=== PATIENT | female | born 1935 | race Caucasian/White ===

== ENCOUNTER → 2019-01-17 | Outpatient (CLI) | payer MEDICARE ==
--- NOTE | 2019-01-17 16:20 | Diagnostic Imaging Report ---
INDICATION: 83-year-old postmenopausal female. COMPARISON: None. FINDINGS: AP Spine L1-L4: [BMD (g/cm2): 1.093] [T-Score: -0.9] [Z-Score: 1.5] [BMD Previous: N/A] [BMD % Change: N/A] LT Hip Neck: [BMD (g/cm2): 0.599] [T-Score: -3.2] [Z-Score: -0.6] LT Hip Total: [BMD (g/cm2):0.653] [T-Score:-2.8] [Z-Score: -0.3] [BMD Previous: N/A] [BMD % Change: N/A] RT Hip Neck: [BMD (g/cm2):0.625] [T-Score:-3.0] [Z-Score:-0.4] RT Hip Total: [BMD (g/cm2):0.689] [T-score:-2.5] [Z-Score:-0.1] [BMD Previous:N/A] [BMD % Change:N/A] World Health Organization criteria for BMD interpretation classify patients as Normal (T-score at or above -1.0), Osteopenic (T-score between -1.0 and -2.5) or Osteoporotic (T-score at or below -2.5). LIMITATIONS AND MODIFICATION: None. IMPRESSION: 1. Osteoporosis. 2. Baseline examination. 3. See below National Osteoporosis Foundation guidelines on when to potentially initiate pharmacologic therapy. Based on the National Osteoporosis Foundation Guidelines, pharmacologic treatment should be initiated in any of the following, unless clinical conditions suggest otherwise: * Any patient with prior fragility fracture of the hip or vertebrae. A spine fracture indicates 5X risk for subsequent spine fracture and 2X risk for subsequent hip fracture. * Osteoporosis (T-score <-2.5). * Postmenopausal women and men age 50 and older with low bone mass/osteopenia (T-score between -1.0 and -2.5) by DXA and 10-year major osteoporotic fracture greater than 20% or a 10-year probability of hip fracture greater than 3%. These fracture risks are supplied above in the FRAX score, if applicable. * Clinician judgment and/or patient preferences may indicate treatment for people with 10-year fracture probabilities above or below these levels. Dictated by: Dictated on workstation # [id number]
== END ==
LOC: RAD 14:07
PROVIDERS: ATTEND Internal Medicine
DX: M81.0 Age-related osteoporosis without current pathological fracture (principal); Z78.0 Asymptomatic menopausal state
CPT/HCPCS: 77080

== ENCOUNTER 2019-06-29 12:24 | Inpatient (IN) | payer MEDICARE ==
[~2019-06-29] VITALS: Ht 162 cm; Wt 53.0 kg
[2019-06-29 12:39] LABS: BASOPHILS % (AUTO) 0 % (0-10); EOSINOPHILS # (AUTO) 0.1 10^3/uL (0.0-0.3); EOSINOPHILS % (AUTO) 1 % (0-10); HEMATOCRIT 40 % (35-52); HEMOGLOBIN 13.5 G/DL (11.5-16.0); LYMPHOCYTES # (AUTO) 1.2 X 10^3 (1.0-4.0); LYMPHOCYTES % (AUTO) 14 % (12-44); MEAN CORPUSCULAR HEMOGLOBIN 30 PG (25-34); MEAN CORPUSCULAR HGB CONC 34 G/DL (32-36); MEAN CORPUSCULAR VOLUME 88 FL (80-99); MEAN PLATELET VOLUME 10.1 FL (7.4-10.4); MONOCYTES # (AUTO) 0.8 X 10^3 (0.0-1.0); MONOCYTES % (AUTO) 10 % (0-12); NEUTROPHILS # (AUTO) 6.4 X 10^3 (1.8-7.8); NEUTROPHILS % (AUTO) 75 % (42-75); PLATELET COUNT 186 10^3/uL (130-400); RED CELL DISTRIBUTION WIDTH 12.8 % (10.0-14.5); WHITE BLOOD COUNT 8.5 10^3/uL (4.3-11.0)
--- NOTE | 2019-06-29 12:39 | ED Hip Pain/Injury ---
General Chief Complaint: Hip/Pelvic Problems Stated Complaint: RT HIP FX Source: patient, EMS Exam Limitations: no limitations History of Present Illness Date Seen by Provider: June 29, 2019 Time Seen by Provider: 12:20 Initial Comments Patient presents ER by EMS from [facility] with chief complaint that on Wednesday, 4 days ago she was at her daughter's house and tripped over the threshold with her left leg landing on her right hip. She denies striking her head but she's felt a little dizzy ever since then. She did not lose consciousness. She's having significant pain and inability to completely weight- bear on her right leg. She uses a walker that she had available at her house and continue to walk on it until she had her clinic appointment today. Naveen Calix, nurse practitioner at an x-ray of her hip demonstrating a fracture in the right femoral neck and sent the patient to the ER at request of their admitting physician. Patient says her pains a 5 out of 10. EMS did not give anything for pain because she did not want it. No prior history of fractures. She is on Plavix but no blood thinners. Last oral intake was a Boost at 10:00, 2 and half hours prior to arrival. Patient has no history of coronary disease. 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 Allergies and Home Medications Allergies Coded Allergies: Penicillins (Verified Adverse Reaction, Unknown, itching, 06/29/19) azithromycin (Verified Adverse Reaction, Unknown, itching, 06/29/19) hydrocodone (Verified Adverse Reaction, Unknown, itching, 06/29/19) Patient Home Medication List Home Medication List Reviewed: Yes Review of Systems Constitutional: No chills, No fever, No malaise EENTM: No ear pain, No eye pain Respiratory: No cough, No phlegm, No short of breath Cardiovascular: No chest pain, No edema Gastrointestinal: No abdominal pain, No constipation, No diarrhea, No nausea Genitourinary: No discharge, No dysuria Musculoskeletal: see HPI; No back pain; joint pain Psychiatric/Neurological: Denies Anxiety, Denies Depressed All Other Systems Reviewed Negative Unless Noted: Yes Past Dhvyuso-Qshrrc-Tlgjiz Hx Patient Social History Alcohol Use: Denies Use Recreational Drug Use: No Smoking Status: Never a Smoker Physical Exam Vital Signs Vital Signs - First Documented 06/29/19 12:24 Temp 37.0 Pulse 70 Resp 16 B/P (MAP) 186/101 (129) Pulse Ox 97 O2 Delivery Room Air Capillary Refill : Height, Weight, BMI Height: '" Weight: lbs. oz. kg; BMI Method: General Appearance: WD/WN, Mild Distress HEENT: PERRL/EOMI, TMs Normal, Normal ENT Inspection, Pharynx Normal, Moist Mucous Membranes Neck: Full Range of Motion, Normal Inspection Cardiovascular: Regular Rate, Rhythm, No Edema, Normal Peripheral Pulses Respiratory: No Accessory Muscle Use, No Respiratory Distress Peripheral Pulses: 2+ Dorsalis Pedis (R), 2+ Left Dors-Pedis (L), 2+ Radial Pulses (R), 2+ Radial Pulses (L) Gastrointestinal: Non Tender, Soft Extremity: Normal Capillary Refill, Normal Inspection, No Pedal Edema Neurologic/Psychiatric: Alert, Oriented x3, No Motor/Sensory Deficits, Normal Mood/Affect Skin: Normal Color, Warm/Dry Progress/Results/Core Measures Results/Orders Lab Results Laboratory Tests Test 06/29/19 12:30 Range/Units White Blood Count 8.5 4.3-11.0 10^3/uL Red Blood Count 4.58 4.35-5.85 10^6/uL Hemoglobin 13.5 11.5-16.0 G/DL Hematocrit 40 35-52 % Mean Corpuscular Volume 88 80-99 FL Mean Corpuscular Hemoglobin 30 25-34 PG Mean Corpuscular Hemoglobin Concent 34 32-36 G/DL Red Cell Distribution Width 12.8 10.0-14.5 % Platelet Count 186 130-400 10^3/uL Mean Platelet Volume 10.1 7.4-10.4 FL Neutrophils (%) (Auto) 75 42-75 % Lymphocytes (%) (Auto) 14 12-44 % Monocytes (%) (Auto) 10 0-12 % Eosinophils (%) (Auto) 1 0-10 % Basophils (%) (Auto) 0 0-10 % Neutrophils # (Auto) 6.4 1.8-7.8 X 10^3 Lymphocytes # (Auto) 1.2 1.0-4.0 X 10^3 Monocytes # (Auto) 0.8 0.0-1.0 X 10^3 Eosinophils # (Auto) 0.1 0.0-0.3 10^3/uL Basophils # (Auto) 0.0 0.0-0.1 10^3/uL Prothrombin Time 12.9 12.2-14.7 SEC INR Comment 0.9 0.8-1.4 Activated Partial Thromboplast Time 29 24-35 SEC Sodium Level 138 135-145 MMOL/L Potassium Level 4.1 3.6-5.0 MMOL/L Chloride Level 106 98-107 MMOL/L Carbon Dioxide Level 24 21-32 MMOL/L Anion Gap 8 5-14 MMOL/L Blood Urea Nitrogen 18 7-18 MG/DL Creatinine 0.68 0.60-1.30 MG/DL Estimat Glomerular Filtration Rate > 60 BUN/Creatinine Ratio 26 Glucose Level 121 H 70-105 MG/DL Calcium Level 10.4 H 8.5-10.1 MG/DL Corrected Calcium 10.2 H 8.5-10.1 MG/DL Total Bilirubin 0.8 0.1-1.0 MG/DL Aspartate Amino Transf (AST/SGOT) 27 5-34 U/L Alanine Aminotransferase (ALT/SGPT) 24 0-55 U/L Alkaline Phosphatase 54 40-136 U/L Troponin I < 0.028 <0.028 NG/ML Total Protein 7.0 6.4-8.2 GM/DL Albumin 4.2 3.2-4.5 GM/DL My Orders Orders - MARIANN DILL Cbc With Automated Diff (06/29/19 12:29) Comprehensive Metabolic Panel (06/29/19 12:29) Ua Culture If Indicated (06/29/19 12:29) Catheter(Urinary) Insert & Ass 03,15 (06/29/19 12:29) Chest 1 View, Ap/Pa Only (06/29/19 12:29) Ct Head/Cervical Spine Wo (06/29/19 12:29) Protime With Inr (06/29/19 12:39) Partial Thromboplastin Time (06/29/19 12:39) Fentanyl Injection (Sublimaze Injection (06/29/19 12:45) Continuous Ekg Monitoring (06/29/19 12:43) Ekg Tracing (06/29/19 12:43) Troponin I (06/29/19 13:00) Pelvis With Right Hip 2-3views (06/29/19 14:09) Medications Given in ED Current Medications Medications Dose Ordered Sig/Keila Route Start Time Stop Time Status Last Admin Dose Admin Fentanyl Citrate 50 mcg ONCE ONCE IVP 06/29/19 12:45 06/29/19 12:46 DC 06/29/19 12:48 50 MCG Vital Signs/I&O 06/29/19 12:24 Temp 37.0 Pulse 70 Resp 16 B/P (MAP) 186/101 (129) Pulse Ox 97 O2 Delivery Room Air Progress Progress Note #1: Time: 12:38 Progress Note Fentanyl for pain. We reviewed the x-ray report. We'll get a chest x-ray and some basic labs. Since she's having some reported dizziness although she has an atraumatic head on examination we would plan to get a CT of her head and neck. Progress Note #2: Time: 13:10 Progress Note The patient not having any chest pain pressure or other coronary symptoms however she does have some characteristic one half to one block elevation in the following leads: V5, V6. There are no surgical changes. Do not have any previous EKGs to compare this to and she denies having a history of coronary disease. We'll get a troponin. Initial ECG Impression Date: June 29, 2019 Initial ECG Impression Time: 12:52 Initial ECG Rate: 71 Initial ECG Rhythm: Normal Sinus Initial ECG Intervals: Normal Initial ECG Impression: Normal Initial ECG Comparisson: No Previous ECG Available Comment Normal sinus rhythm. One half to one block ST elevation in lateral leads V5 and V6. Diagnostic Imaging Diagonstic Imaging: Xray Plain Films/CT/US/NM/MRI: chest (1v) Comments [facility], [place] NAME: KENDALL NICHOLAS [facility] REC#: [id number] PT STATUS: REG ER : 1935 PHYSICIAN: MARIANN DILL MD ADMIT DATE: 06/29/19/ER Draft Date of Exam:06/29/19 CHEST 1 VIEW, AP/PA ONLY INDICATION: Post recent fall, now with pain. TECHNIQUE: Single view chest 1:31 PM. CORRELATION STUDY: None FINDINGS: Heart size is upper limits of normal. Vasculature within normal limits. Calcification of the aortic arch. Mildly prominent interstitial prominence throughout both lung keane. Likely chronic. No infiltrate, effusion or pneumothorax. There is prominence of the acromioclavicular joints, may be owing to prior traumatic changes with osteolysis and/or postoperative. IMPRESSION: 1. Negative for acute traumatic abnormality of the chest. Dictated on workstation # [id number] Dict: 06/29/19 1337 Trans: 06/29/19 1344 [facility] [id number] Interpreted by: SHARON CROWE DO Electronically signed by: Reviewed: Reviewed by Me Diagonstic Imaging: Xray Plain Films/CT/US/NM/MRI: hip (r) Comments Fracture of the upper right femoral neck. Fracture margin extends to the adjacent lower lateral corner of the femoral head. Reviewed: Reviewed by Ma Diagonstic Imaging: CT (without IV contrast) Plain Films/CT/US/NM/MRI: c-spine, head Comments NAME: KENDALL NICHOLAS [facility] REC#: [id number] PT STATUS: REG ER : 1935 PHYSICIAN: MARIANN DILL MD ADMIT DATE: 06/29/19/ER Signed Date of Exam:06/29/19 CT HEAD/CERVICAL SPINE WO PROCEDURE: CT head and CT cervical spine without contrast. TECHNIQUE: Multiple contiguous axial images were obtained through the brain and cervical spine without the use of intravenous contrast. Sagittal and coronal reformations through the cervical spine were then performed. Auto Exposure Controls were utilized during the CT exam to meet ALARA standards for radiation dose reduction. INDICATION: Fall four days ago. Headache and dizziness. Scalp contusion. Neck pain. COMPARISON: None. FINDINGS: CT head: No large acute territorial ischemia, mass, or hemorrhage. No midline shift or mass effect. Decreased attenuation is seen in the periventricular and subcortical white matter. The ventricles and cortical sulci are prominent. The basilar cisterns are patent and unremarkable. The calvarium is intact. The visualized paranasal sinuses are clear. CT cervical spine: No acute fracture or dislocation is seen in the cervical spine. No focal osseous lesions. Vertebral body heights are well-maintained. There is slight reversal of the normal lordotic curvature of the cervical spine centered at the C5 level. The craniocervical junction is well-maintained. Mild degenerative changes are seen in the cervical spine with disc osteophyte complexes and uncovertebral arthropathy. Soft tissues of the neck are unremarkable. IMPRESSION: 1. No hemorrhage or focal intra-axial mass. No CT evidence of large acute territorial ischemia. 2. No acute fracture or dislocation in the cervical spine. 3. Generalized parenchymal volume loss with chronic microvascular disease. Dictated by: Dictated on workstation # [id number] Dict: 06/29/19 1333 Trans: 06/29/191338 [facility] [id number] Interpreted by: ITZ RILEY DO Electronically signed by: ITZ RILEY DO 06/29/191338 Reviewed: Reviewed by Me Consults : Consulting Physician: BARBARA HOLMAN DO Consults Notes [id number]:Trauma surgeon on-call discussed the case and he does not feel the need to be consulted as long as orthopedics are on the case. Departure Communication (Admissions) Time/Spoke to Admitting Phy: 14:05 Discussed the case with Dr. Pérez and she is happy to admit the patient with orthopedics consult. Time/Spoke to Consulting Phy: 14:05 Discussed the case with Drs. Galdamez and he agrees to consult on the case. He would like repeat images of the hip. Impression Primary Impression: Fall Qualified Codes: W19.XXXA - Unspecified fall, initial encounter Additional Impression: Closed right hip fracture Qualified Codes: S72.001A - Fracture of unspecified part of neck of right femur, initial encounter for closed fracture Disposition: ADMITTED INPATIENT Condition: Stable Admissions Decision to Admit Reason: Admit from ER (General) Decision to Admit/Date: June 29, 2019 Time/Decision to Admit Time: 13:00 Departure-Patient Inst. Referrals: PHOEBE DAILEY MD (PCP/Family) Primary Care Physician MARIANN DILL June 29, 2019 12:39
[2019-06-29] MEDS ORDERED: fentaNYL INJECTION 100 MCG/2 ML AMP IVP ONE (12:45)
[2019-06-29 13:04] LABS: ALANINE AMINOTRANSFERASE 24 U/L (0-55); ALBUMIN 4.2 GM/DL (3.2-4.5); ALKALINE PHOSPHATASE 54 U/L (40-136); BILIRUBIN,TOTAL 0.8 MG/DL (0.1-1.0); BUN/CREATININE RATIO 26; CALCIUM 10.4 MG/DL (8.5-10.1); CARBON DIOXIDE 24 MMOL/L (21-32); CHLORIDE 106 MMOL/L (98-107); CREATININE SERUM 0.68 MG/DL (0.60-1.30); GFR ESTIMATED > 60; GLUCOSE 121 MG/DL (70-105); POTASSIUM 4.1 MMOL/L (3.6-5.0); SODIUM 138 MMOL/L (135-145)
--- NOTE | 2019-06-29 13:39 | Diagnostic Imaging Report ---
PROCEDURE: CT head and CT cervical spine without contrast. TECHNIQUE: Multiple contiguous axial images were obtained through the brain and cervical spine without the use of intravenous contrast. Sagittal and coronal reformations through the cervical spine were then performed. Auto Exposure Controls were utilized during the CT exam to meet ALARA standards for radiation dose reduction. INDICATION: Fall four days ago. Headache and dizziness. Scalp contusion. Neck pain. COMPARISON: None. FINDINGS: CT head: No large acute territorial ischemia, mass, or hemorrhage. No midline shift or mass effect. Decreased attenuation is seen in the periventricular and subcortical white matter. The ventricles and cortical sulci are prominent. The basilar cisterns are patent and unremarkable. The calvarium is intact. The visualized paranasal sinuses are clear. CT cervical spine: No acute fracture or dislocation is seen in the cervical spine. No focal osseous lesions. Vertebral body heights are well-maintained. There is slight reversal of the normal lordotic curvature of the cervical spine centered at the C5 level. The craniocervical junction is well-maintained. Mild degenerative changes are seen in the cervical spine with disc osteophyte complexes and uncovertebral arthropathy. Soft tissues of the neck are unremarkable. IMPRESSION: 1. No hemorrhage or focal intra-axial mass. No CT evidence of large acute territorial ischemia. 2. No acute fracture or dislocation in the cervical spine. 3. Generalized parenchymal volume loss with chronic microvascular disease. Dictated by: Dictated on workstation # [id number]
--- NOTE | 2019-06-29 13:44 | Diagnostic Imaging Report ---
INDICATION: Post recent fall, now with pain. TECHNIQUE: Single view chest 1:31 PM. CORRELATION STUDY: None FINDINGS: Heart size is upper limits of normal. Vasculature within normal limits. Calcification of the aortic arch. Mildly prominent interstitial prominence throughout both lung keane. Likely chronic. No infiltrate, effusion or pneumothorax. There is prominence of the acromioclavicular joints, may be owing to prior traumatic changes with osteolysis and/or postoperative. IMPRESSION: 1. Negative for acute traumatic abnormality of the chest. Dictated by: Dictated on workstation # [id number]
[2019-06-29 13:50] LABS: INR 0.9 (0.8-1.4); PROTHROMBIN TIME PATIENT 12.9 SEC (12.2-14.7)
[2019-06-29 14:30] LABS: BILIRUBIN,URINE NEGATIVE (NEGATIVE); CLARITY,URINE CLEAR; COLOR,URINE YELLOW; GLUCOSE, URINE (UA) NEGATIVE (NEGATIVE); KETONES,URINE TRACE (NEGATIVE); LEUKOCYTE ESTERASE ,URINE NEGATIVE (NEGATIVE); NITRITE,URINE NEGATIVE (NEGATIVE); PH,URINE 7.5 (5-9); PROTEIN,URINE NEGATIVE (NEGATIVE)
[2019-06-29 14:47] LABS: AMORPHOUS SEDIMENT,UR LARGE AMOR PHOSPHATE /LPF; BACTERIA,URINE TRACE /HPF
[2019-06-29] MEDS ORDERED: traZODone 50 MG (DESYREL) TAB PO PRN (15:15)
[2019-06-29] MEDS ORDERED: CATHETER FLUSH 10 ML SYR IV PRN (15:15)
[2019-06-29] MEDS ORDERED: ONDANSETRON 4 MG/2 ML (SDV) Z0FRAN IV PRN (15:15)
[2019-06-29] MEDS ORDERED: fentaNYL INJECTION 100 MCG/2 ML AMP IV PRN (15:15)
--- OUTSIDE RECORDS SUMMARY | 2019-06-29 15:21 | XMS REPORT | Continuity of Care Document ---
Author Organization Unknown Address Unknown Phone Unavailable Allergies There is no data. Medications There is no data. Problems Date Dx Coded Attending Type Code Diagnosis Diagnosed By 01/17/2019 ASIM DOBBS, PHOEBE Munguia Ot M81 .0 AGE-RELATED OSTEOPOROSIS W/O CURRENT PAT 01/17/2019 PHOEBE DAILEY MD, Ot M81 .0 AGE-RELATED OSTEOPOROSIS W/O CURRENT PAT 01/30/2019 PHOEBE DAILEY MD, Ot M81 .0 AGE-RELATED OSTEOPOROSIS W/O CURRENT PAT 01/30/2019 PHOEBE DAILEY MD, Ot Z78 .0 ASYMPTOMATIC MENOPAUSAL STATE Procedures There is no data. Results Test Result Range LIPID PANEL - 04/18/19 11:03 CHOLESTEROL, TOTAL 134 mg/dL <200 HDL CHOLESTEROL 59 mg/dL > OR = 50 TRIGLYCERIDES 101 mg/dL <150 LDL-CHOLESTEROL 57 mg/dL (calc) NRG CHOL/HDLC RATIO 2.3 (calc) <5.0 NON HDL CHOLESTEROL 75 mg/dL (calc) <130 Complete blood count (CBC) with automate d white blood cell (WBC) differential - 06/29/19 12:30 Blood leukocytes automated count (number/volume) 8.5 10*3/uL 4.3-11.0 Blood erythrocytes automated count (number/volume) 4.58 10*6/uL 4.35-5.85 Venous blood hemoglobin measurement (mass/volume) 13.5 g/dL 11.5-16.0 Blood hematocrit (volume fraction) 40 % 35-52 Automated erythrocyte mean corpuscular volume 88 [ foz_us] 80-99 Automated erythrocyte mean corpuscular h emoglobin (mass per erythrocyte) 30 pg 25-34 Automated erythrocyte mean corpuscular h emoglobin concentration measurement (mass/volume) 34 g/dL 32-36 Automated erythrocyte distribution width ratio 12. 8 % 10.0- 14.5 Automated blood platelet count (count/volume) 186 10*3/uL 130-400 Automated blood platelet mean volume measurement 10.1 [foz_us] 7.4-10.4 Automated blood neutrophils/100 leukocytes 75 % 42-75 Automated blood lymphocytes/100 leukocytes 14 % 12-44 Blood monocytes/100 leukocytes 10 % 0-12 Automated blood eosinophils/100 leukocytes 1 % 0-10 Automated blood basophils/100 leukocytes 0 % 0-10 Blood neutrophils automated count (number/volume) 6.4 10*3 1.8-7.8 Blood lymphocytes automated count (number/volume) 1.2 10*3 1.0-4.0 Blood monocytes automated count (number/volume) 0. 8 10*3 0.0-1.0 Automated eosinophil count 0.1 10*3/uL 0 .0-0.3 Automated blood basophil count (count/volume) 0.0 10*3/uL 0.0-0.1 Comprehensive metabolic panel - 06/29/19 12:30 Serum or plasma sodium measurement (moles/volume) 138 mmol/L 135-145 Serum or plasma potassium measurement (moles/volume) 4.1 mmol/L 3.6-5.0 Serum or plasma chloride measurement (moles/volume) 106 mmol/L 98-107 Carbon dioxide 24 mmol/L 21-32 Serum or plasma anion gap determination (moles/volume) 8 mmol/L 5-14 Serum or plasma urea nitrogen measurement (mass/volume ) 18 mg/dL 7-18 Serum or plasma creatinine measurement (mass/volume) 0.68 mg/dL 0.60-1.30 Serum or plasma urea nitrogen/creatinine mass ratio 26 NRG Serum or plasma creatinine measurement w ith calculation of estimated glomerular filtration rate > NRG Serum or plasma glucose measurement (mass/volume) 121 mg/dL 70-105 Serum or plasma calcium measurement (mass/volume) 10.4 mg/dL 8.5-10.1 Serum or plasma total bilirubin measurement (mass/volu me) 0.8 mg/dL 0.1-1.0 Serum or plasma alkaline phosphatase lima surement (enzymatic activity/volume) 54 U/L 40-136 Serum or plasma aspartate aminotransfera se measurement (enzymatic activity/volume) 27 U/L 5-34 Serum or plasma alanine aminotransferase measurement (enzymatic activity/volume) 24 U/L 0-55 Serum or plasma protein measurement (mass/volume) 7.0 g/dL 6.4-8.2 Serum or plasma albumin measurement (mass/volume) 4.2 g/dL 3.2-4.5 CALCIUM CORRECTED 10.2 mg/dL 8.5-10.1 Serum or plasma troponin i.cardiac measu rement (mass/volume) - 06/29/19 12:30 Serum or plasma troponin i.cardiac measurement (mass/v olume) < ng/mL <0.028 PT panel in platelet poor plasma by coag ulation assay - 06/29/19 12:30 Prothrombin time (PT) in platelet poor plasma by coagu lation assay 12.9 s 12.2-14.7 INR in platelet poor plasma or blood by coagulation as say 0.9 0.8-1.4 Activated partial thromboplastin time (a PTT) in platelet poor plasma bycoagulation assay - 06/29/19 12:30 Activated partial thromboplastin time (a PTT) in platelet poor plasma bycoagulation assay 29 s 24-35 Complete urinalysis with reflex to cultu re - 06/29/19 14:20 Urine color determination YELLOW NRG Urine clarity determination CLEAR NR G Urine pH measurement by test strip 7.5 5-9 Specific gravity of urine by test strip 1.015 1.016-1.022 Urine protein assay by test strip, semi-quantitative NEGATIVE NEGATIVE Urine glucose detection by automated test strip NE GATIVE NEGATIVE Erythrocytes detection in urine sediment by light micr oscopy NEGATIVE NEGATIVE Urine ketones detection by automated test strip TR WAI NEGATIVE Urine nitrite detection by test strip NEGATIVE NEGATIVE Urine total bilirubin detection by test strip NEGA TIVE NEGATIVE Urine urobilinogen measurement by automated test strip (mass/volume) 0.2 mg/dL < = 1.0 Urine leukocyte esterase detection by dipstick NEG ATIVE NEGATIVE Automated urine sediment erythrocyte cou nt by microscopy (number/high power field) NONE NRG Automated urine sediment leukocyte count by microscopy (number/high power field) NONE NRG Bacteria detection in urine sediment by light microsco py TRACE NRG Crystals detection in urine sediment by light microsco py PRESENT NRG Casts detection in urine sediment by light microscopy NONE NRG Mucus detection in urine sediment by light microscopy NEGATIVE NRG Complete urinalysis with reflex to culture NO NRG Amorphous sediment detection in urine sediment by ligh t microscopy LARGE SUNSHINE PHOSPHATE NRG Encounters ACCT No. Visit Date/Time Discharge Status Pt. Type Provider Facility Loc./Unit Complaint [id number] 10/18/2018 09:40:00 10/18/2018 23:59: 59 CLS Outpatient [id number] 04/18/2019 10:20:00 Document Registration [id number] 01/17/2019 14:07:00 019 23:59:59 CLS Outpatient PHOEBE DAILEY MD [facility] RAD AGE-RELATED OSTEOPOROSI S M81.0 [id number] 06/29/2019 12:40:00 Document Registration
[2019-06-29] MEDS ORDERED: TRZ50T PO (15:34)
[2019-06-29] MEDS ORDERED: CLOP75TA28 PO (15:34)
[2019-06-29] MEDS ORDERED: ATOR40TA70 PO (15:34)
[2019-06-29] MEDS ORDERED: RISE35TA12 PO (15:34)
[2019-06-29] MEDS ORDERED: LISI-556 PO (15:34)
[2019-06-29] MEDS ORDERED: CALC-250 PO (15:37)
[2019-06-29] MEDS ORDERED: CETI10TA21 PO (15:37)
[2019-06-29] MEDS ORDERED: MELA10TA2 PO (15:37)
[2019-06-29] MEDS ORDERED: MULT-1136 PO (15:37)
--- NOTE | 2019-06-29 15:38 | NUR ---
SPOKE WITH THE PT AND WENT THRU THE EXT MED HISTORY TO COMPLETE THE MED REC THE PT WAS ABLE TO TELL ME HER MEDS WELL WHEN/HOW SHE TAKES EACH. OTC MEDS: MELATONIN MTV VIT D ZYRTEC
--- NOTE | 2019-06-29 15:51 | NUR ---
KENDALL NICHOLAS admitted to room 424-1, with an admitting diagnosis of right hip fx, on 06/29/19 from ER via stretcher, accompanied by staff .KENDALL NICHOLAS introduced to surroundings, call light, bed controls, phone, TV, temperature control, lights, meal times, smoking policy, visitor policy, side rail policy, bathrooms and showers. Patient Rights given to patient in the handbook. KENDALL NICHOLAS verbalizes understanding that [facility] is not responsible for the loss or damage to any personal effects or valuables that are kept in the patients posession during their hospitalization. The following Patient Care Plans and discharge were discussed with the patient. KENDALL NICHOLAS verbalizes understanding of Interdisciplinary Patient Education. Patient was informed about the Rapid Response Team and its purpose.
--- NOTE | 2019-06-29 15:56 | CONSULTATION REPORT ---
DATE OF SERVICE: 06/29/2019 REASON FOR CONSULTATION: Right displaced femoral neck fracture. HISTORY OF PRESENT ILLNESS: The patient is an 83-year-old female who fell on Wednesday and landed on her right hip. She reports that she was having pain and inability to bear weight on the right lower extremity. She ambulated with a walker, but continued to walk on it until she had a clinic appointment today. An x-ray was obtained, which revealed a right femoral neck fracture. She denies antecedent pain. REVIEW OF SYSTEMS: No recent chest pain, shortness of breath or dysuria. ALLERGIES: PENICILLIN, AZITHROMYCIN, HYDROCODONE. PHYSICAL EXAMINATION: The right lower extremity is painful to internal and external rotation of the hip. She has symmetric pulses. She has intact dorsiflexion and plantarflexion of the toes. No skin lesions are noted. Radiographs reveal displaced right femoral neck fracture. IMPRESSION: Displaced right femoral neck fracture. PLAN: Right hip bipolar replacement. The risks, benefits, options, ramifications and recovery were discussed at length with the patient. She understands and wishes to proceed. Job ID: [id number] DocumentID: [id number] Dictated Date: 06/29/2019 15:33:50 Dairy Farmworker Date: 06/29/2019 15:54:31 Dictated By: SHANKAR SCOTT MD
[2019-06-29] MEDS: LACTATED RINGERS 1,000 ML IV SCH (16:12)
[2019-06-29 16:22] VITALS: BP 174/102
--- OUTSIDE RECORDS SUMMARY | 2019-06-29 18:13 | XMS REPORT | Continuity of Care Document ---
[...] Status Pt. Type Provider Facility Loc./Unit Complaint [id number] 10/18/2018 09:40:00 10/18/2018 23:59: 59 CLS Out[facility] [id number] 04/18/2019 10:20:00 Document Registration [id number] 01/17/2019 14:07:00 019 23:59:59 CLS Outpatient PHOEBE DAILEY MD [facility] RAD AGE-RELATED OSTEOPOROSI S M81.0 [id number] 06/29/2019 12:40:00 Document Registration
[2019-06-29 19:45] VITALS: BP 154/67
[2019-06-30] VITALS (13 sets, daily range): BP systolic 127–228; BP diastolic 68–101
[2019-06-30] MEDS: lisINopril 5 MG (PRINIVIL) TABLET PO SCH ×3 (00:13→23:52)
[2019-06-30] MEDS: LACTATED RINGERS 1,000 ML IV SCH ×4 (05:44→19:50)
[2019-06-30 06:31] LABS: BASOPHILS % (AUTO) 1 % (0-10); EOSINOPHILS # (AUTO) 0.2 10^3/uL (0.0-0.3); EOSINOPHILS % (AUTO) 3 % (0-10); HEMATOCRIT 37 % (35-52); HEMOGLOBIN 12.2 G/DL (11.5-16.0); LYMPHOCYTES # (AUTO) 1.1 X 10^3 (1.0-4.0); LYMPHOCYTES % (AUTO) 26 % (12-44); MEAN CORPUSCULAR HEMOGLOBIN 30 PG (25-34); MEAN CORPUSCULAR HGB CONC 33 G/DL (32-36); MEAN CORPUSCULAR VOLUME 88 FL (80-99); MEAN PLATELET VOLUME 10.2 FL (7.4-10.4); MONOCYTES # (AUTO) 0.6 X 10^3 (0.0-1.0); MONOCYTES % (AUTO) 13 % (0-12); NEUTROPHILS # (AUTO) 2.5 X 10^3 (1.8-7.8); NEUTROPHILS % (AUTO) 57 % (42-75); PLATELET COUNT 169 10^3/uL (130-400); RED CELL DISTRIBUTION WIDTH 12.5 % (10.0-14.5); WHITE BLOOD COUNT 4.4 10^3/uL (4.3-11.0)
--- NOTE | 2019-06-30 06:46 | Progress Note ---
Standard Progress Note Progress Notes/Assess & Plan Date Seen by a Provider: June 30, 2019 Time Seen by a Provider: 06:45 Progress/Assessment & Plan NO complaints discussed surgical treatment with the patient at length. plan to OR today for right hip bipolar SHANKAR SCOTT MD June 30, 2019 06:46
[2019-06-30 06:49] LABS: BUN/CREATININE RATIO 24; CALCIUM 8.7 MG/DL (8.5-10.1); CARBON DIOXIDE 23 MMOL/L (21-32); CHLORIDE 106 MMOL/L (98-107); CREATININE SERUM 0.63 MG/DL (0.60-1.30); GFR ESTIMATED > 60; GLUCOSE 101 MG/DL (70-105); POTASSIUM 4.3 MMOL/L (3.6-5.0); SODIUM 138 MMOL/L (135-145)
[2019-06-30] MEDS ORDERED: BUPIVACAINE 0.5% 30 ML (SENSORCAINE) VIAL ONE (09:37)
[2019-06-30] MEDS ORDERED: fentaNYL INJECTION 100 MCG/2 ML AMP ONE ×2 (09:59→12:40)
[2019-06-30] MEDS ORDERED: LIDOCAINE PF 2% 5 ML (XYLOCAINE) VIAL ONE (09:59)
[2019-06-30] MEDS ORDERED: SEVOFLURANE (ULTANE) 15 ML INHAL SOLN ONE ×3 (09:59→12:57)
[2019-06-30] MEDS ORDERED: ONDANSETRON 4 MG/2 ML (SDV) Z0FRAN ONE (09:59)
[2019-06-30] MEDS ORDERED: proPOfol 200 MG/20 ML (DIPRIVAN) VIAL IV ONE (09:59)
[2019-06-30] MEDS ORDERED: ROCURONIUM 10 MG/ML 5 ML SYRINGE IV ONE (09:59)
[2019-06-30] MEDS ORDERED: DEXAMETHASONE 10 MG/ML (DECADRON) 1 ML VIAL ONE (09:59)
[2019-06-30] MEDS ORDERED: ROPIVACAINE 5MG/ML 30ML VIAL ONE (11:50)
--- NOTE | 2019-06-30 11:53 | Progress Note-Pre Operative ---
Pre-Operative Progress Note H&P Reviewed The H&P was reviewed, patient examined and no changes noted. Date Seen by Provider: June 30, 2019 Time Seen by Provider: 11:52 Date H&P Reviewed: June 30, 2019 Time H&P Reviewed: 11:53 Pre-Operative Diagnosis: displaced right femoral neck fracture SHANKAR SCOTT MD June 30, 2019 11:53
--- NOTE | 2019-06-30 11:54 | Progress Note-Post Operative ---
Post-Operative Progess Note Surgeon (s)/Head Filter Tank Tender Helper (s) Surgeon SHANKAR SCOTT MD Head Filter Tank Tender Helper: Lavon Gautam Pre-Operative Diagnosis displaced right femoral neck fracture Post-Operative Diagnosis displaced right femoral neck fracture Procedure & Operative Findings Date of Procedure 06/30/19 Procedure Performed/Findings right hip bipolar replacement Anesthesia Type GETA Estimated Blood Loss Estimated blood loss (mL): 100 ml Specimens/Packing Specimens Removed femoral head Packing: none SHANKAR SCOTT MD June 30, 2019 11:54
--- NOTE | 2019-06-30 12:00 | NUR ---
PT off floor at this time for surgery
[2019-06-30] MEDS ORDERED: ACETAMINOPHEN 325 MG TABLET PO PRN (12:15)
[2019-06-30] MEDS ORDERED: diphenhydrAMINE 50 MG/ML INJ (BENADRYL) IVP PRN (12:15)
[2019-06-30] MEDS ORDERED: TEMAZEPAM 15 MG (RESTORIL) CAP PO PRN (12:15)
[2019-06-30] MEDS ORDERED: ONDANSETRON 4 MG/2 ML (SDV) Z0FRAN IVP PRN ×2 (12:15→14:00)
[2019-06-30] MEDS ORDERED: ESMOLOL 100 MG/10 ML (BREVIBLOC) VIAL ONE (12:33)
[2019-06-30] MEDS ORDERED: GLYCOPYRROLATE 0.2 MG/ML (ROBINUL) 2 ML VIAL ONE (12:42)
[2019-06-30] MEDS ORDERED: NEOSTIGMINE 3 MG/3 ML VIAL ONE (12:42)
[2019-06-30] MEDS ORDERED: ceFAZolin 2 GM IV Premixed 50 ML IV NR (13:30)
[2019-06-30] MEDS ORDERED: HYDROmorphone 2 MG/ML VIAL (DILAUDID) ONE (13:41)
[2019-06-30] MEDS ORDERED: HYDROmorphone 2 MG/ML VIAL (DILAUDID) IV ONE (14:00)
[2019-06-30] MEDS ORDERED: LABETALOL HCL 100 MG/20 ML VIAL IV ONE (14:00)
[2019-06-30] MEDS ORDERED: LABETALOL HCL 20 MG/4 ML VIAL ONE (14:08)
--- NOTE | 2019-06-30 14:42 | Diagnostic Imaging Report ---
EXAMINATION: Right hip at 02:04 p.m. INDICATION: Postop. FINDINGS: AP and cross-table lateral views of the right hip were received from the OR. The prior exam from [facility] in [facility] noted an impacted fracture of the right femoral neck. On this study, there is now a total hip prosthesis in place. The prosthetic components seem to be in good position. There is no fracture or acute bony abnormality evident. There is gas in the soft tissues lateral to the hip joint. Skin mary carmen are also noted. IMPRESSION: Stable postoperative right hip. Dictated by: Dictated on workstation # [id number]
--- NOTE | 2019-06-30 14:45 | NUR ---
patient back to room at this time post surgery. patient alert but drowsy complaining of pain at this time. vitals taken blood pressure slightly elevated 180s/70s. Morning dose of lisinopril given at this time as well as IV morphine. patient stated she is hungry but would like to rest at this time and start with a clear liquid diet for dinner. dressing clean, dry, intact, ice applied to area, abduction pillow on, thigh high teds in place, and SCDS on. All are being tolerated well
[2019-06-30] MEDS: morphine INJ 4 MG/ML 1 ML (VIAL/SYRINGE) IVP PRN (14:59)
--- NOTE | 2019-06-30 16:02 | NUR ---
O2 currently at 80% on RA. patient placed on 2L NC O2 currently at 96%
--- NOTE | 2019-06-30 16:33 | History & Physical ---
HPI History of Present Illness: 83 yo F that presented to [facility] walk in care after a fall 4 days ago with hip pain. States that she tripped over something and then fell. She was able to ambulate with walker for the last 4 days but has been having more pain. She normally ambulates ad joyce. She was found to have hip fracture and sent to the hospital. 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 Denies any previous fractures. She is on other medications for prevention but denies any heart or lung disease. Source: patient Date seen by provider: June 30, 2019 Time Seen by Provider: 10:15 Attending Physician Ramona Pérez MD PCP Phoebe Dailey MD Consult BARBARA HOLMAN DO Date of Admission June 29, 2019 at 14:37 Home Medications Home Medications Reviewed patient Home Medication Reconciliation performed by pharmacy medication reconciliations controls technician and/or nursing. Patients Allergies have been reviewed. Allergies Coded Allergies: Penicillins (Verified Adverse Reaction, Unknown, itching, 06/29/19) azithromycin (Verified Adverse Reaction, Unknown, itching, 06/29/19) hydrocodone (Verified Adverse Reaction, Unknown, itching, 06/29/19) BNH-Aloklq-Adhnnz Hx Patient Social History Living Status: Lives home alone Alcohol Use: Denies Use Recreational Drug Use: No Smoking Status: Former Smoker Type Used: Cigarettes Recent Foreign Travel: No Contact w/other who traveled: No Recent Hopitalizations: No Recent Infectious Disease Expo: No Physical Abuse Screen: No Sexual Abuse: No Immunizations Up To Date Date of Pneumonia Vaccine: Feb 15, 2017 Past Medical History Osteoprosis HTN Family Medical History Significant Family History: No Pertinent Family Hx Family History: Cardiovascular disease 19 MOTHER Colon cancer 19 MOTHER Diabetes mellitus 19 FATHER Hypertension 19 FATHER 19 MOTHER Severe allergy 19 FATHER 19 MOTHER Review of Systems ([facility]) Constitutional: No chills, No dizziness, No fever; weakness EENTM: no symptoms reported; No mouth pain, No nose congestion, No nose pain Respiratory: no symptoms reported; No cough, No dyspnea on exertion, No short of breath Cardiovascular: no symptoms reported; No chest pain, No edema, No palpitations Gastrointestinal: no symptoms reported; No abdominal pain, No constipation, No diarrhea, No nausea, No vomiting Genitourinary: no symptoms reported; No dysuria, No frequency, No hematuria Musculoskeletal: joint pain, muscle weakness Skin: no symptoms reported; No lesions, No rash Psychiatric/Neurological: Numbness, Weakness Reviewed Test Results Reviewed Test Results Lab Laboratory Tests Test 06/30/19 05:45 Range/Units White Blood Count 4.4 4.3-11.0 10^3/uL Red Blood Count 4.13 L 4.35-5.85 10^6/uL Hemoglobin 12.2 11.5-16.0 G/DL Hematocrit 37 35-52 % Mean Corpuscular Volume 88 80-99 FL Mean Corpuscular Hemoglobin 30 25-34 PG Mean Corpuscular Hemoglobin Concent 33 32-36 G/DL Red Cell Distribution Width 12.5 10.0-14.5 % Platelet Count 169 130-400 10^3/uL Mean Platelet Volume 10.2 7.4-10.4 FL Neutrophils (%) (Auto) 57 42-75 % Lymphocytes (%) (Auto) 26 12-44 % Monocytes (%) (Auto) 13 H 0-12 % Eosinophils (%) (Auto) 3 0-10 % Basophils (%) (Auto) 1 0-10 % Neutrophils # (Auto) 2.5 1.8-7.8 X 10^3 Lymphocytes # (Auto) 1.1 1.0-4.0 X 10^3 Monocytes # (Auto) 0.6 0.0-1.0 X 10^3 Eosinophils # (Auto) 0.2 0.0-0.3 10^3/uL Basophils # (Auto) 0.0 0.0-0.1 10^3/uL Sodium Level 138 135-145 MMOL/L Potassium Level 4.3 3.6-5.0 MMOL/L Chloride Level 106 98-107 MMOL/L Carbon Dioxide Level 23 21-32 MMOL/L Anion Gap 9 5-14 MMOL/L Blood Urea Nitrogen 15 7-18 MG/DL Creatinine 0.63 0.60-1.30 MG/DL Estimat Glomerular Filtration Rate > 60 BUN/Creatinine Ratio 24 Glucose Level 101 70-105 MG/DL Calcium Level 8.7 8.5-10.1 MG/DL Physical Exam-(CHC) Physical Exam Vital Signs VS - Last 72 Hours, by Label 06/29/19 06/29/19 06/29/19 06/29/19 12:24 14:49 16:19 16:22 Temp 37.0 36.8 36.8 Pulse 70 71 71 Resp 16 18 18 B/P (MAP) 186/101 (129) 174/102 174/102 Pulse Ox 97 99 99 O2 Delivery Room Air Room Air Room Air Room Air 06/29/19 06/29/19 06/29/19 06/30/19 19:45 20:00 20:06 00:00 Temp 37.2 36.8 Pulse 71 71 63 Resp 15 20 B/P (MAP) 154/67 (96) 180/69 (106) Pulse Ox 95 95 97 O2 Delivery Room Air Room Air Room Air 06/30/19 06/30/19 06/30/19 06/30/19 01:00 04:00 07:00 08:00 Temp 36.7 36.9 Pulse 62 67 64 61 Resp 18 18 B/P (MAP) 149/68 (95) 153/69 (97) Pulse Ox 94 98 O2 Delivery Room Air Room Air 06/30/19 06/30/19 06/30/19 06/30/19 08:00 13:45 13:45 13:50 Temp 36.5 Resp 16 18 B/P (MAP) 218/98 (138) 228/95 (139) Pulse Ox 97 100 O2 Delivery Room Air OxyMask OxyMask OxyMask O2 Flow Rate 10 10 10 06/30/19 06/30/19 06/30/19 06/30/19 14:00 14:10 14:15 14:20 Resp 16 16 14 B/P (MAP) 212/101 (138) 221/87 (131) 201/78 (119) Pulse Ox 100 100 100 O2 Delivery OxyMask OxyMask OxyMask OxyMask O2 Flow Rate 10 10 10 10 06/30/19 06/30/19 06/30/19 06/30/19 14:30 14:39 14:45 15:51 Temp 36.1 36.2 Pulse 61 Resp 17 11 15 B/P (MAP) 207/84 (125) 204/83 (123) 147/70 (95) Pulse Ox 100 97 95 O2 Delivery OxyMask Room Air Room Air Nasal Cannula O2 Flow Rate 10 2.00 06/30/19 16:13 Pulse Ox 96 O2 Delivery Nasal Cannula O2 Flow Rate 2.00 Capillary Refill : Less Than 3 SecondsLess Than 3 Seconds General Appearance: WD/WN, no apparent distress, thin (elderly female) HEENT: PERRL/EOMI Neck: non-tender, full range of motion, supple Respiratory: chest non-tender, lungs clear, normal breath sounds, no respiratory distress, no accessory muscle use Cardiovascular: normal peripheral pulses, regular rate, rhythm, no murmur Gastrointestinal: normal bowel sounds, non tender, soft, no organomegaly Back: no CVA tenderness, no vertebral tenderness Extremities: no pedal edema, no calf tenderness, normal capillary refill Neurologic/Psychiatric: siding coreboard inspector II-XII nml as tested, alert, normal mood/affect, oriented x 3 Skin: normal color, warm/dry Lymphatic: no adenopathy Assessment/Plan Assessment/Plan Admission Status: Inpatient Order (span 2 midnights) Reason for Inpatient Admission: Needs surgical intervention (1) Closed right hip fracture Status: Acute Assessment & Plan: - Dr Caruso consulted and plan to take patient to surgery today Qualifiers: Qualified Codes: S72.001A - Fracture of unspecified part of neck of right femur, initial encounter for closed fracture (2) Fall Status: Acute Qualifiers: Qualified Codes: W19.XXXA - Unspecified fall, initial encounter (3) Age related osteoporosis Status: Chronic Assessment & Plan: - Continue treatment outpatient Qualifiers: Qualified Codes: M80.00XA - Age-related osteoporosis with current pathological fracture, unspecified site, initial encounter for fracture (4) HTN (hypertension) Status: Chronic Assessment & Plan: - Continue home meds Qualifiers: Qualified Codes: I10 - Essential (primary) hypertension Clinical Quality Measures DVT/VTE Risk/Contraindication: Risk Factor Score Per Nursin RFS Level Per Nursing on Admit: 4+=Very High Copy Copies To 1: PHOEBE DAILEY MD, HOLLY R MD June 30, 2019 16:33
[2019-06-30] MEDS: oxyCODONE/APAP 5/325MG (PERCOCET 5) TABLET PO PRN ×2 (18:19→23:59)
[2019-06-30] MEDS: CEFUROXIME INJECTION 750 MG in WATER (STERILE) FOR INJECTION 10 ML IV SCH (19:47)
[2019-06-30] MEDS: SENNOSIDES 8.6 MG (SENOKOT) TAB PO SCH (19:53)
--- NOTE | 2019-06-30 19:59 | OPERATIVE REPORT ---
DATE OF SERVICE: 06/30/2019 PREOPERATIVE DIAGNOSIS: Displaced right femoral neck fracture. POSTOPERATIVE DIAGNOSIS: Displaced right femoral neck fracture. PROCEDURE: Right hip bipolar replacement. SURGEON: Ivan Scott MD RELATIONS MANAGER: Lavon Gautam, who assisted throughout the procedure and closed the incision. ANESTHESIA: General endotracheal by Brendan Villanueva CRNA. ESTIMATED BLOOD LOSS: 100 mL. DRAINS: None. COMPLICATIONS: None. MATERIALS: DePuy pressfit 3 femur with a neutral neck and 46 liner/head. POSTOPERATIVE PLAN: Routine hip precautions. The patient was transferred to the recovery room awake and in stable condition. STATEMENT OF MEDICAL NECESSITY: The patient is an 83-year-old female who fell on Wednesday and had persistent hip pain. She presented to her health care provider yesterday and was found to have a displaced femoral neck fracture. She was admitted to the hospital. In order to maintain her ambulatory status, the patient elected to proceed with surgical intervention. DESCRIPTION OF PROCEDURE: After risks and benefits of procedure were discussed and questions were answered and informed consent was signed and placed on chart, the operative site was confirmed in the preoperative holding area and initialed by the surgeon. The patient was then transferred to the operating room. After adequate levels of general endotracheal anesthetic were obtained, a timeout was called, confirming the operative site. The patient was then carefully placed in the left lateral decubitus position, being careful to place an axillary roll and pad all bony prominences. The right hip was then prepped and draped in the usual sterile fashion. A standard anterior approach was utilized. Hemostasis was obtained with cautery. The iliotibial band was incised in line with the incision. The abductor tendon was released from the greater trochanter leaving 1 cm cuff for later reattachment. Hip capsulotomy was performed. The femoral neck cut was completed and the femoral head was removed. This was sized to a size 46. This was trialled and found to have an excellent sizing. The joint was copiously irrigated. Loose bodies were removed and no further loose bodies were noted. The femur was then prepared with the box chisel followed by the T-handle reamer and this was sequentially broached to a size 3. The 3 broach was left in as trialed. The neutral head was placed with a 46 liner. The hip was reduced and found to be stable in all planes with no impingement noted. No limitations to motion were noted and no instability was noted. The hip was then redislocated. The trials were removed and the joint was further irrigated with pulse lavage. The size 3 prosthesis was then placed in 15 degrees of anteversion. This had excellent fill proximally. The wound was further irrigated and the head liner shell combo was placed. The hip was then reduced after inspecting for loose bodies with none noted. The hip was then taken through range of motion with no impingement noted. No instability noted and no limitations to motion noted. The joint was further irrigated with pulse lavage. A capsulotomy and abductor tendons were repaired with #5 Tevdek in [id number]-yp-tlvdl interrupted fashion. The wound was further irrigated with pulse lavage. Then, #1 Vicryl was used to reapproximate the iliotibial band in a running fashion. The subcutaneous tissues were irrigated with pulse lavage using a total of 3 liters throughout the procedure. A 0 Vicryl was used for the deep subcutaneous tissue, 2-0 Vicryl for the superficial subcutaneous tissue, mary carmen used on the skin. A soft dressing was applied. The patient was transferred to the recovery room awake and in stable condition. Job ID: [id number] DocumentID: [id number] Dictated Date: 06/30/2019 13:40:54 Ski Binding Fitter And Repairer Date: 06/30/2019 19:59:17 Dictated By: IVAN SCOTT MD
[2019-07-01 04:20] VITALS: BP 160/70
[2019-07-01] MEDS: morphine INJ 4 MG/ML 1 ML (VIAL/SYRINGE) IVP PRN (04:30)
[2019-07-01] MEDS: CEFUROXIME INJECTION 750 MG in WATER (STERILE) FOR INJECTION 10 ML IV SCH (04:31)
[2019-07-01 05:15] LABS: HEMOGLOBIN 9.4 G/DL (11.5-16.0)
[2019-07-01 05:27] LABS: CHLORIDE 104 MMOL/L (98-107); POTASSIUM 4.6 MMOL/L (3.6-5.0); SODIUM 134 MMOL/L (135-145)
[2019-07-01 05:29] LABS: CALCIUM 8.2 MG/DL (8.5-10.1); GLUCOSE 141 MG/DL (70-105)
[2019-07-01 05:31] LABS: CARBON DIOXIDE 22 MMOL/L (21-32)
[2019-07-01 05:33] LABS: CREATININE SERUM 0.57 MG/DL (0.60-1.30); GFR ESTIMATED > 60
[2019-07-01 05:34] LABS: BUN/CREATININE RATIO 19
--- NOTE | 2019-07-01 06:18 | Progress Note ---
Standard Progress Note Progress Notes/Assess & Plan Date Seen by a Provider: July 01, 2019 Time Seen by a Provider: 06:16 Progress/Assessment & Plan NO complaints discussed surgical treatment with the patient at length. plan to OR today for right hip bipolar Final Diagnosis no complaints radiograph--HW well positioned without fracture Vital Signs Date Time Temp Pulse Resp B/P (MAP) Pulse Ox O2 Delivery O2 Flow Rate FiO2 07/01/19 04:20 36.6 76 18 160/70 (100) 98 Nasal Cannula 0.50 07/01/19 01:00 80 06/30/19 23:01 36.6 65 18 148/80 (102) 98 Nasal Cannula 1.00 06/30/19 19:47 Nasal Cannula 2.00 06/30/19 19:03 36.5 74 15 127/76 (93) 98 Nasal Cannula 2.00 06/30/19 19:00 70 06/30/19 16:13 96 Nasal Cannula 2.00 06/30/19 15:51 36.2 61 15 147/70 (95) 95 Nasal Cannula 2.00 06/30/19 14:45 Room Air 06/30/19 14:39 36.1 11 204/83 (123) 97 Room Air 06/30/19 14:30 17 207/84 (125) 100 OxyMask 10 06/30/19 14:20 14 201/78 (119) 100 OxyMask 10 06/30/19 14:15 OxyMask 10 06/30/19 14:10 16 221/87 (131) 100 OxyMask 10 06/30/19 14:00 16 212/101 (138) 100 OxyMask 10 06/30/19 13:50 18 228/95 (139) 100 OxyMask 10 06/30/19 13:45 36.5 16 218/98 (138) 97 OxyMask 10 06/30/19 13:45 OxyMask 10 06/30/19 08:00 Room Air 06/30/19 08:00 36.9 61 18 153/69 (97) 98 Room Air 06/30/19 07:00 64 I & O 07/01/19 07:00 Intake Total 1690 ml Output Total 2710 ml Balance -1020 ml Laboratory Tests Test 07/01/19 04:41 07/01/19 04:48 Range/Units Hemoglobin 9.4 #L 11.5-16.0 G/DL Hematocrit 28 L 35-52 % Sodium Level 134 L 135-145 MMOL/L Potassium Level 4.6 3.6-5.0 MMOL/L Chloride Level 104 98-107 MMOL/L Carbon Dioxide Level 22 21-32 MMOL/L Anion Gap 8 5-14 MMOL/L Blood Urea Nitrogen 11 7-18 MG/DL Creatinine 0.57 L 0.60-1.30 MG/DL Estimat Glomerular Filtration Rate > 60 BUN/Creatinine Ratio 19 Glucose Level 141 H 70-105 MG/DL Calcium Level 8.2 L 8.5-10.1 MG/DL RLE--dressing intact. Intact DF and PF of toes and ankle. 2 plus DP pulse with brisk cap refill. sensation intact throughout s/p R hip bipolar PT/OT IRU SHANKAR Diaz MD July 01, 2019 06:18
[2019-07-01] MEDS: MULTIVIT W/MINERALS TAB (THERAGRAN M) PO SCH (06:44)
[2019-07-01] MEDS: LACTATED RINGERS 1,000 ML IV SCH ×2 (06:49→12:34)
[2019-07-01 07:44] VITALS: BP 138/68
--- NOTE | 2019-07-01 08:41 | Occupational Therapy Eval ---
OT Evaluation-General/PLF Medical Diagnosis Admission Date June 29, 2019 at 14:37 Medical Diagnosis: s/p R hip bipolar hemiarthroplasty Onset Date: June 30, 2019 Therapy Diagnosis Therapy Diagnosis: impaired ADLs/functional mobility Precautions Precautions/Isolations: Fall Prevention, Standard Precautions Weight Bear Status Weight Bearing Restriction: Weight Bearing/Tolerated Location Restriction: R LE Referral Physician: Dain Mackey Reason: Evaluation/Treatment Medical History Pertinent Medical History: HTN Additional Medical History osteoporosis Current History Pt tipped and fell. She had increased hip pain over the next 4 days. She had R hip bipolar hemiarthroplasty on 06/30/2019 Reviewed History: Yes Social History Home: Single Level Current Living Status: Alone Entry Into Home: Stairs Without Railing Steps Into Home: 2 Pt states she requested for her manager talent acquisition rails to be put in on her stairs. ADL-Prior Level of Function SCALE: Activities may be completed with or without assistive devices. 3-Qvdrnnbtmw-hvwohsc completes the activity by him/herself with no assistance from a helper. 5-Set-up or Clean-up Assistance-helper sets up or cleans up; patient completes activity. [place] assists only prior to or following the activity. 4-Supervision or Touching Assistance-helper provides verbal cues and/or touching/steadying and/or contact guard assistance as patient completes activity. Assistance may be provided throughout the activity or intermittently. 3-Partial/Moderate Assistance-helper does LESS THAN HALF the effort. [place] lifts, holds or supports trunk or limbs, but provides less than half the effort. 2-Substantial/Maximal Assistance-helper does MORE THAN HALF the effort. [place] lifts or holds trunk or limbs and provides more than half the effort. 2-Lnosodytc-vtniqi does ALL the effort. Patient does none of the effort to complete the activity. Or, the assistance of 2 or more helpers is required for the patient to complete the activity. If activity was not attempted, code reason: 7-Patient Refused. 9-Not Applicable-not attempted and the patient did not perform the activity before the current illness, exacerbation or injury. 10-Not Attempted due to Environmental Limitations-(lack of equipment, weather restraints, etc.). 88-Not Attempted due to Medical Conditions or Safety Concerns. ADL PLOF Comments Pt reports living alone independently at [facility]. She was indepdendent with ADLs including cooking, cleaning, bathing, and dressing. She denies using AE/AD for ADLs and functional mobility. She has a walk in shower with a built in shower bench. She has a cane, rollator and FWW at home but was not using them at [facility]. Self Care: Independent Functional Cognition: Independent OT Current Status Subjective Pt laying in bed at start of session, agreeable to OT evaluation on this date. Pt rates pain in her right hip as 7-9/10. Mental Status/Objective Patient Orientation: Person, Confused, Place, Situation Attachments: Bowles Catheter, IV, Oxygen (0.5 L), SCD's Current Glasses/Contacts: Yes Hearing Aids: Yes Dentures/Partials: No Hand Dominance: Right Upper Extremity ROM WFL, BUE shoulder flexion to approx 160 degrees, she is able to touch the back of her head with both hands. Upper Extremity Coordination WFL Upper Extremity Sensation pt denies tingling/numbness BUEs Upper Extremity Strength grossly 3+/5 ADL-Treatment Eating (QC): 6 (Pt eatinag breakfast, did not report any difficulties with eating) On/Off Footwear (QC): 1 (total assist donning R sock) Other Treatments Pt laying in bed eating breakfast, agreeable to OT evaluation. OT educated pt on purpose and benefits of OT tx, she verbalized understanding. Pt provided inform ation about PLOF and home set up. She then participated in UE screen. OT educated pt on BUE exercises, instructing her to complete 10 reps, multiple times a day in order to increase BUE strength and functional endurance, she verbalized and demo'd understanding. Pt instructed on elbow flexion and shoulder flexion exercises. OT then assisted pt with donning sock onto R foot. Post OT session, pt laying in bed, call light in reach and all needs met. PT present for tx. Education OT Patient Education: Correct positioning, Energy conservation, Modified ADL techniques, Progress toward Goal/Update tx plan, Purpose of tx/functional activities Teaching Recipient: Patient Teaching Methods: Discussion Response to Teaching: Verbalize Understanding OT Retirement Goals Mate Ship Goals Time Frame: July 14, 2019 Eating (QC): 6 Oral Hygiene (QC): 6 Toileting Hygiene (QC): 6 Shower/Bathe Self (QC): 6 Upper Body Dressing (QC): 6 Lower Body Dressing (QC): 6 On/Off Footwear (QC): 6 1=Demonstrate adherence to instructed precautions during ADL tasks. 2=Patient will verbalize/demonstrate understanding of assistive andres teressa/modifications for ADL. 3=Patient will improve strength/tolerance for activity to enable patient to perform ADL's. OT Education/Plan Problem List/Assessment Assessment: Decreased Activ Tolerance, Decreased UE Strength, Impaired Bed Mobility, Impaired Funct Balance, Impaired I ADL's, Impaired Self-Care Skills Discharge Recommendations Plan/Recommendations: Continue POC Therapy Discharge Recommendati: Other, See Comments (rehab), Home & Family Treatment Plan/Plan of Care Treatment,Training & Education: Yes Patient would benefit from OT for education, treatment and training to promote independence in ADL's, mobility, safety and/or upper extremity function for ADL's. Plan of Care: ADL Retraining, Functional Mobility, UE Funct Exercise/Act Treatment Duration: July 14, 2019 Frequency: 5 times per week Estimated Hrs Per Day: .25 hour per day Agreement: Yes Rehab Potential: Fair Time/GCodes Start Time: 08:14 Stop Time: 08:24 Total Time Billed (hr/min): 10 Billed Treatment Time 1, CORNELIA GARCIA OT July 01, 2019 08:41
--- NOTE | 2019-07-01 08:41 | Physical Therapy Evaluation ---
PT Evaluation-General Medical Diagnosis Admission Date June 29, 2019 at 14:37 Medical Diagnosis: right NASEEM Onset Date: June 30, 2019 Therapy Diagnosis Therapy Diagnosis: impaired mobility, strength, endurance, ROM Precautions Precautions/Isolations: Fall Prevention, Standard Precautions Weight Bear Status Right Lower Extremity: Right Weight Bearing/Tolerated Referral Physician: Lavon Gautam Reason for Referral: Evaluation/Treatment Medical History Pertinent Medical History: HTN Additional Medical History osteoporosis Reviewed History: Yes Social History Current Living Status: Alone Prior Prior Level of Function SCALE: Activities may be completed with or without assistive devices. 2-Krgbxllgdr-qkdcepw completes the activity by him/herself with no assistance from a helper. 5-Set-up or Clean-up Assistance-helper sets up or cleans up; patient completes activity. Libby assists only prior to or following the activity. 4-Supervision or Touching Assistance-helper provides verbal cues and/or touching/steadying and/or contact guard assistance as patient completes activity. Assistance may be provided throughout the activity or intermittently. 3-Partial/Moderate Assistance-helper does LESS THAN HALF the effort. Libby lifts, holds or supports trunk or limbs, but provides less than half the effort. 2-Substantial/Maximal Assistance-helper does MORE THAN HALF the effort. Libby lifts or holds trunk or limbs and provides more than half the effort. 0-Rvobkukxy-zfibbe does ALL the effort. Patient does none of the effort to complete the activity. Or, the assistance of 2 or more helpers is required for the patient to complete the activity. If activity was not attempted, code reason: 7-Patient Refused. 9-Not Applicable-not attempted and the patient did not perform the activity before the current illness, exacerbation or injury. 10-Not Attempted due to Environmental Limitations-(lack of equipment, weather restraints, etc.). 88-Not Attempted due to Medical Conditions or Safety Concerns. Bed Mobility: 6 Transfers (B,C,W/C): 6 Gait: 6 Indoor Mobility (Ambulation): Independent PT Evaluation-Current Subjective Patient in bed pre tx, agrees to PT, has 5-9/10 pain per patient report in right hip. Pt/Family Goals decrease pain, be independent at home Objective Patient Orientation: Person, Place, Situation even though she is oriented she seems slightly confused but it may be anxiety, nurse notified patient is in recliner, she has her nurse call and patient instructed not to get up on her own to call nursing. Sensory Hearing: Impaired Sensation Right Lower Extremit: Intact Sensation Left Lower Extremity: Intact Transfers Roll Left to Right (QC): 3 Lying to Sitting/Side of Bed(Q: 3 (mod assist) Sit to Stand (QC): 3 (Chapito) Chair/Mdb-xz-Kojah Xfer(QC): 3 (Chapito) Gait Does the Patient Walk?: Yes Mode of Locomotion: Walk Anticipated Mode of Locomotion: Walk Distance: 5' Gait Assistive Device: FWW Comments/Gait Description CGA, slow and antalgic, bears little weight on right leg Balance Sitting Static: Fair Sitting Dynamic: Fair Standing Static: Fair Standing Dynamic: Fair Treatment seated exercises x20 (AP, LAQ) Assessment/Needs Patient has impaired mobility, strength, endurance, ROM. Patient performed well for the first time up out of bed. Patient in recliner post tx with nurse call, phone, tray, all needs met. Rehab Potential: Fair PT Patch Finisher Goals Long-Term Goals PT Patch Finisher Goals Time Frame: July 08, 2019 Roll Left & Right (QC): 6 Sit to Lying (QC): 4 Lying-Sitting on Side/Bed(QC): 4 Sit to Stand (QC): 4 Chair/Rsz-xn-Qdocc Xfer(QC): 4 Walk 10 feet (QC): 4 Walk 50ft with 2 Turns (QC): 4 PT Plan Problem List Problem List: Activity Tolerance, Functional Strength, Safety, Balance, Gait, Transfer, Bed Mobility, ROM Treatment/Plan Treatment Plan: Continue Plan of Care Treatment Plan: Bed Mobility, Education, Functional Activity Radha, Functional Strength, Gait, Safety, Therapeutic Exercise, Transfers Treatment Duration: July 08, 2019 Frequency: 11 times per week Estimated Hrs Per Day: .25 hour per day Patient and/or Family Agrees t: Yes Safety Risks/Education Patient Education: Gait Training, Transfer Techniques, Reviewed Precautions, Correct Positioning, Safety Issues Teaching Recipient: Patient Teaching Methods: Demonstration, Discussion Response to Teaching: Reinforcement Needed Discharge Recommendations Plan Patient will perform bed mobility and transfer training, balance and endurance training, functional strengthening, stair training, gait training, and education, to improve functional mobility and independence at home. Therapy Discharge Recommendati: Other, See Comments (rehab), Home & Family Time/GCodes Time In: 823 Time Out: 833 Total Billed Treatment Time: 10 Total Billed Treatment 1 visit EVM KENDAL MARTINEZ PT July 01, 2019 08:41
[2019-07-01] MEDS: lisINopril 5 MG (PRINIVIL) TABLET PO SCH ×2 (09:23→21:10)
[2019-07-01] MEDS: DICLOFENAC 1% GEL 100 GM (VOLTAREN) TUBE TOP SCH ×4 (09:23→21:12)
[2019-07-01] MEDS: SENNOSIDES 8.6 MG (SENOKOT) TAB PO SCH ×2 (09:23→21:10)
[2019-07-01] MEDS: ENOXAPARIN 30 MG/0.3 ML (LOVENOX) SYR SC SCH ×2 (09:23→21:12)
[2019-07-01] MEDS: oxyCODONE/APAP 5/325MG (PERCOCET 5) TABLET PO PRN ×4 (09:23→21:11)
--- NOTE | 2019-07-01 09:25 | NUR ---
OXYCODONE PO FOR HIP PAIN.
--- NOTE | 2019-07-01 10:45 | Anesthesia-General Post-Op ---
General Patient Condition Mental Status/LOC: Same as Preop Cardiovascular: Satisfactory Nausea/Vomiting: Absent Respiratory: Satisfactory Pain: Controlled Complications: Absent Post Op Complications Complications None Follow Up Care/Instructions Patient Instructions None needed. Anesthesia/Patient Condition Patient Condition Patient is doing well, no complaints, stable vital signs, no apparent adverse anesthesia problems. No complications reported per nursing. YOANDY CLOUD CRNA July 01, 2019 10:45
[2019-07-01 12:00] VITALS: BP 130/71
--- NOTE | 2019-07-01 12:30 | NUR ---
OXYCODONE PO FOR HIP PAIN.
[2019-07-01] MEDS ORDERED: IRON SUCROSE 200 MG/10 ML (VENOFER) VIAL IV ONE (12:45)
--- NOTE | 2019-07-01 13:49 | Progress Note - Hospitalist ---
Subjective HPI/CC On Admission Date Seen by Provider: July 01, 2019 Time Seen by Provider: 12:00 Subjective/Events-last exam Patient doing well Bowles cath will remain in since she can't mobilize well yet since surgery on fractured hip right yesterday No BM yet, meds ordered HLIVF since she is eating and drinking well Labs revealed hgb decreased so will add iron to labs done already and start on Venofer in meantime for acute blood loss anemia HIGINIO Delatorre Needs Pulmo consult while inpatient since she has not had establishment of care since she moved her to be close to her son who works at [employer]. She states she has "scars on the bottom part of my lungs from short term smoking hx." IRF is a good plan on Wednesday Review of Systems General: Fatigue Gastrointestinal: Constipation Musculoskeletal: leg pain Objective Exam Vital Signs Vital Signs Date Time Temp Pulse Resp B/P (MAP) Pulse Ox O2 Delivery O2 Flow Rate FiO2 07/01/19 16:00 37.6 83 18 153/67 (95) 96 Room Air 07/01/19 07:44 0.50 Capillary Refill : Less Than 3 SecondsLess Than 3 Seconds General Appearance: No Apparent Distress, WD/WN, Chronically ill, Thin Respiratory: Chest Non Tender, Lungs Clear, Normal Breath Sounds, No Accessory Muscle Use, No Respiratory Distress, Decreased Breath Sounds Cardiovascular: Regular Rate, Rhythm, No Edema, No Gallop, No JVD, No Murmur, Normal Peripheral Pulses Neurologic/Psychiatric: Alert, Oriented x3, No Motor/Sensory Deficits, Normal Mood/Affect Results/Procedures Lab Laboratory Tests 07/01/19 04:41 07/01/19 04:48 Patient resulted labs reviewed. Assessment/Plan Assessment and Plan Assess & Plan/Chief Complaint Assessment: s/p right hip fracture due to fall with osteoporosis hx CAD on Plavix and statin consulting Dr Jackson COPD lung nodules consulting Dr Laurent at her request Former smoker Post op anemia from blood loss Iron deficiency started IV iron Breast cancer hx Plan: IV iron PT OT Cardiology and Pulmonology consultations DVT PPx IRF? Diagnosis/Problems Diagnosis/Problems (1) Closed right hip fracture Status: Acute Qualifiers: Encounter type: initial encounter Qualified Codes: S72.001A - Fracture of unspecified part of neck of right femur, initial encounter for closed fracture (2) CAD (coronary artery disease) (3) Hyperlipemia (4) Postoperative anemia (5) Iron deficiency (6) Fall Status: Acute Qualifiers: Encounter type: initial encounter Qualified Codes: W19.XXXA - Unspecified fall, initial encounter (7) HTN (hypertension) Status: Chronic Qualifiers: Hypertension type: essential hypertension Qualified Codes: I10 - Essential (primary) hypertension (8) Age related osteoporosis Status: Chronic Qualifiers: Presence of current pathological fracture: with current pathological fracture Encounter type: initial encounter Qualified Codes: M80.00XA - Age- related osteoporosis with current pathological fracture, unspecified site, initial encounter for fracture Clinical Quality Measures DVT/VTE Risk/Contraindication: Risk Factor Score Per Nursin RFS Level Per Nursing on Admit: 4+=Very High LEDY HUDSON DO July 01, 2019 13:49
[2019-07-01 16:00] VITALS: BP 153/67
--- NOTE | 2019-07-01 17:19 | NUR ---
OXYCODONE PO FOR PAIN.
[2019-07-01 20:00] VITALS: BP 132/63
[2019-07-01] MEDS ORDERED: lisINopril 5 MG (PRINIVIL) TABLET PO SCH (21:00)
[2019-07-01] MEDS: traZODone 50 MG (DESYREL) TAB PO SCH (21:00)
[2019-07-01] MEDS ORDERED: NON-FORMULARY MEDICATION 1 EA EA (Multivitamin 1 EACH) PO SCH (21:00)
[2019-07-01] MEDS: LORATADINE (CLARITIN) 10 MG TAB PO SCH (21:11)
[2019-07-01] MEDS: MELATONIN 10 MG TABLET PO SCH (21:11)
[2019-07-02] VITALS: BP 116/66
[2019-07-02] MEDS: oxyCODONE/APAP 5/325MG (PERCOCET 5) TABLET PO PRN ×6 (02:02→23:57)
[2019-07-02 04:00] VITALS: BP 161/64
--- NOTE | 2019-07-02 04:30 | Pulmonary Consultation ---
History of Present Illness History of Present Illness Date Seen by Provider: July 02, 2019 Time Seen by Provider: 04:25 Date of Admission Allergies and Home Medications Allergies Coded Allergies: Penicillins (Verified Adverse Reaction, Unknown, itching, 06/29/19) azithromycin (Verified Adverse Reaction, Unknown, itching, 06/29/19) hydrocodone (Verified Adverse Reaction, Unknown, itching, 06/29/19) Home Medications Atorvastatin Calcium 40 Mg Tablet, 40 MG PO HS, (Reported) Cetirizine HCl 10 Mg Tablet, 10 MG PO HS, (Reported) Cholecalciferol (Vitamin D3) 125 Mcg Tablet, 125 MCG PO DAILY, (Reported) Clopidogrel Bisulfate 75 Mg Tablet, 75 MG PO DAILY, (Reported) Lisinopril 5 Mg Tablet, 5 MG PO BID, (Reported) Melatonin 10 Mg Tablet, 10 MG PO HS, (Reported) Multivitamin 1 Each Tablet, 1 EACH PO HS, (Reported) Risedronate Sodium 35 Mg Tablet, 35 MG PO WEDNESDAY, (Reported) Trazodone HCl 50 Mg Tablet, 50 MG PO HS, (Reported) Past Wexdhvq-Itjemt-Uwwtra Hx Patient Social History Alcohol Use: Denies Use Recreational Drug Use: No Smoking Status: Former Smoker Type Used: Cigarettes Recent Foreign Travel: No Contact w/Someone Who Travel: No Recent Infectious Disease Expo: No Recent Hopitalizations: No Immunizations Up To Date Date of Pneumonia Vaccine: Feb 15, 2017 Seasonal Allergies Seasonal Allergies: Yes (year round ) Past Medical History Surgeries: Yes Ear Surgery, Hysterectomy, Orthopedic Respiratory: Yes (GROWTH ON BILAT LUNGS/ scar tissues ) Currently Using CPAP: No Currently Using BIPAP: No Cardiac: Yes Hypertension Neurological: Yes Female Reproductive Disorders: Denies Genitourinary: No Gastrointestinal: No Musculoskeletal: Yes Osteoporosis, Arthritis, Fractures Endocrine: No HEENT: Yes Cataract Hearing Impairment: Hard of Hearing Cancer: No Psychosocial: Yes Sleep Difficulties, Depression Integumentary: No Blood Disorders: No Adverse Reaction/Blood Tranf: No Family Medical History Cardiovascular disease 19 MOTHER Colon cancer 19 MOTHER Diabetes mellitus 19 FATHER Hypertension 19 FATHER 19 MOTHER Severe allergy 19 FATHER 19 MOTHER No Pertinent Family Hx Review of Systems Time Seen by Provider: 04:34 Sepsis Event Evaluation Height, Weight, BMI Height: '" Weight: lbs. oz. kg; 20.19 BMI Method: Exam Exam Vital Signs Date Time Temp Pulse Resp B/P (MAP) Pulse Ox O2 Delivery O2 Flow Rate FiO2 07/02/19 00:00 37.3 89 20 116/66 (83) 93 Room Air 07/01/19 20:00 37.2 74 18 132/63 (86) 95 Room Air 07/01/19 16:00 37.6 83 18 153/67 (95) 96 Room Air 07/01/19 12:38 60 07/01/19 12:00 36.4 80 18 130/71 (90) 99 Room Air 07/01/19 08:00 Room Air 07/01/19 07:44 36.6 77 19 138/68 (91) 98 Nasal Cannula 0.50 07/01/19 07:00 65 I & O 07/02/19 07:00 Intake Total 3960 ml Output Total 3950 ml Balance 10 ml Height & Weight Height: '" Weight: lbs. oz. kg; 20.19 BMI Method: General Appearance: No Apparent Distress, WD/WN, Chronically ill, Thin HEENT: PERRL/EOMI, TMs Normal, Normal ENT Inspection, Pharynx Normal, Moist Mucous Membranes Neck: Full Range of Motion, Normal Inspection Respiratory: Chest Non Tender, Lungs Clear, Normal Breath Sounds, No Accessory Muscle Use, No Respiratory Distress, Decreased Breath Sounds Cardiovascular: Regular Rate, Rhythm, No Edema, No Gallop, No JVD, No Murmur, Normal Peripheral Pulses Capillary Refill: Less Than 3 Seconds Peripheral Pulses: 2+ Dorsalis Pedis (R), 2+ Left Dors-Pedis (L), 2+ Radial Pulses (R), 2+ Radial Pulses (L) Gastrointestinal: normal bowel sounds, non tender, soft, no organomegaly Extremity: Normal Capillary Refill, Normal Inspection, No Pedal Edema Neurologic/Psychiatric: Alert, Oriented x3, No Motor/Sensory Deficits, Normal Mood/Affect Skin: Normal Color, Warm/Dry Results Lab Laboratory Tests 06/30/19 05:45 07/01/19 04:41 07/01/19 04:48 Assessment/Plan Assessment/Plan s/p right hip fracture after fall COPD with hx of lung nodules -will check routine CT scan of chest with contrast -Out pt PFT CAD -Cardiology following Hyponatremia anemia -Monitor Hx of breast cancer ROCIO LERNER DO July 02, 2019 04:30
[2019-07-02 04:46] LABS: BASOPHILS % (AUTO) 0 % (0-10); EOSINOPHILS # (AUTO) 0.1 10^3/uL (0.0-0.3); EOSINOPHILS % (AUTO) 2 % (0-10); HEMATOCRIT 26 % (35-52); HEMOGLOBIN 8.5 G/DL (11.5-16.0); LYMPHOCYTES # (AUTO) 1.1 X 10^3 (1.0-4.0); LYMPHOCYTES % (AUTO) 23 % (12-44); MEAN CORPUSCULAR HEMOGLOBIN 29 PG (25-34); MEAN CORPUSCULAR HGB CONC 33 G/DL (32-36); MEAN CORPUSCULAR VOLUME 90 FL (80-99); MEAN PLATELET VOLUME 10.2 FL (7.4-10.4); MONOCYTES # (AUTO) 0.7 X 10^3 (0.0-1.0); MONOCYTES % (AUTO) 14 % (0-12); NEUTROPHILS # (AUTO) 2.9 X 10^3 (1.8-7.8); NEUTROPHILS % (AUTO) 62 % (42-75); PLATELET COUNT 177 10^3/uL (130-400); RED CELL DISTRIBUTION WIDTH 12.4 % (10.0-14.5); WHITE BLOOD COUNT 4.7 10^3/uL (4.3-11.0)
[2019-07-02 05:06] LABS: ALANINE AMINOTRANSFERASE 19 U/L (0-55); ALBUMIN 3.1 GM/DL (3.2-4.5); ALKALINE PHOSPHATASE 41 U/L (40-136); BILIRUBIN,TOTAL 0.4 MG/DL (0.1-1.0); BUN/CREATININE RATIO 23; CALCIUM 8.2 MG/DL (8.5-10.1); CARBON DIOXIDE 23 MMOL/L (21-32); CHLORIDE 106 MMOL/L (98-107); CREATININE SERUM 0.56 MG/DL (0.60-1.30); GFR ESTIMATED > 60; GLUCOSE 111 MG/DL (70-105); SODIUM 139 MMOL/L (135-145); TOTAL PROTEIN 5.1 GM/DL (6.4-8.2)
[2019-07-02] MEDS: MULTIVIT W/MINERALS TAB (THERAGRAN M) PO SCH (05:25)
[2019-07-02] MEDS: ENOXAPARIN 30 MG/0.3 ML (LOVENOX) SYR SC SCH (08:01)
[2019-07-02] MEDS: VITAMIN D3 125 MCG (5,000 UNITS) CAPSULE PO SCH (08:02)
[2019-07-02] MEDS: lisINopril 5 MG (PRINIVIL) TABLET PO SCH ×2 (08:02→20:17)
--- NOTE | 2019-07-02 08:03 | NUR ---
THIS RN CONTACTED DR. SCOTT ABOUT PT PLAVIX ORDERS-RECEIVED ORDERS TO START PLAVIX 75 PO MG DAILY & DC LOVENOX
[2019-07-02 08:06] VITALS: BP 134/63
[2019-07-02] MEDS: DICLOFENAC 1% GEL 100 GM (VOLTAREN) TUBE TOP SCH ×4 (08:07→20:19)
[2019-07-02] MEDS: SENNOSIDES 8.6 MG (SENOKOT) TAB PO SCH ×2 (08:09→20:18)
--- NOTE | 2019-07-02 08:23 | Physical Therapy Daily Note ---
PT Daily Note-Current Subjective Patient in bed pre tx, agrees to PT, has unrated pain in right hip. CT is here to get patient, PT can assist getting patient into WC. Appearance Patient in WC post tx with CT to go downstairs. Mental Status Patient Orientation: Person, Place, Situation Attachments: Bowles Catheter Transfers SCALE: Activities may be completed with or without assistive devices. 5-Wgiuhdiomh-xofhpid completes the activity by him/herself with no assistance from a helper. 5-Set-up or Clean-up Assistance-helper sets up or cleans up; patient completes activity. Sweeny assists only prior to or following the activity. 4-Supervision or Touching Assistance-helper provides verbal cues and/or touching/steadying and/or contact guard assistance as patient completes activity. Assistance may be provided throughout the activity or intermittently. 3-Partial/Moderate Assistance-helper does LESS THAN HALF the effort. Sweeny lifts, holds or supports trunk or limbs, but provides less than half the effort. 2-Substantial/Maximal Assistance-helper does MORE THAN HALF the effort. Sweeny lifts or holds trunk or limbs and provides more than half the effort. 9-Mlelubcvx-fgkjua does ALL the effort. Patient does none of the effort to complete the activity. Or, the assistance of 2 or more helpers is required for the patient to complete the activity. If activity was not attempted, code reason: 7-Patient Refused. 9-Not Applicable-not attempted and the patient did not perform the activity before the current illness, exacerbation or injury. 10-Not Attempted due to Environmental Limitations-(lack of equipment, weather restraints, etc.). 88-Not Attempted due to Medical Conditions or Safety Concerns. Roll Left & Right (QC): 6 Lying to Sitting/Side of Bed(Q: 3 Sit to Stand (QC): 4 Chair/Glr-kq-Hevzv Xfer(QC): 4 CGA for sit to stand and transfers, cues for hand placement and positioning, needs some assist with supine to sit. Patient is anxious but handles cues well. Weight Bearing Right Lower Extremity: Right Weight Bearing/Tolerated Gait Training Distance: 5' Gait Persons Needed: 1 Gait Assistive Device: FWW Better weight bearing on right leg, good steps, no LOB Treatments bed mobility and transfers, ambulation Assessment Current Status: Fair Progress better supine to sit PT Dovetailer Goals Detention Goals PT Dovetailer Goals Time Frame: July 08, 2019 Roll Left & Right (QC): 6 Sit to Lying (QC): 4 Lying-Sitting on Side/Bed(QC): 4 Sit to Stand (QC): 4 Chair/Meh-ts-Zfyuj Xfer(QC): 4 Walk 10 feet (QC): 4 Walk 50ft with 2 Turns (QC): 4 PT Plan Problem List Problem List: Activity Tolerance, Functional Strength, Safety, Balance, Gait, Transfer, Bed Mobility, ROM Treatment/Plan Treatment Plan: Continue Plan of Care Treatment Plan: Bed Mobility, Education, Functional Activity Radha, Functional Strength, Gait, Safety, Therapeutic Exercise, Transfers Treatment Duration: July 08, 2019 Frequency: 11 times per week Estimated Hrs Per Day: .25 hour per day Patient and/or Family Agrees t: Yes Safety Risks/Education Patient Education: Gait Training, Transfer Techniques, Correct Positioning, Safety Issues Teaching Recipient: Patient Teaching Methods: Demonstration, Discussion Response to Teaching: Reinforcement Needed Time/GCodes Time In: 0808 Time Out: 0818 Total Billed Treatment Time: 10 Total Billed Treatment 1 visit FA KENDAL MARTINEZ PT July 02, 2019 08:23
[2019-07-02] MEDS ORDERED: NS 100 ML (IVPB) BAG IV ONE (08:30)
[2019-07-02] MEDS ORDERED: IOHEXOL 350 MG/ML 100 ML (OMNIPAQUE 350) VIAL IV ONE (08:30)
[2019-07-02] MEDS: ADVAIR HFA 115/21 MCG INHALER 8 GM IH SCH ×2 (09:04→19:23)
--- NOTE | 2019-07-02 09:18 | Diagnostic Imaging Report ---
PROCEDURE: CT chest with contrast only. TECHNIQUE: Multiple contiguous axial images were obtained through the chest after administration of intravenous contrast. Auto Exposure Controls were utilized during the CT exam to meet ALARA standards for radiation dose reduction. INDICATION: Status post recent fall, trauma, fracture. CORRELATION: Chest radiograph 06/29/2019 FINDINGS: Mildly prominent but nonpathologic enlarged bilateral axillary lymph nodes. No significant mediastinal and/or hilar lymphadenopathy. Heart size is mildly enlarged, somewhat accentuated by slight pectus excavatum deformity. Scattered mild coronary artery calcification. Thoracic aorta with scattered atherosclerotic change. Very mild prominence of ascending aorta, maximum dimension 3.4 cm. No intraluminal abnormality. Small hiatal hernia. Suggestion of mildly hyperinflated lung keane. No infiltrate, effusion or underlying pulmonary mass. The visualized portions of the upper abdomen are unremarkable. There is moderate compression deformity with loss of approximately one-third vertebral body height superior T12 endplate. There is also presence of intravertebral disc herniation inferior endplate. Slight intervertebral disc herniation both superiorly and inferiorly at the T10 vertebral body. IMPRESSION: 1. Negative acute abnormality of the chest. No evidence for underlying pulmonary mass. 2. Moderate compression deformity of the T12 vertebral body and Schmorl's node deformities at T10. Age of this is indeterminate, but appears to be likely subacute or chronic. This may be owing to prior traumatic change or typical compression fracture. Pathologic process is not completely excluded as there is somewhat atypical appearance of this. If clinical concern, correlation with MRI would be recommended. Dictated by: Dictated on workstation # [id number]
[2019-07-02] MEDS: CLOPIDOGREL 75 MG (PLAVIX) TABLET PO SCH (09:32)
--- NOTE | 2019-07-02 10:26 | Progress Note ---
Standard Progress Note Progress Notes/Assess & Plan Date Seen by a Provider: July 02, 2019 Time Seen by a Provider: 10:24 Progress/Assessment & Plan NO complaints discussed surgical treatment with the patient at length. plan to OR today for right hip bipolar Final Diagnosis feeling better Vital Signs Date Time Temp Pulse Resp B/P (MAP) Pulse Ox O2 Delivery O2 Flow Rate FiO2 07/02/19 09:09 93 Nasal Cannula 2.00 07/02/19 08:06 36.4 91 20 134/63 (86) 94 Room Air 07/02/19 08:00 93 Nasal Cannula 2.00 07/02/19 04:00 37.1 75 20 161/64 (96) 93 Room Air 07/02/19 00:00 37.3 89 20 116/66 (83) 93 Room Air 07/01/19 20:00 Room Air 07/01/19 20:00 37.2 74 18 132/63 (86) 95 Room Air 07/01/19 16:00 37.6 83 18 153/67 (95) 96 Room Air 07/01/19 12:38 60 07/01/19 12:00 36.4 80 18 130/71 (90) 99 Room Air I & O 07/02/19 07:00 Intake Total 4160 ml Output Total 4800 ml Balance -640 ml Laboratory Tests Test 07/02/19 03:55 Range/Units White Blood Count 4.7 4.3-11.0 10^3/uL Red Blood Count 2.89 L 4.35-5.85 10^6/uL Hemoglobin 8.5 L 11.5-16.0 G/DL Hematocrit 26 L 35-52 % Mean Corpuscular Volume 90 80-99 FL Mean Corpuscular Hemoglobin 29 25-34 PG Mean Corpuscular Hemoglobin Concent 33 32-36 G/DL Red Cell Distribution Width 12.4 10.0-14.5 % Platelet Count 177 130-400 10^3/uL Mean Platelet Volume 10.2 7.4-10.4 FL Neutrophils (%) (Auto) 62 42-75 % Lymphocytes (%) (Auto) 23 12-44 % Monocytes (%) (Auto) 14 H 0-12 % Eosinophils (%) (Auto) 2 0-10 % Basophils (%) (Auto) 0 0-10 % Neutrophils # (Auto) 2.9 1.8-7.8 X 10^3 Lymphocytes # (Auto) 1.1 1.0-4.0 X 10^3 Monocytes # (Auto) 0.7 0.0-1.0 X 10^3 Eosinophils # (Auto) 0.1 0.0-0.3 10^3/uL Basophils # (Auto) 0.0 0.0-0.1 10^3/uL Sodium Level 139 135-145 MMOL/L Potassium Level 4.0 3.6-5.0 MMOL/L Chloride Level 106 98-107 MMOL/L Carbon Dioxide Level 23 21-32 MMOL/L Anion Gap 10 5-14 MMOL/L Blood Urea Nitrogen 13 7-18 MG/DL Creatinine 0.56 L 0.60-1.30 MG/DL Estimat Glomerular Filtration Rate > 60 BUN/Creatinine Ratio 23 Glucose Level 111 H 70-105 MG/DL Calcium Level 8.2 L 8.5-10.1 MG/DL Corrected Calcium 8.9 8.5-10.1 MG/DL Total Bilirubin 0.4 0.1-1.0 MG/DL Aspartate Amino Transf (AST/SGOT) 27 5-34 U/L Alanine Aminotransferase (ALT/SGPT) 19 0-55 U/L Alkaline Phosphatase 41 40-136 U/L Total Protein 5.1 L 6.4-8.2 GM/DL Albumin 3.1 L 3.2-4.5 GM/DL R hip incision clean and dry. No calf tenderness. Neg Gabriel's s/p R hip bipolar progressing well continue PT/OT IRU? SHANKAR SCOTT MD July 02, 2019 10:26
--- NOTE | 2019-07-02 10:42 | Progress Note - Hospitalist ---
Subjective HPI/CC On Admission Date Seen by Provider: July 02, 2019 Time Seen by Provider: 10:45 Subjective/Events-last exam Patient doing better Bowles cath DC and IV heplocked so she feels liberated Pain controlled No BM yet Will give Dulcolax if needed Dr Laurent ordered CT scan and established her care Advair started and she wants to talk to him more about that Dr Jackson evaluated her and apparently her heart has been good but is on Plavix for carotid stenosis but not a surgical candidate? Patient asked me to see Pulmonology while she was here inpatient but now she was asking who was ordering all of these consultations? [employer] will be difficult to approve IRF so may need to go to [place] of which she is not really willing to do that Lives alone but son lives in [facility] Patient told me I was in charge of getting her approved for IRF but I told her she may need to call her insurance company to appeal any refusal to approve the stay in IRF Review of Systems General: Fatigue Musculoskeletal: leg pain Objective Exam Vital Signs Vital Signs Date Time Temp Pulse Resp B/P (MAP) Pulse Ox O2 Delivery O2 Flow Rate FiO2 07/02/19 11:56 36.5 80 19 147/70 (95) 95 Room Air 07/02/19 09:09 2.00 Capillary Refill : Less Than 3 SecondsLess Than 3 Seconds General Appearance: No Apparent Distress, WD/WN, Chronically ill, Thin Respiratory: Chest Non Tender, Lungs Clear, Normal Breath Sounds, No Accessory Muscle Use, No Respiratory Distress, Decreased Breath Sounds Cardiovascular: Regular Rate, Rhythm, No Edema, No Gallop, No JVD, No Murmur, Normal Peripheral Pulses Neurologic/Psychiatric: Alert, Oriented x3, No Motor/Sensory Deficits, Normal Mood/Affect Results/Procedures Lab Laboratory Tests 07/02/19 03:55 Patient resulted labs reviewed. Assessment/Plan Assessment and Plan Assess & Plan/Chief Complaint Assessment: s/p right hip fracture due to fall with osteoporosis hx PVD on Plavix and statin consulting Dr Jackson COPD lung nodules consulting Dr Laurent at her request Former smoker Post op anemia from blood loss Iron deficiency started IV iron Breast cancer hx Plan: IV iron PT OT Cardiology and Pulmonology consultations DVT PPx IRF? [employer] will require approval Diagnosis/Problems Diagnosis/Problems (1) Closed right hip fracture Status: Acute Qualifiers: Encounter type: initial encounter Qualified Codes: S72.001A - Fracture of unspecified part of neck of right femur, initial encounter for closed fracture (2) CAD (coronary artery disease) (3) Hyperlipemia (4) Postoperative anemia (5) Iron deficiency (6) Fall Status: Acute Qualifiers: Encounter type: initial encounter Qualified Codes: W19.XXXA - Unspecified fall, initial encounter (7) HTN (hypertension) Status: Chronic Qualifiers: Hypertension type: essential hypertension Qualified Codes: I10 - Essential (primary) hypertension (8) Age related osteoporosis Status: Chronic Qualifiers: Presence of current pathological fracture: with current pathological fracture Encounter type: initial encounter Qualified Codes: M80.00XA - Age- related osteoporosis with current pathological fracture, unspecified site, initial encounter for fracture Clinical Quality Measures DVT/VTE Risk/Contraindication: Risk Factor Score Per Nursin RFS Level Per Nursing on Admit: 4+=Very High LEDY HUDSON DO July 02, 2019 10:42
--- NOTE | 2019-07-02 10:55 | Consultation-Cardiology ---
HPI-Cardiology Cardiology Consultation Date of Consultation 07/02/19 Date of Admission Time Seen by Provider: 10:51 Indication: Heart murmur HPI 83-year-old lady with history of heart murmur, reported that she has been murmur for a long time. 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 Sustained a fall resulted in a hip fracture, underwent hip surgery and noted to have rib fracture. Denied any chest pain. No palpitation. No syncope or near syncopal episodes. No claudication, no pedal edema Home Medications & Allergies Allergies: Coded Allergies: Penicillins (Verified Adverse Reaction, Unknown, itching, 06/29/19) azithromycin (Verified Adverse Reaction, Unknown, itching, 06/29/19) hydrocodone (Verified Adverse Reaction, Unknown, itching, 06/29/19) Home Medication List Reviewed: Yes [id number] Hx Patient Social History Marital Status: Living Status: Lives home alone Employed/Student: retired Alcohol Use: Denies Use Recreational Drug Use: No Smoking Status: Former Smoker Type Used: Cigarettes Recent Foreign Travel: No Recent Infectious Disease Expo: No Recent Hopitalizations: No Physical Abuse Screen: No Sexual Abuse: No Immunizations Up To Date Date of Pneumonia Vaccine: Feb 15, 2017 Past Medical History Discussed below Family Medical History Significant Family History: No Pertinent Family Hx Family History: Cardiovascular disease 19 MOTHER Colon cancer 19 MOTHER Diabetes mellitus 19 FATHER Hypertension 19 FATHER 19 MOTHER Severe allergy 19 FATHER 19 MOTHER Review of Systems-General Review of Systems Constitutional: see HPI; No chills, No dizziness, No fever; weakness EENTM: see HPI, no symptoms reported; No mouth pain, No nose congestion, No nose pain Respiratory: see HPI, cough; No dyspnea on exertion, No hemoptysis, No orthopnea, No phlegm, No short of breath, No stridor, No wheezing, No other Cardiovascular: see HPI; No chest pain, No edema, No Hx of Intervention, No palpitations, No syncope, No vascular heart diseas, No other Gastrointestinal: no symptoms reported, see HPI; No abdominal pain, No constipation, No diarrhea, No nausea, No vomiting Genitourinary: no symptoms reported; No dysuria, No frequency, No hematuria Musculoskeletal: joint pain, muscle weakness, other (hip fracture) Skin: no symptoms reported, see HPI; No lesions, No rash Psychiatric/Neurological: See HPI, Numbness, Weakness All Other Systems Reviewed Negative Unless Noted: Yes Reviewed Test Results Reviewed Test Results Lab Laboratory Tests Test 07/02/19 03:55 Range/Units White Blood Count 4.7 4.3-11.0 10^3/uL Red Blood Count 2.89 L 4.35-5.85 10^6/uL Hemoglobin 8.5 L 11.5-16.0 G/DL Hematocrit 26 L 35-52 % Mean Corpuscular Volume 90 80-99 FL Mean Corpuscular Hemoglobin 29 25-34 PG Mean Corpuscular Hemoglobin Concent 33 32-36 G/DL Red Cell Distribution Width 12.4 10.0-14.5 % Platelet Count 177 130-400 10^3/uL Mean Platelet Volume 10.2 7.4-10.4 FL Neutrophils (%) (Auto) 62 42-75 % Lymphocytes (%) (Auto) 23 12-44 % Monocytes (%) (Auto) 14 H 0-12 % Eosinophils (%) (Auto) 2 0-10 % Basophils (%) (Auto) 0 0-10 % Neutrophils # (Auto) 2.9 1.8-7.8 X 10^3 Lymphocytes # (Auto) 1.1 1.0-4.0 X 10^3 Monocytes # (Auto) 0.7 0.0-1.0 X 10^3 Eosinophils # (Auto) 0.1 0.0-0.3 10^3/uL Basophils # (Auto) 0.0 0.0-0.1 10^3/uL Sodium Level 139 135-145 MMOL/L Potassium Level 4.0 3.6-5.0 MMOL/L Chloride Level 106 98-107 MMOL/L Carbon Dioxide Level 23 21-32 MMOL/L Anion Gap 10 5-14 MMOL/L Blood Urea Nitrogen 13 7-18 MG/DL Creatinine 0.56 L 0.60-1.30 MG/DL Estimat Glomerular Filtration Rate > 60 BUN/Creatinine Ratio 23 Glucose Level 111 H 70-105 MG/DL Calcium Level 8.2 L 8.5-10.1 MG/DL Corrected Calcium 8.9 8.5-10.1 MG/DL Total Bilirubin 0.4 0.1-1.0 MG/DL Aspartate Amino Transf (AST/SGOT) 27 5-34 U/L Alanine Aminotransferase (ALT/SGPT) 19 0-55 U/L Alkaline Phosphatase 41 40-136 U/L Total Protein 5.1 L 6.4-8.2 GM/DL Albumin 3.1 L 3.2-4.5 GM/DL Physical Exam Physical Exam Vital Signs Vital Signs - First Documented 06/29/19 12:24 Temp 37.0 Pulse 70 Resp 16 B/P (MAP) 186/101 (129) Pulse Ox 97 O2 Delivery Room Air Capillary Refill : Less Than 3 SecondsLess Than 3 Seconds Height, Weight, BMI Height: '" Weight: lbs. oz. kg; 20.19 BMI Method: General Appearance: No Apparent Distress, WD/WN, Chronically ill, Thin HEENT: PERRL/EOMI, TMs Normal, Normal ENT Inspection, Pharynx Normal, Moist Mucous Membranes Neck: Full Range of Motion, Normal Inspection Respiratory: Chest Non Tender, Lungs Clear, Normal Breath Sounds, No Accessory Muscle Use, No Respiratory Distress, Decreased Breath Sounds Cardiovascular: Regular Rate, Rhythm, No Edema, No Gallop, No JVD, No Murmur, Normal Peripheral Pulses Gastrointestinal: Non Tender, Soft Extremity: Normal Capillary Refill, Normal Inspection, No Pedal Edema Neurologic/Psychiatric: Alert, Oriented x3, No Motor/Sensory Deficits, Normal Mood/Affect Skin: Normal Color, Warm/Dry A/P-Cardiology Admission Diagnosis Aortic stenosis Hyperlipidemia Carotid stenosis Hip fracture Assessment/Plan Aortic stenosis murmur, asymptomatic, noted to have systolic murmur radiating to the neck. No recent cardiac workup, discussed in length about the implication of aortic stenosis versus aortic sclerosis. At this time monitoring is recommended. Carotid stenosis, no recent workup, need to be followed up as an outpatient Hyperlipidemia, maintained on statin, evaluate lipid profile. Status post hip fracture, had surgery done with Dr. Galdamez and recovering well. Anemia, slightly worse, continue to monitor Rib fracture. Denied any active pain at this time Clinical Quality Measures DVT/VTE Risk/Contraindication: Risk Factor Score Per Nursin RFS Level Per Nursing on Admit: 4+=Very High AFSHAN LYLE MD July 02, 2019 10:54
[2019-07-02 11:56] VITALS: BP 147/70
[2019-07-02] MEDS ORDERED: BISACODYL 10 MG SUPP (DULCOLAX) PR PRN (15:30)
[2019-07-02 16:00] VITALS: BP 132/63
[2019-07-02 20:00] VITALS: BP 158/68
[2019-07-02] MEDS: LORATADINE (CLARITIN) 10 MG TAB PO SCH (20:17)
[2019-07-02] MEDS: traZODone 50 MG (DESYREL) TAB PO SCH (20:17)
[2019-07-02] MEDS: MELATONIN 10 MG TABLET PO SCH (20:18)
[2019-07-03 00:10] VITALS: BP 153/69
[2019-07-03] MEDS: oxyCODONE/APAP 5/325MG (PERCOCET 5) TABLET PO PRN ×2 (03:26→10:31)
[2019-07-03 05:28] LABS: MEAN PLATELET VOLUME 9.8 FL (7.4-10.4); RED CELL DISTRIBUTION WIDTH 12.5 % (10.0-14.5); WHITE BLOOD COUNT 4.9 10^3/uL (4.3-11.0)
[2019-07-03 05:41] LABS: ALBUMIN 3.2 GM/DL (3.2-4.5); CHLORIDE 103 MMOL/L (98-107); POTASSIUM 4.2 MMOL/L (3.6-5.0); SODIUM 137 MMOL/L (135-145)
[2019-07-03 05:42] LABS: CALCIUM 8.8 MG/DL (8.5-10.1)
[2019-07-03 05:43] LABS: TOTAL PROTEIN 5.4 GM/DL (6.4-8.2); TRIGLYCERIDES 101 MG/DL (<150); VLDL CHOLESTEROL 20 MG/DL (5-40)
[2019-07-03 05:44] LABS: CARBON DIOXIDE 25 MMOL/L (21-32); GLUCOSE 121 MG/DL (70-105)
[2019-07-03 05:45] LABS: BILIRUBIN,TOTAL 0.5 MG/DL (0.1-1.0)
[2019-07-03 05:47] LABS: ALKALINE PHOSPHATASE 50 U/L (40-136); CREATININE SERUM 0.57 MG/DL (0.60-1.30); GFR ESTIMATED > 60
[2019-07-03 05:48] LABS: BUN/CREATININE RATIO 19; CHOLESTEROL 107 MG/DL (< 200)
[2019-07-03 05:49] LABS: HDL CHOLESTEROL 39 MG/DL (40-60)
[2019-07-03 05:50] LABS: ALANINE AMINOTRANSFERASE 18 U/L (0-55)
[2019-07-03] MEDS: MULTIVIT W/MINERALS TAB (THERAGRAN M) PO SCH (06:29)
--- NOTE | 2019-07-03 06:43 | Pulmonary Progress Note ---
Subjective Time Seen by a Provider: 06:40 Subjective/Events-last exam No complications noted. Sepsis Event Evaluation Height, Weight, BMI Height: '" Weight: lbs. oz. kg; 20.19 BMI Method: Exam Exam Vital Signs Date Time Temp Pulse Resp B/P (MAP) Pulse Ox O2 Delivery O2 Flow Rate FiO2 07/03/19 00:10 36.6 83 18 153/69 (97) 95 Room Air 07/02/19 20:00 Room Air 07/02/19 20:00 37.4 100 20 158/68 (98) 97 Room Air 07/02/19 19:23 97 Room Air 07/02/19 16:00 36.8 106 18 132/63 (86) 97 Room Air 07/02/19 11:56 36.5 80 19 147/70 (95) 95 Room Air 07/02/19 09:09 93 Nasal Cannula 2.00 07/02/19 08:06 36.4 91 20 134/63 (86) 94 Room Air 07/02/19 08:00 93 Nasal Cannula 2.00 I & O 07/03/19 07:00 Intake Total 2240 ml Output Total 850 ml Balance 1390 ml Height & Weight Height: '" Weight: lbs. oz. kg; 20.19 BMI Method: General Appearance: No Apparent Distress, WD/WN, Chronically ill, Thin HEENT: PERRL/EOMI, TMs Normal, Normal ENT Inspection, Pharynx Normal, Moist Mucous Membranes Neck: Full Range of Motion, Normal Inspection Respiratory: Chest Non Tender, Lungs Clear, Normal Breath Sounds, No Accessory Muscle Use, No Respiratory Distress, Decreased Breath Sounds Cardiovascular: Regular Rate, Rhythm, No Edema, No Gallop, No JVD, No Murmur, Normal Peripheral Pulses Capillary Refill: Less Than 3 Seconds Peripheral Pulses: 2+ Dorsalis Pedis (R), 2+ Left Dors-Pedis (L), 2+ Radial Pul ses (R), 2+ Radial Pulses (L) Gastrointestinal: normal bowel sounds, non tender, soft, no organomegaly Extremity: Normal Capillary Refill, Normal Inspection, No Pedal Edema Neurologic/Psychiatric: Alert, Oriented x3, No Motor/Sensory Deficits, Normal Mood/Affect Skin: Normal Color, Warm/Dry Results Lab Laboratory Tests 07/02/19 03:55 07/03/19 04:17 Assessment/Plan Assessment/Plan s/p right hip fracture after fall COPD with hx of lung nodules -CT shows no lung nodules or mass. -Out pt PFT -Advair -Pt is on RA Vertebral compression fracture -Defer to Dr. Cintron's management CAD -Cardiology following Hyponatremia anemia -Monitor Hx of breast cancer I am going to sign off please call with any questions. ROCIO LERNER DO July 03, 2019 06:43
[2019-07-03] MEDS: ADVAIR HFA 115/21 MCG INHALER 8 GM IH SCH (07:08)
[2019-07-03 08:00] VITALS: BP 107/65
--- NOTE | 2019-07-03 08:08 | Progress Note ---
Standard Progress Note Progress Notes/Assess & Plan Date Seen by a Provider: July 03, 2019 Time Seen by a Provider: 08:07 Progress/Assessment & Plan NO complaints discussed surgical treatment with the patient at length. plan to OR today for right hip bipolar Final Diagnosis continuing to feel better Vital Signs Date Time Temp Pulse Resp B/P (MAP) Pulse Ox O2 Delivery O2 Flow Rate FiO2 07/03/19 07:09 97 Room Air 07/03/19 00:10 36.6 83 18 153/69 (97) 95 Room Air 07/02/19 20:00 Room Air 07/02/19 20:00 37.4 100 20 158/68 (98) 97 Room Air 07/02/19 19:23 97 Room Air 07/02/19 16:00 36.8 106 18 132/63 (86) 97 Room Air 07/02/19 11:56 36.5 80 19 147/70 (95) 95 Room Air 07/02/19 09:09 93 Nasal Cannula 2.00 I & O 07/03/19 07:00 Intake Total 2240 ml Output Total 850 ml Balance 1390 ml Laboratory Tests Test 07/03/19 04:17 Range/Units White Blood Count 4.9 4.3-11.0 10^3/uL Red Blood Count 2.75 L 4.35-5.85 10^6/uL Hemoglobin 8.0 L 11.5-16.0 G/DL Hematocrit 25 L 35-52 % Mean Corpuscular Volume 89 80-99 FL Mean Corpuscular Hemoglobin 29 25-34 PG Mean Corpuscular Hemoglobin Concent 33 32-36 G/DL Red Cell Distribution Width 12.5 10.0-14.5 % Platelet Count 192 130-400 10^3/uL Mean Platelet Volume 9.8 7.4-10.4 FL Sodium Level 137 135-145 MMOL/L Potassium Level 4.2 3.6-5.0 MMOL/L Chloride Level 103 98-107 MMOL/L Carbon Dioxide Level 25 21-32 MMOL/L Anion Gap 9 5-14 MMOL/L Blood Urea Nitrogen 11 7-18 MG/DL Creatinine 0.57 L 0.60-1.30 MG/DL Estimat Glomerular Filtration Rate > 60 BUN/Creatinine Ratio 19 Glucose Level 121 H 70-105 MG/DL Calcium Level 8.8 8.5-10.1 MG/DL Corrected Calcium 9.4 8.5-10.1 MG/DL Total Bilirubin 0.5 0.1-1.0 MG/DL Aspartate Amino Transf (AST/SGOT) 23 5-34 U/L Alanine Aminotransferase (ALT/SGPT) 18 0-55 U/L Alkaline Phosphatase 50 40-136 U/L Total Protein 5.4 L 6.4-8.2 GM/DL Albumin 3.2 3.2-4.5 GM/DL Triglycerides Level 101 <150 MG/DL Cholesterol Level 107 < 200 MG/DL LDL Cholesterol Direct 50 1-129 MG/DL VLDL Cholesterol 20 5-40 MG/DL HDL Cholesterol 39 L 40-60 MG/DL R hip dressing intact. No calf tenderness Neg Gabriel's s/p R hip bipolar doing well transfer to GARETH SONIA,SHANKAR Mcdaniels MD July 03, 2019 08:08
[2019-07-03] MEDS: SENNOSIDES 8.6 MG (SENOKOT) TAB PO SCH (08:33)
[2019-07-03] MEDS: VITAMIN D3 125 MCG (5,000 UNITS) CAPSULE PO SCH (08:33)
[2019-07-03] MEDS: CLOPIDOGREL 75 MG (PLAVIX) TABLET PO SCH (08:33)
[2019-07-03] MEDS: lisINopril 5 MG (PRINIVIL) TABLET PO SCH (08:33)
[2019-07-03] MEDS: DICLOFENAC 1% GEL 100 GM (VOLTAREN) TUBE TOP SCH (08:34)
--- NOTE | 2019-07-03 08:50 | Cardiology Progress Note ---
Subjective Date Seen by Provider: July 03, 2019 Time Seen by Provider: 08:46 Subjective/Events-last exam Patient is sitting up in chair, denies any chest pain or dyspnea. Objective-Cardiology Exam Last Set of Vital Signs Vital Signs 07/02/19 07/03/19 07/03/19 09:09 00:10 07:09 Temp 36.6 Pulse 83 Resp 18 B/P (MAP) 153/69 (97) Pulse Ox 97 O2 Delivery Room Air O2 Flow Rate 2.00 Capillary Refill : Less Than 3 SecondsLess Than 3 Seconds I&O Intake and Output 07/03/19 00:00 Intake Total 2040 ml Output Total 1700 ml Balance 340 ml Intake Oral 2040 ml Output Urine Total 1450 ml Post Void Residual 250 ml # Voids 8 General: Alert, Oriented X3 HEENT: Atraumatic, EOMI Neck: +2 Carotid Pulse No Bruit Other physical findings Patient refusing physical examination Results Lab Laboratory Tests 07/03/19 04:17 A/P-Cardiology Admission Diagnosis Aortic stenosis Hyperlipidemia Carotid stenosis Hip fracture Assessment/Plan Aortic stenosis murmur, asymptomatic, noted to have systolic murmur radiating to the neck. No recent cardiac workup, discussed in length about the implication of aortic stenosis versus aortic sclerosis. At this time monitoring is recommended. Patient is refusing 2D Echo. Carotid stenosis, no recent workup, patient reports she was told it was inoperable, has been maintained on Plavix, need to be followed up as an outpatient Hyperlipidemia, maintained on statin, well controlled. Continue to monitor. Status post hip fracture, had surgery done with Dr. Galdamez and recovering well. Anemia, slightly worse, continue to monitor Rib fracture. Denied any active pain at this time Clinical Quality Measures DVT/VTE Risk/Contraindication: Risk Factor Score Per Nursin RFS Level Per Nursing on Admit: 4+=Very High VAN MORROW July 03, 2019 08:50
[2019-07-03] MEDS ORDERED: IRON SUCROSE 200 MG/10 ML (VENOFER) VIAL IV SCH (09:00)
--- NOTE | 2019-07-03 09:25 | NUR ---
IRF Evaluation Order received to evaluate patient for the ARU. Chart review complete and findings discussed with Dr. Cintron - patient accepted. Prior authorization process initiated and approved by [facility]. Anticipate admission, 07/03/19. Thank you for this referral.
--- NOTE | 2019-07-03 09:56 | Discharge Summary ---
Diagnosis/Chief Complaint Date of Admission June 29, 2019 at 14:37 Date of Discharge Discharge Date: July 03, 2019 Discharge Diagnosis Assessment: s/p right hip fracture due to fall with osteoporosis hx PVD on Plavix and statin consulting Dr Jackson COPD lung nodules consulting Dr Laurent at her request Former smoker Post op anemia from blood loss Iron deficiency started IV iron Breast cancer hx Plan: IV iron PT OT Cardiology and Pulmonology consultations DVT PPx IRF Discharge Summary Discharge Physical Examination Allergies: Coded Allergies: Penicillins (Verified Adverse Reaction, Unknown, itching, 06/29/19) azithromycin (Verified Adverse Reaction, Unknown, itching, 06/29/19) hydrocodone (Verified Adverse Reaction, Unknown, itching, 06/29/19) Vitals & I&Os Vital Signs Date Time Temp Pulse Resp B/P (MAP) Pulse Ox O2 Delivery O2 Flow Rate FiO2 07/03/19 08:00 97 Room Air 2.00 07/03/19 08:00 37.2 93 16 107/65 (79) General Appearance: Alert, Oriented X3, Cooperative Respiratory: Clear to Auscultation Cardiovascular: Regular Rate Psych/Mental Status: Mental Status NL Hospital Course Was the Problem List Reviewed?: Yes Hospital Course: Pt had an uneventful hospital course for 5 days after she suffered a fall with right hip fracture that was repaired by Dr. Galdamez in an uncomplicated manner. Post-op anemia managed with IV iron infusion. Overall she did very well, bowels haven't moved by time of transfer to inpatient rehab but she was doing very well, had no concerns. I did have cardiology and pulmonology see her while hospitalized due to history of Plavix use for carotid stenosis since COPD placed on Advair and CT scan revealed within normal limits no lung nodules so she was transferred to inpatient rehab with close follow up of hgb, maintained on DVT prophylaxis and will be monitored closely in the meantime. Labs (last 24 hrs) Laboratory Tests 06/29/19 12:30: White Blood Count 8.5, Red Blood Count 4.58, Hemoglobin 13.5, Hematocrit 40, Mean Corpuscular Volume 88, Mean Corpuscular Hemoglobin 30, Mean Corpuscular Hemoglobin Concent 34, Red Cell Distribution Width 12.8, Platelet Count 186, Mean Platelet Volume 10.1, Neutrophils (%) (Auto) 75, Lymphocytes (%) (Auto) 14, Monocytes (%) (Auto) 10, Eosinophils (%) (Auto) 1, Basophils (%) (Auto) 0, Neutrophils # (Auto) 6.4, Lymphocytes # (Auto) 1.2, Monocytes # (Auto) 0.8, Eosinophils # (Auto) 0.1, Basophils # (Auto) 0.0, Prothrombin Time 12.9, INR Comment 0.9, Activated Partial Thromboplast Time 29, Sodium Level 138, Potassium Level 4.1, Chloride Level 106, Carbon Dioxide Level 24, Anion Gap 8, Blood Urea Nitrogen 18, Creatinine 0.68, Estimat Glomerular Filtration Rate > 60, BUN/Creatinine Ratio 26, Glucose Level 121H, Calcium Level 10.4H, Corrected Calcium 10.2H, Total Bilirubin 0.8, Aspartate Amino Transf (AST/SGOT) 27, Alanine Aminotransferase (ALT/SGPT) 24, Alkaline Phosphatase 54, Troponin I < 0.028, Total Protein 7.0, Albumin 4.2 06/29/19 14:20: Urine Color YELLOW, Urine Clarity CLEAR, Urine pH 7.5, Urine Specific Harrison 1.015L, Urine Protein NEGATIVE, Urine Glucose (UA) NEGATIVE, Urine Ketones TRACEH, Urine Nitrite NEGATIVE, Urine Bilirubin NEGATIVE, Urine Urobilinogen 0.2, Urine Leukocyte Esterase NEGATIVE, Urine RBC (Auto) NEGATIVE, Urine RBC NONE, Urine WBC NONE, Urine Crystals PRESENTH, Urine Amorphous Sediment LARGE SUNSHINE PHOSPHATEH, Urine Bacteria TRACE, Urine Casts NONE, Urine Mucus NEGATIVE, Urine Culture Indicated NO 06/30/19 05:45: White Blood Count 4.4, Red Blood Count 4.13L, Hemoglobin 12.2, Hematocrit 37, Mean Corpuscular Volume 88, Mean Corpuscular Hemoglobin 30, Mean Corpuscular Hemoglobin Concent 33, Red Cell Distribution Width 12.5, Platelet Count 169, Mean Platelet Volume 10.2, Neutrophils (%) (Auto) 57, Lymphocytes (%) (Auto) 26, Monocytes (%) (Auto) 13H, Eosinophils (%) (Auto) 3, Basophils (%) (Auto) 1, Neutrophils # (Auto) 2.5, Lymphocytes # (Auto) 1.1, Monocytes # (Auto) 0.6, Eosinophils # (Auto) 0.2, Basophils # (Auto) 0.0, Sodium Level 138, Potassium Level 4.3, Chloride Level 106, Carbon Dioxide Level 23, Anion Gap 9, Blood Urea Nitrogen 15, Creatinine 0.63, Estimat Glomerular Filtration Rate > 60, BUN/Creatinine Ratio 24, Glucose Level 101, Calcium Level 8.7 07/01/19 04:41: Hemoglobin 9.4#L, Hematocrit 28L 07/01/19 04:48: Sodium Level 134L, Potassium Level 4.6, Chloride Level 104, Carbon Dioxide Level 22, Anion Gap 8, Blood Urea Nitrogen 11, Creatinine 0.57L, Estimat Glomerular Filtration Rate > 60, BUN/Creatinine Ratio 19, Glucose Level 141H, Calcium Level 8.2L 07/01/19 08:46: Iron Level 24L 07/02/19 03:55: Sodium Level 139, Potassium Level 4.0, Chloride Level 106, Carbon Dioxide Level 23, Anion Gap 10, Blood Urea Nitrogen 13, Creatinine 0.56L, Estimat Glomerular Filtration Rate > 60, BUN/Creatinine Ratio 23, Glucose Level 111H, Calcium Level 8.2L, White Blood Count 4.7, Red Blood Count 2.89L, Hemoglobin 8.5L, Hematocrit 26L, Mean Corpuscular Volume 90, Mean Corpuscular Hemoglobin 29, Mean Corpuscular Hemoglobin Concent 33, Red Cell Distribution Width 12.4, Platelet Count 177, Mean Platelet Volume 10.2, Neutrophils (%) (Auto) 62, Lymphocytes (%) (Auto) 23, Monocytes (%) (Auto) 14H, Eosinophils (%) (Auto) 2, Basophils (%) (Auto) 0, Neutrophils # (Auto) 2.9, Lymphocytes # (Auto) 1.1, Monocytes # (Auto) 0.7, Eosinophils # (Auto) 0.1, Basophils # (Auto) 0.0, Corrected Calcium 8.9, Total Bilirubin 0.4, Aspartate Amino Transf (AST/SGOT) 27, Alanine Aminotransferase (ALT/SGPT) 19, Alkaline Phosphatase 41, Total Protein 5.1L, Albumin 3.1L 07/03/19 04:17: Sodium Level 137, Potassium Level 4.2, Chloride Level 103, Carbon Dioxide Level 25, Anion Gap 9, Blood Urea Nitrogen 11, Creatinine 0.57L, Estimat Glomerular Filtration Rate > 60, BUN/Creatinine Ratio 19, Glucose Level 121H, Calcium Level 8.8, White Blood Count 4.9, Red Blood Count 2.75L, Hemoglobin 8.0L, Hematocrit 25L, Mean Corpuscular Volume 89, Mean Corpuscular Hemoglobin 29, Mean Corpuscular Hemoglobin Concent 33, Red Cell Distribution Width 12.5, Platelet Count 192, Mean Platelet Volume 9.8, Corrected Calcium 9.4, Total Bilirubin 0.5, Aspartate Amino Transf (AST/SGOT) 23, Alanine Aminotransferase (ALT/SGPT) 18, Alkaline Phosphatase 50, Total Protein 5.4L, Albumin 3.2, Triglycerides Level 101, Cholesterol Level 107, LDL Cholesterol Direct 50, VLDL Cholesterol 20, HDL Cholesterol 39L Microbiology 06/29/19 MRSA Screen - Final, Complete MRSA not isolated Pending Labs Microbiology Date/Time Source Procedure Growth Status 06/29/19 15:45 Nasal MRSA Screen - Final MRSA not isolated Complete Laboratory Tests 06/29/19 12:30: White Blood Count 8.5, Red Blood Count 4.58, Hemoglobin 13.5, Hematocrit 40, Mean Corpuscular Volume 88, Mean Corpuscular Hemoglobin 30, Mean Corpuscular Hemoglobin Concent 34, Red Cell Distribution Width 12.8, Platelet Count 186, Mean Platelet Volume 10.1, Neutrophils (%) (Auto) 75, Lymphocytes (%) (Auto) 14, Monocytes (%) (Auto) 10, Eosinophils (%) (Auto) 1, Basophils (%) (Auto) 0, Neutrophils # (Auto) 6.4, Lymphocytes # (Auto) 1.2, Monocytes # (Auto) 0.8, Eosinophils # (Auto) 0.1, Basophils # (Auto) 0.0, Prothrombin Time 12.9, INR Comment 0.9, Activated Partial Thromboplast Time 29, Sodium Level 138, Potassium Level 4.1, Chloride Level 106, Carbon Dioxide Level 24, Anion Gap 8, Blood Urea Nitrogen 18, Creatinine 0.68, Estimat Glomerular Filtration Rate > 60, BUN/Creatinine Ratio 26, Glucose Level 121, Calcium Level 10.4, Corrected Calcium 10.2, Total Bilirubin 0.8, Aspartate Amino Transf (AST/SGOT) 27, Alanine Aminotransferase (ALT/SGPT) 24, Alkaline Phosphatase 54, Troponin I < 0.028, Total Protein 7.0, Albumin 4.2 06/29/19 14:20: Urine Color YELLOW, Urine Clarity CLEAR, Urine pH 7.5, Urine Specific Harrison 1. 015, Urine Protein NEGATIVE, Urine Glucose (UA) NEGATIVE, Urine Ketones TRACE, Urine Nitrite NEGATIVE, Urine Bilirubin NEGATIVE, Urine Urobilinogen 0.2, Urine Leukocyte Esterase NEGATIVE, Urine RBC (Auto) NEGATIVE, Urine RBC NONE, Urine WBC NONE, Urine Crystals PRESENT, Urine Amorphous Sediment LARGE SUNSHINE PHOSPHATE, Urine Bacteria TRACE, Urine Casts NONE, Urine Mucus NEGATIVE, Urine Culture Indicated NO 06/30/19 05:45: White Blood Count 4.4, Red Blood Count 4.13, Hemoglobin 12.2, Hematocrit 37, Mean Corpuscular Volume 88, Mean Corpuscular Hemoglobin 30, Mean Corpuscular Hemoglobin Concent 33, Red Cell Distribution Width 12.5, Platelet Count 169, Mean Platelet Volume 10.2, Neutrophils (%) (Auto) 57, Lymphocytes (%) (Auto) 26, Monocytes (%) (Auto) 13, Eosinophils (%) (Auto) 3, Basophils (%) (Auto) 1, Neutrophils # (Auto) 2.5, Lymphocytes # (Auto) 1.1, Monocytes # (Auto) 0.6, Eosinophils # (Auto) 0.2, Basophils # (Auto) 0.0, Sodium Level 138, Potassium Level 4.3, Chloride Level 106, Carbon Dioxide Level 23, Anion Gap 9, Blood Urea Nitrogen 15, Creatinine 0.63, Estimat Glomerular Filtration Rate > 60, BUN/Creatinine Ratio 24, Glucose Level 101, Calcium Level 8.7 07/01/19 04:41: Hemoglobin 9.4, Hematocrit 28 07/01/19 04:48: Sodium Level 134, Potassium Level 4.6, Chloride Level 104, Carbon Dioxide Level 22, Anion Gap 8, Blood Urea Nitrogen 11, Creatinine 0.57, Estimat Glomerular Filtration Rate > 60, BUN/Creatinine Ratio 19, Glucose Level 141, Calcium Level 8.2 07/01/19 08:46: Iron Level 24 07/02/19 03:55: Sodium Level 139, Potassium Level 4.0, Chloride Level 106, Carbon Dioxide Level 23, Anion Gap 10, Blood Urea Nitrogen 13, Creatinine 0.56, Estimat Glomerular Filtration Rate > 60, BUN/Creatinine Ratio 23, Glucose Level 111, Calcium Level 8.2, White Blood Count 4.7, Red Blood Count 2.89, Hemoglobin 8.5, Hematocrit 26, Mean Corpuscular Volume 90, Mean Corpuscular Hemoglobin 29, Mean Corpuscular Hemoglobin Concent 33, Red Cell Distribution Width 12.4, Platelet Count 177, Mean Platelet Volume 10.2, Neutrophils (%) (Auto) 62, Lymphocytes (%) (Auto) 23, Monocytes (%) (Auto) 14, Eosinophils (%) (Auto) 2, Basophils (%) (Auto) 0, Neutrophils # (Auto) 2.9, Lymphocytes # (Auto) 1.1, Monocytes # (Auto) 0.7, Eosinophils # (Auto) 0.1, Basophils # (Auto) 0.0, Corrected Calcium 8.9, Total Bilirubin 0.4, Aspartate Amino Transf (AST/SGOT) 27, Alanine Aminotransferase (ALT/SGPT) 19, Alkaline Phosphatase 41, Total Protein 5.1, Albumin 3.1 07/03/19 04:17: Sodium Level 137, Potassium Level 4.2, Chloride Level 103, Carbon Dioxide Level 25, Anion Gap 9, Blood Urea Nitrogen 11, Creatinine 0.57, Estimat Glomerular Filtration Rate > 60, BUN/Creatinine Ratio 19, Glucose Level 121, Calcium Level 8.8, White Blood Count 4.9, Red Blood Count 2.75, Hemoglobin 8.0, Hematocrit 25, Mean Corpuscular Volume 89, Mean Corpuscular Hemoglobin 29, Mean Corpuscular Hemoglobin Concent 33, Red Cell Distribution Width 12.5, Platelet Count 192, Mean Platelet Volume 9.8, Corrected Calcium 9.4, Total Bilirubin 0.5, Aspartate Amino Transf (AST/SGOT) 23, Alanine Aminotransferase (ALT/SGPT) 18, Alkaline Phosphatase 50, Total Protein 5.4, Albumin 3.2, Triglycerides Level 101, Cholesterol Level 107, LDL Cholesterol Direct 50, VLDL Cholesterol 20, HDL Cholesterol 39 Discharge Home Medications: Active Scripts Active Reported Zyrtec (Cetirizine HCl) 10 Mg Tablet 10 Mg PO HS Vitamin D3 (Cholecalciferol (Vitamin D3)) 125 Mcg Tablet 125 Mcg PO DAILY Multivitamin 1 Each Tablet 1 Each PO HS Melatonin 10 Mg Tablet 10 Mg PO HS Risedronate Sodium 35 Mg Tablet 35 Mg PO WEDNESDAY Trazodone HCl 50 Mg Tablet 50 Mg PO HS Clopidogrel (Clopidogrel Bisulfate) 75 Mg Tablet 75 Mg PO DAILY Atorvastatin Calcium 40 Mg Tablet 40 Mg PO HS Lisinopril 5 Mg Tablet 5 Mg PO BID Instructions to patient/family Please see electronic discharge instructions given to patient. Diagnosis/Problems Diagnosis/Problems (1) Closed right hip fracture Status: Acute Qualifiers: Qualified Codes: S72.001A - Fracture of unspecified part of neck of right femur, initial encounter for closed fracture (2) CAD (coronary artery disease) (3) Hyperlipemia (4) Postoperative anemia (5) Iron deficiency (6) Fall Status: Acute Qualifiers: Qualified Codes: W19.XXXA - Unspecified fall, initial encounter (7) HTN (hypertension) Status: Chronic Qualifiers: Qualified Codes: I10 - Essential (primary) hypertension (8) Age related osteoporosis Status: Chronic Qualifiers: Qualified Codes: M80.00XA - Age-related osteoporosis with current pathological fracture, unspecified site, initial encounter for fracture Clinical Quality Measures DVT/VTE Risk/Contraindication: Risk Factor Score Per Nursin RFS Level Per Nursing on Admit: 4+=Very High LEDY HUDSON DO July 03, 2019 09:56
--- NOTE | 2019-07-03 19:31 | DISCHARGE SUMMARY ---
DATE OF SERVICE: DIAGNOSES: 1. Right femoral neck fracture. 2. Hypertension. 3. Osteoporosis. PROCEDURE: Right hip bipolar replacement. HISTORY: The patient is an 83-year-old female who was admitted when she was found to have a displaced right femoral neck fracture. She underwent a right hip bipolar replacement and postoperatively was doing well. At the time of discharge, her wound was clean and dry. She had no calf tenderness. Negative Homans sign. CONDITION AT DISCHARGE: Good. DISCHARGE DISPOSITION: Transfer to the inpatient rehabilitation unit for continued physical and occupational therapy. Job ID: [id number] DocumentID: [id number] Dictated Date: 07/03/2019 08:06:38 Log Check Scaler Date: 07/03/2019 19:30:42 Dictated By: SHANKAR SCOTT MD
--- NOTE | 2019-07-04 11:43 | Physician Query Clarification ---
PQ-Further Specificity Admission/Discharge Admission Date: June 29, 2019 at 14:37 Discharge Date: July 03, 2019 at 10:40 The medical record reflects the following clinical scenario: History/Risk Factors: Fall, RT femur neck, fracture, osteoporosis Clinical Findings: Dexa scan in Nov that confirmed osteoprosis and has been on treatment, rib fracture and vertebral compression fracture Treatment: bipolar prosthesis Question: Can you further specify if the rt femur neck, rib and vertebral fractures are due to osteoporosis per the clinical indicators above? Please document a response in the Progress Notes or Discharge Summary. 1. Yes, the fractures are due to osteoporosis 2. No, undetermined if the fractures are due to the osteoporosis, consider fractures as traumatic 3. Other, with explanation of the clinical findings. 4. Clinically undetermined, no explanation for the clinical findings. PHYSICIAN RESPONSE Can you specify per above: 2 Please remember a lack of response to the above will prompt a phone page by CDI/Coding staff. In responding to this query, please exercise your independent professional judgment. The purpose of this communication is to more accurately reflect the complexity of your patients condition. The fact that a question is asked does not imply that any particular answer is desired or expected. Thank you for your timely response to this clarification. Requestors name: Nereyda THIS PHYSICIAN QUERY FORM IS A PERMANENT PART OF THE MEDICAL RECORD NEREYDA BERMAN July 04, 2019 11:43 SHANKAR SCOTT MD July 04, 2019 16:44
== END 2019-07-03 10:40 | DRG 470 ==
LOC: EDUNIT# 12:24 → ER 12:26 → 4TH 14:37
PROVIDERS: ADMIT Family Medicine; ATTEND Family Medicine
PROC: 0SRR01A Replacement of Right Hip Joint, Femoral Surface with Metal Synthetic Substitute, Uncemented, Open Approach (ICD-10-PCS; principal; 2019-06-30 12:05)
DX: S72.001A Fracture of unspecified part of neck of right femur, initial encounter for closed fracture (principal); S22.39XA Fracture of one rib, unspecified side, initial encounter for closed fracture; S22.080A Wedge compression fracture of T11-T12 vertebra, initial encounter for closed fracture; M81.0 Age-related osteoporosis without current pathological fracture; D62 Acute posthemorrhagic anemia; I65.09 Occlusion and stenosis of unspecified vertebral artery; I65.29 Occlusion and stenosis of unspecified carotid artery; Z79.02 Long term (current) use of antithrombotics/antiplatelets; Z66 Do not resuscitate; I25.10 Atherosclerotic heart disease of native coronary artery without angina pectoris; J44.9 Chronic obstructive pulmonary disease, unspecified; I35.0 Nonrheumatic aortic (valve) stenosis; Z85.3 Personal history of malignant neoplasm of breast; Z87.891 Personal history of nicotine dependence; W18.09XA Striking against other object with subsequent fall, initial encounter; Y92.008 Other place in unspecified non-institutional (private) residence as the place of occurrence of the external cause
CPT/HCPCS: 36415; 51702; 70450; 71045; 71260; 72125; 73502; 80048; 80053; 80061; 81000; 83540; 84484; 85014; 85018; 85025; 85027; 85610; 85730; 87081; 93005; 94640; 94664; 94760; 96374

== ENCOUNTER 2019-07-03 09:40 | Inpatient (IN) | payer MEDICARE ==
[~2019-07-03] VITALS: Ht 162.6 cm; Wt 45.9 kg
[~2019-07-03 09:40] MED LIST: ATOR40TA70 PO; CALC-250 PO; CETI10TA21 PO; CLOP75TA28 PO; LISI-556 PO; MELA10TA2 PO; MULT-1136 PO; RISE35TA12 PO; TRZ50T PO
[2019-07-03] MEDS ORDERED: LACTULOSE SYRUP 10GM/15ML (ENULOSE) 30ML UDC PO PRN (10:00)
[2019-07-03] MEDS ORDERED: CALCIUM CARBONATE 500 MG (TUMS) TAB.CHEW PO PRN (10:00)
[2019-07-03] MEDS ORDERED: DOCUSATE SODIUM 100 MG (COLACE) CAP PO PRN (10:00)
[2019-07-03] MEDS ORDERED: ALPRAZolam 0.25 MG (XANAX) TAB PO PRN (10:00)
[2019-07-03] MEDS ORDERED: FLEET ENEMA ADULT 1 EA BTL PR PRN (10:00)
[2019-07-03] MEDS ORDERED: diphenhydrAMINE 25 MG TAB (BENADRYL) PO PRN (10:00)
[2019-07-03] MEDS ORDERED: BISACODYL 10 MG SUPP (DULCOLAX) PR PRN ×2 (10:00→11:15)
[2019-07-03] MEDS ORDERED: guaiFENesin/CODEINE (ROBITUSSIN AC) 10ML UDC PO PRN (10:00)
[2019-07-03] MEDS ORDERED: ONDANSETRON 4 MG (ZOFRAN) ORAL DISSOLVE TAB PO PRN (10:00)
[2019-07-03] MEDS ORDERED: LOPERAMIDE 2 MG (IMODIUM) TABLET PO PRN (10:00)
--- NOTE | 2019-07-03 10:35 | NUR ---
Kendall Osei admitted to room 227-1, with an admitting diagnosis of Right Hip Replacement, on 07/03/19 from [facility] 4th floor medical via wheelchair, accompanied by staff. KENDALL OSEI introduced to surroundings, call light, bed controls, phone, TV, temperature control, lights, meal times, smoking policy, visitor policy, side rail policy, bathrooms and showers. Patient Rights given to patient in the handbook.KENDALL OSEI verbalizes understanding that [facility] is not responsible for the loss or damage to any personal effects or valuables that are kept in the patients posession during their hospitalization. KENDALL OSEI verbalizes understanding of Interdisciplinary Patient Education. Patient received Patient Rights Booklet, which includes Privacy Act Statement and Data Collection Information Summary.
[2019-07-03 10:50] VITALS: BP 151/74
--- NOTE | 2019-07-03 10:50 | NUR ---
SPOKE WITH PT ON 06-29-2019 WHEN SHE WAS IN ROOM 407 TO COMPLETE THE MED REC I REVIEWED ALL THE MEDICATIONS AND THERE WERE NO CHANGES/ DC'D/ OR STOPPED MEDICATIONS AT THIS TIME.
[2019-07-03] MEDS ORDERED: diphenhydrAMINE 50 MG/ML INJ (BENADRYL) IVP PRN (11:15)
[2019-07-03] MEDS ORDERED: ONDANSETRON 4 MG/2 ML (SDV) Z0FRAN IVP PRN (11:15)
[2019-07-03] MEDS ORDERED: CATHETER FLUSH 10 ML SYR IV PRN (11:15)
[2019-07-03] MEDS ORDERED: TEMAZEPAM 15 MG (RESTORIL) CAP PO PRN (11:15)
[2019-07-03] MEDS ORDERED: ACETAMINOPHEN 325 MG TABLET PO PRN (11:15)
[2019-07-03] MEDS ORDERED: morphine INJ 4 MG/ML 1 ML (VIAL/SYRINGE) IVP PRN (11:15)
--- NOTE | 2019-07-03 11:17 | PM&R Post Admission Assessment ---
PM&R HP Date of Visit: July 03, 2019 Time of Visit: 13:00 History of Present Illness CC: Right hip fracture HPI: This is an 83yoWF clinic patient of [facility] who presents to IRF in need of aggressive therapy following right hip fracture. Patient has done well since uncomplicated repair. IV iron will be restarted after midline placed since they lost IV access and can't place one successfully. BM regimen will be initiated to prevent narcotic bowel. PLOF is independent without us of assistive devices. DC summary from 4th floor: Hospital Course: Pt had an uneventful hospital course for 5 days after she suffered a fall with right hip fracture that was repaired by Dr. Galdamez in an uncomplicated manner. Post-op anemia managed with IV iron infusion. Overall she did very well, bowels haven't moved by time of transfer to inpatient rehab but she was doing very well, had no concerns. I did have cardiology and pulmonology see her while hospitalized due to history of Plavix use for carotid stenosis since COPD placed on Advair and CT scan revealed within normal limits no lung nodules so she was transferred to inpatient rehab with close follow up of hgb, maintained on DVT prophylaxis and will be monitored closely in the meantime. Past Crlgbgj-Vfowaw-Dxujod Hx Past Med/Social Hx: Reviewed Nursing Past Med/Soc Hx, Reviewed and Corrections made Patient Social History Marrital Status: single Employed/Student: retired Alcohol Use: Rarely Uses Smoking Status: Former Smoker Type Used: Cigarettes Recent Foreign Travel: No Contact w/other who traveled: No Recent Hopitalizations: No Recent Infectious Disease Expo: No Immunizations Up To Date Date of Pneumonia Vaccine: Feb 15, 2017 Seasonal Allergies Seasonal Allergies: Yes (year round ) Past Medical History Surgeries: Ear Surgery, Hysterectomy, Orthopedic Respiratory: COPD pulmonary nodules? Currently Using CPAP: No Currently Using BIPAP: No Cardiac: Hypertension Female Reproductive Disorders: Denies Musculoskeletal: Osteoporosis, Arthritis, Fractures HEENT: Cataract Hearing Impairment: Hard of Hearing Psychosocial: Sleep Difficulties, Depression History of Blood Disorders: No Adverse Reaction to Blood Christine: No Family History Cardiovascular disease 19 MOTHER Colon cancer 19 MOTHER Diabetes mellitus 19 FATHER Hypertension 19 FATHER 19 MOTHER Severe allergy 19 FATHER 19 MOTHER No Pertinent Family Hx PM&R Allergy/Meds/Data Review Allergies Coded Allergies: Penicillins (Verified Adverse Reaction, Unknown, itching, 06/29/19) azithromycin (Verified Adverse Reaction, Unknown, itching, 06/29/19) hydrocodone (Verified Adverse Reaction, Unknown, itching, 06/29/19) Home Medications Scheduled Atorvastatin Calcium (Atorvastatin Calcium), 40 MG PO HS, (Reported) Cetirizine HCl (Zyrtec), 10 MG PO HS, (Reported) Cholecalciferol (Vitamin D3) (Vitamin D3), 125 MCG PO DAILY, (Reported) Clopidogrel Bisulfate (Clopidogrel), 75 MG PO DAILY, (Reported) Lisinopril (Lisinopril), 5 MG PO BID, (Reported) Melatonin (Melatonin), 10 MG PO HS, (Reported) Multivitamin (Multivitamin), 1 EACH PO HS, (Reported) Risedronate Sodium (Risedronate Sodium), 35 MG PO WEDNESDAY, (Reported) Trazodone HCl (Trazodone HCl), 50 MG PO HS, (Reported) Current Medications Current Medications Reviewed Review of Systems Constitutional: see HPI EENTM: no symptoms reported Respiratory: no symptoms reported Cardiovascular: no symptoms reported Gastrointestinal: constipation Genitourinary: no symptoms reported Musculoskeletal: joint pain Skin: no symptoms reported Psychiatric/Neurological: Anxiety, Depressed All Other Systems Reviewed Negative Unless Noted: Yes Physical Exam Physical Exam Vital Signs Vital Signs - First Documented 07/03/19 10:50 Temp 36.6 Pulse 86 Resp 20 B/P (MAP) 151/74 Pulse Ox 98 O2 Delivery Room Air Capillary Refill : Height, Weight, BMI Height: '" Weight: lbs. oz. kg; 112.54 BMI Method: General Appearance: No Apparent Distress, WD/WN, Chronically ill, Thin Eyes: Bilateral Eye Normal Inspection, Bilateral Eye PERRL HEENT: PERRL/EOMI, Normal ENT Inspection, Pharynx Normal Neck: Full Range of Motion, Normal Inspection, Non Tender, Supple, Carotid Bruit Respiratory: Chest Non Tender, Lungs Clear, Normal Breath Sounds, No Accessory Muscle Use, No Respiratory Distress Cardiovascular: Regular Rate, Rhythm, No Edema, No Gallop, No JVD, No Murmur, Normal Peripheral Pulses Gastrointestinal: Normal Bowel Sounds, No Organomegaly, No Pulsatile Mass, Non Tender, Soft Back: Normal Inspection, No CVA Tenderness, No Vertebral Tenderness Extremity: Normal Capillary Refill, Normal Inspection, Normal Range of Motion (except right leg from pain ), Non Tender, No Calf Tenderness, No Pedal Edema Neurologic/Psychiatric: Alert, Oriented x3, No Motor/Sensory Deficits (righg leg 3/5 strength), Normal 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, 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 Norm as Tested, Abnormal Gait Skin: Normal Color, Warm/Dry Lymphatic: No Adenopathy PM&R Medical Assessment & Plan REHAB/MEDICAL ASSESSMENT AND PLAN: REHAB IMPAIRMENT GROUP: Right hip fracture ETIOLOGIC DIAGNOSIS: Right hip fracture The comorbidities that impact the patients function and/or functional outcome by: advanced age, frail status, osteoporosis, lives alone REHAB PLAN: The patient is being admitted to our comprehensive inpatient rehabilitation facility and can tolerate the intensity of service consisting of at least: 180 minutes of therapy a day, 5 out of 7 days a week Rehab treatment will consist of: PT OT will focus on regaining function and ADL"s and increase stamina in order to regain strength to return home to live independently The patient/family has a good understanding of our discharge process and will benefit from an interdisciplinary inpatient rehabilitation program. The patient has potential to make improvement and is in need of at least two of the following multidisciplinary therapies including but not limited to physical, occupational, speech, and prosthetics and orthotics. Additionally the patient will need services from respiratory, nutritional services, wound care, psychology, etc. (Customize this to each patient). Given the patients complex condition and risk of further medical complications, rehabilitation services cannot be safely or effectively provided at a lower level of care such as a alf facility. BARRIERS TO DISCHARGE: Lives alone ESTIMATED LOS: 7 days DISPOSITION: Home with HH RELEVANT CHANGES SINCE PREADMISSION SCREENING: I have compared the patients medical and functional status at the time of the preadmission screening and there are: no changes PROGNOSIS: Good REHABILITATION GOALS: 1. PT OT will focus on regaining function and ADL"s and increase stamina in order to regain strength to return home to live independently All the above goals were reviewed with the patient and he/she is in agreement. By signing this document, I acknowledge that I have personally performed a full physical examination on this patient within 24 hours of admission to this inpatient rehabilitation facility and have determined the patient to be able to tolerate the above course of treatment at an intensive level for a reasonable period of time. I will be completing a detailed individualized Plan of Care for this patient by day #4 of the patients stay based upon the Preadmission Screen, the Post-Admission Evaluation, and the therapy evaluations. Admission Dx/Comorbidities: (1) Closed right hip fracture Status: Acute ICD Codes: S72.001A - Fracture of unspecified part of neck of right femur, initial encounter for closed fracture (2) COPD (chronic obstructive pulmonary disease) ICD Codes: J44.9 - Chronic obstructive pulmonary disease, unspecified (3) Carotid stenosis ICD Codes: I65.29 - Occlusion and stenosis of unspecified carotid artery (4) Constipation ICD Codes: K59.00 - Constipation, unspecified (5) Fall Status: Acute ICD Codes: W19.XXXA - Unspecified fall, initial encounter (6) Postoperative anemia ICD Codes: D64.9 - Anemia, unspecified (7) Age related osteoporosis Status: Chronic ICD Codes: M81.0 - Age-related osteoporosis without current pathological fracture (8) HTN (hypertension) Status: Chronic ICD Codes: I10 - Essential (primary) hypertension (9) Hyperlipemia ICD Codes: E78.5 - Hyperlipidemia, unspecified (10) Iron deficiency ICD Codes: E61.1 - Iron deficiency Assessment/Plan Assessment and Plan Assess & Plan/Chief Complaint Assessment: s/p right hip fracture due to fall with osteoporosis hx PVD on Plavix and statin consulting Dr Jackson COPD lung nodules consulting Dr Laurent at her request Former smoker Post op anemia from blood loss Iron deficiency started IV iron Breast cancer hx Plan: IV iron after midline PT OT IRF Cardiology and Pulmonology consultations appreciated DVT PPx LEDY HUDSON DO July 03, 2019 11:17
--- NOTE | 2019-07-03 11:47 | Occupational Therapy Eval ---
OT Evaluation-General/PLF Medical Diagnosis Admission Date July 03, 2019 at 10:40 Medical Diagnosis: R hip fx; NASEEM Onset Date: June 25, 2019 Therapy Diagnosis Therapy Diagnosis: Decreased ADL status Precautions Precautions/Isolations: Fall Prevention, Standard Precautions Weight Bear Status Weight Bearing Restriction: Weight Bearing/Tolerated Location Restriction: R LE Referral Physician: Laura Cintron DO Referral Reason: Activity Tolerance, Self Care, Evaluation/Treatment, Strengthening/ROM Medical History Pertinent Medical History: HTN Additional Medical History see nursing. double mastectomy Current History Pt fell mother's day (june 24), states "hurt badly," though was able to ambulate for 3 days prior to going to dr for "tingling in leg." Pt underwent total hip on June 29. Reviewed History: Yes Social History Home: Apartment Current Living Status: Alone Entry Into Home: Stairs With Railing Steps Into Home: 2 ADL-Prior Level of Function SCALE: Activities may be completed with or without assistive devices. 1-Lvbrnyafuz-wnnygoh completes the activity by him/herself with no assistance from a helper. 5-Set-up or Clean-up Assistance-helper sets up or cleans up; patient completes activity. Alston assists only prior to or following the activity. 4-Supervision or Touching Assistance-helper provides verbal cues and/or touching/steadying and/or contact guard assistance as patient completes a ctivity. Assistance may be provided throughout the activity or intermittently. 3-Partial/Moderate Assistance-helper does LESS THAN HALF the effort. Alston lifts, holds or supports trunk or limbs, but provides less than half the effort. 2-Substantial/Maximal Assistance-helper does MORE THAN HALF the effort. Alston lifts or holds trunk or limbs and provides more than half the effort. 4-Liazfrhjc-dnnoaf does ALL the effort. Patient does none of the effort to complete the activity. Or, the assistance of 2 or more helpers is required for the patient to complete the activity. If activity was not attempted, code reason: 7-Patient Refused. 9-Not Applicable-not attempted and the patient did not perform the activity before the current illness, exacerbation or injury. 10-Not Attempted due to Environmental Limitations-(lack of equipment, weather restraints, etc.). 88-Not Attempted due to Medical Conditions or Safety Concerns. ADL PLOF Comments Pt IND without AE/ DME Self Care: Independent Functional Cognition: Independent DME/Equipment: Bath Chair, Bedside Commode, Grab Bars, Shower DME/Equipment Comments Pt now has grab bars in shower, railing on both stairs, and BSC (ordered post- fall), has 4WW at home though does not utilize Occupation: retired Drive Self: Yes Leisure Interests: walking OT Current Status Subjective Pt brought from [facility] to [facility] by OT/ aide. Pt denies pain, agrees to therapy. Pt alert/ oriented. Mental Status/Objective Patient Orientation: Normal For Age Current Glasses/Contacts: Yes Hearing Aids: Yes (though not wearing/ does not have here.) Dentures/Partials: No Hand Dominance: Right Upper Extremity ROM WFL BUE Upper Extremity Coordination WFL BUE Upper Extremity Sensation WFL BUE Upper Extremity Strength WFL BUE Edema: slight R hip ADL-Treatment Eating (QC): 6 Oral Hygiene (QC): 6 Shower/Bathe Self (QC): 3 (mod A LBpt introduced to S and able to complete with SBA post-education) Upper Body Dressing (QC): 5 (s/u) Lower Body Dressing (QC): 2 (pre-education pt max Apost-edu of AE, pt able to return demonstrate ability to don with SBA) On/Off Footwear (QC): 1 (TD pre educationPt return demonstrates post edu of sock aide with SBA) Toileting Hygiene (QC): 4 (SBA in stance.) Other Treatments Pt sit to stands with SBA. Pt ambulates across room, wheeled to ARU. Pt introduced to [facility] standards and OT role. Pt does not remember 2/3 precautions. Pt educated on hip precautions. Pt completes bed mob with min A in/ out. Pt completes ADLs as above EOB, has good safety awareness and mobility. Pt repeats self at times, has good knowledge and return demonstration of AE. Pt left EOB with nursing/ PT present. Education OT Patient Education: Correct positioning, Modified ADL techniques, Purpose of tx/functional activities, Reviewed precautions, Rehab process, Safety issues, Use of adapted equipment Teaching Recipient: Patient Teaching Methods: Demonstration, Discussion Response to Teaching: Verbalize Understanding, Return Demonstration OT Prison Goals Rn Cvicu Goals Time Frame: Jul 17, 2019 Eating (QC): 6 Oral Hygiene (QC): 6 Toileting Hygiene (QC): 6 Shower/Bathe Self (QC): 6 Upper Body Dressing (QC): 6 Lower Body Dressing (QC): 6 On/Off Footwear (QC): 6 Additional Goals: 1-Demonstrate ADL Tasks, 2-Verbalize Understanding, 3- ImproveStrength/Radha 1=Demonstrate adherence to instructed precautions during ADL tasks. 2=Patient will verbalize/demonstrate understanding of assistive devices/modifications for ADL. 3=Patient will improve strength/tolerance for activity to enable patient to perform ADL's. OT Education/Plan Problem List/Assessment Assessment: Decreased Activ Tolerance, Dependent Transfers, Edema, Impaired Bed Mobility, Impaired Funct Balance, Impaired I ADL's, Impaired Self-Care Skills Discharge Recommendations Plan/Recommendations: Continue POC Therapy Discharge Recommendati: Intermittent Supervision Equpiment Recommendations-D/C: Hip Kit Treatment Plan/Plan of Care Treatment,Training & Education: Yes Patient would benefit from OT for education, treatment and training to promote independence in ADL's, mobility, safety and/or upper extremity function for ADL's. Plan of Care: ADL Retraining, Concurrent Therapy, Functional Mobility, Group Exercise/Act as Ind, UE Funct Exercise/Act Treatment Duration: Jul 17, 2019 Frequency: At least 5 of 7 days/Wk (IRF) Estimated Hrs Per Day: 1.5 hours per day Agreement: Yes Rehab Potential: Good Time/GCodes Start Time: 10:35 Stop Time: 11:35 Total Time Billed (hr/min): 60 Billed Treatment Time 1, EVM (15), ADL 3 (45)= 60 XAVI ESPITIA OTR July 03, 2019 11:47
--- OUTSIDE RECORDS SUMMARY | 2019-07-03 12:09 | XMS REPORT | Continuity of Care Document ---
Author Organization Unknown Address Unknown Phone Unavailable Allergies Active Description Code Type Severity Reaction Onset Reported/Identified Relationship to Patient Clinical Status Yes azithromycin [id number] Drug Allergy Unknown itching 06/29/2019 Yes hydrocodone [id number] Drug Aller gy Unknown itching 06/29/2019 Yes No Known Drug Allergies [id number] Drug Allergy Unknown N/A 06/29/2019 Yes Penicillins [id number] Drug Aller gy Unknown itching 06/29/2019 Medications There is no data. 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 07/01/2019 JADEN CASTILLO MD, Ot I65.2 9 OCCLUSION AND STENOSIS OF UNSPECIFIED CA 07/01/2019 JADEN CASTILLO MD, Ot S72.001A FRACTURE OF UNSP PART OF NECK OF RIGHT F 07/01/2019 JADEN CASTILLO MD Ot W18.09XA STRIKING AGAINST OTH OBJECT W SUBSEQUENT 07/01/2019 JADEN CASTILLO MD Ot Y92.[address] IN UNSP NON-INSTITUT (PRIVATE) 07/01/2019 JADEN CASTILLO MD, Ot Z66 DO NOT RESUSCITATE 07/01/2019 JADEN CASTILLO MD, Ot Z79.0 2 USP (CURRENT) USE OF ANTITHROMBOTI Procedures Code Description Performed By Per formed On [id number] RE PLACE R HIP JT, FEMORAL W METAL, UNCEM 06/30/2019 Results Test Result Range LIPID PANEL - [...] ligh t microscopy LARGE SUNSHINE PHOSPHATE NRG Methicillin resistant Staphylococcus aur eus (MRSA) screening culture - 06/29/19 15:45 Methicillin resistant Staphylococcus aureus (MRSA) scr eening culture NEG NRG Complete blood count (CBC) with automate d white blood cell (WBC) differential - 06/30/19 05:45 Blood leukocytes automated count (number/volume) 4.4 10*3/uL 4.3-11.0 Blood erythrocytes automated count (number/volume) 4.13 10*6/uL 4.35-5.85 Venous blood hemoglobin measurement (mass/volume) 12.2 g/dL 11.5-16.0 Blood hematocrit (volume fraction) 37 % 35-52 Automated erythrocyte mean corpuscular volume 88 [ foz_us] 80-99 Automated erythrocyte mean corpuscular h emoglobin (mass per erythrocyte) 30 pg 25-34 Automated erythrocyte mean corpuscular h emoglobin concentration measurement (mass/volume) 33 g/dL 32-36 Automated erythrocyte distribution width ratio 12. 5 % 10.0- 14.5 Automated blood platelet count (count/volume) 169 10*3/uL 130-400 Automated blood platelet mean volume measurement 10.2 [foz_us] 7.4-10.4 Automated blood neutrophils/100 leukocytes 57 % 42-75 Automated blood lymphocytes/100 leukocytes 26 % 12-44 Blood monocytes/100 leukocytes 13 % 0-12 Automated blood eosinophils/100 leukocytes 3 % 0-10 Automated blood basophils/100 leukocytes 1 % 0-10 Blood neutrophils automated count (number/volume) 2.5 10*3 1.8-7.8 Blood lymphocytes automated count (number/volume) 1.1 10*3 1.0-4.0 Blood monocytes automated count (number/volume) 0. 6 10*3 0.0-1.0 Automated eosinophil count 0.2 10*3/uL 0 .0-0.3 Automated blood basophil count (count/volume) 0.0 10*3/uL 0.0-0.1 Whole blood basic metabolic panel - 06/15 07/04 05:45 Serum or plasma sodium measurement (moles/volume) 138 mmol/L 135-145 Serum or plasma potassium measurement (moles/volume) 4.3 mmol/L 3.6-5.0 Serum or plasma chloride measurement (moles/volume) 106 mmol/L 98-107 Carbon dioxide 23 mmol/L 21-32 Serum or plasma anion gap determination (moles/volume) 9 mmol/L 5-14 Serum or plasma urea nitrogen measurement (mass/volume ) 15 mg/dL 7-18 Serum or plasma creatinine measurement (mass/volume) 0.63 mg/dL 0.60-1.30 Serum or plasma urea nitrogen/creatinine mass ratio 24 NRG Serum or plasma creatinine measurement w ith calculation of estimated glomerular filtration rate > NRG Serum or plasma glucose measurement (mass/volume) 101 mg/dL 70-105 Serum or plasma calcium measurement (mass/volume) 8.7 mg/dL 8.5-10.1 Whole blood hemoglobin and hematocrit [place] - 07/01/19 04:41 Venous blood hemoglobin measurement (mass/volume) 9.4 g/dL 11.5-16.0 Blood hematocrit (volume fraction) 28 % 35-52 Whole blood basic metabolic panel - 06/15 08/04 04:48 Serum or plasma sodium measurement (moles/volume) 134 mmol/L 135-145 Serum or plasma potassium measurement (moles/volume) 4.6 mmol/L 3.6-5.0 Serum or plasma chloride measurement (moles/volume) 104 mmol/L 98-107 Carbon dioxide 22 mmol/L 21-32 Serum or plasma anion gap determination (moles/volume) 8 mmol/L 5-14 Serum or plasma urea nitrogen measurement (mass/volume ) 11 mg/dL 7-18 Serum or plasma creatinine measurement (mass/volume) 0.57 mg/dL 0.60-1.30 Serum or plasma urea nitrogen/creatinine mass ratio 19 NRG Serum or plasma creatinine measurement w ith calculation of estimated glomerular filtration rate > NRG Serum or plasma glucose measurement (mass/volume) 141 mg/dL 70-105 Serum or plasma calcium measurement (mass/volume) 8.2 mg/dL 8.5-10.1 IRON TEST - 07/01/19 08:46 Serum or plasma iron measurement (mass/volume) 24 % 33-167 Complete blood count (CBC) with automate d white blood cell (WBC) differential - 07/02/19 03:55 Blood leukocytes automated count (number/volume) 4.7 10*3/uL 4.3-11.0 Blood erythrocytes automated count (number/volume) 2.89 10*6/uL 4.35-5.85 Venous blood hemoglobin measurement (mass/volume) 8.5 g/dL 11.5-16.0 Blood hematocrit (volume fraction) 26 % 35-52 Automated erythrocyte mean corpuscular volume 90 [ foz_us] 80-99 Automated erythrocyte mean corpuscular h emoglobin (mass per erythrocyte) 29 pg 25-34 Automated erythrocyte mean corpuscular h emoglobin concentration measurement (mass/volume) 33 g/dL 32-36 Automated erythrocyte distribution width ratio 12. 4 % 10.0- 14.5 Automated blood platelet count (count/volume) 177 10*3/uL 130-400 Automated blood platelet mean volume measurement 10.2 [foz_us] 7.4-10.4 Automated blood neutrophils/100 leukocytes 62 % 42-75 Automated blood lymphocytes/100 leukocytes 23 % 12-44 Blood monocytes/100 leukocytes 14 % 0-12 Automated blood eosinophils/100 leukocytes 2 % 0-10 Automated blood basophils/100 leukocytes 0 % 0-10 Blood neutrophils automated count (number/volume) 2.9 10*3 1.8-7.8 Blood lymphocytes automated count (number/volume) 1.1 10*3 1.0-4.0 Blood monocytes automated count (number/volume) 0. 7 10*3 0.0-1.0 Automated eosinophil count 0.1 10*3/uL 0 .0-0.3 Automated blood basophil count (count/volume) 0.0 10*3/uL 0.0-0.1 Comprehensive metabolic panel - 07/02/19 03:55 Serum or plasma sodium measurement (moles/volume) 139 mmol/L 135-145 Serum or plasma potassium measurement (moles/volume) 4.0 mmol/L 3.6-5.0 Serum or plasma chloride measurement (moles/volume) 106 mmol/L 98-107 Carbon dioxide 23 mmol/L 21-32 Serum or plasma anion gap determination (moles/volume) 10 mmol/L 5-14 Serum or plasma urea nitrogen measurement (mass/volume ) 13 mg/dL 7-18 Serum or plasma creatinine measurement (mass/volume) 0.56 mg/dL 0.60-1.30 Serum or plasma urea nitrogen/creatinine mass ratio 23 NRG Serum or plasma creatinine measurement w ith calculation of estimated glomerular filtration rate > NRG Serum or plasma glucose measurement (mass/volume) 111 mg/dL 70-105 Serum or plasma calcium measurement (mass/volume) 8.2 mg/dL 8.5-10.1 Serum or plasma total bilirubin measurement (mass/volu me) 0.4 mg/dL 0.1-1.0 Serum or plasma alkaline phosphatase lima surement (enzymatic activity/volume) 41 U/L 40-136 Serum or plasma aspartate aminotransfera se measurement (enzymatic activity/volume) 27 U/L 5-34 Serum or plasma alanine aminotransferase measurement (enzymatic activity/volume) 19 U/L 0-55 Serum or plasma protein measurement (mass/volume) 5.1 g/dL 6.4-8.2 Serum or plasma albumin measurement (mass/volume) 3.1 g/dL 3.2-4.5 CALCIUM CORRECTED 8.9 mg/dL 8.5-10.1 Automated blood complete blood count (he mogram) panel - 07/03/19 04:17 Blood leukocytes automated count (number/volume) 4.9 10*3/uL 4.3-11.0 Blood erythrocytes automated count (number/volume) 2.75 10*6/uL 4.35-5.85 Venous blood hemoglobin measurement (mass/volume) 8.0 g/dL 11.5-16.0 Blood hematocrit (volume fraction) 25 % 35-52 Automated erythrocyte mean corpuscular volume 89 [ foz_us] 80-99 Automated erythrocyte mean corpuscular h emoglobin (mass per erythrocyte) 29 pg 25-34 Automated erythrocyte mean corpuscular h emoglobin concentration measurement (mass/volume) 33 g/dL 32-36 Automated erythrocyte distribution width ratio 12. 5 % 10.0- 14.5 Automated blood platelet count (count/volume) 192 10*3/uL 130-400 Automated blood platelet mean volume measurement 9.8 [foz_us] 7.4-10.4 Comprehensive metabolic panel - 07/03/19 04:17 Serum or plasma sodium measurement (moles/volume) 137 mmol/L 135-145 Serum or plasma potassium measurement (moles/volume) 4.2 mmol/L 3.6-5.0 Serum or plasma chloride measurement (moles/volume) 103 mmol/L 98-107 Carbon dioxide 25 mmol/L 21-32 Serum or plasma anion gap determination (moles/volume) 9 mmol/L 5-14 Serum or plasma urea nitrogen measurement (mass/volume ) 11 mg/dL 7-18 Serum or plasma creatinine measurement (mass/volume) 0.57 mg/dL 0.60-1.30 Serum or plasma urea nitrogen/creatinine mass ratio 19 NRG Serum or plasma creatinine measurement w ith calculation of estimated glomerular filtration rate > NRG Serum or plasma glucose measurement (mass/volume) 121 mg/dL 70-105 Serum or plasma calcium measurement (mass/volume) 8.8 mg/dL 8.5-10.1 Serum or plasma total bilirubin measurement (mass/volu me) 0.5 mg/dL 0.1-1.0 Serum or plasma alkaline phosphatase lima surement (enzymatic activity/volume) 50 U/L 40-136 Serum or plasma aspartate aminotransfera se measurement (enzymatic activity/volume) 23 U/L 5-34 Serum or plasma alanine aminotransferase measurement (enzymatic activity/volume) 18 U/L 0-55 Serum or plasma protein measurement (mass/volume) 5.4 g/dL 6.4-8.2 Serum or plasma albumin measurement (mass/volume) 3.2 g/dL 3.2-4.5 CALCIUM CORRECTED 9.4 mg/dL 8.5-10.1 Lipid 1996 panel - 07/03/19 04:17 Serum or plasma triglyceride measurement (mass/volume) 101 mg/dL <150 Serum or plasma cholesterol measurement (mass/volume) 107 mg/dL < 200 Serum or plasma cholesterol in HDL measurement (mass/v olume) 39 mg/dL 40-60 Cholesterol in LDL [mass/volume] in serum or plasma by direct assay 50 mg/dL 1-129 Serum or plasma cholesterol in VLDL measurement (mass/ volume) 20 mg/dL 5-40 Encounters ACCT No. Visit Date/Time Discharge Status Pt. Type Provider Facility Loc./Unit Complaint [id number] 10/18/2018 09:40:00 10/18/2018 23:59: 59 CLS Outpatient PHOEBE DAILEY MD [facility] [id number] 04/18/2019 10:20:00 Document Registration [id number] 01/17/2019 14:07:00 019 23:59:59 CLS Outpatient PHOEBE DAILEY MD [facility] RAD AGE-RELATED OSTEOPOROSI S M81.0 [id number] 06/29/2019 14:37:[address] Inpatient ANNA DOBBS, JADEN Badillo [facility] 4TH FALL; R HIP FX
[2019-07-03] MEDS: ENOXAPARIN 40 MG/0.4 ML (LOVENOX) SYR SC SCH (12:29)
[2019-07-03] MEDS: DICLOFENAC 1% GEL 100 GM (VOLTAREN) TUBE TOP SCH ×3 (13:00→22:34)
--- NOTE | 2019-07-03 13:00 | ST Cognitive Linguistic Eval ---
Speech Evaluation-General Medical Diagnosis R hip fx; NASEEM Onset Date: June 25, 2019 Therapy Diagnosis Therapy Diagnosis: Cognitive-communication Referral Referring Physician: Dr. Cintron Medical History Pertinent Medical History: HTN Reviewed History: Yes Social History Current Living Status: Alone Speech PLF-Current Status Prior Level of Function Patient lived home alone where she was independent for her daily needs. Subjective Patient was pleasant and cooperative with the cognitive assessment. Language Eval: Auditory Comprehends Simple Yes/No Ques: Functional Indent/Objects Multiple Uriostegui: Functional Ident/Pics in Multiple Uriostegui: Functional Follows 1-Step Commands: Functional Follows Complex Directions: Functional Follows General Conversations: Functional Language Eval: Verbal Language Completes Spontaneous Greeting: Functional Produces Auto, Serial Info: Functional Imitates Simple Words/Phrases: Functional Word Finding: Functional Requests Basic Needs: Functional States Basic Personal Info: Functional Expresses Complex Ideas: Functional Objective Cognitive Domain Attention: WNL Memory: Mild Problem Solving: Functional Executive Functions: WNL Visuospatial Skills: WNL Composite Severity Rating: WNL Clock Drawing Severity Rating: WNL Objective Formal/Standardized Tests [facility] Status ([facility]) Results 27/30, within normal range of function Oral Motor/Speech Production Within Normal Limits Impression Patient is a pleasant 83 year old female who was admitted to the ARU s/p hip fracture. Patient was given the SLUMS with a score of 27/30 obtained. This score falls in the normal range of function. Patient does not require further ST at this time. Speech Patient Assess Expression of Ideas/Wants: Expression (4) Understanding Verbal Content: Understands (4) Brief Interview-Mental Status: Yes Repetition of Three Words: Three (3) Temporal Orientation: Year: Correct (3) Temporal Orientation: Month: Accurate within 5 days(2) Temporal Orientation: Day: Correct (1) Recall : Wear to say "Sock": Yes, no cue required (2) Recall : Color: Yes, after cueing (1) Recall : Bed: Yes,after cueing (1) Memory/Recall Ability: Current season, That he or she is in a hsp/hsp unit Speech-Plan Patient/Family Goals Patient/Family Goals: Patient plans on returning to her home upon hospital discharge. Treatment Plan Speech Therapy Treatment Plan: Discontinue ST Treatment Duration: July 03, 2019 Frequency: 1 time per week Estimated Hrs Per Day: .25 hour per day Rehab Potential: Good Barriers to Learning: None identified at this time. Pt/Family Agrees to Plan: Yes Safety Risks/Education Teaching Recipient: Patient Teaching Methods: Discussion Response to Teaching: Verbalize Understanding Education Topics Provided: Safety within her room and communication of wants/needs Time Speech Therapy Time In: 12:35 Speech Therapy Time Out: 12:50 Total Billed Time: 15 Billed Treatment Time 1, SPSNDCOMP RUTHIE Mccain July 03, 2019 13:00
[2019-07-03] MEDS: oxyCODONE/APAP 5/325MG (PERCOCET 5) TABLET PO PRN ×2 (14:05→19:09)
--- NOTE | 2019-07-03 14:31 | Physical Therapy Evaluation ---
PT Evaluation-General Medical Diagnosis Admission Date July 03, 2019 at 10:40 Medical Diagnosis: R hip fx; NASEEM Onset Date: June 25, 2019 Therapy Diagnosis Therapy Diagnosis: impaired mobility, strength, endurance, ROM Precautions Precautions/Isolations: Fall Prevention, Standard Precautions Weight Bear Status Right Lower Extremity: Right Weight Bearing/Tolerated Referral Physician: Laura Cintron DO Reason for Referral: Evaluation/Treatment Medical History Pertinent Medical History: HTN Additional Medical History osteoporosis Reviewed History: Yes Social History Home: Apartment Current Living Status: Alone Entry Into Home: Stairs With Railing PT Steps Into Home: 2 Prior Prior Level of Function SCALE: Activities may be completed with or without assistive devices. 5-Vxmzosdhxd-fcgvhbc completes the activity by him/herself with no assistance from a helper. 5-Set-up or Clean-up Assistance-helper sets up or cleans up; patient completes activity. [place] assists only prior to or following the activity. 4-Supervision or Touching Assistance-helper provides verbal cues and/or touching/steadying and/or contact guard assistance as patient completes activity. Assistance may be provided throughout the activity or intermittently. 3-Partial/Moderate Assistance-helper does LESS THAN HALF the effort. [place] li fts, holds or supports trunk or limbs, but provides less than half the effort. 2-Substantial/Maximal Assistance-helper does MORE THAN HALF the effort. [place] lifts or holds trunk or limbs and provides more than half the effort. 0-Yybnrsyag-qsrbmn does ALL the effort. Patient does none of the effort to complete the activity. Or, the assistance of 2 or more helpers is required for the patient to complete the activity. If activity was not attempted, code reason: 7-Patient Refused. 9-Not Applicable-not attempted and the patient did not perform the activity before the current illness, exacerbation or injury. 10-Not Attempted due to Environmental Limitations-(lack of equipment, weather restraints, etc.). 88-Not Attempted due to Medical Conditions or Safety Concerns. Bed Mobility: 6 Transfers (B,C,W/C): 6 Gait: 6 Stairs: 6 Indoor Mobility (Ambulation): Independent Stairs: Independent PT Evaluation-Current Subjective Patient in recliner pre tx, agrees to PT, has minor pain in right hip, states she has already had pain meds. Pt/Family Goals to be independent at home Objective Patient Orientation: Person, Place, Situation Sensory Vision: Wears Glasses Hearing: Functional Hand Dominance: Right Sensation Right Lower Extremit: Intact Sensation Left Lower Extremity: Intact Transfers Roll Left to Right (QC): 6 Sit to Lying (QC): 3 Lying to Sitting/Side of Bed(Q: 3 Sit to Stand (QC): 4 Chair/Pbj-ka-Kaaol Xfer(QC): 4 Toilet Transfer (QC): 4 Car Transfer (QC): 3 Patient performs bed mobility with independence, supine <-> sit min assist, sit <-> stand CGA, transfers CGA, car transfer min assist. Cues for positioning and safety. Gait Does the Patient Walk?: Yes Mode of Locomotion: Walk Anticipated Mode of Locomotion: Walk Walk 10 feet (QC): 4 Walk 50 ft with 2 Turns(QC): 4 Walk 150 ft (QC): 88 Walking 10ft/uneven surface-QC: 4 Distance: 100'x2 Gait Assistive Device: FWW Comments/Gait Description Patient can ambulate 100' with a rolling walker with CGA (including 50' with at least 2 turns of 90 degrees and 10' over an uneven surface). Patient ambulates slow but steady, antalgic, less weight on right side. Wheelchair Training Does the Pt Use a Wheelchair?: No Wheel 50 ft with 2 turns (QC): 9 Wheel 150 ft (QC): 9 Stairs #of Steps: 1 1 Step (curb) (QC): 4 4 Steps (QC): 88 12 Steps (QC): 88 Walking Assistive Device: Walker Patient can go up and down 1 step using a rolling walker with CGA, cues for foot placement Balance Sitting Static: Normal Sitting Dynamic: Normal Standing Static: Good Standing Dynamic: Good Picking up an Object (QC): 88 Assessment/Needs Patient has impaired mobility, strength, endurance, ROM. Good performance with general mobility. Patient in recliner post tx with nurse call, phone, tray, all needs met. Rehab Potential: Fair PT Short Term Goals Short Term Goals Time Frame: July 10, 2019 Roll Left & Right: 6 Sit to lyin Lying to sitting on side of be: 4 Sit to stand: 5 Chair/jkm-ka-uxywc transfer: 5 Walk 10 feet: 4 Walk 50 feet with two turns: 4 Walk 150 feet: 4 PT Group Home Goals [place] Goals PT Group Home Goals Time Frame: Jul 24, 2019 Roll Left & Right (QC): 6 Sit to Lying (QC): 6 Lying-Sitting on Side/Bed(QC): 6 Sit to Stand (QC): 6 Chair/Rro-vw-Wagde Xfer(QC): 6 Toilet Transfer (QC): 6 Car Transfer (QC): 6 Does the Patient Walk: Yes Walk 10 feet (QC): 6 Walk 50ft with 2 Turns (QC): 6 Walk 150 ft (QC): 6 Walking 10ft on Uneven Surface: 6 1 Step (curb) (QC): 6 4 Steps (QC): 6 12 Steps (QC): 88 Picking up an Object (QC): 88 Wheel 50 feet with 2 turns (QC: 9 Wheel 150 feet: 9 PT Plan Problem List Problem List: Activity Tolerance, Functional Strength, Safety, Balance, Gait, Transfer, Bed Mobility, ROM Treatment/Plan Treatment Plan: Continue Plan of Care Treatment Plan: Bed Mobility, Education, Functional Activity Radha, Functional Strength, Group Therapy, Gait, Safety, Therapeutic Exercise, Transfers Treatment Duration: Jul 24, 2019 Frequency: At least 5 of 7 days/Wk (IRF) Estimated Hrs Per Day: 1.5 hours per day Patient and/or Family Agrees t: Yes Safety Risks/Education Patient Education: Gait Training, Transfer Techniques, Steps, Reviewed Precautions, Correct Positioning, Safety Issues Teaching Recipient: Patient Teaching Methods: Demonstration, Discussion Response to Teaching: Reinforcement Needed Discharge Recommendations Plan Patient will perform bed mobility and transfer training, balance and endurance training, functional strengthening, stair training, gait training, and education, to improve functional mobility and independence at home. Therapy Discharge Recommendati: Home & Family Time/GCodes Time In: 1135 Time Out: 1205 Total Billed Treatment Time: 30 Total Billed Treatment 1 visit LING 30' KENDAL ARAYA PT July 03, 2019 14:31
--- NOTE | 2019-07-03 14:47 | Physical Therapy Daily Note ---
PT Daily Note-Current Subjective Patient in recliner pre tx, agrees to PT, has little pain in right hip but wants to ask nurse if she can have pain meds, nurse notified and she brought it later during treatment. Appearance Patient in recliner post tx with nurse call, phone, tray, all needs met. Mental Status Patient Orientation: Person, Place, Situation Transfers SCALE: Activities may be completed with or without assistive devices. 7-Vaflyetpor-lztxsqo completes the activity by him/herself with no assistance from a helper. 5-Set-up or Clean-up Assistance-helper sets up or cleans up; patient completes activity. [place] assists only prior to or following the activity. 4-Supervision or Touching Assistance-helper provides verbal cues and/or touching/steadying and/or contact guard assistance as patient completes activity. Assistance may be provided throughout the activity or intermittently. 3-Partial/Moderate Assistance-helper does LESS THAN HALF the effort. [place] lifts, holds or supports trunk or limbs, but provides less than half the effort. 2-Substantial/Maximal Assistance-helper does MORE THAN HALF the effort. [place] lifts or holds trunk or limbs and provides more than half the effort. 9-Qrmcjnflw-iwgsop does ALL the effort. Patient does none of the effort to complete the activity. Or, the assistance of 2 or more helpers is required for the patient to complete the activity. If activity was not attempted, code reason: 7-Patient Refused. 9-Not Applicable-not attempted and the patient did not perform the activity before the current illness, exacerbation or injury. 10-Not Attempted due to Environmental Limitations-(lack of equipment, weather restraints, etc.). 88-Not Attempted due to Medical Conditions or Safety Concerns. Sit to Stand (QC): 4 Chair/Reo-yh-Bmkqn Xfer(QC): 4 SBA Weight Bearing Right Lower Extremity: Right Weight Bearing/Tolerated Gait Training Distance: 150'x2 Walk 10 feet (QC): 4 Walk 50 ft with 2 Turns(QC): 4 Walk 150 ft (QC): 4 Gait Persons Needed: 1 Gait Assistive Device: FWW slow, antalgic, but steady, flexed right knee Exercises Standing: Hip Abduction, Heel/toe raises, Marching, Mini squats Standing Reps: 15 LAQ right side for 5 min NuStep Minutes: 15 NuStep Workload: 3 (NuStep adjusted to maintain ROM precautions) Treatments functional strengthening, ROM, ambulation, transfers Assessment Current Status: Fair Progress SBA with transfers and ambulation now PT Short Term Goals Short Term Goals Time Frame: July 10, 2019 Roll Left & Right: 6 Sit to lyin Lying to sitting on side of be: 4 Sit to stand: 5 Chair/ztk-yo-pzbmp transfer: 5 Walk 10 feet: 4 Walk 50 feet with two turns: 4 Walk 150 feet: 4 PT Half-Way Goals Casting Cleaner Goals PT Half-Way Goals Time Frame: Jul 24, 2019 Roll Left & Right (QC): 6 Sit to Lying (QC): 6 Lying-Sitting on Side/Bed(QC): 6 Sit to Stand (QC): 6 Chair/Ysk-ba-Bvxgu Xfer(QC): 6 Toilet Transfer (QC): 6 Car Transfer (QC): 6 Does the Patient Walk: Yes Walk 10 feet (QC): 6 Walk 50ft with 2 Turns (QC): 6 Walk 150 ft (QC): 6 Walking 10ft on Uneven Surface: 6 1 Step (curb) (QC): 6 4 Steps (QC): 6 12 Steps (QC): 88 Picking up an Object (QC): 88 Wheel 50 feet with 2 turns (QC: 9 Wheel 150 feet: 9 PT Plan Problem List Problem List: Activity Tolerance, Functional Strength, Safety, Balance, Gait, Transfer, Bed Mobility, ROM Treatment/Plan Treatment Plan: Continue Plan of Care Treatment Plan: Bed Mobility, Education, Functional Activity Radha, Functional Strength, Group Therapy, Gait, Safety, Therapeutic Exercise, Transfers Treatment Duration: Jul 24, 2019 Frequency: At least 5 of 7 days/Wk (IRF) Estimated Hrs Per Day: 1.5 hours per day Patient and/or Family Agrees t: Yes Safety Risks/Education Patient Education: Gait Training, Transfer Techniques, Correct Positioning, Safety Issues Teaching Recipient: Patient Teaching Methods: Demonstration, Discussion Response to Teaching: Reinforcement Needed Time/GCodes Time In: 1330 Time Out: 1430 Total Billed Treatment Time: 60 Total Billed Treatment 1 visit EX 30' GT 30' KENDAL ARAYA PT July 03, 2019 14:47
--- NOTE | 2019-07-03 15:10 | Occupational Ther Daily Note ---
OT Current Status-Daily Note Subjective Pt alert, sitting in recliner. Pt agrees to therapy. No c/o pain at this time. Mental Status/Objective Patient Orientation: Person, Place, Time, Situation ADL-Treatment Discussed with pt lower body AE. Pt able to explain how to use truck rental clerk for a variety of tasks. Pt demonstrated ability to complete donning sock onto sock aide then use it to don onto foot. Discussed pt's precautions and what to look for when completing daily functional tasks. After therapy, pt sitting in recliner with call light/phone in reach. All needs met in room. Therapy Code Descriptions/Definitions Functional [place] Measure: 0=Not Assessed/NA 4=Minimal Assistance 1=Total Assistance 5=Supervision or Setup 2=Maximal Assistance 6=Modified [place] 3=Moderate Assistance 7=Complete IndependenceSCALE: Activities may be completed with or without assistive devices. 8-Xepbhwmcpz-qrixmft completes the activity by him/herself with no assistance from a helper. 5-Set-up or Clean-up Assistance-helper sets up or cleans up; patient completes activity. [place] assists only prior to or following the activity. 4-Supervision or Touching Assistance-helper provides verbal cues and/or touch ing/steadying and/or contact guard assistance as patient completes activity. Assistance may be provided throughout the activity or intermittently. 3-Partial/Moderate Assistance-helper does LESS THAN HALF the effort. [place] lifts, holds or supports trunk or limbs, but provides less than half the effort. 2-Substantial/Maximal Assistance-helper does MORE THAN HALF the effort. [place] lifts or holds trunk or limbs and provides more than half the effort. 5-Qvbkzovvt-iuzgjz does ALL the effort. Patient does none of the effort to complete the activity. Or, the assistance of 2 or more helpers is required for the patient to complete the activity. If activity was not attempted, code reason: 7-Patient Refused. 9-Not Applicable-not attempted and the patient did not perform the activity before the current illness, exacerbation or injury. 10-Not Attempted due to Environmental Limitations-(lack of equipment, weather restraints, etc.). 88-Not Attempted due to Medical Conditions or Safety Concerns. On/Off Footwear: 5 OT Skilled Nursing Goals Supervisor Sawing And Assembly Goals Time Frame: Jul 17, 2019 Eating (QC): 6 Oral Hygiene (QC): 6 Toileting Hygiene (QC): 6 Shower/Bathe Self (QC): 6 Upper Body Dressing (QC): 6 Lower Body Dressing (QC): 6 On/Off Footwear (QC): 6 Additional Goals: 1-Demonstrate ADL Tasks, 2-Verbalize Understanding, 3- ImproveStrength/Radha 1=Demonstrate adherence to instructed precautions during ADL tasks. 2=Patient will verbalize/demonstrate understanding of assistive devices/modifications for ADL. 3=Patient will improve strength/tolerance for activity to enable patient to perform ADL's. OT Education/Plan Problem List/Assessment Assessment: Decreased Activ Tolerance, Impaired Self-Care Skills Discharge Recommendations Plan/Recommendations: Continue POC Treatment Plan/Plan of Care Patient would benefit from OT for education, treatment and training to promote independence in ADL's, mobility, safety and/or upper extremity function for ADL' s. Plan of Care: ADL Retraining, Concurrent Therapy, Functional Mobility, Group Exercise/Act as Ind, UE Funct Exercise/Act Treatment Duration: Jul 17, 2019 Frequency: At least 5 of 7 days/Wk (IRF) Estimated Hrs Per Day: 1.5 hours per day Agreement: Yes Rehab Potential: Fair Time/GCodes Start Time: 14:35 Stop Time: 14:50 Total Time Billed (hr/min): 15 Billed Treatment Time 1 visit-FA 1 (15 min) SANJIV REHMAN July 03, 2019 15:10
[2019-07-03 16:00] VITALS: BP 120/65
[2019-07-03] MEDS ORDERED: SENNA W/DOCUSATE (SENOKOT S) TABLET PO SCH (21:00)
[2019-07-03] MEDS: traZODone 50 MG (DESYREL) TAB PO SCH (21:41)
[2019-07-03] MEDS: DOCUSATE SODIUM 100 MG (COLACE) CAP PO SCH (21:41)
[2019-07-03] MEDS: polyethylene glycoL POWDER 17 GM (MIRALAX) PACK PO SCH (21:42)
[2019-07-03] MEDS: LORATADINE (CLARITIN) 10 MG TAB PO SCH (21:42)
[2019-07-03] MEDS: lisINopril 5 MG (PRINIVIL) TABLET PO SCH (21:42)
[2019-07-03] MEDS: SENNOSIDES 8.6 MG (SENOKOT) TAB PO SCH (21:46)
[2019-07-04 05:03] LABS: BASOPHILS % (AUTO) 0 % (0-10); EOSINOPHILS # (AUTO) 0.2 10^3/uL (0.0-0.3); EOSINOPHILS % (AUTO) 4 % (0-10); HEMATOCRIT 24 % (35-52); HEMOGLOBIN 7.7 G/DL (11.5-16.0); LYMPHOCYTES # (AUTO) 1.1 X 10^3 (1.0-4.0); LYMPHOCYTES % (AUTO) 21 % (12-44); MEAN CORPUSCULAR HEMOGLOBIN 30 PG (25-34); MEAN CORPUSCULAR HGB CONC 32 G/DL (32-36); MEAN CORPUSCULAR VOLUME 91 FL (80-99); MEAN PLATELET VOLUME 9.6 FL (7.4-10.4); MONOCYTES # (AUTO) 0.7 X 10^3 (0.0-1.0); MONOCYTES % (AUTO) 13 % (0-12); NEUTROPHILS # (AUTO) 3.1 X 10^3 (1.8-7.8); NEUTROPHILS % (AUTO) 61 % (42-75); PLATELET COUNT 217 10^3/uL (130-400); RED CELL DISTRIBUTION WIDTH 12.4 % (10.0-14.5); WHITE BLOOD COUNT 5.1 10^3/uL (4.3-11.0)
[2019-07-04 05:25] LABS: ALANINE AMINOTRANSFERASE 30 U/L (0-55); ALBUMIN 3.1 GM/DL (3.2-4.5); ALKALINE PHOSPHATASE 57 U/L (40-136); BILIRUBIN,TOTAL 0.6 MG/DL (0.1-1.0); BUN/CREATININE RATIO 19; CALCIUM 8.9 MG/DL (8.5-10.1); CARBON DIOXIDE 24 MMOL/L (21-32); CHLORIDE 105 MMOL/L (98-107); CREATININE SERUM 0.62 MG/DL (0.60-1.30); GFR ESTIMATED > 60; GLUCOSE 109 MG/DL (70-105); POTASSIUM 4.1 MMOL/L (3.6-5.0); SODIUM 139 MMOL/L (135-145); TOTAL PROTEIN 5.4 GM/DL (6.4-8.2)
[2019-07-04] MEDS: MULTIVIT W/MINERALS TAB (THERAGRAN M) PO SCH (06:25)
[2019-07-04 06:49] VITALS: BP 173/67
--- NOTE | 2019-07-04 06:56 | PM&R Progress Note ---
Subjective HPI/CC On Admission Date Seen by Provider: July 04, 2019 Time Seen by Provider: 11:00 Subjective/Events-last exam Had a BM after Lactulose given finally after 4 days Hgb 7.7 Lovenox maintained will monitor closely Midline will be placed and Venofer of four more doses will be given K-pad will be provided for her right shoulder Checked meds and labs Reviewed therapy notes Conferred with integration aide of Systems General: Fatigue Musculoskeletal: leg pain Objective Exam Vital Signs Vital Signs Date Time Temp Pulse Resp B/P (MAP) Pulse Ox O2 Delivery O2 Flow Rate FiO2 07/04/19 18:30 Room Air 07/04/19 17:16 37.8 93 18 156/75 (102) 97 Capillary Refill : Less Than 3 Seconds General Appearance: No Apparent Distress, WD/WN, Chronically ill, Thin HEENT: PERRL/EOMI, Normal ENT Inspection, Pharynx Normal Neck: Full Range of Motion, Normal Inspection, Non Tender, Supple, Carotid Bruit Respiratory: Chest Non Tender, Lungs Clear, Normal Breath Sounds, No Accessory Muscle Use, No Respiratory Distress Cardiovascular: Regular Rate, Rhythm, No Edema, No Gallop, No JVD, No Murmur, Normal Peripheral Pulses Gastrointestinal: Normal Bowel Sounds, No Organomegaly, No Pulsatile Mass, Non Tender, Soft Back: Normal Inspection, No CVA Tenderness, No Vertebral Tenderness Extremity: Normal Capillary Refill, Normal Inspection, Normal Range of Motion (except right leg from pain ), Non Tender, No Calf Tenderness, No Pedal Edema Neurologic/Psychiatric: Alert, Oriented x3, No Motor/Sensory Deficits (righg leg 3/5 strength), Normal Mood/Affect, fbi special agent II-XII Norm as Tested, Abnormal Gait Skin: Normal Color, Warm/Dry Lymphatic: No Adenopathy Results/Procedures Lab Laboratory Tests 07/04/19 04:15 Patient resulted labs reviewed. FIM Transfers Therapy Code Descriptions/Definitions Functional [place] Measure: 0=Not Assessed/NA 4=Minimal Assistance 1=Total Assistance 5=Supervision or Setup 2=Maximal Assistance 6=Modified [place] 3=Moderate Assistance 7=Complete IndependenceSCALE: Activities may be completed with or without assistive devices. 5-Yteeiemmgr-mxwjevd completes the activity by him/herself with no assistance from a helper. 5-Set-up or Clean-up Assistance-helper sets up or cleans up; patient completes activity. [place] assists only prior to or following the activity. 4-Supervision or Touching Assistance-helper provides verbal cues and/or touching/steadying and/or contact guard assistance as patient completes activity. Assistance may be provided throughout the activity or intermittently. 3-Partial/Moderate Assistance-helper does LESS THAN HALF the effort. [place] lifts, holds or supports trunk or limbs, but provides less than half the effort. 2-Substantial/Maximal Assistance-helper does MORE THAN HALF the effort. [place] lifts or holds trunk or limbs and provides more than half the effort. 2-Ijpfaswon-qmgsuw does ALL the effort. Patient does none of the effort to complete the activity. Or, the assistance of 2 or more helpers is required for the patient to complete the activity. If activity was not attempted, code reason: 7-Patient Refused. 9-Not Applicable-not attempted and the patient did not perform the activity before the current illness, exacerbation or injury. 10-Not Attempted due to Environmental Limitations-(lack of equipment, weather restraints, etc.). 88-Not Attempted due to Medical Conditions or Safety Concerns. Roll Left to Right (QC): 6 Sit to Lying (QC): 3 Sit to Stand (QC): 4 Chair/Zia-bd-Ltark Xfer(QC): 4 Car Transfer (QC): 3 Gait Training Does the Patient Walk?: Yes Distance: 150'x2 Walk 10 feet (QC): 4 Walk 50 ft with 2 Turns(QC): 4 Walk 150 ft (QC): 4 Walking 10ft/uneven surface-QC: 4 Gait Persons Needed: 1 Gait Assistive Device: FWW Wheelchair Training Does the Pt Use a Wheelchair?: No Wheel 50 ft with 2 turns (QC): 9 Wheel 150 ft (QC): 9 Stair Training #of Steps: 1 1 Step (curb) (QC): 4 4 Steps (QC): 88 12 Steps (QC): 88 Balance Picking up an Object (QC): 88 ADL-Treatment Eating (QC): 6 Oral Hygiene (QC): 6 Shower/Bathe Self (QC): 3 (mod A LBpt introduced to [facility] and able to complete with SBA post-education) Upper Body Dressing (QC): 5 (s/u) Lower Body Dressing (QC): 2 (pre-education pt max Apost-edu of AE, pt able to return demonstrate ability to don with SBA) On/Off Footwear (QC): 5 Toileting Hygiene (QC): 4 (SBA in stance.) Assessment/Plan Assessment and Plan Assess & Plan/Chief Complaint Assessment: s/p right hip fracture due to fall with osteoporosis hx PVD on Plavix and statin consulting Dr Jackson COPD lung nodules consulting Dr Laurent at her request Former smoker Post op anemia from blood loss Iron deficiency started IV iron Breast cancer hx Plan: IV iron after midline PT OT IRF Cardiology and Pulmonology consultations appreciated DVT PPx Lovenox Monitor hgb (1) Closed right hip fracture Status: Acute (2) COPD (chronic obstructive pulmonary disease) (3) Carotid stenosis (4) Constipation (5) Fall Status: Acute (6) Postoperative anemia (7) Age related osteoporosis Status: Chronic (8) HTN (hypertension) Status: Chronic (9) Hyperlipemia (10) Iron deficiency LEDY HUDSON DO July 04, 2019 06:56
--- NOTE | 2019-07-04 06:56 | Individualized Plan of Care ---
Individualized Plan of Care Rehab Nursing IPOC Order Admission Date July 03, 2019 at 10:40 Current Orders Orders Admission Order(Inpt,Obs,Sdc) (07/03/19 09:57) Vital Signs: Per Unit Policy ( 08,16,00 (07/03/19 09:57) Road Tester-Inpt Rehab Con (07/03/19 09:57) Rehab Nursing Orders-Ipoc (07/03/19 09:57) Physical Therapy Rehab Orders (07/03/19 09:57) Occupational Therapy Rehab Ord (07/03/19 09:57) Speech Therapy Rehab Orders (07/03/19 09:57) Cbc With Automated Diff (07/04/19 06:00) Comprehensive Metabolic Panel (07/04/19 06:00) General/Regular (07/03/19 Lunch) Intake & Output 06,14,22 (07/03/19 09:57) Precautions (Aru) (07/03/19 09:57) Rehab-Intensity Of Therapy (07/03/19 09:57) Initiate Admission Nursing Pro .admission (07/03/19 09:57) Alprazolam Tablet (Xanax Tablet) (07/03/19 10:00) Calcium Carbonate Chew Tablet (Antacid C (07/03/19 10:00) Diphenhydramine Tablet (Benadryl Tablet) (07/03/19 10:00) Docusate Sodium Capsule (Colace Capsule) (07/03/19 21:00) Docusate Sodium Capsule (Colace Capsule) (07/03/19 10:00) Bisacodyl Suppository (Dulcolax Supposit (07/03/19 10:00) Lactulose Oral Solution (Enulose Oral So (07/03/19 10:00) Na Phos/Na Biphos Enema (Fleet Enema Norberto (07/03/19 10:00) Guaifenesin/Codeine Syrup (Robitussin Ac (07/03/19 10:00) Loperamide Tablet (Imodium Tablet) (07/03/19 10:00) Enoxaparin Injection (Lovenox Injection) (07/03/19 10:00) Melatonin Tablet (Melatonin Tablet) (07/03/19 10:00) Polyethylene Glycol Powder Pkt (Miralax (07/03/19 21:00) Ondansetron Oral Dissolve Tab (Zofran (07/03/19 10:00) Initiate Admission Nursing Pro .admission (07/03/19 09:57) Admission Arrival Bed Request (07/03/19 10:52) Code/Resuscitation (07/03/19 11:13) Abduction Pillow: Apply (Order (07/03/19 11:13) Ambulate ,, (07/03/19 11:13) Dressing Order (Intervention) DAILY (07/03/19 11:13) Ice: Apply To Affected Area (07/03/19 11:13) Incentive Spirometry (Nursing) Q2H (07/03/19 11:13) Initiate Admission Nursing Pro .admission (07/03/19 11:13) Bud Nicole (07/03/19 11:13) Vital Signs: Every 4 Hours (Or (07/03/19 11:13) General/Regular (07/03/19 Dinner) Atorvastatin Tablet (Lipitor) (07/03/19 21:00) Cholecalciferol Capsule/Tablet (Vitamin (07/04/19 09:00) Clopidogrel Tablet (Plavix Tablet) (07/04/19 09:00) Diclofenac 1% Gel (Voltaren 1% Gel) (07/03/19 13:00) Iron Sucrose Injection (Venofer Injectio (07/05/19 09:00) Loratadine Tablet (Claritin Tablet) (07/03/19 21:00) Therapeutic Multivitamin Tab (Vitamins, (07/04/19 07:00) Temazepam Capsule (Restoril Capsule) (07/03/19 11:15) Sennosides Tablet (Senokot Tablet) (07/03/19 21:00) Sodium Chloride Flush (Catheter Flush Sy (07/03/19 11:15) Acetaminophen Tablet/Caplet (Tylenol T (07/03/19 11:15) Ondansetron Injection (Zofran Injectio (07/03/19 11:15) Diphenhydramine Injection (Benadryl Inje (07/03/19 11:15) Lisinopril Tablet (Zestril Tablet) (07/03/19 21:00) Morphine Injection (Morphine Injection (07/03/19 11:15) Oxycodone/Apap 5/325mg Tablet (Percocet (07/03/19 13:30) Trazodone Tablet (Desyrel Tablet) (07/03/19 21:00) Consult Orthopedic Surgery (07/03/19 11:13) Patient Visit (07/03/19 ) Speech Sound Lang Comp (07/03/19 ) Patient Visit (07/03/19 ) Pt Eval Moderate Complexity (07/03/19 ) Exercise Therap, Ea 15 Min (07/03/19 ) Gait Training, Ea 15 Min (07/03/19 ) Ambulate 08,12,20 (07/03/19 16:15) Sequential Compression Device Q4H (07/03/19 16:15) Dvt/Vte Risk - Notifiy Physici Q4H (07/03/19 16:15) Mrsa Screen (Icu,Preop,Cath) (07/03/19 14:37) Enoxaparin Injection (Lovenox Injection) (07/05/19 10:00) Heating Pad (07/04/19 11:02) Venous Access Request Order (07/04/19 11:02) Patient Visit (07/04/19 ) Exercise Therap, Ea 15 Min (07/04/19 ) Gait Training, Ea 15 Min (07/04/19 ) Functional Activities, Ea 15 (07/04/19 ) Sodium Chloride Flush (Catheter Flush Sy (07/04/19 22:00) Rehab Nursing Orders: Ongoing Assess. of Cognitive Status, Ongoing Assess. of Function Status, Bladder Management, Bladder Scan, Bladder Training, Bowel Management, Bowel Training, Disease Management & Educaiton, DVT Prophylaxis, Fall Prevention, Fluid/Electrolyte/Nutrition Mgmt, Infection Prevention, Medication Management & Education, Management of Risks & Complications, Management of Skin Intergrity, Nutrition Management, Pain Management, Patient/Family Support, Safety Management, Swallow Precautions Intensity of Therapy to be met Patient to be seen: Min.3h per day/5 of 7d PT IPOC Problem List: Activity Tolerance, Functional Strength, Safety, Balance, Gait, Transfer, Bed Mobility, ROM Treatment Plan: Continue Plan of Care Bed Mobility, Education, Functional Activity Radha, Functional Strength, Group Therapy, Gait, Safety, Therapeutic Exercise, Transfers Treatment Duration: Jul 24, 2019 Frequency: At least 5 of 7 days/Wk (IRF) Estimated Hrs Per Day: 1.5 hours per day OT IPOC Problems: Decreased Activ Tolerance, Impaired Self-Care Skills OT Treatment, Training and Edu: Yes Plan of Care: ADL Retraining, Concurrent Therapy, Functional Mobility, Group Exercise/Act as Ind, UE Funct Exercise/Act Treatment Duration: Jul 17, 2019 Frequency: At least 5 of 7 days/Wk (IRF) Estimated Hrs Per Day: 1.[address] IPOC Speech Therapy Treatment Plan: Discontinue ST Treatment Duration: July 03, 2019 Frequency: 1 time per week Estimated Hrs Per Day: .25 hour per day Road Tester/Case Mgmt Road Tester/Case Managemen: Discharge Planning Dietitian/Dragger Dietitian/Dragger to monitor nutritional status and make changes and/or recommendations as needed and work with speech pathology on dietary upgrades as the occur. Physician IPOC Medical Issues being managed closely and that require the 24 hour availability of a physician: Recent all with hip fracture with OP at high risk for decompensation with post op anemia residual Medical Issues: Bowel/Bladder Function, DVT Prophylaxis, Falls Precautions, Fluid/Electrolyte/Nutrition Balance, Infection Protection, Pain Management Brief Synthesis of Preadmission Screen, Post-Admission Evaluation, and Therapy Evaluations: PT OT will focus on regaining ADL's and increase stamina and fall risk prevention in order to return home alone Medical Prognosis: Good Anticipated Length of Stay: 8 days LEDY HUDSON DO July 04, 2019 06:56
[2019-07-04] MEDS: CLOPIDOGREL 75 MG (PLAVIX) TABLET PO SCH (08:54)
[2019-07-04] MEDS: VITAMIN D3 125 MCG (5,000 UNITS) CAPSULE PO SCH (08:54)
[2019-07-04] MEDS: lisINopril 5 MG (PRINIVIL) TABLET PO SCH ×2 (08:54→20:05)
[2019-07-04] MEDS: oxyCODONE/APAP 5/325MG (PERCOCET 5) TABLET PO PRN ×2 (08:55→17:19)
[2019-07-04] MEDS: ENOXAPARIN 40 MG/0.4 ML (LOVENOX) SYR SC SCH (08:55)
[2019-07-04] MEDS: DICLOFENAC 1% GEL 100 GM (VOLTAREN) TUBE TOP SCH ×4 (08:56→20:07)
[2019-07-04] MEDS: SENNOSIDES 8.6 MG (SENOKOT) TAB PO SCH ×2 (08:56→20:07)
[2019-07-04] MEDS: polyethylene glycoL POWDER 17 GM (MIRALAX) PACK PO SCH ×2 (08:56→20:07)
[2019-07-04] MEDS: DOCUSATE SODIUM 100 MG (COLACE) CAP PO SCH ×2 (08:56→20:08)
[2019-07-04 08:58] VITALS: BP 115/59
--- NOTE | 2019-07-04 10:37 | Physical Therapy Daily Note ---
PT Daily Note-Current Subjective Pt up in chair, agrees to PT. Pt denies pain, "I had a pain pill earlier so I am ok right now." Mental Status Patient Orientation: Person, Place, Situation Transfers SCALE: Activities may be completed with or without assistive devices. 2-Klndmdlqkk-wpuuqik completes the activity by him/herself with no assistance from a helper. 5-Set-up or Clean-up Assistance-helper sets up or cleans up; patient completes activity. [place] assists only prior to or following the activity. 4-Supervision or Touching Assistance-helper provides verbal cues and/or touching/steadying and/or contact guard assistance as patient completes activity. Assistance may be provided throughout the activity or intermittently. 3-Partial/Moderate Assistance-helper does LESS THAN HALF the effort. [place] lifts, holds or supports trunk or limbs, but provides less than half the effort. 2-Substantial/Maximal Assistance-helper does MORE THAN HALF the effort. [place] lifts or holds trunk or limbs and provides more than half the effort. 2-Sllabrfrk-ijortv does ALL the effort. Patient does none of the effort to complete the activity. Or, the assistance of 2 or more helpers is required for the patient to complete the activity. If activity was not attempted, code reason: 7-Patient Refused. 9-Not Applicable-not attempted and the patient did not perform the activity before the current illness, exacerbation or injury. 10-Not Attempted due to Environmental Limitations-(lack of equipment, weather restraints, etc.). 88-Not Attempted due to Medical Conditions or Safety Concerns. Pt mod (I) with sit to stand trsfrs and toilet trsfr Weight Bearing Right Lower Extremity: Right Weight Bearing/Tolerated Gait Training Gait Assistive Device: FWW Pt amb with FWW and SBA 1 x 200ft, 1 x 150ft with pt relying on UE for support Exercises Supine Ex: Ankle pumps, Quad Set, Glut sets, Heel Slides, Hip abd/add Supine Reps: 20 Seated Therapy Exercises: Long arc quads Seated Reps: 20 NuStep Minutes: 10 NuStep Workload: 3 Treatments Pt used BR to void mod (I) level, SBA Assessment Current Status: Good Progress Pt progressing nicely all phases. Jarek above treatment well with rest breaks as needed. Pt back to chair with ice pack at (R) hip and call light in reach. PT Short Term Goals Short Term Goals Time Frame: July 10, 2019 Roll Left & Right: 6 Sit to lyin Lying to sitting on side of be: 4 Sit to stand: 5 Chair/imz-xu-mgkrh transfer: 5 Walk 10 feet: 4 Walk 50 feet with two turns: 4 Walk 150 feet: 4 PT Croze Cutter Helper Goals Group Home Goals PT Group Home Goals Time Frame: Jul 24, 2019 Roll Left & Right (QC): 6 Sit to Lying (QC): 6 Lying-Sitting on Side/Bed(QC): 6 Sit to Stand (QC): 6 Chair/Wux-ti-Vxyxe Xfer(QC): 6 Toilet Transfer (QC): 6 Car Transfer (QC): 6 Does the Patient Walk: Yes Walk 10 feet (QC): 6 Walk 50ft with 2 Turns (QC): 6 Walk 150 ft (QC): 6 Walking 10ft on Uneven Surface: 6 1 Step (curb) (QC): 6 4 Steps (QC): 6 12 Steps (QC): 88 Picking up an Object (QC): 88 Wheel 50 feet with 2 turns (QC: 9 Wheel 150 feet: 9 PT Plan Treatment/Plan Treatment Plan: Continue Plan of Care Treatment Plan: Bed Mobility, Education, Functional Activity Radha, Functional Strength, Group Therapy, Gait, Safety, Therapeutic Exercise, Transfers Treatment Duration: Jul 24, 2019 Frequency: At least 5 of 7 days/Wk (IRF) Estimated Hrs Per Day: 1.5 hours per day Patient and/or Family Agrees t: Yes Time/GCodes Time In: 1000 Time Out: 1100 Total Billed Treatment Time: 60 Total Billed Treatment 1, ther ex 30min, gait 15 min, FA x 15min KIKE DE ANDA CPTShane July 04, 2019 10:37
--- NOTE | 2019-07-04 11:16 | Occupational Ther Daily Note ---
OT Current Status-Daily Note Subjective Pt seen on toilet this am. Agrees to therapy, states normal pain in R hip though declines asking for meds at this time as she desires to ween from meds. Mental Status/Objective Patient Orientation: Normal For Age ADL-Treatment Therapy Code Descriptions/Definitions Functional [place] Measure: 0=Not Assessed/NA 4=Minimal Assistance 1=Total Assistance 5=Supervision or Setup 2=Maximal Assistance 6=Modified [place] 3=Moderate Assistance 7=Complete IndependenceSCALE: Activities may be completed with or without assistive devices. 8-Lvmgcutzqt-rtqrmdn completes the activity by him/herself with no assistance from a helper. 5-Set-up or Clean-up Assistance-helper sets up or cleans up; patient completes activity. [place] assists only prior to or following the activity. 4-Supervision or Touching Assistance-helper provides verbal cues and/or touching/steadying and/or contact guard assistance as patient completes activi ty. Assistance may be provided throughout the activity or intermittently. 3-Partial/Moderate Assistance-helper does LESS THAN HALF the effort. [place] lifts, holds or supports trunk or limbs, but provides less than half the effort. 2-Substantial/Maximal Assistance-helper does MORE THAN HALF the effort. [place] lifts or holds trunk or limbs and provides more than half the effort. 2-Tmtzhafsy-wxvart does ALL the effort. Patient does none of the effort to complete the activity. Or, the assistance of 2 or more helpers is required for the patient to complete the activity. If activity was not attempted, code reason: 7-Patient Refused. 9-Not Applicable-not attempted and the patient did not perform the activity before the current illness, exacerbation or injury. 10-Not Attempted due to Environmental Limitations-(lack of equipment, weather restraints, etc.). 88-Not Attempted due to Medical Conditions or Safety Concerns. Eating (QC): 6 Upper Body Dressing (QC): 6 Lower Body Dressing (QC): 4 (SBA, use of cues and AE) On/Off Footwear: 2 (SBA/ cues for sock aide.AMISHA hose donned max A.) Toileting Hygiene (QC): 6 (IND) Toilet Transfer (QC): 4 (SBA with use of walker.) Other Treatment Pt completes toileting with SBA, ambulates to chair to complete dressing tasks. Able to recite 3/3 precautions with accuracy. pt completes donning leggins with sock aide, skilled cues for use and precaution management throughout, requires increased time for LB tasks. Pt completes UB dressing and ambulates to therapy gym. pt completes standing tasks with arm weight/ arm arc. Good balance throughout. Pt sits EOM to complete trunk twists. Pt returns to recliner in room, all needs met, nursing made aware of pain. Education OT Patient Education: Correct positioning, Reviewed precautions, Safety issues, Use of adapted equipment Teaching Recipient: Patient Teaching Methods: Demonstration, Discussion Response to Teaching: Verbalize Understanding, Return Demonstration OT Long-Term Goals Ruling Technician Goals Time Frame: Jul 17, 2019 Eating (QC): 6 Oral Hygiene (QC): 6 Toileting Hygiene (QC): 6 Shower/Bathe Self (QC): 6 Upper Body Dressing (QC): 6 Lower Body Dressing (QC): 6 On/Off Footwear (QC): 6 Additional Goals: 1-Demonstrate ADL Tasks, 2-Verbalize Understanding, 3- ImproveStrength/Radha 1=Demonstrate adherence to instructed precautions during ADL tasks. 2=Patient will verbalize/demonstrate understanding of assistive devices/modifications for ADL. 3=Patient will improve strength/tolerance for activity to enable patient to perform ADL's. OT Education/Plan Problem List/Assessment Assessment: Decreased Activ Tolerance, Decreased UE Strength, Edema, Impaired Funct Balance, Impaired I ADL's, Impaired Self-Care Skills Discharge Recommendations Plan/Recommendations: Continue POC Therapy Discharge Recommendati: Home & Family Treatment Plan/Plan of Care Treatment,Training & Education: Yes Patient would benefit from OT for education, treatment and training to promote independence in ADL's, mobility, safety and/or upper extremity function for ADL's. Plan of Care: ADL Retraining, Concurrent Therapy, Functional Mobility, Group Exercise/Act as Ind, UE Funct Exercise/Act Treatment Duration: Jul 17, 2019 Frequency: At least 5 of 7 days/Wk (IRF) Estimated Hrs Per Day: 1.5 hours per day Agreement: Yes Rehab Potential: Fair Time/GCodes Start Time: 07:55 Stop Time: 08:45 Total Time Billed (hr/min): 50 Billed Treatment Time 1, ADL 2 (35), EX (15)= 50 XAVI ESPITIA OTR July 04, 2019 11:16
--- NOTE | 2019-07-04 12:55 | NUR ---
"RD ASSESSMENT PMHx: COPD; HTN; osteoporosis; s/p repair R hip fracture PT INTERACTION: Pt was awake and pleasant during nutrition assessment. Pt states current appetite is not much, but it was the same prior to admit. Pt states she is not a big eater, stating that the meal trays provided are too much food for her. Note avg PO intake of 75% x2meal, per chart review. Pt states following a regular diet at home, and has no issues with chewing/swallowing food. Pt states no recent issues with nausea or vomiting. Pt states some issues with constipation since her surgery. Note last BM was 07/03, and pt currently on bowel regimen of colace BID; senna BID; and miralax BID, per chart review. Pt states no recent wt changes. Note unable to determine recent wt hx, per chart review. ABNORMAL NUTRITION-RELATED LAB VALUES LOW: Pro 5.4; alb 3.1 HIGH: glu 109; AST 38 Est. kcal needs: 7990-2282 kcal | 30-35 kcal/kg Est. Pro needs: 55-64 g Pro | 1.2-1.4 g Pro/kg PES STATEMENT: Given PO intake, no nutrition diagnosis at this time (NO-1.1) INTERVENTION: Continue with current diet order of Regular diet. Pt may benefit from nutrition supplementation if PO intake declines. Will continue to follow and reassess as pt needs, intake, and status change. MONITOR/EVALUATE: PO Intake; Plan of Care; Hydration Status; Weight Status; Lab Values Marlin Santos, MS, RD, LD"
--- NOTE | 2019-07-04 12:59 | NUR ---
CM/SS ADMISSION Patient admitted to ARU from [facility] 07/03/19 post op for right hip bipolar replacement. Patient fell on Wednesday Mother's Day, 06/25/19, and apparently continued painful ambulation until getting seeing her PCP on 06/29/19. It was discovered she had a fractured hip, she presented/admitted to hospital and was scheduled for repair. Prior to this fall with injury patient was independent of all daily activities and self care. She resides in an apartment or duplex, entry is two steps with railing. She intends to return home when able for continued recuperation at home. PCP: [facility] PENALOZA, Dr. Cosme Salvador MD PHARMACY: [facility] INSURANCE: [employer] DME: Patient used insurance benefits approx one year ago to purchase a rollator walker; she will not, therefore, likely be able to get a FWW under insurance. She has a toilet riser stool attachment with arms. She is aware OT has recommended a Hip Kit, was informed this was a private pay item. After discussion of resource options, she indicates she intends to have her family pick one up for her at [facility]. BARRIERS TO DISCHARGE: Patient does reside alone, this does not appear to present as a barrier as long as she continues a positive recovery. Explored day to day activities, she has given thought to grocery delivery and knows she can do this through [employer] and [employer]. She shares she eats freshly scratch prepared foods and would not want Meals on Wheels or other meal delivery services. She has a protein shake for breakfast which she believes she could do, will continue to explore more natural and non-processed meal options. CONTACTS: Vito Downey, Son, POA [address] [id number] JACOBY Rich Same Address [phone] Patient understands the purpose and process of the weekly patient care conference and that her first review will be tomorrow.
--- NOTE | 2019-07-04 13:44 | NUR ---
K-PAD TO ROOM FOR RIGHT SHOULDER PAIN. PATIENT STATES THAT HEAT HELPS MORE THAN VOLTAREN GEL.
--- NOTE | 2019-07-04 14:30 | Occupational Ther Daily Note ---
OT Current Status-Daily Note Subjective Pt resting in bed, agrees to treatment. ADL-Treatment Therapy Code Descriptions/Definitions Functional [place] Measure: 0=Not Assessed/NA 4=Minimal Assistance 1=Total Assistance 5=Supervision or Setup 2=Maximal Assistance 6=Modified [place] 3=Moderate Assistance 7=Complete IndependenceSCALE: Activities may be completed with or without assistive devices. 5-Xsgxcmobur-ljmcgpw completes the activity by him/herself with no assistance from a helper. 5-Set-up or Clean-up Assistance-helper sets up or cleans up; patient completes activity. [place] assists only prior to or following the activity. 4-Supervision or Touching Assistance-helper provides verbal cues and/or touching/steadying and/or contact guard assistance as patient completes activity. Assistance may be provided throughout the activity or intermittently. 3-Partial/Moderate Assistance-helper does LESS THAN HALF the effort. [place] lifts, holds or supports trunk or limbs, but provides less than half the effort. 2-Substantial/Maximal Assistance-helper does MORE THAN HALF the effort. [place] lifts or holds trunk or limbs and provides more than half the effort. 3-Ygmzpwwiw-nzyqpm does ALL the effort. Patient does none of the effort to c omplete the activity. Or, the assistance of 2 or more helpers is required for the patient to complete the activity. If activity was not attempted, code reason: 7-Patient Refused. 9-Not Applicable-not attempted and the patient did not perform the activity before the current illness, exacerbation or injury. 10-Not Attempted due to Environmental Limitations-(lack of equipment, weather restraints, etc.). 88-Not Attempted due to Medical Conditions or Safety Concerns. Other Treatment Pt completed bilateral UE exercises to increase strength needed for ADLs and transfers. Pt performed 4 exercises x10 reps with mild resistance (yellow) theraband. Rest breaks between exercises. Cues for proper exercise technique. Pt resting in bed with needs met after session. OT Residential Goals Residential Goals Time Frame: Jul 17, 2019 Eating (QC): 6 Oral Hygiene (QC): 6 Toileting Hygiene (QC): 6 Shower/Bathe Self (QC): 6 Upper Body Dressing (QC): 6 Lower Body Dressing (QC): 6 On/Off Footwear (QC): 6 Additional Goals: 1-Demonstrate ADL Tasks, 2-Verbalize Understanding, 3- ImproveStrength/Radha 1=Demonstrate adherence to instructed precautions during ADL tasks. 2=Patient will verbalize/demonstrate understanding of assistive devices/modifications for ADL. 3=Patient will improve strength/tolerance for activity to enable patient to perform ADL's. OT Education/Plan Discharge Recommendations Plan/Recommendations: Continue POC Treatment Plan/Plan of Care Patient would benefit from OT for education, treatment and training to promote independence in ADL's, mobility, safety and/or upper extremity function for ADL' s. Plan of Care: ADL Retraining, Concurrent Therapy, Functional Mobility, Group Exercise/Act as Ind, UE Funct Exercise/Act Treatment Duration: Jul 17, 2019 Frequency: At least 5 of 7 days/Wk (IRF) Estimated Hrs Per Day: 1.5 hours per day Agreement: Yes Rehab Potential: Fair Time/GCodes Start Time: 14:05 Stop Time: 14:15 Total Time Billed (hr/min): 10 Billed Treatment Time 1 visit, EX(10minutes) CHAIM LLOYD OT July 04, 2019 14:30
--- NOTE | 2019-07-04 14:44 | Physical Therapy Daily Note ---
PT Daily Note-Current Subjective Pt up in chair and agreeable to treatment. Pt denies pain upon arrival. Says "I can tell we are working". Pt reports increased soreness in hip flexor muscles. Mental Status Patient Orientation: Person, Place, Situation Transfers SCALE: Activities may be completed with or without assistive devices. 7-Jinvopyimn-aagvpyy completes the activity by him/herself with no assistance from a helper. 5-Set-up or Clean-up Assistance-helper sets up or cleans up; patient completes activity. [place] assists only prior to or following the activity. 4-Supervision or Touching Assistance-helper provides verbal cues and/or touching/steadying and/or contact guard assistance as patient completes activity. Assistance may be provided throughout the activity or intermittently. 3-Partial/Moderate Assistance-helper does LESS THAN HALF the effort. [place] lifts, holds or supports trunk or limbs, but provides less than half the effort. 2-Substantial/Maximal Assistance-helper does MORE THAN HALF the effort. [place] lifts or holds trunk or limbs and provides more than half the effort. 4-Umrgclkxa-pitubk does ALL the effort. Patient does none of the effort to complete the activity. Or, the assistance of 2 or more helpers is required for the patient to complete the activity. If activity was not attempted, code reason: 7-Patient Refused. 9-Not Applicable-not attempted and the patient did not perform the activity before the current illness, exacerbation or injury. 10-Not Attempted due to Environmental Limitations-(lack of equipment, weather restraints, etc.). 88-Not Attempted due to Medical Conditions or Safety Concerns. Transfers chair, bed and toilet mod (I) Weight Bearing Right Lower Extremity: Right Weight Bearing/Tolerated Gait Training Gait Assistive Device: FWW Pt amb with FWW and SBA x 250ft, relying on UE for support. Exercises Supine Ex: LE Protocol Supine Reps: 20 Treatments BR privileges mod (I) Assessment Current Status: Excellent Progress Pt back to chair with call light and all needs met. (B) LE elevated, heat on (R) shoulder and ice pack on (R) hip. Pt progressing nicely all phases, functional mobility improving nicely. Pt steady balance throughout treatment. Appears safe with all mobility. PT Short Term Goals Short Term Goals Time Frame: July 10, 2019 Roll Left & Right: 6 Sit to lyin Lying to sitting on side of be: 4 Sit to stand: 5 Chair/fef-ja-hqirq transfer: 5 Walk 10 feet: 4 Walk 50 feet with two turns: 4 Walk 150 feet: 4 PT Snf Goals Snf Goals PT Snf Goals Time Frame: Jul 24, 2019 Roll Left & Right (QC): 6 Sit to Lying (QC): 6 Lying-Sitting on Side/Bed(QC): 6 Sit to Stand (QC): 6 Chair/Gbe-mx-Jnmet Xfer(QC): 6 Toilet Transfer (QC): 6 Car Transfer (QC): 6 Does the Patient Walk: Yes Walk 10 feet (QC): 6 Walk 50ft with 2 Turns (QC): 6 Walk 150 ft (QC): 6 Walking 10ft on Uneven Surface: 6 1 Step (curb) (QC): 6 4 Steps (QC): 6 12 Steps (QC): 88 Picking up an Object (QC): 88 Wheel 50 feet with 2 turns (QC: 9 Wheel 150 feet: 9 PT Plan Treatment/Plan Treatment Plan: Continue Plan of Care Treatment Plan: Bed Mobility, Education, Functional Activity Radha, Functional Strength, Group Therapy, Gait, Safety, Therapeutic Exercise, Transfers Treatment Duration: Jul 24, 2019 Frequency: At least 5 of 7 days/Wk (IRF) Estimated Hrs Per Day: 1.5 hours per day Patient and/or Family Agrees t: Yes Time/GCodes Time In: 100 Time Out: 130 Total Billed Treatment Time: 30 Total Billed Treatment 1, gait 15', ther ex 15' KIKE DE ANDA CPTA July 04, 2019 14:44
[2019-07-04 17:16] VITALS: BP 156/75
[2019-07-04] MEDS: LORATADINE (CLARITIN) 10 MG TAB PO SCH (20:05)
[2019-07-04] MEDS: traZODone 50 MG (DESYREL) TAB PO SCH (20:05)
[2019-07-04] MEDS: CATHETER FLUSH 10 ML SYR IV SCH (20:06)
[2019-07-04] MEDS: MELATONIN 3 MG TABLET PO PRN (20:06)
[2019-07-05] MEDS: oxyCODONE/APAP 5/325MG (PERCOCET 5) TABLET PO PRN ×4 (04:15→20:39)
[2019-07-05] MEDS: CATHETER FLUSH 10 ML SYR IV SCH ×3 (04:16→20:38)
[2019-07-05 05:04] VITALS: BP 147/67
[2019-07-05] MEDS: MULTIVIT W/MINERALS TAB (THERAGRAN M) PO SCH (06:07)
--- NOTE | 2019-07-05 06:51 | PM&R Progress Note ---
Subjective HPI/CC On Admission Date Seen by Provider: July 05, 2019 Time Seen by Provider: 11:00 Subjective/Events-last exam Hgb 7.7 Incision looks really good Midline placed yesterday and Venofer tolerated Overall doing very well Using IS Lungs remain clear DC Wednesday K-pad will be provided for her right shoulder Checked meds and labs Reviewed therapy notes Conferred with innersole fitter of Systems Musculoskeletal: leg pain Objective Exam Vital Signs Vital Signs Date Time Temp Pulse Resp B/P (MAP) Pulse Ox O2 Delivery O2 Flow Rate FiO2 07/06/19 05:03 37.0 66 16 160/71 (100) 95 Room Air Capillary Refill : Less Than 3 Seconds General Appearance: No Apparent Distress, WD/WN, Chronically ill, Thin HEENT: PERRL/EOMI, Normal ENT Inspection, Pharynx Normal Neck: Full Range of Motion, Normal Inspection, Non Tender, Supple, Carotid Bruit Respiratory: Chest Non Tender, Lungs Clear, Normal Breath Sounds, No Accessory Muscle Use, No Respiratory Distress Cardiovascular: Regular Rate, Rhythm, No Edema, No Gallop, No JVD, No Murmur, Normal Peripheral Pulses Gastrointestinal: Normal Bowel Sounds, No Organomegaly, No Pulsatile Mass, Non Tender, Soft Back: Normal Inspection, No CVA Tenderness, No Vertebral Tenderness Extremity: Normal Capillary Refill, Normal Inspection, Normal Range of Motion, Non Tender, No Calf Tenderness, No Pedal Edema Neurologic/Psychiatric: Alert, Oriented x3, No Motor/Sensory Deficits, Normal Mood/Affect, dinkey engine firer/fireman II-XII Norm as Tested, Abnormal Gait Skin: Normal Color, Warm/Dry Lymphatic: No Adenopathy Results/Procedures Lab Patient resulted labs reviewed. FIM Transfers Therapy Code Descriptions/Definitions Functional [place] Measure: 0=Not Assessed/NA 4=Minimal Assistance 1=Total Assistance 5=Supervision or Setup 2=Maximal Assistance 6=Modified [place] 3=Moderate Assistance 7=Complete IndependenceSCALE: Activities may be completed with or without assistive devices. 0-Jloobapowj-syqqfgz completes the activity by him/herself with no assistance from a helper. 5-Set-up or Clean-up Assistance-helper sets up or cleans up; patient completes activity. [place] assists only prior to or following the activity. 4-Supervision or Touching Assistance-helper provides verbal cues and/or touching/steadying and/or contact guard assistance as patient completes activity. Assistance may be provided throughout the activity or intermittently. 3-Partial/Moderate Assistance-helper does LESS THAN HALF the effort. [place] lifts, holds or supports trunk or limbs, but provides less than half the effort. 2-Substantial/Maximal Assistance-helper does MORE THAN HALF the effort. [place] lifts or holds trunk or limbs and provides more than half the effort. 5-Coxiscdfp-yqwfwh does ALL the effort. Patient does none of the effort to complete the activity. Or, the assistance of 2 or more helpers is required for the patient to complete the activity. If activity was not attempted, code reason: 7-Patient Refused. 9-Not Applicable-not attempted and the patient did not perform the activity before the current illness, exacerbation or injury. 10-Not Attempted due to Environmental Limitations-(lack of equipment, weather restraints, etc.). 88-Not Attempted due to Medical Conditions or Safety Concerns. Roll Left to Right (QC): 6 Sit to Lying (QC): 3 Sit to Stand (QC): 4 Chair/Wwu-mu-Dqkkl Xfer(QC): 4 Car Transfer (QC): 3 Gait Training Does the Patient Walk?: Yes Distance: 150'x2 Walk 10 feet (QC): 4 Walk 50 ft with 2 Turns(QC): 4 Walk 150 ft (QC): 4 Walking 10ft/uneven surface-QC: 4 Gait Persons Needed: 1 Gait Assistive Device: FWW Wheelchair Training Does the Pt Use a Wheelchair?: No Wheel 50 ft with 2 turns (QC): 9 Wheel 150 ft (QC): 9 Stair Training #of Steps: 1 1 Step (curb) (QC): 4 4 Steps (QC): 88 12 Steps (QC): 88 Balance Picking up an Object (QC): 88 ADL-Treatment Eating (QC): 6 Oral Hygiene (QC): 6 Shower/Bathe Self (QC): 3 (mod A LBpt introduced to S and able to complete with SBA post-education) Upper Body Dressing (QC): 6 Lower Body Dressing (QC): 4 (SBA, use of cues and AE) On/Off Footwear (QC): 2 (SBA/ cues for sock aide.AMISHA Moreno) Toileting Hygiene (QC): 6 (IND) Toilet Transfer (QC): 4 (SBA with use of walker.) Assessment/Plan Assessment and Plan Assess & Plan/Chief Complaint Assessment: s/p right hip fracture due to fall with osteoporosis hx PVD on Plavix and statin consulting Dr Jackson COPD lung nodules consulting Dr Laurent at her request Former smoker Post op anemia from blood loss Iron deficiency started IV iron Breast cancer hx Plan: IV iron after midline PT OT IRF Cardiology and Pulmonology consultations appreciated DVT PPx Lovenox Monitor hgb (1) Closed right hip fracture Status: Acute (2) COPD (chronic obstructive pulmonary disease) (3) Carotid stenosis (4) Constipation (5) Fall Status: Acute (6) Postoperative anemia (7) Age related osteoporosis Status: Chronic (8) HTN (hypertension) Status: Chronic (9) Hyperlipemia (10) Iron deficiency LEDY HUDSON DO July 05, 2019 06:50
[2019-07-05 08:38] VITALS: BP 147/60
[2019-07-05] MEDS: IRON SUCROSE 200 MG/10 ML (VENOFER) VIAL IV SCH (08:44)
[2019-07-05] MEDS: DOCUSATE SODIUM 100 MG (COLACE) CAP PO SCH ×2 (08:50→20:38)
[2019-07-05] MEDS: SENNOSIDES 8.6 MG (SENOKOT) TAB PO SCH ×2 (08:50→20:38)
[2019-07-05] MEDS: VITAMIN D3 125 MCG (5,000 UNITS) CAPSULE PO SCH (08:50)
[2019-07-05] MEDS: CLOPIDOGREL 75 MG (PLAVIX) TABLET PO SCH (08:50)
[2019-07-05] MEDS: lisINopril 5 MG (PRINIVIL) TABLET PO SCH ×2 (08:50→20:39)
[2019-07-05] MEDS: polyethylene glycoL POWDER 17 GM (MIRALAX) PACK PO SCH ×2 (08:57→20:43)
[2019-07-05] MEDS: DICLOFENAC 1% GEL 100 GM (VOLTAREN) TUBE TOP SCH ×4 (08:58→20:38)
[2019-07-05] MEDS ORDERED: IRON SUCROSE 200 MG/10 ML (VENOFER) VIAL IV SCH (09:00)
--- NOTE | 2019-07-05 09:11 | Progress Note ---
Standard Progress Note Progress Notes/Assess & Plan Date Seen by a Provider: July 05, 2019 Time Seen by a Provider: 07:31 Progress/Assessment & Plan no complaints Vital Signs Date Time Temp Pulse Resp B/P (MAP) Pulse Ox O2 Delivery O2 Flow Rate FiO2 07/05/19 08:38 91 147/60 (89) 07/05/19 05:04 37.0 80 18 147/67 (93) 96 Room Air 07/04/19 21:00 Room Air 07/04/19 18:30 Room Air 07/04/19 17:16 37.8 93 18 156/75 (102) 97 Room Air I & O 07/05/19 07:00 Intake Total 1330 ml Balance 1330 ml RLE-- no calf tenderness. Neg Gabriel's. Dressing clean and dry s/p R bipolar continue PT/OT SHANKAR SCOTT MD July 05, 2019 09:11
--- NOTE | 2019-07-05 10:23 | Occupational Ther Daily Note ---
OT Current Status-Daily Note Subjective 58105: Pt seen in recliner this am, states slept well and states minimal pain this morning. Pt agreeable to therapy . 1300: Pt seen in recliner, agrees to therapy. States "sore" in R hip. Mental Status/Objective Patient Orientation: Normal For Age ADL-Treatment Therapy Code Descriptions/Definitions Functional [place] Measure: 0=Not Assessed/NA 4=Minimal Assistance 1=Total Assistance 5=Supervision or Setup 2=Maximal Assistance 6=Modified [place] 3=Moderate Assistance 7=Complete IndependenceSCALE: Activities may be completed with or without assistive devices. 6-Nxjbkjharj-cajytyj completes the activity by him/herself with no assistance from a helper. 5-Set-up or Clean-up Assistance-helper sets up or cleans up; patient completes activity. [place] assists only prior to or following the activity. 4-Supervision or Touching Assistance-helper provides verbal cues and/or touching/steadying and/or contact guard assistance as patient completes activity. Assistance may be provided throughout the activity or intermittently. 3-Partial/Moderate Assistance-helper does LESS THAN HALF the effort. [place] lifts, holds or supports trunk or limbs, but provides less than half the effort. 2-Substantial/Maximal Assistance-helper does MORE THAN HALF the effort. [place] lifts or holds trunk or limbs and provides more than half the effort. 0-Nemingxno-ggwicq does ALL the effort. Patient does none of the effort to complete the activity. Or, the assistance of 2 or more helpers is required for the patient to complete the activity. If activity was not attempted, code reason: 7-Patient Refused. 9-Not Applicable-not attempted and the patient did not perform the activity before the current illness, exacerbation or injury. 10-Not Attempted due to Environmental Limitations-(lack of equipment, weather restraints, etc.). 88-Not Attempted due to Medical Conditions or Safety Concerns. Eating (QC): 6 Oral Hygiene (QC): 6 (IND stance at sink.) Shower/Bathe Self (QC): 4 (SUP during stance. Completes all areas with IND) Upper Body Dressing (QC): 6 Lower Body Dressing (QC): 5 (s/u- pt given tools during task but completes with mod I.) On/Off Footwear: 6 (completes socks with IND (mod I with sock aide)) Toileting Hygiene (QC): 6 (completes with IND.) Toilet Transfer (QC): 4 (SUP with 2WW) Other Treatment 0800: Pt completes sit to stands with SUP, ambulates with good balance with 2WW. Pt completes all ADLs as above. Pt has increased IND and discusses home environment. Pt and OT agree pt is safe and Mod I with ADL tasks with AE. Pt states she wishes to be able to walk increased distances prior to d/c'ing. Pt returns to recliner and completes HEP (5 reps bilaterally) with skilled cues for positioning. All needs met, call light in reach. 1300: Pt sit to stands with SUP. Pt stands at 2WW to complete HEP with CGA intermittently, utilizes BUE functionally without support of walker. Pt completes 10 reps bilaterally with intermittent cues for correct positioning. Fair UE strength/ endurance. Pt completes toileting with SBA. Pt left with CONCRETE PLACEMENT EQUIPMENT OPERATOR end of session. Education OT Patient Education: Exercise program, Home exercise program, Progress toward Goal/Update tx plan, Purpose of tx/functional activities, Safety issues Teaching Recipient: Patient Teaching Methods: Demonstration, Discussion Response to Teaching: Verbalize Understanding, Return Demonstration OT Mcc Goals Sole Rougher Goals Time Frame: Jul 17, 2019 Eating (QC): 6 Oral Hygiene (QC): 6 Toileting Hygiene (QC): 6 Shower/Bathe Self (QC): 6 Upper Body Dressing (QC): 6 Lower Body Dressing (QC): 6 On/Off Footwear (QC): 6 Additional Goals: 1-Demonstrate ADL Tasks, 2-Verbalize Understanding, 3- ImproveStrength/Radha 1=Demonstrate adherence to instructed precautions during ADL tasks. 2=Patient will verbalize/demonstrate understanding of assistive devices/modifications for ADL. 3=Patient will improve strength/tolerance for activity to enable patient to perform ADL's. OT Education/Plan Problem List/Assessment Assessment: Decreased Activ Tolerance, Edema, Impaired I ADL's Discharge Recommendations Plan/Recommendations: Continue POC Equpiment Recommendations-D/C: Hip Kit Treatment Plan/Plan of Care Treatment,Training & Education: Yes Patient would benefit from OT for education, treatment and training to promote independence in ADL's, mobility, safety and/or upper extremity function for ADL's. Plan of Care: ADL Retraining, Concurrent Therapy, Functional Mobility, Group Exercise/Act as Ind, UE Funct Exercise/Act Treatment Duration: Jul 17, 2019 Frequency: At least 5 of 7 days/Wk (IRF) Estimated Hrs Per Day: 1.5 hours per day Agreement: Yes Rehab Potential: Fair Time/GCodes Start Time: 08:00 (1300) Stop Time: 09:15 (1315) Total Time Billed (hr/min): 90 (75+15) Billed Treatment Time 0800: 1, ADL 3 (45), EX 2 (30)= 75 1300: 1, EX (15)= 15 Total: 90 XAVI ESPITIA OTR July 05, 2019 10:23
[2019-07-05] MEDS: ENOXAPARIN 30 MG/0.3 ML (LOVENOX) SYR SC SCH (11:05)
--- NOTE | 2019-07-05 12:08 | Physical Therapy Daily Note ---
PT Daily Note-Current Subjective Pt . agrees to rx. Wants to walk and improve and get home. Requests up ad joyce status to [facility]. This DELIVERY PERSON imparts possibly tomorrow Pain Numeric Pain Scale: 3 Location: Medial Location Body Site: Hip Pain Description: Ache (soreness) Mental Status Patient Orientation: Normal For Age Transfers SCALE: Activities may be completed with or without assistive devices. 9-Ydrinjsdeh-ybbnbcn completes the activity by him/herself with no assistance from a helper. 5-Set-up or Clean-up Assistance-helper sets up or cleans up; patient completes activity. [place] assists only prior to or following the activity. 4-Supervision or Touching Assistance-helper provides verbal cues and/or touching/steadying and/or contact guard assistance as patient completes activity. Assistance may be provided throughout the activity or intermittently. 3-Partial/Moderate Assistance-helper does LESS THAN HALF the effort. [place] lifts, holds or supports trunk or limbs, but provides less than half the effort. 2-Substantial/Maximal Assistance-helper does MORE THAN HALF the effort. [place] lifts or holds trunk or limbs and provides more than half the effort. 1-Aulaozgrl-iwxenq does ALL the effort. Patient does none of the effort to complete the activity. Or, the assistance of 2 or more helpers is required for the patient to complete the activity. If activity was not attempted, code reason: 7-Patient Refused. 9-Not Applicable-not attempted and the patient did not perform the activity before the current illness, exacerbation or injury. 10-Not Attempted due to Environmental Limitations-(lack of equipment, weather restraints, etc.). 88-Not Attempted due to Medical Conditions or Safety Concerns. Roll Left & Right (QC): 6 Sit to Lying (QC): 6 Lying to Sitting/Side of Bed(Q: 6 Sit to Stand (QC): 6 Chair/Knl-sq-Sgfbn Xfer(QC): 6 Toilet Transfer (QC): 6 good safety technique abiding all precautions for TRFs Weight Bearing Right Lower Extremity: Right Weight Bearing/Tolerated Gait Training Does the Patient Walk?: Yes Walk 10 feet (QC): 6 Walk 50 ft with 2 Turns(QC): 6 Walk 150 ft (QC): 6 Gait Persons Needed: 1 Gait Assistive Device: FWW gait 350 ft , 200 ft even step length , some antalgia, leg length discrep noted. No LOB , good alignment Exercises Supine Ex: Ankle pumps, Quad Set, Rolling, Glut sets, Heel Slides, Short Arc Quads, Scooting, Straight leg raise (assisted x 5), Hip abd/add (assisted x 15) Supine Reps: 20 Seated Therapy Exercises: Ankle pumps, Sit to stand, Long arc quads, Hip flexion (left only), Hip abd/add Seated Reps: 15 Treatments toileted SBA, Assessment Current Status: Good Progress PT Short Term Goals Short Term Goals Time Frame: July 10, 2019 Roll Left & Right: 6 Sit to lyin Lying to sitting on side of be: 4 Sit to stand: 5 Chair/nny-yp-islvv transfer: 5 Walk 10 feet: 4 Walk 50 feet with two turns: 4 Walk 150 feet: 4 PT Mcfp Goals Mcfp Goals PT Mcfp Goals Time Frame: Jul 24, 2019 Roll Left & Right (QC): 6 Sit to Lying (QC): 6 Lying-Sitting on Side/Bed(QC): 6 Sit to Stand (QC): 6 Chair/Apg-dl-Cjymt Xfer(QC): 6 Toilet Transfer (QC): 6 Car Transfer (QC): 6 Does the Patient Walk: Yes Walk 10 feet (QC): 6 Walk 50ft with 2 Turns (QC): 6 Walk 150 ft (QC): 6 Walking 10ft on Uneven Surface: 6 1 Step (curb) (QC): 6 4 Steps (QC): 6 12 Steps (QC): 88 Picking up an Object (QC): 88 Wheel 50 feet with 2 turns (QC: 9 Wheel 150 feet: 9 PT Plan Treatment/Plan Treatment Plan: Continue Plan of Care Treatment Plan: Bed Mobility, Education, Functional Activity Radha, Functional Strength, Group Therapy, Gait, Safety, Therapeutic Exercise, Transfers Treatment Duration: Jul 24, 2019 Frequency: At least 5 of 7 days/Wk (IRF) Estimated Hrs Per Day: 1.5 hours per day Patient and/or Family Agrees t: Yes Safety Risks/Education Patient Education: Gait Training, Transfer Techniques, Correct Positioning, Disease Process, Safety Issues Teaching Recipient: Patient Teaching Methods: Demonstration, Discussion Response to Teaching: Verbalize Understanding, Return Demonstration, Reinforcement Needed Time/GCodes Time In: 1100 Time Out: 1200 Total Billed Treatment Time: 60 Total Billed Treatment 1,[id number],[id number] RANDAL GONZALEZ DELIVERY PERSON July 05, 2019 12:08
--- NOTE | 2019-07-05 14:01 | Physical Therapy Daily Note ---
PT Daily Note-Current Subjective Pt agreeable. Pain rated 7-8/10 (L) hip, nursing notified. Mental Status Patient Orientation: Person, Place, Situation Transfers SCALE: Activities may be completed with or without assistive devices. 7-Tvhxtmlksd-jkzylja completes the activity by him/herself with no assistance from a helper. 5-Set-up or Clean-up Assistance-helper sets up or cleans up; patient completes activity. [place] assists only prior to or following the activity. 4-Supervision or Touching Assistance-helper provides verbal cues and/or touching/steadying and/or contact guard assistance as patient completes activity. Assistance may be provided throughout the activity or intermittently. 3-Partial/Moderate Assistance-helper does LESS THAN HALF the effort. [place] lifts, holds or supports trunk or limbs, but provides less than half the effort. 2-Substantial/Maximal Assistance-helper does MORE THAN HALF the effort. [place] lifts or holds trunk or limbs and provides more than half the effort. 6-Jwkqwzkuh-hzovmw does ALL the effort. Patient does none of the effort to complete the activity. Or, the assistance of 2 or more helpers is required for the patient to complete the activity. If activity was not attempted, code reason: 7-Patient Refused. 9-Not Applicable-not attempted and the patient did not perform the activity before the current illness, exacerbation or injury. 10-Not Attempted due to Environmental Limitations-(lack of equipment, weather restraints, etc.). 88-Not Attempted due to Medical Conditions or Safety Concerns. sit to stand transfers mod (I) Weight Bearing Right Lower Extremity: Right Weight Bearing/Tolerated Gait Training Gait Assistive Device: FWW Pt amb with FWW and SBA 2 x 200ft, mod reliance on FWW Stair Training Stair Training: Handrails/: 2 handrails Stairs: Pattern: Step to Pt practiced up/down steps of 4 x 1, SBA. Pt education on sequence as needed. Exercises Seated Therapy Exercises: Ankle pumps, Long arc quads, Glut set Seated Reps: 20 NuStep Minutes: 11 NuStep Workload: 3 Assessment Current Status: Good Progress Pt demonstrates steady speed, good balance during ambulation. Pt progressing appropriately all phases of rehab. Pt feeling more confident after practicing stairs. Pt mod (I) with functioanl mobility during treatment. PT Short Term Goals Short Term Goals Time Frame: July 10, 2019 Roll Left & Right: 6 Sit to lyin Lying to sitting on side of be: 4 Sit to stand: 5 Chair/uho-az-koxyd transfer: 5 Walk 10 feet: 4 Walk 50 feet with two turns: 4 Walk 150 feet: 4 PT Prison Goals Regulatory Affairs Strategy Specialist Goals PT Prison Goals Time Frame: Jul 24, 2019 Roll Left & Right (QC): 6 Sit to Lying (QC): 6 Lying-Sitting on Side/Bed(QC): 6 Sit to Stand (QC): 6 Chair/Fnq-vn-Gkjhf Xfer(QC): 6 Toilet Transfer (QC): 6 Car Transfer (QC): 6 Does the Patient Walk: Yes Walk 10 feet (QC): 6 Walk 50ft with 2 Turns (QC): 6 Walk 150 ft (QC): 6 Walking 10ft on Uneven Surface: 6 1 Step (curb) (QC): 6 4 Steps (QC): 6 12 Steps (QC): 88 Picking up an Object (QC): 88 Wheel 50 feet with 2 turns (QC: 9 Wheel 150 feet: 9 PT Plan Treatment/Plan Treatment Plan: Continue Plan of Care Treatment Plan: Bed Mobility, Education, Functional Activity Radha, Functional Strength, Group Therapy, Gait, Safety, Therapeutic Exercise, Transfers Treatment Duration: Jul 24, 2019 Frequency: At least 5 of 7 days/Wk (IRF) Estimated Hrs Per Day: 1.5 hours per day Patient and/or Family Agrees t: Yes Time/GCodes Time In: 1320 Time Out: 1350 Total Billed Treatment Time: 30 Total Billed Treatment 1, ther ex 15', Gait 15' KIKE DE ANDA CPTA July 05, 2019 14:01
[2019-07-05 17:59] VITALS: BP 173/71
[2019-07-05] MEDS: traZODone 50 MG (DESYREL) TAB PO SCH (20:38)
[2019-07-05] MEDS: LORATADINE (CLARITIN) 10 MG TAB PO SCH (20:39)
[2019-07-05] MEDS: MELATONIN 3 MG TABLET PO PRN (20:43)
[2019-07-06 05:03] VITALS: BP 160/71
--- NOTE | 2019-07-06 06:06 | PM&R Progress Note ---
Subjective HPI/CC On Admission Date Seen by Provider: July 06, 2019 Time Seen by Provider: 10:00 Subjective/Events-last exam Pt now up ad-joyce in the room Working with therapy BMs are moving okay Changing Voltaren gel to prn Overall feels really good Checked meds and labs Reviewed therapy notes Conferred with weigh boss of Systems General: Fatigue Musculoskeletal: leg pain Objective Exam Vital Signs Vital Signs Date Time Temp Pulse Resp B/P (MAP) Pulse Ox O2 Delivery O2 Flow Rate FiO2 07/07/19 05:08 36.8 69 18 180/83 (115) 97 Room Air Capillary Refill : Less Than 3 Seconds General Appearance: No Apparent Distress, WD/WN, Chronically ill, Thin HEENT: PERRL/EOMI, Normal ENT Inspection, Pharynx Normal Neck: Full Range of Motion, Normal Inspection, Non Tender, Supple, Carotid Bruit Respiratory: Chest Non Tender, Lungs Clear, Normal Breath Sounds, No Accessory Muscle Use, No Respiratory Distress Cardiovascular: Regular Rate, Rhythm, No Edema, No Gallop, No JVD, No Murmur, Normal Peripheral Pulses Gastrointestinal: Normal Bowel Sounds, No Organomegaly, No Pulsatile Mass, Non Tender, Soft Back: Normal Inspection, No CVA Tenderness, No Vertebral Tenderness Extremity: Normal Capillary Refill, Normal Inspection, Normal Range of Motion, Non Tender, No Calf Tenderness, No Pedal Edema Neurologic/Psychiatric: Alert, Oriented x3, No Motor/Sensory Deficits, Normal Mood/Affect, technology internship II-XII Norm as Tested, Abnormal Gait Skin: Normal Color, Warm/Dry Lymphatic: No Adenopathy Results/Procedures Lab Patient resulted labs reviewed. FIM Transfers Therapy Code Descriptions/Definitions Functional [place] Measure: 0=Not Assessed/NA 4=Minimal Assistance 1=Total Assistance 5=Supervision or Setup 2=Maximal Assistance 6=Modified [place] 3=Moderate Assistance 7=Complete IndependenceSCALE: Activities may be completed with or without assistive devices. 3-Pbuueoyrdl-ttqcmco completes the activity by him/herself with no assistance from a helper. 5-Set-up or Clean-up Assistance-helper sets up or cleans up; patient completes activity. [place] assists only prior to or following the activity. 4-Supervision or Touching Assistance-helper provides verbal cues and/or touching/steadying and/or contact guard assistance as patient completes activity. Assistance may be provided throughout the activity or intermittently. 3-Partial/Moderate Assistance-helper does LESS THAN HALF the effort. [place] lifts, holds or supports trunk or limbs, but provides less than half the effort. 2-Substantial/Maximal Assistance-helper does MORE THAN HALF the effort. [place] lifts or holds trunk or limbs and provides more than half the effort. 3-Iclboeblp-yjclsx does ALL the effort. Patient does none of the effort to complete the activity. Or, the assistance of 2 or more helpers is required for the patient to complete the activity. If activity was not attempted, code reason: 7-Patient Refused. 9-Not Applicable-not attempted and the patient did not perform the activity before the current illness, exacerbation or injury. 10-Not Attempted due to Environmental Limitations-(lack of equipment, weather restraints, etc.). 88-Not Attempted due to Medical Conditions or Safety Concerns. Roll Left to Right (QC): 6 Sit to Lying (QC): 6 Sit to Stand (QC): 6 Chair/Ecs-yi-Xggcp Xfer(QC): 6 Car Transfer (QC): 3 Gait Training Does the Patient Walk?: Yes Distance: 150'x2 Walk 10 feet (QC): 6 Walk 50 ft with 2 Turns(QC): 6 Walk 150 ft (QC): 6 Walking 10ft/uneven surface-QC: 4 Gait Persons Needed: 1 Gait Assistive Device: FWW Wheelchair Training Does the Pt Use a Wheelchair?: No Wheel 50 ft with 2 turns (QC): 9 Wheel 150 ft (QC): 9 Stair Training Stair Training: Handrails/: 2 handrails #of Steps: 1 1 Step (curb) (QC): 4 4 Steps (QC): 88 12 Steps (QC): 88 Stairs: Pattern: Step to Balance Picking up an Object (QC): 88 ADL-Treatment Eating (QC): 6 Oral Hygiene (QC): 6 (IND stance at sink.) Shower/Bathe Self (QC): 4 (SUP during stance. Completes all areas with IND) Upper Body Dressing (QC): 6 Lower Body Dressing (QC): 5 (s/u- pt given tools during task but completes with mod I.) On/Off Footwear (QC): 6 (completes socks with IND (mod I with sock aide)) Toileting Hygiene (QC): 6 (completes with IND.) Toilet Transfer (QC): 4 (SUP with 2WW) Assessment/Plan Assessment and Plan Assess & Plan/Chief Complaint Assessment: s/p right hip fracture due to fall with osteoporosis hx PVD on Plavix and statin consulting Dr Jackson COPD lung nodules consulting Dr Laurent at her request Former smoker Post op anemia from blood loss Iron deficiency started IV iron Breast cancer hx Plan: IV iron PT OT IRF Cardiology and Pulmonology consultations appreciated DVT PPx Lovenox Monitor hgb (1) Closed right hip fracture Status: Acute (2) COPD (chronic obstructive pulmonary disease) (3) Carotid stenosis (4) Constipation (5) Fall Status: Acute (6) Postoperative anemia (7) Age related osteoporosis Status: Chronic (8) HTN (hypertension) Status: Chronic (9) Hyperlipemia (10) Iron deficiency LEDY HUDSON DO July 06, 2019 06:06
[2019-07-06] MEDS: CATHETER FLUSH 10 ML SYR IV SCH ×3 (06:28→20:32)
[2019-07-06] MEDS: MULTIVIT W/MINERALS TAB (THERAGRAN M) PO SCH (06:28)
--- NOTE | 2019-07-06 07:52 | Progress Note ---
Standard Progress Note Progress Notes/Assess & Plan Date Seen by a Provider: July 06, 2019 Time Seen by a Provider: 07:51 Progress/Assessment & Plan no complaints Vital Signs Date Time Temp Pulse Resp B/P (MAP) Pulse Ox O2 Delivery O2 Flow Rate FiO2 07/05/19 08:38 91 147/60 (89) 07/05/19 05:04 37.0 80 18 147/67 (93) 96 Room Air 07/04/19 21:00 Room Air 07/04/19 18:30 Room Air 07/04/19 17:16 37.8 93 18 156/75 (102) 97 Room Air I & O 07/05/19 07:00 Intake Total 1330 ml Balance 1330 ml RLE-- no calf tenderness. Neg Gabriel's. Dressing clean and dry s/p R bipolar continue PT/OT Final Diagnosis continues to progress no complaints RLE--no calf tenderness. Neg Gabriel's s/p R hip bipolar continue PT/OT SHANKAR SCOTT MD July 06, 2019 07:52
[2019-07-06] MEDS: CLOPIDOGREL 75 MG (PLAVIX) TABLET PO SCH (08:07)
[2019-07-06] MEDS: lisINopril 5 MG (PRINIVIL) TABLET PO SCH ×2 (08:07→20:32)
[2019-07-06] MEDS: VITAMIN D3 125 MCG (5,000 UNITS) CAPSULE PO SCH (08:07)
[2019-07-06] MEDS: SENNOSIDES 8.6 MG (SENOKOT) TAB PO SCH ×2 (08:07→20:54)
[2019-07-06] MEDS: DOCUSATE SODIUM 100 MG (COLACE) CAP PO SCH ×2 (08:07→20:53)
[2019-07-06] MEDS: oxyCODONE/APAP 5/325MG (PERCOCET 5) TABLET PO PRN ×2 (08:07→18:13)
[2019-07-06] MEDS: DICLOFENAC 1% GEL 100 GM (VOLTAREN) TUBE TOP SCH (09:00)
[2019-07-06] MEDS: polyethylene glycoL POWDER 17 GM (MIRALAX) PACK PO SCH ×2 (09:00→19:53)
--- NOTE | 2019-07-06 10:03 | Physical Therapy Daily Note ---
PT Daily Note-Current Subjective Patient in bed pre tx, agrees to PT, has no complaints of pain at rest. Appearance Patient in restroom post tx with nurse call. Patient is now independent with a rolling walker, can walk and go to the bathroom by herself, nurse notified. Mental Status Patient Orientation: Normal For Age Transfers SCALE: Activities may be completed with or without assistive devices. 9-Qejtgnexoe-dwpdspa completes the activity by him/herself with no assistance from a helper. 5-Set-up or Clean-up Assistance-helper sets up or cleans up; patient completes activity. [place] assists only prior to or following the activity. 4-Supervision or Touching Assistance-helper provides verbal cues and/or touching/steadying and/or contact guard assistance as patient completes activity. Assistance may be provided throughout the activity or intermittently. 3-Partial/Moderate Assistance-helper does LESS THAN HALF the effort. [place] lifts, holds or supports trunk or limbs, but provides less than half the effort. 2-Substantial/Maximal Assistance-helper does MORE THAN HALF the effort. [place] lifts or holds trunk or limbs and provides more than half the effort. 9-Kaenhfamq-eueqjn does ALL the effort. Patient does none of the effort to complete the activity. Or, the assistance of 2 or more helpers is required for the patient to complete the activity. If activity was not attempted, code reason: 7-Patient Refused. 9-Not Applicable-not attempted and the patient did not perform the activity before the current illness, exacerbation or injury. 10-Not Attempted due to Environmental Limitations-(lack of equipment, weather restraints, etc.). 88-Not Attempted due to Medical Conditions or Safety Concerns. Roll Left & Right (QC): 6 Lying to Sitting/Side of Bed(Q: 6 Sit to Stand (QC): 6 Chair/Vxi-oo-Dsiko Xfer(QC): 6 Toilet Transfer (QC): 6 appropriate hand use and positioning Weight Bearing Right Lower Extremity: Right Weight Bearing/Tolerated Gait Training Distance: 300', 150' Walk 10 feet (QC): 6 Walk 50 ft with 2 Turns(QC): 6 Walk 150 ft (QC): 6 Gait Assistive Device: FWW Independent with ambulation using a rolling walker, slow but steady ambulation Exercises Supine Ex: Ankle pumps, Quad Set, Glut sets, Heel Slides, Short Arc Quads, Straight leg raise, Hip abd/add Supine Reps: 20 LAQ right side for 5 min with 2# ankle weights NuStep Minutes: 15 NuStep Workload: 4 (chair distance set so patient does not bend more than 90 degrees at the waist) Treatments bed mobility and transfers, ambulation, functional strengthening Assessment Current Status: Fair Progress independent with ambulation and transfers now PT Short Term Goals Short Term Goals Time Frame: July 10, 2019 Roll Left & Right: 6 Sit to lyin Lying to sitting on side of be: 4 Sit to stand: 5 Chair/ajm-ju-lijkf transfer: 5 Walk 10 feet: 4 Walk 50 feet with two turns: 4 Walk 150 feet: 4 PT Electrician Crane Maintenance Goals Electrician Crane Maintenance Goals PT [facility] Goals Time Frame: Jul 24, 2019 Roll Left & Right (QC): 6 Sit to Lying (QC): 6 Lying-Sitting on Side/Bed(QC): 6 Sit to Stand (QC): 6 Chair/Xib-pe-Rscrq Xfer(QC): 6 Toilet Transfer (QC): 6 Car Transfer (QC): 6 Does the Patient Walk: Yes Walk 10 feet (QC): 6 Walk 50ft with 2 Turns (QC): 6 Walk 150 ft (QC): 6 Walking 10ft on Uneven Surface: 6 1 Step (curb) (QC): 6 4 Steps (QC): 6 12 Steps (QC): 88 Picking up an Object (QC): 88 Wheel 50 feet with 2 turns (QC: 9 Wheel 150 feet: 9 PT Plan Problem List Problem List: Activity Tolerance, Functional Strength, Safety, Balance, Gait, Transfer Treatment/Plan Treatment Plan: Continue Plan of Care Treatment Plan: Bed Mobility, Education, Functional Activity Radha, Functional Strength, Group Therapy, Gait, Safety, Therapeutic Exercise, Transfers Treatment Duration: Jul 24, 2019 Frequency: At least 5 of 7 days/Wk (IRF) Estimated Hrs Per Day: 1.5 hours per day Patient and/or Family Agrees t: Yes Safety Risks/Education Patient Education: Gait Training, Transfer Techniques, Reviewed Precautions, Correct Positioning, Safety Issues Teaching Recipient: Patient Teaching Methods: Demonstration, Discussion Response to Teaching: Reinforcement Needed Time/GCodes Time In: 0900 Time Out: 1000 Total Billed Treatment 1 visit GT 30' EX 30' KENDAL ARAYA PT July 06, 2019 10:03
[2019-07-06] MEDS: ENOXAPARIN 30 MG/0.3 ML (LOVENOX) SYR SC SCH (11:36)
[2019-07-06] MEDS ORDERED: DICLOFENAC 1% GEL 100 GM (VOLTAREN) TUBE TOP PRN (13:30)
--- NOTE | 2019-07-06 14:05 | Physical Therapy Daily Note ---
PT Daily Note-Current Subjective Patient in bed pre tx, agrees to PT, has no complaints of pain at rest. Appearance Patient in bed post tx with nurse call, phone, tray, all needs met. Mental Status Patient Orientation: Normal For Age Transfers SCALE: Activities may be completed with or without assistive devices. 4-Svsdsppiwx-uabdfzi completes the activity by him/herself with no assistance from a helper. 5-Set-up or Clean-up Assistance-helper sets up or cleans up; patient completes activity. [place] assists only prior to or following the activity. 4-Supervision or Touching Assistance-helper provides verbal cues and/or touching/steadying and/or contact guard assistance as patient completes activity. Assistance may be provided throughout the activity or intermittently. 3-Partial/Moderate Assistance-helper does LESS THAN HALF the effort. [place] lifts, holds or supports trunk or limbs, but provides less than half the effort. 2-Substantial/Maximal Assistance-helper does MORE THAN HALF the effort. [place] lifts or holds trunk or limbs and provides more than half the effort. 3-Mwifvlssb-oxmtmu does ALL the effort. Patient does none of the effort to complete the activity. Or, the assistance of 2 or more helpers is required for the patient to complete the activity. If activity was not attempted, code reason: 7-Patient Refused. 9-Not Applicable-not attempted and the patient did not perform the activity before the current illness, exacerbation or injury. 10-Not Attempted due to Environmental Limitations-(lack of equipment, weather restraints, etc.). 88-Not Attempted due to Medical Conditions or Safety Concerns. Roll Left & Right (QC): 6 Sit to Lying (QC): 6 Lying to Sitting/Side of Bed(Q: 6 Sit to Stand (QC): 6 Chair/Hxy-sa-Ruunc Xfer(QC): 6 Weight Bearing Right Lower Extremity: Right Weight Bearing/Tolerated Gait Training Distance: 300', 150' Walk 10 feet (QC): 6 Walk 50 ft with 2 Turns(QC): 6 Walk 150 ft (QC): 6 Gait Assistive Device: FWW slow but steady ambulation Exercises Standing: Hip Abduction, Heel/toe raises, Marching, Mini squats sideways ambulation in the parallel bars 8'x10 Treatments bed mobility and transfers, ambulation, functional strengthening Assessment Current Status: Fair Progress steady improvement PT Short Term Goals Short Term Goals Time Frame: July 10, 2019 Roll Left & Right: 6 Sit to lyin Lying to sitting on side of be: 4 Sit to stand: 5 Chair/iuc-qo-gxmiv transfer: 5 Walk 10 feet: 4 Walk 50 feet with two turns: 4 Walk 150 feet: 4 PT Usp Goals Usp Goals PT Hazardous Waste Technician Goals Time Frame: Jul 24, 2019 Roll Left & Right (QC): 6 Sit to Lying (QC): 6 Lying-Sitting on Side/Bed(QC): 6 Sit to Stand (QC): 6 Chair/Yll-zt-Zgesp Xfer(QC): 6 Toilet Transfer (QC): 6 Car Transfer (QC): 6 Does the Patient Walk: Yes Walk 10 feet (QC): 6 Walk 50ft with 2 Turns (QC): 6 Walk 150 ft (QC): 6 Walking 10ft on Uneven Surface: 6 1 Step (curb) (QC): 6 4 Steps (QC): 6 12 Steps (QC): 88 Picking up an Object (QC): 88 Wheel 50 feet with 2 turns (QC: 9 Wheel 150 feet: 9 PT Plan Problem List Problem List: Activity Tolerance, Functional Strength, Safety, Balance, Gait, Transfer Treatment/Plan Treatment Plan: Continue Plan of Care Treatment Plan: Bed Mobility, Education, Functional Activity Radha, Functional Strength, Group Therapy, Gait, Safety, Therapeutic Exercise, Transfers Treatment Duration: Jul 24, 2019 Frequency: At least 5 of 7 days/Wk (IRF) Estimated Hrs Per Day: 1.5 hours per day Patient and/or Family Agrees t: Yes Safety Risks/Education Patient Education: Gait Training, Transfer Techniques, Correct Positioning, Safety Issues Teaching Recipient: Patient Teaching Methods: Demonstration, Discussion Response to Teaching: Reinforcement Needed Time/GCodes Time In: 1330 Time Out: 1400 Total Billed Treatment Time: 30 Total Billed Treatment 1 visit GT 10' EX 20' KENDAL ARAYA PT July 06, 2019 14:05
--- NOTE | 2019-07-06 14:34 | Occupational Ther Daily Note ---
OT Current Status-Daily Note Subjective No pain reported. Appearance Pt. up in chair. Agrees to work with OT. Mental Status/Objective Patient Orientation: Person, Place, Time, Situation ADL-Treatment Therapy Code Descriptions/Definitions Functional [place] Measure: 0=Not Assessed/NA 4=Minimal Assistance 1=Total Assistance 5=Supervision or Setup 2=Maximal Assistance 6=Modified [place] 3=Moderate Assistance 7=Complete IndependenceSCALE: Activities may be completed with or without assistive devices. 3-Vdmtndnnoo-dbrbfkj completes the activity by him/herself with no assistance from a helper. 5-Set-up or Clean-up Assistance-helper sets up or cleans up; patient completes activity. [place] assists only prior to or following the activity. 4-Supervision or Touching Assistance-helper provides verbal cues and/or touching/steadying and/or contact guard assistance as patient completes activity. Assistance may be provided throughout the activity or intermittently. 3-Partial/Moderate Assistance-helper does LESS THAN HALF the effort. [place] lifts, holds or supports trunk or limbs, but provides less than half the effort. 2-Substantial/Maximal Assistance-helper does MORE THAN HALF the effort. [place] lifts or holds trunk or limbs and provides more than half the effort. 0-Ttyaxpjdd-soldoo does ALL the effort. Patient does none of the effort to complete the activity. Or, the assistance of 2 or more helpers is required for the patient to complete the activity. If activity was not attempted, code reason: 7-Patient Refused. 9-Not Applicable-not attempted and the patient did not perform the activity before the current illness, exacerbation or injury. 10-Not Attempted due to Environmental Limitations-(lack of equipment, weather restraints, etc.). 88-Not Attempted due to Medical Conditions or Safety Concerns. Eating (QC): 6 Oral Hygiene (QC): 5 (Standing at sink to brush teeth and hair.) Shower/Bathe Self (QC): 4 (SBA) Upper Body Dressing (QC): 5 Lower Body Dressing (QC): 4 (SBA with AE) On/Off Footwear: 3 (Min assist with shoes and AE. OT put elastic laces into tennis shoes.) Toileting Hygiene (QC): 4 Toilet Transfer (QC): 4 Other Treatment After ADLs, pt. ambulated with walker to therapy gym. Completed arm bike x mod assist x 5 minutes for overall strengthening and endurance. Tolerated well. Ambulated back to room with SBA with walker. Education OT Patient Education: Correct positioning, Exercise program, Modified ADL techniques, Progress toward Goal/Update tx plan, Purpose of tx/functional activities, Reviewed precautions, Rehab process, Transfer techniques Teaching Recipient: Patient Teaching Methods: Demonstration, Discussion Response to Teaching: Verbalize Understanding, Return Demonstration OT Home Attendant Goals [facility] Goals Time Frame: Jul 17, 2019 Eating (QC): 6 Oral Hygiene (QC): 6 Toileting Hygiene (QC): 6 Shower/Bathe Self (QC): 6 Upper Body Dressing (QC): 6 Lower Body Dressing (QC): 6 On/Off Footwear (QC): 6 Additional Goals: 1-Demonstrate ADL Tasks, 2-Verbalize Understanding, 3- ImproveStrength/Radha 1=Demonstrate adherence to instructed precautions during ADL tasks. 2=Patient will verbalize/demonstrate understanding of assistive devices/modifications for ADL. 3=Patient will improve strength/tolerance for activity to enable patient to perform ADL's. OT Education/Plan Problem List/Assessment Assessment: Decreased Activ Tolerance, Impaired I ADL's, Impaired Self-Care Skills Discharge Recommendations Plan/Recommendations: Continue POC Therapy Discharge Recommendati: Home & Family Equpiment Recommendations-D/C: Hip Kit Treatment Plan/Plan of Care Treatment,Training & Education: Yes Patient would benefit from OT for education, treatment and training to promote independence in ADL's, mobility, safety and/or upper extremity function for ADL's. Plan of Care: ADL Retraining, Concurrent Therapy, Functional Mobility, Group Exercise/Act as Ind, UE Funct Exercise/Act Treatment Duration: Jul 17, 2019 Frequency: At least 5 of 7 days/Wk (IRF) Estimated Hrs Per Day: 1.5 hours per day Agreement: Yes Rehab Potential: Fair Time/GCodes Start Time: 10:00 Stop Time: 11:00 Total Time Billed (hr/min): 60 Billed Treatment Time 1, ADL x 45minutes, Ex x 15minutes MAU ADRIAN OT July 06, 2019 14:34
--- NOTE | 2019-07-06 14:44 | Occupational Ther Daily Note ---
OT Current Status-Daily Note Subjective No pain reported. Appearance Pt. up in chair. Agrees to work with OT. Mental Status/Objective Patient Orientation: Person, Place, Time, Situation ADL-Treatment Therapy Code Descriptions/Definitions Functional [place] Measure: 0=Not Assessed/NA 4=Minimal Assistance 1=Total Assistance 5=Supervision or Setup 2=Maximal Assistance 6=Modified [place] 3=Moderate Assistance 7=Complete IndependenceSCALE: Activities may be completed with or without assistive devices. 2-Fdgdbxhtqg-btmpmvw completes the activity by him/herself with no assistance from a helper. 5-Set-up or Clean-up Assistance-helper sets up or cleans up; patient completes activity. [place] assists only prior to or following the activity. 4-Supervision or Touching Assistance-helper provides verbal cues and/or touching/steadying and/or contact guard assistance as patient completes activity. Assistance may be provided throughout the activity or intermittently. 3-Partial/Moderate Assistance-helper does LESS THAN HALF the effort. [place] lifts, holds or supports trunk or limbs, but provides less than half the effort. 2-Substantial/Maximal Assistance-helper does MORE THAN HALF the effort. [place] lifts or holds trunk or limbs and provides more than half the effort. 5-Kaeoywgax-vhwspg does ALL the effort. Patient does none of the effort to complete the activity. Or, the assistance of 2 or more helpers is required for the patient to complete the activity. If activity was not attempted, code reason: 7-Patient Refused. 9-Not Applicable-not attempted and the patient did not perform the activity before the current illness, exacerbation or injury. 10-Not Attempted due to Environmental Limitations-(lack of equipment, weather restraints, etc.). 88-Not Attempted due to Medical Conditions or Safety Concerns. Toilet Transfer (QC): 6 Other Treatment Pt. up in chair. Pt. ambulated with walker to therapy gym with SBA. Pt. donned 1 lb. wrist weights and completed nut/bolt activity for fine motor strengthening and overall strength. Tolerated this well. Participated in trivia as well for continued cognitive health. Ambulated back to room with SBA and walker. All needs met. Education OT Patient Education: Correct positioning, Exercise program Teaching Recipient: Patient Teaching Methods: Demonstration Response to Teaching: Verbalize Understanding, Return Demonstration OT Team Truck Driver Goals [facility] Goals Time Frame: Jul 17, 2019 Eating (QC): 6 Oral Hygiene (QC): 6 Toileting Hygiene (QC): 6 Shower/Bathe Self (QC): 6 Upper Body Dressing (QC): 6 Lower Body Dressing (QC): 6 On/Off Footwear (QC): 6 Additional Goals: 1-Demonstrate ADL Tasks, 2-Verbalize Understanding, 3- ImproveStrength/Radha 1=Demonstrate adherence to instructed precautions during ADL tasks. 2=Patient will verbalize/demonstrate understanding of assistive devices/modifications for ADL. 3=Patient will improve strength/tolerance for activity to enable patient to perform ADL's. OT Education/Plan Problem List/Assessment Assessment: Decreased Activ Tolerance Discharge Recommendations Plan/Recommendations: Continue POC Therapy Discharge Recommendati: Home & Family Treatment Plan/Plan of Care Treatment,Training & Education: Yes Patient would benefit from OT for education, treatment and training to promote independence in ADL's, mobility, safety and/or upper extremity function for ADL's. Plan of Care: ADL Retraining, Concurrent Therapy, Functional Mobility, Group Exercise/Act as Ind, UE Funct Exercise/Act Treatment Duration: Jul 17, 2019 Frequency: At least 5 of 7 days/Wk (IRF) Estimated Hrs Per Day: 1.5 hours per day Agreement: Yes Rehab Potential: Good Time/GCodes Start Time: 13:00 Stop Time: 13:30 Total Time Billed (hr/min): 30 Billed Treatment Time 1, FA x 2 MAU ADRIAN OT July 06, 2019 14:44
--- NOTE | 2019-07-06 15:38 | NUR ---
CM/SS PATIENT CARE CONFERENCE SUMMARY Reviewed Summary with patient who is in agreement for target discharge Wednesday, July 10, 2019. DME: Coordinated private pay items with patient established DME agency, [facility]. Assisted with order, patient provided her charge card information, and agency understands to deliver all 3 items tomorrow to patient room in prep for departure. Obtained patient's items from inpatient safe and provided to her in the sealed envelope. Patient opened and confirmed that all items on the receipt were intact, $60 walker, 3 charge cards, wallet. Patient's items them put back in envelope and placed in her locked room drawer. Spoke with patient's son, he is off and can pick patient up at any time. Staff to call him on cell when she is ready to go: [phone]
[2019-07-06 18:06] VITALS: BP 176/77
[2019-07-06] MEDS: LORATADINE (CLARITIN) 10 MG TAB PO SCH (20:31)
[2019-07-06] MEDS: traZODone 50 MG (DESYREL) TAB PO SCH (20:32)
[2019-07-06] MEDS: MELATONIN 3 MG TABLET PO PRN (20:32)
[2019-07-07] MEDS: oxyCODONE/APAP 5/325MG (PERCOCET 5) TABLET PO PRN ×4 (02:50→20:29)
[2019-07-07 05:08] VITALS: BP 180/83
--- NOTE | 2019-07-07 06:13 | PM&R Progress Note ---
Subjective HPI/CC On Admission Date Seen by Provider: July 07, 2019 Time Seen by Provider: 11:00 Subjective/Events-last exam Pt now up ad-joyce in the room and feels great Working with therapy very well BMs are moving okay DC Wednesday Will check labs this weekend Overall feels really good Checked meds and labs Reviewed therapy notes Conferred with cabin crew of Systems General: Fatigue Musculoskeletal: leg pain Objective Exam Vital Signs Vital Signs Date Time Temp Pulse Resp B/P (MAP) Pulse Ox O2 Delivery O2 Flow Rate FiO2 07/07/19 17:23 37.3 84 18 172/75 (107) 99 Room Air Capillary Refill : Less Than 3 Seconds General Appearance: No Apparent Distress, WD/WN, Chronically ill, Thin HEENT: PERRL/EOMI, Normal ENT Inspection, Pharynx Normal Neck: Full Range of Motion, Normal Inspection, Non Tender, Supple, Carotid Bruit Respiratory: Chest Non Tender, Lungs Clear, Normal Breath Sounds, No Accessory Muscle Use, No Respiratory Distress Cardiovascular: Regular Rate, Rhythm, No Edema, No Gallop, No JVD, No Murmur, Normal Peripheral Pulses Gastrointestinal: Normal Bowel Sounds, No Organomegaly, No Pulsatile Mass, Non Tender, Soft Back: Normal Inspection, No CVA Tenderness, No Vertebral Tenderness Extremity: Normal Capillary Refill, Normal Inspection, Normal Range of Motion, Non Tender, No Calf Tenderness, No Pedal Edema Neurologic/Psychiatric: Alert, Oriented x3, No Motor/Sensory Deficits, Normal Mood/Affect, fish fryer II-XII Norm as Tested, Abnormal Gait Skin: Normal Color, Warm/Dry Lymphatic: No Adenopathy Results/Procedures Lab Patient resulted labs reviewed. FIM Transfers Therapy Code Descriptions/Definitions Functional Standard Measure: 0=Not Assessed/NA 4=Minimal Assistance 1=Total Assistance 5=Supervision or Setup 2=Maximal Assistance 6=Modified Standard 3=Moderate Assistance 7=Complete IndependenceSCALE: Activities may be completed with or without assistive devices. 1-Szrvixjpem-jzbdqxk completes the activity by him/herself with no assistance from a helper. 5-Set-up or Clean-up Assistance-helper sets up or cleans up; patient completes activity. [place] assists only prior to or following the activity. 4-Supervision or Touching Assistance-helper provides verbal cues and/or touching/steadying and/or contact guard assistance as patient completes activity. Assistance may be provided throughout the activity or intermittently. 3-Partial/Moderate Assistance-helper does LESS THAN HALF the effort. [place] lifts, holds or supports trunk or limbs, but provides less than half the effort. 2-Substantial/Maximal Assistance-helper does MORE THAN HALF the effort. [place] lifts or holds trunk or limbs and provides more than half the effort. 9-Hsoulhjfn-faqhnc does ALL the effort. Patient does none of the effort to complete the activity. Or, the assistance of 2 or more helpers is required for the patient to complete the activity. If activity was not attempted, code reason: 7-Patient Refused. 9-Not Applicable-not attempted and the patient did not perform the activity before the current illness, exacerbation or injury. 10-Not Attempted due to Environmental Limitations-(lack of equipment, weather restraints, etc.). 88-Not Attempted due to Medical Conditions or Safety Concerns. Roll Left to Right (QC): 6 Sit to Lying (QC): 6 Sit to Stand (QC): 6 Chair/Xyw-wn-Ospkl Xfer(QC): 6 Car Transfer (QC): 3 Gait Training Does the Patient Walk?: Yes Distance: 300', 150' Walk 10 feet (QC): 6 Walk 50 ft with 2 Turns(QC): 6 Walk 150 ft (QC): 6 Walking 10ft/uneven surface-QC: 4 Gait Persons Needed: 1 Gait Assistive Device: FWW Wheelchair Training Does the Pt Use a Wheelchair?: No Wheel 50 ft with 2 turns (QC): 9 Wheel 150 ft (QC): 9 Stair Training Stair Training: Handrails/: 2 handrails #of Steps: 1 1 Step (curb) (QC): 4 4 Steps (QC): 88 12 Steps (QC): 88 Stairs: Pattern: Step to Balance Picking up an Object (QC): 88 ADL-Treatment Eating (QC): 6 Oral Hygiene (QC): 5 (Standing at sink to brush teeth and hair.) Shower/Bathe Self (QC): 4 (SBA) Upper Body Dressing (QC): 5 Lower Body Dressing (QC): 4 (SBA with AE) On/Off Footwear (QC): 3 (Min assist with shoes and AE. OT put elastic laces into tennis shoes.) Toileting Hygiene (QC): 4 Toilet Transfer (QC): 6 Assessment/Plan Assessment and Plan Assess & Plan/Chief Complaint Assessment: s/p right hip fracture due to fall with osteoporosis hx PVD on Plavix and statin consulting Dr Jackson COPD lung nodules consulting Dr Laurent at her request Former smoker Post op anemia from blood loss Iron deficiency started IV iron Breast cancer hx Plan: IV iron PT OT IRF Cardiology and Pulmonology consultations appreciated DVT PPx Lovenox Monitor hgb DC Wednesday (1) Closed right hip fracture Status: Acute (2) COPD (chronic obstructive pulmonary disease) (3) Carotid stenosis (4) Constipation (5) Fall Status: Acute (6) Postoperative anemia (7) Age related osteoporosis Status: Chronic (8) HTN (hypertension) Status: Chronic (9) Hyperlipemia (10) Iron deficiency LEDY HUDSON DO July 07, 2019 06:13
[2019-07-07] MEDS: MULTIVIT W/MINERALS TAB (THERAGRAN M) PO SCH (06:24)
[2019-07-07] MEDS: CATHETER FLUSH 10 ML SYR IV SCH ×3 (06:24→21:21)
--- NOTE | 2019-07-07 07:09 | NUR ---
pt denies any problems breathing. pt appears to be in no respiratory distress. pt is on room air at this time. Addendum: 07/07/19 at 0710 by MADHAVI IGLESIAS RT Amended: Links added.
[2019-07-07] MEDS: DOCUSATE SODIUM 100 MG (COLACE) CAP PO SCH ×2 (08:23→20:28)
[2019-07-07] MEDS: lisINopril 5 MG (PRINIVIL) TABLET PO SCH ×2 (08:23→20:29)
[2019-07-07] MEDS: VITAMIN D3 125 MCG (5,000 UNITS) CAPSULE PO SCH (08:23)
[2019-07-07] MEDS: CLOPIDOGREL 75 MG (PLAVIX) TABLET PO SCH (08:23)
[2019-07-07] MEDS: polyethylene glycoL POWDER 17 GM (MIRALAX) PACK PO SCH ×2 (09:00→20:16)
[2019-07-07] MEDS: SENNOSIDES 8.6 MG (SENOKOT) TAB PO SCH ×2 (09:00→20:28)
--- NOTE | 2019-07-07 09:11 | Occupational Ther Daily Note ---
OT Current Status-Daily Note Subjective 0800: Pt seen in [facility], up ad joyce. pt denies pain, stating she is "okay." Pt slept well and denies showering on this date, agrees for tomorrow. 1300: [facility] pt agrees to OT. Pt's nurse agrees to outside activity. Pt readily agrees to outside tx session. Mental Status/Objective Patient Orientation: Normal For Age ADL-Treatment Therapy Code Descriptions/Definitions Functional [place] Measure: 0=Not Assessed/NA 4=Minimal Assistance 1=Total Assistance 5=Supervision or Setup 2=Maximal Assistance 6=Modified [place] 3=Moderate Assistance 7=Complete IndependenceSCALE: Activities may be completed with or without assistive devices. 1-Onfxvbnbyn-rsxxdxj completes the activity by him/herself with no assistance from a helper. 5-Set-up or Clean-up Assistance-helper sets up or cleans up; patient completes activity. [place] assists only prior to or following the activity. 4-Supervision or Touching Assistance-helper provides verbal cues and/or touching/steadying and/or contact guard assistance as patient completes activit y. Assistance may be provided throughout the activity or intermittently. 3-Partial/Moderate Assistance-helper does LESS THAN HALF the effort. [place] lifts, holds or supports trunk or limbs, but provides less than half the effort. 2-Substantial/Maximal Assistance-helper does MORE THAN HALF the effort. [place] lifts or holds trunk or limbs and provides more than half the effort. 6-Dcjltxwfu-nfhihr does ALL the effort. Patient does none of the effort to complete the activity. Or, the assistance of 2 or more helpers is required for the patient to complete the activity. If activity was not attempted, code reason: 7-Patient Refused. 9-Not Applicable-not attempted and the patient did not perform the activity before the current illness, exacerbation or injury. 10-Not Attempted due to Environmental Limitations-(lack of equipment, weather restraints, etc.). 88-Not Attempted due to Medical Conditions or Safety Concerns. Eating (QC): 6 Oral Hygiene (QC): 6 Upper Body Dressing (QC): 6 Toileting Hygiene (QC): 6 Toilet Transfer (QC): 6 Other Treatment [id number]: Pt walks with 2WW to therapy gym to complete UE strengthening/ endurance and coordination tasks while in sit/ stand to include balance activities. Pt stands at tabletop to complete pinch/ licensed vocational nurse strength with emphasis on LUE and reaching/ shoulder motion with use of 2# wrist weights without support of 2WW. Pt completes with good balance. Pt completes fine motor pegs and theraputty with HEP to include coordination/ licensed vocational nurse/ pinch strengthening. Pt return demonstrates with minimal cues. Pt stands multiple times, requires min rest breaks throughout due to fatigue.States desire to review precautions, able to state 3/3 with increased time and success. Pt given skilled environmental suggestions for home environment/ recliner chair for successful sitting/ standing while maintaining precautions. Pt returns to room with all needs met, call light in reach. [id number]: Pt completes toileting with IND. pt completes walking without rest break from room to outdoor area, completing with good balance and fair activity tolerance. Pt seated outside and completes UE theraband ex with good endurance/ min cues for positioning. Pt educated on modified placement of theraband on arm rests to complete with increased resistance, pt agrees. Pt returns with good problem solving/ directionality. Pt left with MOUNT LOADER end of session. Education OT Patient Education: Correct positioning, Exercise program, Home exercise program, Reviewed precautions Teaching Recipient: Patient Teaching Methods: Demonstration, Discussion Response to Teaching: Verbalize Understanding, Return Demonstration OT Production Control Analyst Goals Production Control Analyst Goals Time Frame: Jul 17, 2019 Eating (QC): 6 Oral Hygiene (QC): 6 Toileting Hygiene (QC): 6 Shower/Bathe Self (QC): 6 Upper Body Dressing (QC): 6 Lower Body Dressing (QC): 6 On/Off Footwear (QC): 6 Additional Goals: 1-Demonstrate ADL Tasks, 2-Verbalize Understanding, 3- ImproveStrength/Radha 1=Demonstrate adherence to instructed precautions during ADL tasks. 2=Patient will verbalize/demonstrate understanding of assistive devices/modifications for ADL. 3=Patient will improve strength/tolerance for activity to enable patient to perform ADL's. OT Education/Plan Problem List/Assessment Assessment: Decreased Activ Tolerance, Decreased UE Strength, Impaired I ADL's Discharge Recommendations Plan/Recommendations: Continue POC Therapy Discharge Recommendati: Home & Family Treatment Plan/Plan of Care Treatment,Training & Education: Yes Patient would benefit from OT for education, treatment and training to promote independence in ADL's, mobility, safety and/or upper extremity function for ADL's. Plan of Care: ADL Retraining, Concurrent Therapy, Functional Mobility, Group Exercise/Act as Ind, UE Funct Exercise/Act Treatment Duration: Jul 17, 2019 Frequency: At least 5 of 7 days/Wk (IRF) Estimated Hrs Per Day: 1.5 hours per day Agreement: Yes Rehab Potential: Good Time/GCodes Start Time: 08:00 (1300) Stop Time: 09:00 (1330) Total Time Billed (hr/min): 90 Billed Treatment Time 0800: 1, EX 4 (60) 1300: 1, ADL, EX (30) Total: 90 XAVI ESPITIA OTR July 07, 2019 09:11
[2019-07-07] MEDS: IRON SUCROSE 200 MG/10 ML (VENOFER) VIAL IV SCH (09:15)
[2019-07-07] MEDS: ENOXAPARIN 30 MG/0.3 ML (LOVENOX) SYR SC SCH (10:55)
--- NOTE | 2019-07-07 12:03 | Physical Therapy Daily Note ---
PT Daily Note-Current Subjective Pt. agrees to Rx and states she feels stronger everyday and will soon be ready for DC Pain Location: No Pain Reported Mental Status Patient Orientation: Normal For Age Transfers SCALE: Activities may be completed with or without assistive devices. 1-Ivsrdciubt-yfngozn completes the activity by him/herself with no assistance from a helper. 5-Set-up or Clean-up Assistance-helper sets up or cleans up; patient completes activity. [place] assists only prior to or following the activity. 4-Supervision or Touching Assistance-helper provides verbal cues and/or touching/steadying and/or contact guard assistance as patient completes activity. Assistance may be provided throughout the activity or intermittently. 3-Partial/Moderate Assistance-helper does LESS THAN HALF the effort. [place] lifts, holds or supports trunk or limbs, but provides less than half the effort. 2-Substantial/Maximal Assistance-helper does MORE THAN HALF the effort. [place] lifts or holds trunk or limbs and provides more than half the effort. 7-Ywngixpno-zlwhwj does ALL the effort. Patient does none of the effort to complete the activity. Or, the assistance of 2 or more helpers is required for the patient to complete the activity. If activity was not attempted, code reason: 7-Patient Refused. 9-Not Applicable-not attempted and the patient did not perform the activity before the current illness, exacerbation or injury. 10-Not Attempted due to Environmental Limitations-(lack of equipment, weather restraints, etc.). 88-Not Attempted due to Medical Conditions or Safety Concerns. Sit to Stand (QC): 6 Chair/Hxo-sn-Ayjrf Xfer(QC): 6 Toilet Transfer (QC): 6 Car Transfer (QC): 6 Weight Bearing Right Lower Extremity: Right Weight Bearing/Tolerated Gait Training Does the Patient Walk?: Yes Walk 10 feet (QC): 6 Walk 50 ft with 2 Turns(QC): 6 Walk 150 ft (QC): 6 Gait Persons Needed: 1 Gait Assistive Device: FWW gait this date with emphasis on equal step length and continuation of FWW ad vancement rather than stopping between steps. pt. was challenged by this at first but quickly conquered this with only little variation in step length, L>R slightly, also less wt bearing on FWW Stair Training Stair Training: Handrails/: 2 handrails #of Steps: 4 1 Step (curb) (QC): 5 4 Steps (QC): 5 Stairs: Pattern: Step to SBA only , good sequence and proper wt bearing on rails Exercises Seated Therapy Exercises: Ankle pumps, Sit to stand, Long arc quads, Hip abd/add Seated Reps: 20 Standing: Hip Abduction (R only), Hamstring curls (right only), Heel/toe raises (bilat), Marching (bilat) Standing Reps: 12 NuStep Minutes: 10 NuStep Workload: 5 Treatments toileted indep Assessment Current Status: Excellent Progress gives full effort, follows all instruction and carries through well, increased gait distance and improved pattern, more fluid, up adlib in room PT Short Term Goals Short Term Goals Time Frame: July 10, 2019 Roll Left & Right: 6 Sit to lyin Lying to sitting on side of be: 4 Sit to stand: 5 Chair/qkw-hm-hnthu transfer: 5 Walk 10 feet: 4 Walk 50 feet with two turns: 4 Walk 150 feet: 4 PT Farmworker Vegetable Goals Fpc Goals PT Farmworker Vegetable Goals Time Frame: Jul 24, 2019 Roll Left & Right (QC): 6 Sit to Lying (QC): 6 Lying-Sitting on Side/Bed(QC): 6 Sit to Stand (QC): 6 Chair/Lqk-jz-Fqkdz Xfer(QC): 6 Toilet Transfer (QC): 6 Car Transfer (QC): 6 Does the Patient Walk: Yes Walk 10 feet (QC): 6 Walk 50ft with 2 Turns (QC): 6 Walk 150 ft (QC): 6 Walking 10ft on Uneven Surface: 6 1 Step (curb) (QC): 6 4 Steps (QC): 6 12 Steps (QC): 88 Picking up an Object (QC): 88 Wheel 50 feet with 2 turns (QC: 9 Wheel 150 feet: 9 PT Plan Treatment/Plan Treatment Plan: Continue Plan of Care Treatment Plan: Bed Mobility, Education, Functional Activity Radha, Functional Strength, Group Therapy, Gait, Safety, Therapeutic Exercise, Transfers Treatment Duration: Jul 24, 2019 Frequency: At least 5 of 7 days/Wk (IRF) Estimated Hrs Per Day: 1.5 hours per day Patient and/or Family Agrees t: Yes Safety Risks/Education Patient Education: Gait Training, Transfer Techniques, Steps, Correct Positioning, Disease Process, Safety Issues Teaching Recipient: Health Care Proxy Teaching Methods: Demonstration, Discussion Response to Teaching: Verbalize Understanding, Return Demonstration, Reinforcement Needed Time/GCodes Time In: 1100 Time Out: 1200 Total Billed Treatment Time: 60 Total Billed Treatment 1,GT25m,FA15m,EX20m RANDAL GONZALEZ SENIOR STRUCTURAL ENGINEER July 07, 2019 12:02
--- NOTE | 2019-07-07 14:05 | Physical Therapy Daily Note ---
PT Daily Note-Current Subjective Pt agreeable and without complaint. Pt expresses her thanks and states she is very pleased with the professionalism and her care here. Mental Status Patient Orientation: Person, Place, Situation Transfers SCALE: Activities may be completed with or without assistive devices. 5-Ndaqpayslp-sgtyeoa completes the activity by him/herself with no assistance from a helper. 5-Set-up or Clean-up Assistance-helper sets up or cleans up; patient completes activity. [place] assists only prior to or following the activity. 4-Supervision or Touching Assistance-helper provides verbal cues and/or touching/steadying and/or contact guard assistance as patient completes activity. Assistance may be provided throughout the activity or intermittently. 3-Partial/Moderate Assistance-helper does LESS THAN HALF the effort. [place] lifts, holds or supports trunk or limbs, but provides less than half the effort. 2-Substantial/Maximal Assistance-helper does MORE THAN HALF the effort. [place] lifts or holds trunk or limbs and provides more than half the effort. 3-Yfqfryskl-olipsa does ALL the effort. Patient does none of the effort to complete the activity. Or, the assistance of 2 or more helpers is required for the patient to complete the activity. If activity was not attempted, code reason: 7-Patient Refused. 9-Not Applicable-not attempted and the patient did not perform the activity before the current illness, exacerbation or injury. 10-Not Attempted due to Environmental Limitations-(lack of equipment, weather restraints, etc.). 88-Not Attempted due to Medical Conditions or Safety Concerns. Pt mod (I) all levels. Weight Bearing Right Lower Extremity: Right Weight Bearing/Tolerated Gait Training Gait Assistive Device: FWW Pt amb with FWW 1 x 50ft, 1x 200ft with emphasis on equal stride length and smooth gait pattern. Exercises Supine Ex: LE Protocol Supine Reps: 20 Treatments Pt continues to require mod A SLR and hip abd due to weakness. Assessment Current Status: Excellent Progress Pt making gains toward goals. Pt is mod (I) with functional mobility. Gait is normalizing. Pt shows good balance throughout session. Pt back to chair with call light and all needs met. PT Short Term Goals Short Term Goals Time Frame: July 10, 2019 Roll Left & Right: 6 Sit to lyin Lying to sitting on side of be: 4 Sit to stand: 5 Chair/svw-nc-lmagq transfer: 5 Walk 10 feet: 4 Walk 50 feet with two turns: 4 Walk 150 feet: 4 PT Residential Goals Lead Rider Goals PT Lead Rider Goals Time Frame: Jul 24, 2019 Roll Left & Right (QC): 6 Sit to Lying (QC): 6 Lying-Sitting on Side/Bed(QC): 6 Sit to Stand (QC): 6 Chair/Lgv-uc-Ionaq Xfer(QC): 6 Toilet Transfer (QC): 6 Car Transfer (QC): 6 Does the Patient Walk: Yes Walk 10 feet (QC): 6 Walk 50ft with 2 Turns (QC): 6 Walk 150 ft (QC): 6 Walking 10ft on Uneven Surface: 6 1 Step (curb) (QC): 6 4 Steps (QC): 6 12 Steps (QC): 88 Picking up an Object (QC): 88 Wheel 50 feet with 2 turns (QC: 9 Wheel 150 feet: 9 PT Plan Treatment/Plan Treatment Plan: Continue Plan of Care Treatment Plan: Bed Mobility, Education, Functional Activity Radha, Functional Strength, Group Therapy, Gait, Safety, Therapeutic Exercise, Transfers Treatment Duration: Jul 24, 2019 Frequency: At least 5 of 7 days/Wk (IRF) Estimated Hrs Per Day: 1.5 hours per day Patient and/or Family Agrees t: Yes Time/GCodes Time In: 1330 Time Out: 1400 Total Billed Treatment Time: 30 Total Billed Treatment 1, ther ex 15', gait 15' KIKE DE ANDA CPTA July 07, 2019 14:05
--- NOTE | 2019-07-07 15:44 | NUR ---
CM/SS DISCHARGE PLANNING IMM2 Reviewed with patient in preparation for upcoming discharge on Wednesday, , 07/10/19. HHC: Initiated with patient's preferred agency, [facility]. Anticipate orders for PT only unless physician indicates nursing is needed. Followed up with patient about home meal delivery, provided a list of several national options for healthy and/or chef kitchen manager prepared meals. She has taken the time to prepare a list of groceries for her son to buy and she has a plan for self preparation of the foods she knows she likes. She will over prepare and freeze for her own convenience. DME: Patient items were delivered today as planned/requested. No other discharge interventions pending unless patient situation changes to warrant new exploration.
[2019-07-07 17:23] VITALS: BP 172/75
[2019-07-07] MEDS: LORATADINE (CLARITIN) 10 MG TAB PO SCH (20:28)
[2019-07-07] MEDS: traZODone 50 MG (DESYREL) TAB PO SCH (20:29)
[2019-07-07] MEDS: MELATONIN 3 MG TABLET PO PRN (20:29)
[2019-07-08] MEDS: CATHETER FLUSH 10 ML SYR IV SCH ×3 (06:20→20:48)
[2019-07-08] MEDS: MULTIVIT W/MINERALS TAB (THERAGRAN M) PO SCH (06:20)
[2019-07-08 06:27] VITALS: BP 181/71
[2019-07-08] MEDS: oxyCODONE/APAP 5/325MG (PERCOCET 5) TABLET PO PRN ×3 (06:39→20:47)
--- NOTE | 2019-07-08 07:30 | NUR ---
DR. SCOTT HERE TO SEE PATIENT. PATIENT STATES HE WILL REMOVE [facility] ON JULY 16 APPOINTMENT.
--- NOTE | 2019-07-08 07:58 | Progress Note ---
Standard Progress Note Progress Notes/Assess & Plan Date Seen by a Provider: July 08, 2019 Time Seen by a Provider: 07:57 Progress/Assessment & Plan no complaints Vital Signs Date Time Temp Pulse Resp B/P (MAP) Pulse Ox O2 Delivery O2 Flow Rate FiO2 07/05/19 08:38 91 147/60 (89) 07/05/19 05:04 37.0 80 18 147/67 (93) 96 Room Air 07/04/19 21:00 Room Air 07/04/19 18:30 Room Air 07/04/19 17:16 37.8 93 18 156/75 (102) 97 Room Air I & O 07/05/19 07:00 Intake Total 1330 ml Balance 1330 ml RLE-- no calf tenderness. Neg Gabriel's. Dressing clean and dry s/p R bipolar continue PT/OT Final Diagnosis no complaints going home Wednesday Vital Signs Date Time Temp Pulse Resp B/P (MAP) Pulse Ox O2 Delivery O2 Flow Rate FiO2 07/08/19 06:27 37.0 73 16 181/71 (107) 96 Room Air 07/07/19 21:40 Room Air 07/07/19 18:09 94 Room Air 07/07/19 17:23 37.3 84 18 172/75 (107) 99 Room Air 07/07/19 09:00 Room Air I & O 07/08/19 07:00 Intake Total 2000 ml Balance 2000 ml R hip dressing intact. No calf tenderness. Neg Gabriel's s/p R hip bipolar doing well continue PT/OT FU with me July 16 in the office SHANKAR SCOTT MD July 08, 2019 07:58
[2019-07-08 08:00] VITALS: BP 168/82
--- NOTE | 2019-07-08 08:00 | PM&R Progress Note ---
Subjective HPI/CC On Admission Date Seen by Provider: July 08, 2019 Time Seen by Provider: 12:30 Subjective/Events-last exam Pt now up ad-joyce in the room and feels better and better Working with therapy very well BMs are moving okay DC Wednesday and talked about pain meds Will check labs tomorrow Overall feels really good Checked meds and labs Reviewed therapy notes Conferred with party plan sales consultant of Systems Musculoskeletal: leg pain Objective Exam Vital Signs Vital Signs Date Time Temp Pulse Resp B/P (MAP) Pulse Ox O2 Delivery O2 Flow Rate FiO2 07/08/19 16:23 37.7 76 16 170/67 (101) 98 Room Air Capillary Refill : Less Than 3 Seconds General Appearance: No Apparent Distress, WD/WN, Chronically ill, Thin HEENT: PERRL/EOMI, Normal ENT Inspection, Pharynx Normal Neck: Full Range of Motion, Normal Inspection, Non Tender, Supple, Carotid Bruit Respiratory: Chest Non Tender, Lungs Clear, Normal Breath Sounds, No Accessory Muscle Use, No Respiratory Distress Cardiovascular: Regular Rate, Rhythm, No Edema, No Gallop, No JVD, No Murmur, Normal Peripheral Pulses Gastrointestinal: Normal Bowel Sounds, No Organomegaly, No Pulsatile Mass, Non Tender, Soft Back: Normal Inspection, No CVA Tenderness, No Vertebral Tenderness Extremity: Normal Capillary Refill, Normal Inspection, Normal Range of Motion, Non Tender, No Calf Tenderness, No Pedal Edema Neurologic/Psychiatric: Alert, Oriented x3, No Motor/Sensory Deficits, Normal Mood/Affect, electronic page makeup system operator II-XII Norm as Tested, Abnormal Gait Skin: Normal Color, Warm/Dry Lymphatic: No Adenopathy Results/Procedures Lab Patient resulted labs reviewed. FIM Transfers Therapy Code Descriptions/Definitions Functional [place] Measure: 0=Not Assessed/NA 4=Minimal Assistance 1=Total Assistance 5=Supervision or Setup 2=Maximal Assistance 6=Modified [place] 3=Moderate Assistance 7=Complete IndependenceSCALE: Activities may be completed with or without assistive devices. 0-Yzjqkscajq-vlwfcdj completes the activity by him/herself with no assistance from a helper. 5-Set-up or Clean-up Assistance-helper sets up or cleans up; patient completes activity. [place] assists only prior to or following the activity. 4-Supervision or Touching Assistance-helper provides verbal cues and/or touching/steadying and/or contact guard assistance as patient completes activity. Assistance may be provided throughout the activity or intermittently. 3-Partial/Moderate Assistance-helper does LESS THAN HALF the effort. [place] lifts, holds or supports trunk or limbs, but provides less than half the effort. 2-Substantial/Maximal Assistance-helper does MORE THAN HALF the effort. [place] lifts or holds trunk or limbs and provides more than half the effort. 7-Hbzevahmp-sdenmb does ALL the effort. Patient does none of the effort to complete the activity. Or, the assistance of 2 or more helpers is required for the patient to complete the activity. If activity was not attempted, code reason: 7-Patient Refused. 9-Not Applicable-not attempted and the patient did not perform the activity before the current illness, exacerbation or injury. 10-Not Attempted due to Environmental Limitations-(lack of equipment, weather restraints, etc.). 88-Not Attempted due to Medical Conditions or Safety Concerns. Roll Left to Right (QC): 6 Sit to Lying (QC): 6 Sit to Stand (QC): 6 Chair/Vrd-dv-Vncmy Xfer(QC): 6 Car Transfer (QC): 6 Gait Training Does the Patient Walk?: Yes Distance: 300', 150' Walk 10 feet (QC): 6 Walk 50 ft with 2 Turns(QC): 6 Walk 150 ft (QC): 6 Walking 10ft/uneven surface-QC: 4 Gait Persons Needed: 1 Gait Assistive Device: FWW Wheelchair Training Does the Pt Use a Wheelchair?: No Wheel 50 ft with 2 turns (QC): 9 Wheel 150 ft (QC): 9 Stair Training Stair Training: Handrails/: 2 handrails #of Steps: 4 1 Step (curb) (QC): 5 4 Steps (QC): 5 12 Steps (QC): 88 Stairs: Pattern: Step to Balance Picking up an Object (QC): 88 ADL-Treatment Eating (QC): 6 Oral Hygiene (QC): 6 Shower/Bathe Self (QC): 4 (SBA) Upper Body Dressing (QC): 6 Lower Body Dressing (QC): 4 (SBA with AE) On/Off Footwear (QC): 3 (Min assist with shoes and AE. OT put elastic laces into tennis shoes.) Toileting Hygiene (QC): 6 Toilet Transfer (QC): 6 Assessment/Plan Assessment and Plan Assess & Plan/Chief Complaint Assessment: s/p right hip fracture due to fall with osteoporosis hx PVD on Plavix and statin consulting Dr Jackson COPD lung nodules consulting Dr Laurent at her request Former smoker Post op anemia from blood loss Iron deficiency started IV iron Breast cancer hx Plan: IV iron PT OT IRF Cardiology and Pulmonology consultations appreciated DVT PPx Lovenox Check labs tomorrow to prep for DC Wednesday DC Wednesday (1) Closed right hip fracture Status: Acute (2) COPD (chronic obstructive pulmonary disease) (3) Carotid stenosis (4) Constipation (5) Fall Status: Acute (6) Postoperative anemia (7) Age related osteoporosis Status: Chronic (8) HTN (hypertension) Status: Chronic (9) Hyperlipemia (10) Iron deficiency LEDY HUDSON DO July 08, 2019 08:00
--- NOTE | 2019-07-08 08:45 | Physical Therapy Daily Note ---
PT Daily Note-Current Subjective Pt up in chair, just had a shower. "I feel like a new woman." Pt denies pain. Pt agreeable to PT. Mental Status Patient Orientation: Person, Place, Situation Transfers SCALE: Activities may be completed with or without assistive devices. 9-Kbcbkfpurh-nwlwrrk completes the activity by him/herself with no assistance from a helper. 5-Set-up or Clean-up Assistance-helper sets up or cleans up; patient completes activity. [place] assists only prior to or following the activity. 4-Supervision or Touching Assistance-helper provides verbal cues and/or touching/steadying and/or contact guard assistance as patient completes activ ity. Assistance may be provided throughout the activity or intermittently. 3-Partial/Moderate Assistance-helper does LESS THAN HALF the effort. [place] lifts, holds or supports trunk or limbs, but provides less than half the effort. 2-Substantial/Maximal Assistance-helper does MORE THAN HALF the effort. [place] lifts or holds trunk or limbs and provides more than half the effort. 9-Sdhxegigl-zajdvr does ALL the effort. Patient does none of the effort to complete the activity. Or, the assistance of 2 or more helpers is required for the patient to complete the activity. If activity was not attempted, code reason: 7-Patient Refused. 9-Not Applicable-not attempted and the patient did not perform the activity before the current illness, exacerbation or injury. 10-Not Attempted due to Environmental Limitations-(lack of equipment, weather restraints, etc.). 88-Not Attempted due to Medical Conditions or Safety Concerns. Roll Left & Right (QC): 6 Sit to Lying (QC): 6 Lying to Sitting/Side of Bed(Q: 6 Sit to Stand (QC): 6 Chair/Sie-bx-Vclyk Xfer(QC): 6 Toilet Transfer (QC): 6 Car Transfer (QC): 6 Transfers mod (I) Weight Bearing Right Lower Extremity: Right Weight Bearing/Tolerated Gait Training Walk 10 feet (QC): 6 Walk 50 ft with 2 Turns(QC): 6 Walk 150 ft (QC): 6 Walking 10ft/uneven surface-QC: 6 Gait Persons Needed: 0 Gait Assistive Device: FWW Wheelchair Training Does the Pt Use a Wheelchair?: No Stair Training Stair Training: Handrails/: 2 handrails #of Steps: 12 1 Step (curb) (QC): 6 4 Steps (QC): 6 12 Steps (QC): 6 Stairs: Pattern: Step to Balance Picking up an Object (QC): 6 Exercises Supine Ex: Ankle pumps, Quad Set, Glut sets, Heel Slides Supine Reps: 20 Treatments Pt amb with FWW 2 x 150ft with SBA, emphasis on fluid smooth gait and equal step length Assessment Current Status: Excellent Progress Pt progressing nicely all phases of rehab. Pt mod (I) with functional mobility. Pt back to chair with call light and all needs met. PT Short Term Goals Short Term Goals Time Frame: July 10, 2019 Roll Left & Right: 6 Sit to lyin Lying to sitting on side of be: 4 Sit to stand: 5 Chair/efv-ky-gzybq transfer: 5 Walk 10 feet: 4 Walk 50 feet with two turns: 4 Walk 150 feet: 4 PT Shelter Goals Shelter Goals PT Dye Mixer Goals Time Frame: Jul 24, 2019 Roll Left & Right (QC): 6 Sit to Lying (QC): 6 Lying-Sitting on Side/Bed(QC): 6 Sit to Stand (QC): 6 Chair/Luo-yi-Kfzrw Xfer(QC): 6 Toilet Transfer (QC): 6 Car Transfer (QC): 6 Does the Patient Walk: Yes Walk 10 feet (QC): 6 Walk 50ft with 2 Turns (QC): 6 Walk 150 ft (QC): 6 Walking 10ft on Uneven Surface: 6 1 Step (curb) (QC): 6 4 Steps (QC): 6 12 Steps (QC): 88 Picking up an Object (QC): 88 Wheel 50 feet with 2 turns (QC: 9 Wheel 150 feet: 9 PT Plan Treatment/Plan Treatment Plan: Continue Plan of Care Treatment Plan: Bed Mobility, Education, Functional Activity Radha, Functional Strength, Group Therapy, Gait, Safety, Therapeutic Exercise, Transfers Treatment Duration: Jul 24, 2019 Frequency: At least 5 of 7 days/Wk (IRF) Estimated Hrs Per Day: 1.5 hours per day Patient and/or Family Agrees t: Yes Time/GCodes Time In: 835 Time Out: 900 Total Billed Treatment Time: 25 Total Billed Treatment 1, Ex x 15', Gait x 15' KIKE DE ANDA CPTA July 08, 2019 08:45
--- NOTE | 2019-07-08 09:42 | Occupational Ther Daily Note ---
OT Current Status-Daily Note Subjective Pt agrees to OT tx session, denies pain. QCs gathered on this date. Pt states slept really well/ well rested. Mental Status/Objective Patient Orientation: Normal For Age ADL-Treatment Therapy Code Descriptions/Definitions Functional [place] Measure: 0=Not Assessed/NA 4=Minimal Assistance 1=Total Assistance 5=Supervision or Setup 2=Maximal Assistance 6=Modified [place] 3=Moderate Assistance 7=Complete IndependenceSCALE: Activities may be completed with or without assistive devices. 6-Aacbwbdnmr-omvalre completes the activity by him/herself with no assistance from a helper. 5-Set-up or Clean-up Assistance-helper sets up or cleans up; patient completes activity. [place] assists only prior to or following the activity. 4-Supervision or Touching Assistance-helper provides verbal cues and/or touching/steadying and/or contact guard assistance as patient completes activity. Assistance may be provided throughout the activity or intermittently. 3-Partial/Moderate Assistance-helper does LESS THAN HALF the effort. [place] lifts, holds or supports trunk or limbs, but provides less than half the effort. 2-Substantial/Maximal Assistance-helper does MORE THAN HALF the effort. [place] lifts or holds trunk or limbs and provides more than half the effort. 0-Zlqdgiecf-lsfpor does ALL the effort. Patient does none of the effort to complete the activity. Or, the assistance of 2 or more helpers is required for the patient to complete the activity. If activity was not attempted, code reason: 7-Patient Refused. 9-Not Applicable-not attempted and the patient did not perform the activity before the current illness, exacerbation or injury. 10-Not Attempted due to Environmental Limitations-(lack of equipment, weather restraints, etc.). 88-Not Attempted due to Medical Conditions or Safety Concerns. Eating (QC): 6 Oral Hygiene (QC): 6 Shower/Bathe Self (QC): 5 (s/u (pt completes with IND post- wrapping midline/ bandage)) Upper Body Dressing (QC): 6 Lower Body Dressing (QC): 6 (completes with IND with AE (no reminders for precautions needed)) On/Off Footwear: 6 (use of AE) Toileting Hygiene (QC): 6 Toilet Transfer (QC): 6 (mod I with 2WW) Other Treatment Pt completes ADLs as above. Does not c/o pain throughout, good maintenance of precautions. Pt ready to d/c on Wednesday. Pt returns to recliner post ADLs with nursing present, all needs met, pt up ad joyce in room. Education OT Patient Education: Purpose of tx/functional activities, Safety issues Teaching Recipient: Patient Teaching Methods: Demonstration, Discussion Response to Teaching: Verbalize Understanding, Return Demonstration OT Detention Goals Financial Aid Officer Goals Time Frame: Jul 17, 2019 Eating (QC): 6 Oral Hygiene (QC): 6 Toileting Hygiene (QC): 6 Shower/Bathe Self (QC): 6 Upper Body Dressing (QC): 6 Lower Body Dressing (QC): 6 On/Off Footwear (QC): 6 Additional Goals: 1-Demonstrate ADL Tasks, 2-Verbalize Understanding, 3- ImproveStrength/Radha 1=Demonstrate adherence to instructed precautions during ADL tasks. 2=Patient will verbalize/demonstrate understanding of assistive devices/modifications for ADL. 3=Patient will improve strength/tolerance for activity to enable patient to perform ADL's. OT Education/Plan Problem List/Assessment Assessment: Decreased Activ Tolerance, Impaired I ADL's Discharge Recommendations Plan/Recommendations: Continue POC Therapy Discharge Recommendati: Home & Family Equpiment Recommendations-D/C: Hip Kit Treatment Plan/Plan of Care Treatment,Training & Education: Yes Patient would benefit from OT for education, treatment and training to promote i ndependence in ADL's, mobility, safety and/or upper extremity function for ADL's. Plan of Care: ADL Retraining, Concurrent Therapy, Functional Mobility, Group Exercise/Act as Ind, UE Funct Exercise/Act Treatment Duration: Jul 17, 2019 Frequency: At least 5 of 7 days/Wk (IRF) Estimated Hrs Per Day: 1.5 hours per day Agreement: Yes Rehab Potential: Good Time/GCodes Start Time: 08:00 Stop Time: 08:30 Total Time Billed (hr/min): 30 Billed Treatment Time 1, ADL 2 (30) XAVI ESPITIA OTR July 08, 2019 09:42
[2019-07-08] MEDS: ENOXAPARIN 30 MG/0.3 ML (LOVENOX) SYR SC SCH (09:47)
[2019-07-08] MEDS: polyethylene glycoL POWDER 17 GM (MIRALAX) PACK PO SCH ×2 (09:47→20:25)
[2019-07-08] MEDS: CLOPIDOGREL 75 MG (PLAVIX) TABLET PO SCH (09:47)
[2019-07-08] MEDS: DOCUSATE SODIUM 100 MG (COLACE) CAP PO SCH ×2 (09:47→20:25)
[2019-07-08] MEDS: SENNOSIDES 8.6 MG (SENOKOT) TAB PO SCH ×2 (09:47→20:26)
[2019-07-08] MEDS: VITAMIN D3 125 MCG (5,000 UNITS) CAPSULE PO SCH (09:47)
[2019-07-08] MEDS: lisINopril 5 MG (PRINIVIL) TABLET PO SCH ×2 (09:47→20:48)
--- NOTE | 2019-07-08 10:07 | NUR ---
PT IS IN NO RESPIRATORY DISTRESS AT THIS TIME. PT DENIES ANY BREATHING PROBLEMS. Addendum: 07/08/19 at 1008 by MADHAVI IGLESIAS RT Amended: Links added.
--- NOTE | 2019-07-08 11:00 | NUR ---
DR. HUDSON INFORMED OF HYPERTENSIVE READINGS X 3 DAYS. WILL START ON NORVASC.
[2019-07-08] MEDS ORDERED: amLODIPine 5 MG (NORVASC) TAB PO ONE (12:30)
[2019-07-08 16:23] VITALS: BP 170/67
[2019-07-08] MEDS: MELATONIN 3 MG TABLET PO PRN (20:48)
[2019-07-08] MEDS: traZODone 50 MG (DESYREL) TAB PO SCH (20:48)
[2019-07-08] MEDS: LORATADINE (CLARITIN) 10 MG TAB PO SCH (20:48)
[2019-07-09 04:27] LABS: BASOPHILS % (AUTO) 0 % (0-10); EOSINOPHILS # (AUTO) 0.2 10^3/uL (0.0-0.3); EOSINOPHILS % (AUTO) 3 % (0-10); HEMATOCRIT 28 % (35-52); LYMPHOCYTES # (AUTO) 1.2 X 10^3 (1.0-4.0); LYMPHOCYTES % (AUTO) 24 % (12-44); MEAN CORPUSCULAR HEMOGLOBIN 30 PG (25-34); MEAN CORPUSCULAR HGB CONC 32 G/DL (32-36); MEAN CORPUSCULAR VOLUME 93 FL (80-99); MEAN PLATELET VOLUME 8.9 FL (7.4-10.4); MONOCYTES # (AUTO) 0.6 X 10^3 (0.0-1.0); MONOCYTES % (AUTO) 11 % (0-12); NEUTROPHILS % (AUTO) 61 % (42-75); PLATELET COUNT 335 10^3/uL (130-400); RED CELL DISTRIBUTION WIDTH 14.1 % (10.0-14.5)
[2019-07-09 04:40] LABS: ALBUMIN 3.4 GM/DL (3.2-4.5); CHLORIDE 106 MMOL/L (98-107); POTASSIUM 4.2 MMOL/L (3.6-5.0); SODIUM 139 MMOL/L (135-145)
[2019-07-09 04:41] LABS: CALCIUM 9.3 MG/DL (8.5-10.1)
[2019-07-09 04:42] LABS: GLUCOSE 96 MG/DL (70-105)
[2019-07-09 04:43] LABS: TOTAL PROTEIN 5.8 GM/DL (6.4-8.2)
[2019-07-09 04:44] LABS: BILIRUBIN,TOTAL 0.7 MG/DL (0.1-1.0); CARBON DIOXIDE 24 MMOL/L (21-32)
[2019-07-09 04:46] LABS: ALKALINE PHOSPHATASE 87 U/L (40-136); CREATININE SERUM 0.59 MG/DL (0.60-1.30); GFR ESTIMATED > 60
[2019-07-09 04:47] LABS: BUN/CREATININE RATIO 20
[2019-07-09 04:49] LABS: ALANINE AMINOTRANSFERASE 33 U/L (0-55)
[2019-07-09] MEDS: MULTIVIT W/MINERALS TAB (THERAGRAN M) PO SCH (05:55)
[2019-07-09] MEDS: CATHETER FLUSH 10 ML SYR IV SCH ×4 (05:55→20:12)
[2019-07-09] MEDS: oxyCODONE/APAP 5/325MG (PERCOCET 5) TABLET PO PRN ×3 (05:58→20:25)
[2019-07-09 06:00] VITALS: BP 171/68
--- NOTE | 2019-07-09 08:20 | PM&R Progress Note ---
Subjective HPI/CC On Admission Date Seen by Provider: July 09, 2019 Time Seen by Provider: 12:30 Subjective/Events-last exam Pt now up ad-joyce in the room and feels better and better Working with therapy very well BMs are moving okay and will get Miralax OTC at DC DC Wednesday and talked about pain meds Hgb 9.0 Overall feels really good Checked meds and labs Reviewed therapy notes Conferred with fuel oil clerk of Systems General: Fatigue Musculoskeletal: leg pain Objective Exam Vital Signs Vital Signs Date Time Temp Pulse Resp B/P (MAP) Pulse Ox O2 Delivery O2 Flow Rate FiO2 07/09/19 09:00 Room Air 07/09/19 06:00 37.0 67 16 171/68 (102) 95 Capillary Refill : Less Than 3 Seconds General Appearance: No Apparent Distress, WD/WN, Chronically ill, Thin HEENT: PERRL/EOMI, Normal ENT Inspection, Pharynx Normal Neck: Full Range of Motion, Normal Inspection, Non Tender, Supple, Carotid Bruit Respiratory: Chest Non Tender, Lungs Clear, Normal Breath Sounds, No Accessory Muscle Use, No Respiratory Distress Cardiovascular: Regular Rate, Rhythm, No Edema, No Gallop, No JVD, No Murmur, Normal Peripheral Pulses Gastrointestinal: Normal Bowel Sounds, No Organomegaly, No Pulsatile Mass, Non Tender, Soft Back: Normal Inspection, No CVA Tenderness, No Vertebral Tenderness Extremity: Normal Capillary Refill, Normal Inspection, Normal Range of Motion, Non Tender, No Calf Tenderness, No Pedal Edema Neurologic/Psychiatric: Alert, Oriented x3, No Motor/Sensory Deficits, Normal Mood/Affect, perch machine inspector II-XII Norm as Tested, Abnormal Gait Skin: Normal Color, Warm/Dry Lymphatic: No Adenopathy Results/Procedures Lab Laboratory Tests 07/09/19 03:53 Patient resulted labs reviewed. FIM Transfers Therapy Code Descriptions/Definitions Functional [place] Measure: 0=Not Assessed/NA 4=Minimal Assistance 1=Total Assistance 5=Supervision or Setup 2=Maximal Assistance 6=Modified [place] 3=Moderate Assistance 7=Complete IndependenceSCALE: Activities may be completed with or without assistive devices. 0-Vxwzyscprj-btdivpa completes the activity by him/herself with no assistance from a helper. 5-Set-up or Clean-up Assistance-helper sets up or cleans up; patient completes activity. [place] assists only prior to or following the activity. 4-Supervision or Touching Assistance-helper provides verbal cues and/or touching/steadying and/or contact guard assistance as patient completes activity. Assistance may be provided throughout the activity or intermittently. 3-Partial/Moderate Assistance-helper does LESS THAN HALF the effort. [place] lifts, holds or supports trunk or limbs, but provides less than half the effort. 2-Substantial/Maximal Assistance-helper does MORE THAN HALF the effort. [place] lifts or holds trunk or limbs and provides more than half the effort. 1-Mtxnnesox-qnowji does ALL the effort. Patient does none of the effort to complete the activity. Or, the assistance of 2 or more helpers is required for the patient to complete the activity. If activity was not attempted, code reason: 7-Patient Refused. 9-Not Applicable-not attempted and the patient did not perform the activity before the current illness, exacerbation or injury. 10-Not Attempted due to Environmental Limitations-(lack of equipment, weather restraints, etc.). 88-Not Attempted due to Medical Conditions or Safety Concerns. Roll Left to Right (QC): 6 Sit to Lying (QC): 6 Sit to Stand (QC): 6 Chair/Tyr-qc-Isenq Xfer(QC): 6 Car Transfer (QC): 6 Gait Training Does the Patient Walk?: Yes Distance: 300', 150' Walk 10 feet (QC): 6 Walk 50 ft with 2 Turns(QC): 6 Walk 150 ft (QC): 6 Walking 10ft/uneven surface-QC: 6 Gait Persons Needed: 0 Gait Assistive Device: FWW Wheelchair Training Does the Pt Use a Wheelchair?: No Wheel 50 ft with 2 turns (QC): 9 Wheel 150 ft (QC): 9 Stair Training Stair Training: Handrails/: 2 handrails #of Steps: 12 1 Step (curb) (QC): 6 4 Steps (QC): 6 12 Steps (QC): 6 Stairs: Pattern: Step to Balance Picking up an Object (QC): 6 ADL-Treatment Eating (QC): 6 Oral Hygiene (QC): 6 Shower/Bathe Self (QC): 5 (s/u (pt completes with IND post- wrapping midline/ bandage)) Upper Body Dressing (QC): 6 Lower Body Dressing (QC): 6 (completes with IND with AE (no reminders for prec autions needed)) On/Off Footwear (QC): 6 (use of AE) Toileting Hygiene (QC): 6 Toilet Transfer (QC): 6 (mod I with 2WW) Assessment/Plan Assessment and Plan Assess & Plan/Chief Complaint Assessment: s/p right hip fracture due to fall with osteoporosis hx PVD on Plavix and statin consulting Dr Jackson COPD lung nodules consulting Dr Laurent at her request Former smoker Post op anemia from blood loss Iron deficiency started IV iron Breast cancer hx Plan: IV iron PT OT IRF Cardiology and Pulmonology consultations appreciated DVT PPx Lovenox DC Wednesday (1) Closed right hip fracture Status: Acute (2) COPD (chronic obstructive pulmonary disease) (3) Carotid stenosis (4) Constipation (5) Fall Status: Acute (6) Postoperative anemia (7) Age related osteoporosis Status: Chronic (8) HTN (hypertension) Status: Chronic (9) Hyperlipemia (10) Iron deficiency LEDY HUDSON DO July 09, 2019 08:19
[2019-07-09] MEDS: VITAMIN D3 125 MCG (5,000 UNITS) CAPSULE PO SCH (09:49)
[2019-07-09] MEDS: IRON SUCROSE 200 MG/10 ML (VENOFER) VIAL IV SCH (09:49)
[2019-07-09] MEDS: polyethylene glycoL POWDER 17 GM (MIRALAX) PACK PO SCH ×2 (09:49→20:33)
[2019-07-09] MEDS: SENNOSIDES 8.6 MG (SENOKOT) TAB PO SCH ×2 (09:50→20:33)
[2019-07-09] MEDS: CLOPIDOGREL 75 MG (PLAVIX) TABLET PO SCH (09:50)
[2019-07-09] MEDS: DOCUSATE SODIUM 100 MG (COLACE) CAP PO SCH ×2 (09:50→20:32)
[2019-07-09] MEDS: lisINopril 5 MG (PRINIVIL) TABLET PO SCH ×2 (09:56→20:24)
[2019-07-09] MEDS: ENOXAPARIN 30 MG/0.3 ML (LOVENOX) SYR SC SCH (09:56)
[2019-07-09] MEDS: amLODIPine 5 MG (NORVASC) TAB PO SCH (09:56)
[2019-07-09 18:00] VITALS: BP 130/66
--- NOTE | 2019-07-09 18:45 | NUR ---
DC Midline, Catheter intact, pressure dressing applied. Pt tolerated well.
[2019-07-09] MEDS: LORATADINE (CLARITIN) 10 MG TAB PO SCH (20:24)
[2019-07-09] MEDS: traZODone 50 MG (DESYREL) TAB PO SCH (20:24)
[2019-07-09] MEDS: MELATONIN 3 MG TABLET PO PRN (20:25)
[2019-07-09] MEDS ORDERED: TEMA15CA PO (21:40)
[2019-07-09] MEDS ORDERED: AMLO5TAB9 PO (21:40)
[2019-07-09] MEDS ORDERED: OXYC1TAB87 PO (21:40)
--- NOTE | 2019-07-09 21:42 | D/C HH Face to Face Order ---
D/C Face to Face Orders Reconcile Patient Problems Problems Reviewed?: Yes Instructions for Patient Via [facility] [employer], Patient Instructions/FollowUp: [facility] 2 weeks Physician to follow Patient: [facility] Discharge Diet for Home: No Restrictions Patient Problems: hip fracture anemia s/p iron infusions Patient Data-Allergies,Ht & Wt Patient Allergies: Coded Allergies: Penicillins (Verified Adverse Reaction, Unknown, itching, 06/29/19) azithromycin (Verified Adverse Reaction, Unknown, itching, 06/29/19) hydrocodone (Verified Adverse Reaction, Unknown, itching, 06/29/19) Home Health Need/Face to Face Date of Face to Face: July 09, 2019 Clinical Findings: Generalized weakness and fatigue, Instability, Muscle weakness, Unsteady gait I have seen Pt zfvf-gd-jjxq: Yes Discharged To: Home Diagnosis/Conditions: hip fracture Patient is Homebound due to: Nav[place] fall risk due to instabilty, Muscle weakness Homebound Status Due to the above stated illness, injury or surgical procedure (medical con dition or diagnosis) and associated clinical findings, the patient is homebound because of his/her inability to leave home except with aid of a supportive device and/or person AND leaving the home requires a considerable and taxing effort or is medically contraindicated. Pt req the following assistanc: Walker Home Health Nursing Orders Home Health Services Order: Physical Therapy-Evaluate & Treat Home Health Infusion Therapy Line Start Date: July 04, 2019 Certify Stmt I certify that this patient is under my care and that I, a nurse practitioner or a physician; a sales assistant working with me, had a face to face encounter that - meets the physician face to face encounter requirements with this patient as dated. LEDY HUDSON DO July 09, 2019 21:42
[2019-07-10] MEDS: oxyCODONE/APAP 5/325MG (PERCOCET 5) TABLET PO PRN (05:25)
[2019-07-10] MEDS: MULTIVIT W/MINERALS TAB (THERAGRAN M) PO SCH (05:25)
[2019-07-10 06:01] VITALS: BP 147/70
--- NOTE | 2019-07-10 09:31 | Therapy Team Discharge Summary ---
Therapy Discharge Summary Discharge Recommendations Date of Discharge Physical Therapy Patient came to rehab post right [facility]. Upon evaluation patient performed bed mobility with independence, supine <-> sit min assist, sit <-> stand CGA, transfers CGA, car transfer min assist, ambulated 100' with a rolling walker wi th CGA (including 50' with at least 2 turns of 90 degrees and 10' over an uneven surface), and went up and down 1 step using a rolling walker with CGA. Patient has been performing bed mobility and transfer training, balance and endurance training, functional strengthening, stair training, gait training, and education. Patient has made good progress and has met all of her long-term goals. Now, patient performs bed mobility and transfers with independence, independent with toilet and car transfers, ambulates independently using a rolling walker (including 50' with at least 2 turns of 90 degrees and 10' over an uneven surface), and can go up and down 12 steps using 2 handrails with independence. Patient is discharging from this facility today and will be di scharged from PT at this time. Occupational Therapy Decreased Activ Tolerance, Impaired I ADL's PT Trial Attorney Goals Trial Attorney Goals PT Nursing Home Goals Time Frame: Jul 24, 2019 Roll Left to Right (QC): 6 Sit to Lying (QC): 6 Lying-Sitting on Side/Bed(QC): 6 Sit to Stand (QC): 6 Chair/Dvk-ca-Swdod Xfer(QC): 6 Car Transfer (QC): 6 Does the Patient Walk: Yes Walk 10 feet (QC): 6 Walk 10ft-Uneven Surface(QC): 6 Walk 50ft with 2 Turns (QC): 6 Walk 150 ft (QC): 6 Wheel 50 feet with 2 turns (QC: 9 1 Step (curb) (QC): 6 4 Steps (QC): 6 12 Steps (QC): 88 Picking up an Object (QC): 88 OT Nursing Home Goals Trial Attorney Goals Time Frame: Jul 17, 2019 Eating (QC): 6 Oral Hygiene (QC): 6 Shower/Bathe Self (QC): 6 Upper Body Dressing (QC): 6 Lower Body Dressing (QC): 6 On/Off Footwear (QC): 6 Toileting Hygiene (QC): 6 Toilet/Commode Transfer (QC): 6 Additional Goals: 1-Demonstrate ADL Tasks, 2-Verbalize Understanding, 3- ImproveStrength/Radha 1=Demonstrate adherence to instructed precautions during ADL tasks. 2=Patient will verbalize/demonstrate understanding of assistive devices/modifications for ADL. 3=Patient will improve strength/tolerance for activity to enable patient to perform ADL's. KENDAL ARAYA PT July 10, 2019 09:31
[2019-07-10] MEDS: polyethylene glycoL POWDER 17 GM (MIRALAX) PACK PO SCH (09:35)
[2019-07-10] MEDS: ENOXAPARIN 30 MG/0.3 ML (LOVENOX) SYR SC SCH (09:36)
[2019-07-10] MEDS: SENNOSIDES 8.6 MG (SENOKOT) TAB PO SCH (09:39)
[2019-07-10] MEDS: CLOPIDOGREL 75 MG (PLAVIX) TABLET PO SCH (09:39)
[2019-07-10] MEDS: amLODIPine 5 MG (NORVASC) TAB PO SCH (09:39)
[2019-07-10] MEDS: DOCUSATE SODIUM 100 MG (COLACE) CAP PO SCH (09:39)
[2019-07-10] MEDS: lisINopril 5 MG (PRINIVIL) TABLET PO SCH (09:39)
[2019-07-10] MEDS: VITAMIN D3 125 MCG (5,000 UNITS) CAPSULE PO SCH (09:39)
--- NOTE | 2019-07-10 12:55 | Discharge Summary ---
Diagnosis/Chief Complaint Date of Admission July 03, 2019 at 10:40 Date of Discharge July 10, 2019 at 10:45 Discharge Date: July 10, 2019 Discharge Diagnosis Assessment: s/p right hip fracture due to fall with osteoporosis hx PVD on Plavix and statin consulting Dr Jackson COPD lung nodules consulting Dr Laurent at her request Former smoker Post op anemia from blood loss Iron deficiency started IV iron Breast cancer hx Plan: IV iron PT OT IRF Cardiology and Pulmonology consultations appreciated DVT PPx Lovenox Checked labs Wednesday to prep for DC Wednesday DC today (1) Closed right hip fracture Status: Acute (2) COPD (chronic obstructive pulmonary disease) (3) Carotid stenosis (4) Constipation (5) Fall Status: Acute (6) Postoperative anemia (7) Age related osteoporosis Status: Chronic (8) HTN (hypertension) Status: Chronic (9) Hyperlipemia (10) Iron deficiency Discharge Summary Discharge Physical Examination Allergies: Coded Allergies: Penicillins (Verified Adverse Reaction, Unknown, itching, 06/29/19) azithromycin (Verified Adverse Reaction, Unknown, itching, 06/29/19) hydrocodone (Verified Adverse Reaction, Unknown, itching, 06/29/19) Vitals & I&Os Vital Signs Date Time Temp Pulse Resp B/P (MAP) Pulse Ox O2 Delivery O2 Flow Rate FiO2 07/10/19 08:00 Room Air 07/10/19 06:01 36.7 70 18 147/70 (95) 96 General Appearance: Alert, Oriented X3, Cooperative Respiratory: Clear to Auscultation Cardiovascular: Regular Rate Neuro: Normal Gait, Normal Speech, Strength at 5/5 X4 Ext Psych/Mental Status: Mental Status NL Hospital Course Was the Problem List Reviewed?: Yes Patient had an uneventful hospital course after transferring form 4th floor to IRF for hip fracture debility. Patient had no issues during course but did require addition of Norvasc for BP OOC and iron infusions total of 1 gram over the week long stay at 200mg each dose. Patient was able to participate in therapy and felt very confident in her abilities in order to DC home with PT with close f/u with Dr Galdamez for staple removal and evaluation of her status. Labs (last 24 hrs) Laboratory Tests 07/04/19 04:15: White Blood Count 5.1, Red Blood Count 2.61L, Hemoglobin 7.7L, Hematocrit 24L, Mean Corpuscular Volume 91, Mean Corpuscular Hemoglobin 30, Mean Corpuscular Hemoglobin Concent 32, Red Cell Distribution Width 12.4, Platelet Count 217, Mean Platelet Volume 9.6, Neutrophils (%) (Auto) 61, Lymphocytes (%) (Auto) 21, Monocytes (%) (Auto) 13H, Eosinophils (%) (Auto) 4, Basophils (%) (Auto) 0, Neutrophils # (Auto) 3.1, Lymphocytes # (Auto) 1.1, Monocytes # (Auto) 0.7, Eosinophils # (Auto) 0.2, Basophils # (Auto) 0.0, Sodium Level 139, Potassium Level 4.1, Chloride Level 105, Carbon Dioxide Level 24, Anion Gap 10, Blood Urea Nitrogen 12, Creatinine 0.62, Estimat Glomerular Filtration Rate > 60, BUN/Creatinine Ratio 19, Glucose Level 109H, Calcium Level 8.9, Corrected Calcium 9.6, Total Bilirubin 0.6, Aspartate Amino Transf (AST/SGOT) 38H, Alanine Aminotransferase (ALT/SGPT) 30, Alkaline Phosphatase 57, Total Protein 5.4L, Alb umin 3.1L 07/09/19 03:53: White Blood Count 5.0, Red Blood Count 3.04L, Hemoglobin 9.0L, Hematocrit 28L, Mean Corpuscular Volume 93, Mean Corpuscular Hemoglobin 30, Mean Corpuscular H emoglobin Concent 32, Red Cell Distribution Width 14.1, Platelet Count 335, Mean Platelet Volume 8.9, Neutrophils (%) (Auto) 61, Lymphocytes (%) (Auto) 24, Monocytes (%) (Auto) 11, Eosinophils (%) (Auto) 3, Basophils (%) (Auto) 0, Neutrophils # (Auto) 3.0, Lymphocytes # (Auto) 1.2, Monocytes # (Auto) 0.6, Eosinophils # (Auto) 0.2, Basophils # (Auto) 0.0, Sodium Level 139, Potassium Level 4.2, Chloride Level 106, Carbon Dioxide Level 24, Anion Gap 9, Blood Urea Nitrogen 12, Creatinine 0.59L, Estimat Glomerular Filtration Rate > 60, BUN/Creatinine Ratio 20, Glucose Level 96, Calcium Level 9.3, Corrected Calcium 9.8, Total Bilirubin 0.7, Aspartate Amino Transf (AST/SGOT) 25, Alanine Aminotransferase (ALT/SGPT) 33, Alkaline Phosphatase 87, Total Protein 5.8L, Albumin 3.4 Microbiology 07/03/19 MRSA Screen - Final, Complete MRSA not isolated Pending Labs Microbiology Date/Time Source Procedure Growth Status 07/03/19 14:37 Nasal MRSA Screen - Final MRSA not isolated Complete Laboratory Tests 07/04/19 04:15: White Blood Count 5.1, Red Blood Count 2.61, Hemoglobin 7.7, Hematocrit 24, Mean Corpuscular Volume 91, Mean Corpuscular Hemoglobin 30, Mean Corpuscular Hemoglobin Concent 32, Red Cell Distribution Width 12.4, Platelet Count 217, Mean Platelet Volume 9.6, Neutrophils (%) (Auto) 61, Lymphocytes (%) (Auto) 21, Monocytes (%) (Auto) 13, Eosinophils (%) (Auto) 4, Basophils (%) (Auto) 0, Neutrophils # (Auto) 3.1, Lymphocytes # (Auto) 1.1, Monocytes # (Auto) 0.7, Eosinophils # (Auto) 0.2, Basophils # (Auto) 0.0, Sodium Level 139, Potassium Level 4.1, Chloride Level 105, Carbon Dioxide Level 24, Anion Gap 10, Blood Urea Nitrogen 12, Creatinine 0.62, Estimat Glomerular Filtration Rate > 60, BUN/Creatinine Ratio 19, Glucose Level 109, Calcium Level 8.9, Corrected Calcium 9.6, Total Bilirubin 0.6, Aspartate Amino Transf (AST/SGOT) 38, Alanine Aminotransferase (ALT/SGPT) 30, Alkaline Phosphatase 57, Total Protein 5.4, Albumin 3.1 07/09/19 03:53: White Blood Count 5.0, Red Blood Count 3.04, Hemoglobin 9.0, Hematocrit 28, Mean Corpuscular Volume 93, Mean Corpuscular Hemoglobin 30, Mean Corpuscular Hemoglobin Concent 32, Red Cell Distribution Width 14.1, Platelet Count 335, Mean Platelet Volume 8.9, Neutrophils (%) (Auto) 61, Lymphocytes (%) (Auto) 24, Monocytes (%) (Auto) 11, Eosinophils (%) (Auto) 3, Basophils (%) (Auto) 0, Neutrophils # (Auto) 3.0, Lymphocytes # (Auto) 1.2, Monocytes # (Auto) 0.6, Eosinophils # (Auto) 0.2, Basophils # (Auto) 0.0, Sodium Level 139, Potassium Level 4.2, Chloride Level 106, Carbon Dioxide Level 24, Anion Gap 9, Blood Urea Nitrogen 12, Creatinine 0.59, Estimat Glomerular Filtration Rate > 60, BUN/Creatinine Ratio 20, Glucose Level 96, Calcium Level 9.3, Corrected Calcium 9.8, Total Bilirubin 0.7, Aspartate Amino Transf (AST/SGOT) 25, Alanine Aminotransferase (ALT/SGPT) 33, Alkaline Phosphatase 87, Total Protein 5.8, Albumin 3.4 Discharge Home Medications: Active Scripts Active Temazepam 15 Mg Capsule 15 Mg PO HS PRN Percocet 5-325 mg Tablet (Oxycodone HCl/Acetaminophen) 1 Each Tablet 1 Tab PO Q3HR PRN Amlodipine Besylate 5 Mg Tablet 5 Mg PO DAILY Reported Zyrtec (Cetirizine HCl) 10 Mg Tablet 10 Mg PO HS Vitamin D3 (Cholecalciferol (Vitamin D3)) 125 Mcg Tablet 125 Mcg PO DAILY Multivitamin 1 Each Tablet 1 Each PO HS Melatonin 10 Mg Tablet 10 Mg PO HS Trazodone HCl 50 Mg Tablet 50 Mg PO HS Clopidogrel (Clopidogrel Bisulfate) 75 Mg Tablet 75 Mg PO DAILY Atorvastatin Calcium 40 Mg Tablet 40 Mg PO HS Lisinopril 5 Mg Tablet 5 Mg PO BID Instructions to patient/family Please see electronic discharge instructions given to patient. Diagnosis/Problems Diagnosis/Problems (1) Closed right hip fracture Status: Acute (2) COPD (chronic obstructive pulmonary disease) (3) Carotid stenosis (4) Constipation (5) Fall Status: Acute (6) Postoperative anemia (7) Age related osteoporosis Status: Chronic (8) HTN (hypertension) Status: Chronic (9) Hyperlipemia (10) Iron deficiency Clinical Quality Measures DVT/VTE Risk/Contraindication: Risk Factor Score Per Nursin RFS Level Per Nursing on Admit: 4+=Very High LEDY HUDSON DO July 10, 2019 12:55
--- NOTE | 2019-07-11 14:04 | Therapy Team Discharge Summary ---
Therapy Discharge Summary Discharge Recommendations Date of Discharge July 10, 2019 at 10:45 Occupational Therapy Pt admits with R bipolar hip replacement, pt admitting QC's as showering 3, UB 5, LB 2, footwear 1, hygiene 4. Pt and OT work towards increased fx IND through UE strengthening/ endurance training, ADL tasks and AE retraining, and safety/ energy conservation. Pt d/cs with all ADLs IND excluding showering with s/u. Pt was limited by pain at times, good sense of safety. Pt d/c's home with recommendations of hip kit. Decreased Activ Tolerance, Impaired I ADL's PT Founding Partner Goals Skilled Nursing Goals PT Founding Partner Goals Time Frame: Jul 24, 2019 Roll Left to Right (QC): 6 Sit to Lying (QC): 6 Lying-Sitting on Side/Bed(QC): 6 Sit to Stand (QC): 6 Chair/Uwd-vt-Rapqi Xfer(QC): 6 Car Transfer (QC): 6 Does the Patient Walk: Yes Walk 10 feet (QC): 6 Walk 10ft-Uneven Surface(QC): 6 Walk 50ft with 2 Turns (QC): 6 Walk 150 ft (QC): 6 Wheel 50 feet with 2 turns (QC: 9 1 Step (curb) (QC): 6 4 Steps (QC): 6 12 Steps (QC): 88 Picking up an Object (QC): 88 OT Founding Partner Goals Skilled Nursing Goals Time Frame: Jul 17, 2019 Eating (QC): 6 Oral Hygiene (QC): 6 Shower/Bathe Self (QC): 6 Upper Body Dressing (QC): 6 Lower Body Dressing (QC): 6 On/Off Footwear (QC): 6 Toileting Hygiene (QC): 6 Toilet/Commode Transfer (QC): 6 Additional Goals: 1-Demonstrate ADL Tasks, 2-Verbalize Understanding, 3- ImproveStrength/Radha 1=Demonstrate adherence to instructed precautions during ADL tasks. 2=Patient will verbalize/demonstrate understanding of assistive devices/modifications for ADL. 3=Patient will improve strength/tolerance for activity to enable patient to perform ADL's. XAVI ESPITIA OTR July 11, 2019 14:04
== END 2019-07-10 10:45 | disposition home health service (06) | DRG 560 ==
PROVIDERS: ADMIT Internal Medicine; ATTEND Internal Medicine
DX: S72.001D Fracture of unspecified part of neck of right femur, subsequent encounter for closed fracture with routine healing (principal); Z96.641 Presence of right artificial hip joint; D62 Acute posthemorrhagic anemia; E61.1 Iron deficiency; J44.9 Chronic obstructive pulmonary disease, unspecified; I10 Essential (primary) hypertension; M81.0 Age-related osteoporosis without current pathological fracture; M19.91 Primary osteoarthritis, unspecified site; F32.9 Major depressive disorder, single episode, unspecified; F41.9 Anxiety disorder, unspecified; K59.00 Constipation, unspecified; E78.5 Hyperlipidemia, unspecified; I73.9 Peripheral vascular disease, unspecified; Z87.891 Personal history of nicotine dependence; Z85.3 Personal history of malignant neoplasm of breast; Z90.710 Acquired absence of both cervix and uterus; W19.XXXD Unspecified fall, subsequent encounter
CPT/HCPCS: 36415; 76937; 80053; 85025; 87081; 94760

== ENCOUNTER 2020-05-15 17:46 | Observation (INO) | payer MEDICARE ==
[~2020-05-15] VITALS: Ht 160 cm; Wt 53.7 kg
[~2020-05-15 17:46] MED LIST changes: +AMLO-250 PO; -CETI10TA21 PO; +CETI10TA49 PO; -LISI-556 PO; +LISI-729 PO; +OXYC1TAB87 PO; +TEMA15CA PO
[2020-05-15 18:09] LABS: BASOPHILS # (AUTO) 0.1 10^3/uL (0.0-0.1); BASOPHILS % (AUTO) 0 % (0-10); EOSINOPHILS % (AUTO) 0 % (0-10); HEMATOCRIT 34 % (35-52); HEMOGLOBIN 10.9 g/dL (11.5-16.0); LYMPHOCYTES # (AUTO) 0.9 10^3/uL (1.0-4.0); LYMPHOCYTES % (AUTO) 8 % (12-44); MEAN CORPUSCULAR HEMOGLOBIN 30 pg (25-34); MEAN CORPUSCULAR HGB CONC 32 g/dL (32-36); MEAN CORPUSCULAR VOLUME 93 fL (80-99); MEAN PLATELET VOLUME 9.9 fL (9.0-12.2); MONOCYTES # (AUTO) 0.4 10^3/uL (0.0-1.0); MONOCYTES % (AUTO) 4 % (0-12); NEUTROPHILS # (AUTO) 10.9 10^3/uL (1.8-7.8); NEUTROPHILS % (AUTO) 87 % (42-75); PLATELET COUNT 238 10^3/uL (130-400); WHITE BLOOD COUNT 12.4 10^3/uL (4.3-11.0)
[2020-05-15 18:13] LABS: ALBUMIN 3.5 GM/DL (3.2-4.5); CHLORIDE 104 MMOL/L (98-107); SODIUM 134 MMOL/L (135-145)
[2020-05-15 18:15] LABS: CALCIUM 8.5 MG/DL (8.5-10.1)
[2020-05-15 18:16] LABS: GLUCOSE 177 MG/DL (70-105); TOTAL PROTEIN 5.5 GM/DL (6.4-8.2)
[2020-05-15 18:17] LABS: CARBON DIOXIDE 19 MMOL/L (21-32)
[2020-05-15 18:18] LABS: BILIRUBIN,TOTAL 0.3 MG/DL (0.1-1.0)
[2020-05-15 18:20] LABS: ALKALINE PHOSPHATASE 37 U/L (40-136); CREATININE SERUM 0.74 MG/DL (0.60-1.30); GFR ESTIMATED > 60
[2020-05-15 18:21] LABS: BUN/CREATININE RATIO 24
[2020-05-15 18:23] LABS: ALANINE AMINOTRANSFERASE 25 U/L (0-55); INR 1.1 (0.8-1.4); PROTHROMBIN TIME PATIENT 14.5 SEC (12.2-14.7); SALICYLATE 24.8 MG/DL (5.0-20.0)
--- NOTE | 2020-05-15 18:26 | ED Psychosocial ---
General Stated Complaint: SUICIDE ATTEMPT Source: patient, RN/MD, EMS Exam Limitations: no limitations History of Present Illness Date Seen by Provider: May 15, 2020 Time Seen by Provider: 18:05 Initial Comments Patient is an 84-year-old female who presents to the emergency department today after being found by her son following an overdose of her medications. Patient allegedly took approximately 20 tablets of 75 mg Plavix she states that around 10 AM this morning followed by approximately 26 5 mg lisinopril between 1 and 2 PM this afternoon. Patient endorses depression and continued suicidal ideation. She states "I just do not want to be here anymore". Patient is not very communicative. She has a history it sounds like of depression preceding this event. She also did take a box knife and cut her left forearm and 3 or 4 locations. Bleeding is currently controlled. Patient denies homicidal ideation, auditory or visual hallucinations. All other review of systems reviewed and negative except as stated. Timing/Duration: this afternoon Severity: severe Associated Symptoms: injury, suicidal ideation Allergies and Home Medications Allergies Coded Allergies: Penicillins (Verified Adverse Reaction, Unknown, itching, 06/29/19) azithromycin (Verified Adverse Reaction, Unknown, itching, 06/29/19) hydrocodone (Verified Adverse Reaction, Unknown, itching, 06/29/19) Home Medications Ascorbic Acid 500 Mg Capsule, 500 MG PO DAILY, (Reported) Atorvastatin Calcium 40 Mg Tablet, 40 MG PO HS, (Reported) Calcium/Vits D3/C/K2/Minerals 166.75 Mg Capsule, 166.75 MG PO DAILY, (Reported) Cholecalciferol (Vitamin D3) 125 Mcg Tablet, 125 MCG PO DAILY, (Reported) Clopidogrel Bisulfate 75 Mg Tablet, 75 MG PO DAILY, (Reported) Escitalopram Oxalate 5 Mg Tablet, 5 MG PO DAILY Prescribed by: PATRICIA BAR on 05/16/20 1523 Lisinopril 5 Mg Tablet, 5 MG PO BID, (Reported) LAST FILLED 12-02-2019 #180/90 DAY SUPPLY Melatonin 5 Mg Tablet, 5-10 MG PO HS PRN for SLEEP, (Reported) Multivitamin 1 Each Tablet, 1 EACH PO DAILY, (Reported) Risedronate Sodium 35 Mg Tablet, 35 MG PO MON, (Reported) Trazodone HCl 50 Mg Tablet, 50 MG PO HS, (Reported) Zinc Sulfate 50 Mg Tablet, 50 MG PO DAILY, (Reported) Patient Home Medication List Home Medication List Reviewed: Yes Review of Systems Constitutional: see HPI EENTM: no symptoms reported Respiratory: no symptoms reported Gastrointestinal: no symptoms reported Genitourinary: no symptoms reported Musculoskeletal: other (Left forearm pain secondary to laceration) Skin: other (Lacerations to the left forearm) Psychiatric/Neurological: Depressed All Other Systems Reviewed Negative Unless Noted: Yes Past Gocsdky-Rtuyro-Syyohd Hx Patient Social History Type Used: Cigarettes Recent Hopitalizations: No Immunizations Up To Date Date of Pneumonia Vaccine: Feb 15, 2017 Seasonal Allergies Seasonal Allergies: Yes (year round ) Past Medical History Surgeries: Yes Ear Surgery, Hysterectomy, Orthopedic Respiratory: Yes (GROWTH ON BILAT LUNGS/ scar tissues ) Currently Using CPAP: No Currently Using BIPAP: No Cardiac: Yes Hypertension Neurological: Yes Female Reproductive Disorders: Denies Genitourinary: No Gastrointestinal: No Musculoskeletal: Yes Osteoporosis, Arthritis, Fractures Endocrine: No HEENT: Yes Cataract Hearing Impairment: Hard of Hearing Cancer: No Psychosocial: Yes Sleep Difficulties, Depression Integumentary: No Blood Disorders: No Adverse Reaction/Blood Tranf: No Family Medical History Cardiovascular disease 19 MOTHER Colon cancer 19 MOTHER Diabetes mellitus 19 FATHER Hypertension 19 FATHER 19 MOTHER Severe allergy 19 FATHER 19 MOTHER No Pertinent Family Hx Physical Exam Vital Signs - First Documented 05/14/20 05/15/20 21:05 22:23 Temp 36.2 Pulse 82 Resp 14 B/P (MAP) 104/68 (80) Pulse Ox 96 O2 Delivery Room Air FiO2 21 Capillary Refill : Height, Weight, BMI Height: '" Weight: lbs. oz. kg; 17.43 BMI Method: General Appearance: WD/WN, no apparent distress HEENT: PERRL/EOMI, normal ENT inspection Neck: normal inspection Respiratory: lungs clear, normal breath sounds, no respiratory distress, no accessory muscle use Cardiovascular: regular rate, rhythm, systolic murmur (Systolic murmur heard throughout the precordium) Gastrointestinal: non tender, soft Extremities: normal range of motion, no pedal edema Neurologic/Psychiatric: alert, depressed affect Appearance/Memory: appropriate appearance, neat, no memory impairment Behavior/Eye Contact: cooperative, good eye contact, normal speech Thoughts/Hallucinations: normal thought pattern, no apparent hallucination Skin: normal color, warm/dry, other (Patient has multiple lacerations to the left forearm. 2 of these distal are very superficial with no active bleeding a more proximal laceration of 2-1/2 cm is noted to the volar aspect of the left forearm. It has minimal oozing) Procedures/Interventions Wound Location: Upper Extremities Other Wound Location left volar wrist Wound Length (cm): 2.5 Wound's Depth, Shape: superficial Wound Explored: clean Irrigated w/ Saline (ccs): 250 Betadine Prep?: No Anesthesia: 1% Lidocaine Volume Anesthetic (ccs): 4 Suture: Ethlion Suture Size: 5-0 Number of Sutures: 7 Layer Closure?: 1 Sterile Dressing Applied?: Yes Wound Location: Upper Extremities Other Wound Location left wrist, lateral Wound Length (cm): 1 Wound's Depth, Shape: superficial Wound Explored: clean Betadine Prep?: No Anesthesia: 1% Lidocaine Volume Anesthetic (ccs): 2 Suture: Ethlion Suture Size: 5-0 Number of Sutures: 3 Layer Closure?: 1 Sterile Dressing Applied?: Yes Progress/Results/Core Measures Results/Orders Lab Results Laboratory Tests Test 05/15/20 17:50 05/15/20 21:24 05/15/20 21:40 05/15/20 22:20 Range/Units White Blood Count 12.4 H 4.3-11.0 10^3/uL Red Blood Count 3.63 L 3.80-5.11 10^6/uL Hemoglobin 10.9 L 11.5-16.0 g/dL Hematocrit 34 L 35-52 % Mean Corpuscular Volume 93 80-99 fL Mean Corpuscular Hemoglobin 30 25-34 pg Mean Corpuscular Hemoglobin Concent 32 32-36 g/dL Red Cell Distribution Width 12.7 10.0-14.5 % Platelet Count 238 130-400 10^3/uL Mean Platelet Volume 9.9 9.0-12.2 fL Immature Granulocyte % (Auto) 1 % Neutrophils (%) (Auto) 87 H 42-75 % Lymphocytes (%) (Auto) 8 L 12-44 % Monocytes (%) (Auto) 4 0-12 % Eosinophils (%) (Auto) 0 0-10 % Basophils (%) (Auto) 0 0-10 % Neutrophils # (Auto) 10.9 H 1.8-7.8 10^3/uL Lymphocytes # (Auto) 0.9 L 1.0-4.0 10^3/uL Monocytes # (Auto) 0.4 0.0-1.0 10^3/uL Eosinophils # (Auto) 0.0 0.0-0.3 10^3/uL Basophils # (Auto) 0.1 0.0-0.1 10^3/uL Immature Granulocyte # (Auto) 0.1 0.0-0.1 10^3/uL Neutrophils % (Manual) 89 % Lymphocytes % (Manual) 7 % Monocytes % (Manual) 3 % Band Neutrophils 1 % Blood Morphology Comment NORMAL Prothrombin Time 14.5 12.2-14.7 SEC INR Comment 1.1 0.8-1.4 Activated Partial Thromboplast Time 25 24-35 SEC Sodium Level 134 L 136 135-145 MMOL/L Potassium Level 4.0 4.8 3.6-5.0 MMOL/L Chloride Level 104 106 98-107 MMOL/L Carbon Dioxide Level 19 L 18 L 21-32 MMOL/L Anion Gap 11 12 5-14 MMOL/L Blood Urea Nitrogen 18 19 H 7-18 MG/DL Creatinine 0.74 0.78 0.60-1.30 MG/DL Estimat Glomerular Filtration Rate > 60 > 60 BUN/Creatinine Ratio 24 24 Glucose Level 177 H 182 H 70-105 MG/DL Calcium Level 8.5 8.4 L 8.5-10.1 MG/DL Corrected Calcium 8.9 8.8 8.5-10.1 MG/DL Total Bilirubin 0.3 0.3 0.1-1.0 MG/DL Aspartate Amino Transf (AST/SGOT) 27 22 5-34 U/L Alanine Aminotransferase (ALT/SGPT) 25 26 0-55 U/L Alkaline Phosphatase 37 L 37 L 40-136 U/L Total Protein 5.5 L 5.4 L 6.4-8.2 GM/DL Albumin 3.5 3.5 3.2-4.5 GM/DL Salicylates Level 24.8 H 26.5 H 5.0-20.0 MG/DL Acetaminophen Level < 10 L 10-30 UG/ML Serum Alcohol < 10 <10 MG/DL Urine Color YELLOW Urine Clarity CLEAR Urine pH 5.0 5-9 Urine Specific [place] >=1.030 1.016-1.022 Urine Protein TRACE H NEGATIVE Urine Glucose (UA) NEGATIVE NEGATIVE Urine Ketones NEGATIVE NEGATIVE Urine Nitrite NEGATIVE NEGATIVE Urine Bilirubin NEGATIVE NEGATIVE Urine Urobilinogen 0.2 < = 1.0 MG/DL Urine Leukocyte Esterase NEGATIVE NEGATIVE Urine RBC (Auto) NEGATIVE NEGATIVE Urine RBC NONE /HPF Urine WBC NONE /HPF Urine Squamous Epithelial Cells NONE /HPF Urine Crystals NONE /LPF Urine Amorphous Sediment LARGE SUNSHINE URATES H /LPF Urine Bacteria NEGATIVE /HPF Urine Casts NONE /LPF Urine Mucus NEGATIVE /LPF Urine Culture Indicated NO Urine Opiates Screen NEGATIVE NEGATIVE Urine Oxycodone Screen NEGATIVE NEGATIVE Urine Methadone Screen NEGATIVE NEGATIVE Urine Propoxyphene Screen NEGATIVE NEGATIVE Urine Barbiturates Screen NEGATIVE NEGATIVE Ur Tricyclic Antidepressants Screen NEGATIVE NEGATIVE Urine Phencyclidine Screen NEGATIVE NEGATIVE Urine Amphetamines Screen NEGATIVE NEGATIVE Urine Methamphetamines Screen NEGATIVE NEGATIVE Urine Benzodiazepines Screen NEGATIVE NEGATIVE Urine Cocaine Screen NEGATIVE NEGATIVE Urine Cannabinoids Screen NEGATIVE NEGATIVE Blood Gas Puncture Site R RADIAL Blood Gas Patient Temperature 36.2 Arterial Blood pH 7.47 H 7.37-7.43 Arterial Blood Partial Pressure CO2 24 L 35-45 MMHG Arterial Blood Partial Pressure O2 123 H 79-93 MMHG Arterial Blood HCO3 18 L 23-27 MMOL/L Arterial Blood Total CO2 18.5 L 21.0-31.0 MMOL/L Arterial Blood Oxygen Saturation 100 94-100 % Arterial Blood Base Excess -5.5 L -2.5-2.5 MMOL/L Neeraj Test NA Blood Gas Ventilator Setting NO Blood Gas Inspired Oxygen NA Test 05/16/20 02:00 05/16/20 11:56 Range/Units White Blood Count 9.0 4.3-11.0 10^3/uL Red Blood Count 3.28 L 3.80-5.11 10^6/uL Hemoglobin 10.0 L 11.5-16.0 g/dL Hematocrit 30 L 35-52 % Mean Corpuscular Volume 92 80-99 fL Mean Corpuscular Hemoglobin 31 25-34 pg Mean Corpuscular Hemoglobin Concent 33 32-36 g/dL Red Cell Distribution Width 12.7 10.0-14.5 % Platelet Count 248 130-400 10^3/uL Mean Platelet Volume 10.3 9.0-12.2 fL Immature Granulocyte % (Auto) 1 % Neutrophils (%) (Auto) 86 H 42-75 % Lymphocytes (%) (Auto) 10 L 12-44 % Monocytes (%) (Auto) 3 0-12 % Eosinophils (%) (Auto) 0 0-10 % Basophils (%) (Auto) 0 0-10 % Neutrophils # (Auto) 7.7 1.8-7.8 10^3/uL Lymphocytes # (Auto) 0.9 L 1.0-4.0 10^3/uL Monocytes # (Auto) 0.3 0.0-1.0 10^3/uL Eosinophils # (Auto) 0.0 0.0-0.3 10^3/uL Basophils # (Auto) 0.0 0.0-0.1 10^3/uL Immature Granulocyte # (Auto) 0.1 0.0-0.1 10^3/uL Sodium Level 136 135-145 MMOL/L Potassium Level 4.0 3.6-5.0 MMOL/L Chloride Level 104 98-107 MMOL/L Carbon Dioxide Level 21 21-32 MMOL/L Anion Gap 11 5-14 MMOL/L Blood Urea Nitrogen 20 H 7-18 MG/DL Creatinine 0.78 0.60-1.30 MG/DL Estimat Glomerular Filtration Rate > 60 BUN/Creatinine Ratio 26 Glucose Level 171 H 70-105 MG/DL Calcium Level 8.0 L 8.5-10.1 MG/DL Phosphorus Level 2.9 2.3-4.7 MG/DL Magnesium Level 2.1 1.6-2.4 MG/DL Salicylates Level 24.0 H 14.9 5.0-20.0 MG/DL My Orders Orders - JOVAN ESCOBAR MD Ed Iv/Invasive Line Start (05/15/20 18:00) Cbc With Automated Diff (05/15/20 18:00) Comprehensive Metabolic Panel (05/15/20 18:00) Type And Screen (05/15/20 18:00) Ua Culture If Indicated (05/15/20 18:00) Drug Screen Stat (Urine) (05/15/20 18:00) Alcohol (05/15/20 18:00) Salicylate (05/15/20 18:00) Acetaminophen (05/15/20 18:00) Ekg Tracing (05/15/20 18:00) Chest 1 View, Ap/Pa Only (05/15/20 18:00) Ct Head Wo (05/15/20 18:00) Protime With Inr (05/15/20 18:00) Partial Thromboplastin Time (05/15/20 18:00) Manual Differential (05/15/20 17:50) Lidocaine 1% Inj 20 Ml (Xylocaine 1% Inj (05/15/20 19:00) Dipht,Pertuss(Acell),Tet Adult (Boostrix (05/15/20 19:00) Ondansetron Injection (Zofran Injectio (05/15/20 20:30) Medications Given in ED Vital Signs/I&O 05/16/20 05/16/20 05/16/20 05/16/20 06:41 06:46 07:00 08:00 Pulse 85 81 99 Resp 13 13 B/P (MAP) 109/56 (73) 113/52 (72) Pulse Ox 95 96 96 O2 Delivery Room Air Room Air Room Air 05/16/20 05/16/20 05/16/20 05/16/20 08:00 09:00 10:00 10:30 Pulse 92 76 Resp 11 13 B/P (MAP) 110/45 (66) 77/38 (51) 122/53 (76) Pulse Ox 97 98 O2 Delivery Room Air Room Air Room Air 05/16/20 05/16/20 05/16/20 05/16/20 11:00 12:00 12:37 13:00 Pulse 77 89 78 96 Resp 12 21 B/P (MAP) 111/52 (71) 132/60 (84) 124/74 (91) Pulse Ox 95 97 98 O2 Delivery Room Air Room Air Room Air 05/16/20 05/16/20 05/16/20 14:00 15:00 15:45 Temp 36.1 Pulse 78 86 Resp 15 15 B/P (MAP) 130/54 (79) Pulse Ox 96 O2 Delivery Room Air Room Air 05/16/20 00:00 Intake Total 500 ml Balance 500 ml Initial ECG Impression Date: May 15, 2020 Initial ECG Impression Time: 18:00 Initial ECG Rate: 83 Initial ECG Intervals: Normal Initial ECG Impression: Normal Departure Communication (Admissions) Time/Spoke to Admitting Phy: 20:[address] Bar who accepts the patient for admission to the ICU Impression Primary Impression: Suicidal overdose Qualified Codes: T50.902A - Poisoning by unspecified drugs, medicaments and biological substances, intentional self-harm, initial encounter Additional Impression: Laceration Disposition: ADMITTED INPATIENT Condition: Stable Admissions Decision to Admit Reason: Admit from ER (General) Decision to Admit/Date: May 15, 2020 Time/Decision to Admit Time: 18:57 Departure-Patient Inst. Referrals: PHOEBE DAILEY MD (PCP/Family) Primary Care Physician Scripts Escitalopram Oxalate (Escitalopram Oxalate) 5 Mg Tablet 5 MG PO DAILY, #30 TAB 0 Refills Prov: PATRICIA BAR MD 05/16/20 JOVAN ESCOBAR MD May 15, 2020 18:26
[2020-05-15 18:28] LABS: ACETAMINOPHEN < 10 UG/ML (10-30)
--- NOTE | 2020-05-15 18:32 | Diagnostic Imaging Report ---
INDICATION: Drug overdose Portable chest 6:13 PM Heart size and pulmonary vascularity are normal. Lungs are clear. There are no effusions or pneumothoraces. IMPRESSION: Negative chest Dictated by: Dictated on workstation # [id number]
[2020-05-15] MEDS ORDERED: LIDOCAINE 1% INJ 20 ML 20 ML VIAL INJ ONE (19:00)
[2020-05-15] MEDS ORDERED: TETANUS,DIPTH,PERTUSS P/F (BOOSTRIX) 0.5 ML VIAL IM ONE (19:00)
--- NOTE | 2020-05-15 19:19 | Diagnostic Imaging Report ---
EXAMINATION: CT head without contrast. TECHNIQUE: Multiple contiguous axial images were obtained through the brain without the use of intravenous contrast. All CT scans use one or more of the following dose optimizing techniques: automated exposure control, MA and/or KvP adjustment based on a patient size and exam type, or iterative reconstruction. HISTORY: Somnolence, Plavix overdose COMPARISON: CT head 06/29/2019 FINDINGS: Mild diffuse cerebral volume loss with proportional enlargement of the ventricles and sulci. No abnormal attenuation of brain parenchyma is present. No acute intracranial hemorrhage or abnormal extra-axial fluid collections are present. Calcification of the intracranial ICAs. No hyperdense vessel. The calvarium is intact. The mastoid air cells are clear. The visualized paranasal sinuses are clear. Surgical changes from bilateral cataract repair. IMPRESSION: 1. No acute intracranial abnormality. 2. Mild volume loss. Dictated by: Dictated on workstation # [id number]
[2020-05-15 19:40] LABS: BAND NEUTROPHILS 1 %; LYMPHOCYTES % (MANUAL) 7 %; MONOCYTES % (MANUAL) 3 %; NEUTROPHILS % (MANUAL) 89 %; RBC MORPH NORMAL
[2020-05-15] MEDS: ONDANSETRON 4 MG/2 ML (SDV) Z0FRAN IVP ONE ×2 (20:45→20:52)
[2020-05-15] MEDS ORDERED: D5W 1000 ML IV SOLUTION 1,000 ML IV SCH (21:15)
[2020-05-15] MEDS ORDERED: SODIUM BICARB 8.4% 50 MEQ/50 ML VIAL ONE (21:45)
[2020-05-15 21:47] LABS: ALANINE AMINOTRANSFERASE 26 U/L (0-55); ALBUMIN 3.5 GM/DL (3.2-4.5); ALKALINE PHOSPHATASE 37 U/L (40-136); BILIRUBIN,TOTAL 0.3 MG/DL (0.1-1.0); BUN/CREATININE RATIO 24; CALCIUM 8.4 MG/DL (8.5-10.1); CARBON DIOXIDE 18 MMOL/L (21-32); CHLORIDE 106 MMOL/L (98-107); CREATININE SERUM 0.78 MG/DL (0.60-1.30); GFR ESTIMATED > 60; GLUCOSE 182 MG/DL (70-105); POTASSIUM 4.8 MMOL/L (3.6-5.0); SALICYLATE 26.5 MG/DL (5.0-20.0); SODIUM 136 MMOL/L (135-145); TOTAL PROTEIN 5.4 GM/DL (6.4-8.2)
[2020-05-15 21:49] LABS: BILIRUBIN,URINE NEGATIVE (NEGATIVE); CLARITY,URINE CLEAR; COLOR,URINE YELLOW; GLUCOSE, URINE (UA) NEGATIVE (NEGATIVE); KETONES,URINE NEGATIVE (NEGATIVE); LEUKOCYTE ESTERASE ,URINE NEGATIVE (NEGATIVE); NITRITE,URINE NEGATIVE (NEGATIVE); PROTEIN,URINE TRACE (NEGATIVE)
[2020-05-15 22:12] LABS: AMORPHOUS SEDIMENT,UR LARGE AMOR URATES /LPF; BACTERIA,URINE NEGATIVE /HPF
[2020-05-15] MEDS ORDERED: CATHETER FLUSH 10 ML SYR IV PRN (22:15)
[2020-05-15 22:23] VITALS: BP 144/68
[2020-05-15 22:24] LABS: AMPHETAMINE SCREEN, URINE NEGATIVE (NEGATIVE); BARBITURATE SCREEN URINE NEGATIVE (NEGATIVE); BENZODIAZEPINES SCREEN URINE NEGATIVE (NEGATIVE); CANNABINOID SCREEN, URINE NEGATIVE (NEGATIVE); COCAINE SCREEN URINE NEGATIVE (NEGATIVE); METHADONE STAT NEGATIVE (NEGATIVE); METHAMPHETAMINE SCREEN URINE S NEGATIVE (NEGATIVE); OPIATE SCREEN URINE NEGATIVE (NEGATIVE); OXYCODONE STAT NEGATIVE (NEGATIVE); PROPOXYPHENE STAT NEGATIVE (NEGATIVE); TRICYCLIC ANTIDEPRESSANTS SCRE NEGATIVE (NEGATIVE)
[2020-05-15] MEDS ORDERED: RT-ALBUTEROL SULF 2.5 MG/3 ML PRE-MIX VIAL INH PRN (22:30)
[2020-05-15 22:36] LABS: ABG BASE EXCESS -5.5 MMOL/L (-2.5-2.5); ABG OXYGEN SATURATION 100 % (94-100); ABG PCO2 24 MMHG (35-45); ABG PH 7.47 (7.37-7.43); ABG PO2 123 MMHG (79-93); ABG TCO2 18.5 MMOL/L (21.0-31.0)
[2020-05-15 22:37] LABS: PATIENT TEMP 36.2; VENTILATOR NO
[2020-05-16] MEDS: CATHETER FLUSH 10 ML SYR IV SCH ×3 (00:14→14:21)
[2020-05-16 02:38] LABS: BASOPHILS % (AUTO) 0 % (0-10); EOSINOPHILS % (AUTO) 0 % (0-10); HEMATOCRIT 30 % (35-52); LYMPHOCYTES # (AUTO) 0.9 10^3/uL (1.0-4.0); LYMPHOCYTES % (AUTO) 10 % (12-44); MEAN CORPUSCULAR HEMOGLOBIN 31 pg (25-34); MEAN CORPUSCULAR HGB CONC 33 g/dL (32-36); MEAN CORPUSCULAR VOLUME 92 fL (80-99); MEAN PLATELET VOLUME 10.3 fL (9.0-12.2); MONOCYTES # (AUTO) 0.3 10^3/uL (0.0-1.0); MONOCYTES % (AUTO) 3 % (0-12); NEUTROPHILS # (AUTO) 7.7 10^3/uL (1.8-7.8); NEUTROPHILS % (AUTO) 86 % (42-75); PLATELET COUNT 248 10^3/uL (130-400)
[2020-05-16 03:02] LABS: BUN/CREATININE RATIO 26; CARBON DIOXIDE 21 MMOL/L (21-32); CHLORIDE 104 MMOL/L (98-107); CREATININE SERUM 0.78 MG/DL (0.60-1.30); GFR ESTIMATED > 60; GLUCOSE 171 MG/DL (70-105); MAGNESIUM 2.1 MG/DL (1.6-2.4); PHOSPHORUS 2.9 MG/DL (2.3-4.7); SALICYLATE 23.5 MG/DL (5.0-20.0); SODIUM 136 MMOL/L (135-145)
[2020-05-16] MEDS ORDERED: LACTATED RINGERS 1,000 ML IV ONE (05:21)
--- NOTE | 2020-05-16 05:25 | Pulmonary Consultation ---
History of Present Illness History of Present Illness Date Seen by Provider: May 16, 2020 Time Seen by Provider: 05:19 Date of Admission Allergies and Home Medications Allergies Coded Allergies: Penicillins (Verified Adverse Reaction, Unknown, itching, 06/29/19) azithromycin (Verified Adverse Reaction, Unknown, itching, 06/29/19) hydrocodone (Verified Adverse Reaction, Unknown, itching, 06/29/19) Home Medications Amlodipine Besylate 5 Mg Tablet, 5 MG PO DAILY Prescribed by: LEDY HUDSON on 07/09/192139 Atorvastatin Calcium 40 Mg Tablet, 40 MG PO HS, (Reported) Cetirizine HCl 10 Mg Tablet, 10 MG PO HS, (Reported) Cholecalciferol (Vitamin D3) 125 Mcg Tablet, 125 MCG PO DAILY, (Reported) Clopidogrel Bisulfate 75 Mg Tablet, 75 MG PO DAILY, (Reported) Lisinopril 5 Mg Tablet, 5 MG PO BID, (Reported) Melatonin 10 Mg Tablet, 10 MG PO HS, (Reported) Multivitamin 1 Each Tablet, 1 EACH PO HS, (Reported) Oxycodone HCl/Acetaminophen 1 Each Tablet, 1 TAB PO Q3HR PRN for PAIN-MODERATE (5-7) Prescribed by: LEDY HUDSON on 07/09/192140 Temazepam 15 Mg Capsule, 15 MG PO HS PRN for INSOMNIA Prescribed by: LEDY HUDSON on 07/09/192140 Trazodone HCl 50 Mg Tablet, 50 MG PO HS, (Reported) Past Esotdlk-Dmctwx-Hxxndz Hx Patient Social History Alcohol Use: Denies Use Smoking Status: Never a Smoker Type Used: Cigarettes 2nd Hand Smoke Exposure: No Recent Infectious Disease Expo: No Recent Hopitalizations: Yes Have you traveled recently?: No Alcohol Use?: No Immunizations Up To Date Date of Pneumonia Vaccine: Feb 15, 2017 Date of Influenza Vaccine: Dec 16, 2019 Seasonal Allergies Seasonal Allergies: Yes (year round ) Past Medical History Surgeries: Yes Ear Surgery, Hysterectomy, Orthopedic Respiratory: Yes (GROWTH ON BILAT LUNGS/ scar tissues ) Currently Using CPAP: No Currently Using BIPAP: No Cardiac: Yes Hypertension Neurological: Yes Female Reproductive Disorders: Denies Sexually Transmitted Disease: No HIV/AIDS: No Genitourinary: No Gastrointestinal: No Musculoskeletal: Yes Osteoporosis, Arthritis, Fractures Endocrine: No HEENT: Yes Cataract Hearing Impairment: Hard of Hearing Cancer: No Psychosocial: Yes Sleep Difficulties, Depression Integumentary: No Blood Disorders: No Adverse Reaction/Blood Tranf: No Family Medical History Cardiovascular disease 19 MOTHER Colon cancer 19 MOTHER Diabetes mellitus 19 FATHER Hypertension 19 FATHER 19 MOTHER Severe allergy 19 FATHER 19 MOTHER No Pertinent Family Hx Review of Systems Time Seen by Provider: 05:19 Sepsis Event Evaluation Height, Weight, BMI Height: '" Weight: lbs. oz. kg; 20.39 BMI Method: Exam Exam Vital Signs Date Time Temp Pulse Resp B/P (MAP) Pulse Ox O2 Delivery O2 Flow Rate FiO2 05/16/20 04:00 77 15 114/63 (80) 97 Room Air 05/16/20 03:00 75 16 114/51 (72) 97 Room Air 05/16/20 02:00 82 13 106/48 (67) 97 Room Air 05/16/20 01:00 82 13 118/48 (71) 98 Room Air 05/16/20 01:00 80 05/16/20 00:15 36.2 05/16/20 00:00 81 13 118/50 (72) 97 Room Air 05/15/20 23:00 80 19 113/48 (69) 96 Room Air 05/15/20 22:30 74 17 94/67 (76) 95 Room Air 05/15/20 22:23 36.0 100 99 21 05/15/20 22:00 75 16 105/37 (59) 95 Room Air 05/15/20 21:45 84 14 106/60 (75) 96 Room Air 05/15/20 21:30 79 14 102/71 (81) 98 Room Air 05/15/20 21:15 87 13 110/40 (63) 98 Room Air 05/15/20 21:11 90 05/15/20 21:05 96 Room Air 05/15/20 20:54 36.0 87 16 119/73 (93) 98 Room Air 05/15/20 18:27 36.0 100 16 144/68 (93) I & O 05/16/20 07:00 Intake Total 500 ml Output Total 175 ml Balance 325 ml Height & Weight Height: '" Weight: lbs. oz. kg; 20.39 BMI Method: Capillary Refill: Less Than 3 Seconds Gastrointestinal: non tender, soft Results Lab Laboratory Tests 05/15/20 17:50 05/15/20 21:05/16/20 02:00 Assessment/Plan Assessment/Plan Suicidal OD and wrist laceration -Plavix x 20tabs, Lisinopril 5mg x 26 tabs, ASA x unknown amount -Poison control is following -Behavioral health consult ROCIO LERNER DO May 16, 2020 05:25
[2020-05-16] MEDS: LACTATED RINGERS 1,000 ML IV SCH ×3 (05:44→14:21)
[2020-05-16] MEDS ORDERED: MAGNESIUM 1 GM/100 ML IVPB 100 ML IV SCH (06:00)
[2020-05-16] MEDS ORDERED: KCL 20 MEQ TAB (K-DUR) PO SCH (06:00)
[2020-05-16] MEDS ORDERED: POTASSIUM CL 10MEQ/50ML IVPB 50 ML IV SCH (06:00)
--- NOTE | 2020-05-16 07:30 | Diagnostic Imaging Report ---
INDICATION: Suicide attempt with drug overdose. Comparison made with prior examination from 05/15/2020 FINDINGS: The heart size, mediastinal configuration, and pulmonary vascularity are within normal limits. There is no pleural effusion, pneumothorax, or pneumonia. The osseous structures are unremarkable. IMPRESSION: No acute cardiopulmonary abnormality. Dictated by: Dictated on workstation # [id number]
--- NOTE | 2020-05-16 11:56 | History & Physical ---
YOLETTE ERNST,MED STUDENT 05/16/20 1156: HPI History of Present Illness: Mrs. Osei was seen in the ED yesterday after being found at home by her son. She reports taking several pills and cutting her wrists to try and end her life. She states she took ASA, lisinopril, and plavix. She took about 20 plavix at 1000 and around 20 lisinopril near 1300. She states she has been feeling depressed for nearly a year now since she has been isolated due to COVID. She states she moved to the [facility] about 2 years ago and was just starting to get a social support system when her activities became stopped due to the pandemic. She states she does not see any answers to her problems and that is why she decided to try and take her own life. She admits to feeling "foolish" for being unsuccessful in her attempt. She has a history of depression and states she was on medication for it 40+ years ago but weaned herself off due to side effects. She has seen a therapist in the past but it has been several years. Her support system includes her son and DIL that live in the area. Upon arrival to the hospital she complained of nausea, vomiting, diarrhea, and weakness. All of which have since improved. She does continue to complain of some weakness. She typically ambulates with a cane or walker. Source: patient Exam Limitations: no limitations Date seen by provider: May 16, 2020 Time Seen by Provider: 08:15 Attending Physician Patricia Pena MD PCP Cosme Salvador MD Consult Date of Admission May 15, 2020 at 20:00 Home Medications Home Medications Reviewed patient Home Medication Reconciliation performed by pharmacy medication reconciliations environmental sampling technician and/or nursing. Patients Allergies have been reviewed. Allergies Coded Allergies: Penicillins (Verified Adverse Reaction, Unknown, itching, 06/29/19) azithromycin (Verified Adverse Reaction, Unknown, itching, 06/29/19) hydrocodone (Verified Adverse Reaction, Unknown, itching, 06/29/19) RYO-Anbnku-Ijaskn Hx Patient Social History Smoking Status: Never a Smoker 2nd Hand Smoke Exposure: No Recent Hopitalizations: Yes Alcohol Use?: No Have you traveled recently?: No Immunizations Up To Date Date of Pneumonia Vaccine: Feb 15, 2017 Date of Influenza Vaccine: Dec 16, 2019 Past Medical History PMedHx: Neuropathy Hypercholesterolemia Osteoprosis HTN Depression carotid artery stenosis PSurgHx: hysterecotmy R hip fx bilateral shoulder bone spurs Family Medical History Significant Family History: Cancer, Hypertension Family History: Cardiovascular disease 19 MOTHER Colon cancer 19 MOTHER Diabetes mellitus 19 FATHER Hypertension 19 FATHER 19 MOTHER Severe allergy 19 FATHER 19 MOTHER Review of Systems ([facility]) Constitutional: No chills; dizziness, weakness Respiratory: No cough, No short of breath Cardiovascular: No chest pain, No palpitations Gastrointestinal: No abdominal pain; diarrhea, nausea, vomiting Musculoskeletal: other (neuropathy) Psychiatric/Neurological: Denies Headache, Denies Numbness; Weakness Reviewed Test Results Reviewed Test Results Lab Laboratory Tests Test 05/15/20 17:50 05/15/20 21:24 05/15/20 21:40 05/15/20 22:20 Range/Units White Blood Count 12.4 H 4.3-11.0 10^3/uL Red Blood Count 3.63 L 3.80-5.11 10^6/uL Hemoglobin 10.9 L 11.5-16.0 g/dL Hematocrit 34 L 35-52 % Mean Corpuscular Volume 93 80-99 fL Mean Corpuscular Hemoglobin 30 25-34 pg Mean Corpuscular Hemoglobin Concent 32 32-36 g/dL Red Cell Distribution Width 12.7 10.0-14.5 % Platelet Count 238 130-400 10^3/uL Mean Platelet Volume 9.9 9.0-12.2 fL Immature Granulocyte % (Auto) 1 % Neutrophils (%) (Auto) 87 H 42-75 % Lymphocytes (%) (Auto) 8 L 12-44 % Monocytes (%) (Auto) 4 0-12 % Eosinophils (%) (Auto) 0 0-10 % Basophils (%) (Auto) 0 0-10 % Neutrophils # (Auto) 10.9 H 1.8-7.8 10^3/uL Lymphocytes # (Auto) 0.9 L 1.0-4.0 10^3/uL Monocytes # (Auto) 0.4 0.0-1.0 10^3/uL Eosinophils # (Auto) 0.0 0.0-0.3 10^3/uL Basophils # (Auto) 0.1 0.0-0.1 10^3/uL Immature Granulocyte # (Auto) 0.1 0.0-0.1 10^3/uL Neutrophils % (Manual) 89 % Lymphocytes % (Manual) 7 % Monocytes % (Manual) 3 % Band Neutrophils 1 % Blood Morphology Comment NORMAL Prothrombin Time 14.5 12.2-14.7 SEC INR Comment 1.1 0.8-1.4 Activated Partial Thromboplast Time 25 24-35 SEC Sodium Level 134 L 136 135-145 MMOL/L Potassium Level 4.0 4.8 3.6-5.0 MMOL/L Chloride Level 104 106 98-107 MMOL/L Carbon Dioxide Level 19 L 18 L 21-32 MMOL/L Anion Gap 11 12 5-14 MMOL/L Blood Urea Nitrogen 18 19 H 7-18 MG/DL Creatinine 0.74 0.78 0.60-1.30 MG/DL Estimat Glomerular Filtration Rate > 60 > 60 BUN/Creatinine Ratio 24 24 Glucose Level 177 H 182 H 70-105 MG/DL Calcium Level 8.5 8.4 L 8.5-10.1 MG/DL Corrected Calcium 8.9 8.8 8.5-10.1 MG/DL Total Bilirubin 0.3 0.3 0.1-1.0 MG/DL Aspartate Amino Transf (AST/SGOT) 27 22 5-34 U/L Alanine Aminotransferase (ALT/SGPT) 25 26 0-55 U/L Alkaline Phosphatase 37 L 37 L 40-136 U/L Total Protein 5.5 L 5.4 L 6.4-8.2 GM/DL Albumin 3.5 3.5 3.2-4.5 GM/DL Salicylates Level 24.8 H 26.5 H 5.0-20.0 MG/DL Acetaminophen Level < 10 L 10-30 UG/ML Serum Alcohol < 10 <10 MG/DL Urine Color YELLOW Urine Clarity CLEAR Urine pH 5.0 5-9 Urine Specific [place] >=1.030 1.016-1.022 Urine Protein TRACE H NEGATIVE Urine Glucose (UA) NEGATIVE NEGATIVE Urine Ketones NEGATIVE NEGATIVE Urine Nitrite NEGATIVE NEGATIVE Urine Bilirubin NEGATIVE NEGATIVE Urine Urobilinogen 0.2 < = 1.0 MG/DL Urine Leukocyte Esterase NEGATIVE NEGATIVE Urine RBC (Auto) NEGATIVE NEGATIVE Urine RBC NONE /HPF Urine WBC NONE /HPF Urine Squamous Epithelial Cells NONE /HPF Urine Crystals NONE /LPF Urine Amorphous Sediment LARGE SUNSHINE URATES H /LPF Urine Bacteria NEGATIVE /HPF Urine Casts NONE /LPF Urine Mucus NEGATIVE /LPF Urine Culture Indicated NO Urine Opiates Screen NEGATIVE NEGATIVE Urine Oxycodone Screen NEGATIVE NEGATIVE Urine Methadone Screen NEGATIVE NEGATIVE Urine Propoxyphene Screen NEGATIVE NEGATIVE Urine Barbiturates Screen NEGATIVE NEGATIVE Ur Tricyclic Antidepressants Screen NEGATIVE NEGATIVE Urine Phencyclidine Screen NEGATIVE NEGATIVE Urine Amphetamines Screen NEGATIVE NEGATIVE Urine Methamphetamines Screen NEGATIVE NEGATIVE Urine Benzodiazepines Screen NEGATIVE NEGATIVE Urine Cocaine Screen NEGATIVE NEGATIVE Urine Cannabinoids Screen NEGATIVE NEGATIVE Blood Gas Puncture Site R RADIAL Blood Gas Patient Temperature 36.2 Arterial Blood pH 7.47 H 7.37-7.43 Arterial Blood Partial Pressure CO2 24 L 35-45 MMHG Arterial Blood Partial Pressure O2 123 H 79-93 MMHG Arterial Blood HCO3 18 L 23-27 MMOL/L Arterial Blood Total CO2 18.5 L 21.0-31.0 MMOL/L Arterial Blood Oxygen Saturation 100 94-100 % Arterial Blood Base Excess -5.5 L -2.5-2.5 MMOL/L Neeraj Test NA Blood Gas Ventilator Setting NO Blood Gas Inspired Oxygen NA Test 05/16/20 02:00 Range/Units White Blood Count 9.0 4.3-11.0 10^3/uL Red Blood Count 3.28 L 3.80-5.11 10^6/uL Hemoglobin 10.0 L 11.5-16.0 g/dL Hematocrit 30 L 35-52 % Mean Corpuscular Volume 92 80-99 fL Mean Corpuscular Hemoglobin 31 25-34 pg Mean Corpuscular Hemoglobin Concent 33 32-36 g/dL Red Cell Distribution Width 12.7 10.0-14.5 % Platelet Count 248 130-400 10^3/uL Mean Platelet Volume 10.3 9.0-12.2 fL Immature Granulocyte % (Auto) 1 % Neutrophils (%) (Auto) 86 H 42-75 % Lymphocytes (%) (Auto) 10 L 12-44 % Monocytes (%) (Auto) 3 0-12 % Eosinophils (%) (Auto) 0 0-10 % Basophils (%) (Auto) 0 0-10 % Neutrophils # (Auto) 7.7 1.8-7.8 10^3/uL Lymphocytes # (Auto) 0.9 L 1.0-4.0 10^3/uL Monocytes # (Auto) 0.3 0.0-1.0 10^3/uL Eosinophils # (Auto) 0.0 0.0-0.3 10^3/uL Basophils # (Auto) 0.0 0.0-0.1 10^3/uL Immature Granulocyte # (Auto) 0.1 0.0-0.1 10^3/uL Sodium Level 136 135-145 MMOL/L Potassium Level 4.0 3.6-5.0 MMOL/L Chloride Level 104 98-107 MMOL/L Carbon Dioxide Level 21 21-32 MMOL/L Anion Gap 11 5-14 MMOL/L Blood Urea Nitrogen 20 H 7-18 MG/DL Creatinine 0.78 0.60-1.30 MG/DL Estimat Glomerular Filtration Rate > 60 BUN/Creatinine Ratio 26 Glucose Level 171 H 70-105 MG/DL Calcium Level 8.0 L 8.5-10.1 MG/DL Phosphorus Level 2.9 2.3-4.7 MG/DL Magnesium Level 2.1 1.6-2.4 MG/DL Salicylates Level 24.0 H 5.0-20.0 MG/DL Radiology CXR: INDICATION: Drug overdose Portable chest 6:13 PM Heart size and pulmonary vascularity are normal. Lungs are clear. There are no effusions or pneumothoraces. IMPRESSION: Negative chest Dictated by: Dictated on workstation # [id number] Dict: 05/15/20 1826 Trans: 05/15/201903 CVB [id number] Interpreted by: MARIE WATSON MD Electronically signed by: MARIE WATSON MD 05/15/201903 Head CT: EXAMINATION: CT head without contrast. TECHNIQUE: Multiple contiguous axial images were obtained through the brain without the use of intravenous contrast. All CT scans use one or more of the following dose optimizing techniques: automated exposure control, MA and/or KvP adjustment based on a patient size and exam type, or iterative reconstruction. HISTORY: Somnolence, Plavix overdose COMPARISON: CT head 06/29/2019 FINDINGS: Mild diffuse cerebral volume loss with proportional enlargement of the ventricles and sulci. No abnormal attenuation of brain parenchyma is present. No acute intracranial hemorrhage or abnormal extra-axial fluid collections are present. Calcification of the intracranial ICAs. No hyperdense vessel. The calvarium is intact. The mastoid air cells are clear. The visualized paranasal sinuses are clear. Surgical changes from bilateral cataract repair. IMPRESSION: 1. No acute intracranial abnormality. 2. Mild volume loss. Dictated by: Dictated on workstation # [id number] Physical Exam-([facility]) Physical Exam Vital Signs VS - Last 72 Hours, by Label 05/14/20 05/15/20 05/15/20 05/15/20 21:05 18:27 20:54 21:05 Temp 36.2 36.0 36.0 Pulse 82 100 87 Resp 14 16 16 B/P (MAP) 104/68 (80) 144/68 (93) 119/73 (93) Pulse Ox 96 98 96 O2 Delivery Room Air Room Air Room Air 05/15/20 05/15/20 05/15/20 05/15/20 21:11 21:15 21:30 21:45 Pulse 90 87 79 84 Resp 13 14 14 B/P (MAP) 110/40 (63) 102/71 (81) 106/60 (75) Pulse Ox 98 98 96 O2 Delivery Room Air Room Air Room Air 05/15/20 05/15/20 05/15/20 05/15/20 22:00 22:23 22:30 23:00 Temp 36.0 Pulse 75 100 74 80 Resp 16 17 19 B/P (MAP) 105/37 (59) 94/67 (76) 113/48 (69) Pulse Ox 95 99 95 96 O2 Delivery Room Air Room Air Room Air FiO2 21 05/16/20 05/16/20 05/16/20 05/16/20 00:00 00:15 01:00 01:00 Temp 36.2 Pulse 81 80 82 Resp 13 13 B/P (MAP) 118/50 (72) 118/48 (71) Pulse Ox 97 98 O2 Delivery Room Air Room Air 05/16/20 05/16/20 05/16/20 05/16/20 02:00 03:00 04:00 04:00 Temp 36.5 Pulse 82 75 77 Resp 13 16 15 B/P (MAP) 106/48 (67) 114/51 (72) 114/63 (80) Pulse Ox 97 97 97 O2 Delivery Room Air Room Air Room Air 05/16/20 05/16/20 05/16/20 05/16/20 05:00 06:00 06:41 06:46 Pulse 85 96 85 Resp 15 22 B/P (MAP) 108/48 (68) Pulse Ox 98 98 95 O2 Delivery Room Air Room Air Room Air 05/16/20 05/16/20 05/16/20 05/16/20 07:00 08:00 08:00 09:00 Pulse 81 99 92 Resp 13 13 11 B/P (MAP) 109/56 (73) 113/52 (72) 110/45 (66) Pulse Ox 96 96 97 O2 Delivery Room Air Room Air Room Air Room Air 05/16/20 05/16/20 05/16/20 10:00 10:30 11:00 Pulse 76 77 Resp 13 12 B/P (MAP) 77/38 (51) 122/53 (76) 111/52 (71) Pulse Ox 98 95 O2 Delivery Room Air Room Air Capillary Refill : Less Than 3 Seconds General Appearance: WD/WN, no apparent distress Respiratory: chest non-tender, lungs clear, normal breath sounds, no respiratory distress, no accessory muscle use Cardiovascular: regular rate, rhythm, systolic murmur (3/6) Peripheral Pulses: 2+ Radial Pulses (R), 2+ Radial Pulses (L) Gastrointestinal: normal bowel sounds, non tender, soft, no organomegaly; No guarding, No rebound Extremities: no pedal edema, no calf tenderness, normal capillary refill Neurologic/Psychiatric: spinneret person II-XII nml as tested, alert, normal mood/affect, oriented x 3 Skin: normal color, warm/dry, other (left wrist lacerations wrapped with ba ndage) Assessment/Plan Assessment/Plan Admission Status: Observation (1) Suicidal overdose Status: Acute Assessment & Plan: Long discussion with patient about what lead to suicide attempt and support system. Awaiting recommendations from [facility] evaluation. She voiced she would like to return home with outpatient therapy and SSRI. Qualifiers: Qualified Codes: T50.902A - Poisoning by unspecified drugs, medicaments and biological substances, intentional self-harm, initial encounter (2) Salicylate overdose Status: Acute Assessment & Plan: Salicylate levels minimally elevated. Asymptomatic at this time. Will repeat to trend. Qualifiers: Qualified Codes: T39.092A - Poisoning by salicylates, intentional self-harm, initial encounter (3) Generalized weakness Status: Acute Assessment & Plan: PT evaluation (4) Laceration Status: Acute Assessment & Plan: 2 superficial laceration sutured in the ED. Keep covered for 24 hr followed by routine suture care. (5) Depression Status: Acute Qualifiers: (6) HTN (hypertension) Status: Chronic (7) Age related osteoporosis Status: Chronic PATRICIA PENA MD 05/16/20 1242: Home Medications Allergies Coded Allergies: Penicillins (Verified Adverse Reaction, Unknown, itching, 06/29/19) azithromycin (Verified Adverse Reaction, Unknown, itching, 06/29/19) hydrocodone (Verified Adverse Reaction, Unknown, itching, 06/29/19) BUC-Saxwfm-Chicoq Hx Family Medical History Family History: Cardiovascular disease 19 MOTHER Colon cancer 19 MOTHER Diabetes mellitus 19 FATHER Hypertension 19 FATHER 19 MOTHER Severe allergy 19 FATHER 19 MOTHER Supervisory-Addendum Brief Verification & Attestation Participated in pt care: history, MDM, physical Personally performed: exam, history, MDM Care discussed with: Medical Student Procedures: n/a I repeated the history and exam and directed plan of care. I agree with documentation by OMNico Ernst. YOLETTE ERNST,MED STUDENT May 16, 2020 11:56 PATRICIA PENA MD May 16, 2020 12:42
[2020-05-16] MEDS ORDERED: ASCO500C17 PO (14:25)
[2020-05-16] MEDS ORDERED: ZINC220T3 PO (14:25)
[2020-05-16] MEDS ORDERED: MELA5TAB14 PO (14:25)
[2020-05-16] MEDS ORDERED: CALC166. PO (14:25)
[2020-05-16] MEDS ORDERED: RISE35TA12 PO (14:25)
--- NOTE | 2020-05-16 14:31 | Physical Therapy Evaluation ---
PT Evaluation-General Medical Diagnosis Admission Date May 15, 2020 at 20:00 Medical Diagnosis: suicide attempt/OD Onset Date: May 15, 2020 Therapy Diagnosis Therapy Diagnosis: debility Precautions Precautions/Isolations: Suicide Referral Physician: Yosvany Reason for Referral: Evaluation/Treatment Medical History Pertinent Medical History: HTN Current History EMS after son found patient Reviewed History: Yes Social History Home: Apartment Prior Prior Level of Function SCALE: Activities may be completed with or without assistive devices. 6-Kzkqzgbrug-iivpuzb completes the activity by him/herself with no assistance from a helper. 5-Set-up or Clean-up Assistance-helper sets up or cleans up; patient completes activity. [place] assists only prior to or following the activity. 4-Supervision or Touching Assistance-helper provides verbal cues and/or touching/steadying and/or contact guard assistance as patient completes activity. Assistance may be provided throughout the activity or intermittently. 3-Partial/Moderate Assistance-helper does LESS THAN HALF the effort. [place] lifts, holds or supports trunk or limbs, but provides less than half the effort. 2-Substantial/Maximal Assistance-helper does MORE THAN HALF the effort. [place] lifts or holds trunk or limbs and provides more than half the effort. 6-Jqwvzyndn-rxjpvv does ALL the effort. Patient does none of the effort to complete the activity. Or, the assistance of 2 or more helpers is required for the patient to complete the activity. If activity was not attempted, code reason: 7-Patient Refused. 9-Not Applicable-not attempted and the patient did not perform the activity before the current illness, exacerbation or injury. 10-Not Attempted due to Environmental Limitations-(lack of equipment, weather restraints, etc.). 88-Not Attempted due to Medical Conditions or Safety Concerns. Bed Mobility: 6 Transfers (B,C,W/C): 6 Gait: 6 Stairs: 6 Indoor Mobility (Ambulation): Independent Stairs: Independent Prior Devices Use: None does utilize 4WW outside PT Evaluation-Current Subjective Patient agrees to PT. Objective Patient Orientation: Normal For Age Attachments: Bowles Catheter, IV ROM/Strength ROM Lower Extremities bilateral LE WFL Strength Lower Extremities 4/5 grossly bilateral LE Integumentary/Posture Integumentary refer to nursing notes Bowel Incontinence: No Bladder Incontinence: Bowles Cath Posture WFL Neuromuscular (Tone, Coordination, Reflexes) grossly intact Sensory Vision: Wears Glasses Hearing: Functional Sensation Right Lower Extremit: Intact Sensation Left Lower Extremity: Intact Transfers Roll Left to Right (QC): 6 Sit to Lying (QC): 6 Lying to Sitting/Side of Bed(Q: 6 Sit to Stand (QC): 6 Chair/Mxy-la-Yopcm Xfer(QC): 6 Gait Does the Patient Walk?: Yes Mode of Locomotion: Walk Anticipated Mode of Locomotion: Walk Walk 10 feet (QC): 6 Walk 50 ft with 2 Turns(QC): 6 Walk 150 ft (QC): 6 Distance: 300' Gait Assistive Device: None Comments/Gait Description safe and functional with no deviation Balance Sitting Static: Normal Sitting Dynamic: Normal Standing Static: Normal Standing Dynamic: Normal Assessment/Needs 84 y.o. female, is currently at [facility] with all gross motor skills and does not require skilled therapy intervention. Rehab Potential: Fair PT Plan Treatment/Plan Treatment Plan: Discontinue PT, goals met Treatment Duration: May 16, 2020 Frequency: 1 time per week Estimated Hrs Per Day: .25 hour per day Patient and/or Family Agrees t: Yes Time/GCodes Time In: 1405 Time Out: 1415 Total Billed Treatment Time: 10 Total Billed Treatment 1 visit EVLowC 10 min MATT GOMEZ PT May 16, 2020 14:31
[2020-05-16] MEDS ORDERED: ESCI5TAB16 PO (15:23)
--- NOTE | 2020-05-16 15:31 | Discharge Summary ---
Discharge [facility] Discharge Medications New, Converted or Re-Newed RX: Transmitted to Pharmacy New Medications: Escitalopram Oxalate (Escitalopram Oxalate) 5 Mg Tablet 5 MG PO DAILY, #30 TAB 0 Refills Continued Medications: Ascorbic Acid (Vitamin C) 500 Mg Capsule 500 MG PO DAILY, CAP Atorvastatin Calcium (Atorvastatin Calcium) 40 Mg Tablet 40 MG PO HS, TAB Calcium/Vits D3/C/K2/Minerals (Bone Essentials Capsule) 166.75 Mg Capsule 166.75 MG PO DAILY, CAP Cholecalciferol (Vitamin D3) (Vitamin D3) 125 Mcg Tablet 125 MCG PO DAILY, TAB Clopidogrel Bisulfate (Clopidogrel) 75 Mg Tablet 75 MG PO DAILY, TAB Lisinopril (Lisinopril) 5 Mg Tablet 5 MG PO BID, TAB LAST FILLED 12-02-2019 #180/90 DAY SUPPLY Melatonin (Melatonin) 5 Mg Tablet 5-10 MG PO HS PRN for SLEEP, TAB Multivitamin (Multivitamin) 1 Each Tablet 1 EACH PO DAILY, TAB Risedronate Sodium (Risedronate Sodium) 35 Mg Tablet 35 MG PO MON, TAB Trazodone HCl (Trazodone HCl) 50 Mg Tablet 50 MG PO HS, TAB Zinc Sulfate (Zinc) 50 Mg Tablet 50 MG PO DAILY, TAB Patient Instructions Goal/Follow Up Appt: Follow up with Behavioral Health tomorrow as scheduled. Follow up with Dr. Salvador on 05/21 at 1:20 pm. Patient Instructions: If you have a blood pressure cuff at home, please check your blood pressure daily and restart lisinopril when blood pressure is above 140/90. If you do not have a blood pressure cuff, you can get blood pressure checked at [facility] without an appointment. Do not take lisinopril if you feel dizzy or lightheaded. Activity & Diet Discharge Diet: Cardiac Diet Activity as Tolerated: Yes PATRICIA PENA MD May 16, 2020 15:31
--- NOTE | 2020-05-16 15:45 | Discharge Summary ---
Discharge Summary Hospital Course Problems/Diagnosis: (1) Suicidal overdose Status: Acute Assessment & Plan: Long discussion with patient about what lead to suicide attempt and support system. Awaiting recommendations from [facility] evaluation. She voiced she would like to return home with outpatient therapy and SSRI. Qualifiers: Qualified Codes: T50.902A - Poisoning by unspecified drugs, medicaments and biological substances, intentional self-harm, initial encounter (2) Salicylate overdose Status: Acute Assessment & Plan: Salicylate levels minimally elevated. Asymptomatic at this time. Will repeat to trend. Qualifiers: Qualified Codes: T39.092A - Poisoning by salicylates, intentional self-harm, initial encounter (3) Generalized weakness Status: Acute Assessment & Plan: PT evaluation (4) Laceration Status: Acute Assessment & Plan: 2 superficial laceration sutured in the ED. Keep covered for 24 hr followed by routine suture care. (5) Depression Status: Acute Qualifiers: (6) HTN (hypertension) Status: Chronic (7) Age related osteoporosis Status: Chronic Hospital Course Date of Admission: May 15, 2020 at 20:00 Admission Diagnosis : Family Physician/Provider: Cosme Salvador MD Date of Discharge: 05/16/20 Discharge Diagnosis: See problem list Hospital Course: Pt admitted and monitored overnight, salicylate level decreasing at d/c, screened by [facility] and njjori for d/c, set up for therapy day after d/c. Labs and Pending Lab Test: Laboratory Tests 05/15/20 17:50: White Blood Count 12.4H, Red Blood Count 3.63L, Hemoglobin 10.9L, Hematocrit 34L , Mean Corpuscular Volume 93, Mean Corpuscular Hemoglobin 30, Mean Corpuscular Hemoglobin Concent 32, Red Cell Distribution Width 12.7, Platelet Count 238, Mean Platelet Volume 9.9, Immature Granulocyte % (Auto) 1, Neutrophils (%) (Auto) 87H, Lymphocytes (%) (Auto) 8L, Monocytes (%) (Auto) 4, Eosinophils (%) (Auto) 0, Basophils (%) (Auto) 0, Neutrophils # (Auto) 10.9H, Lymphocytes # (Auto) 0.9L, Monocytes # (Auto) 0.4, Eosinophils # (Auto) 0.0, Basophils # (Auto) 0.1, Immature Granulocyte # (Auto) 0.1, Neutrophils % (Manual) 89, Lymphocytes % (Manual) 7, Monocytes % (Manual) 3, Band Neutrophils 1, Blood Morphology Comment NORMAL, Prothrombin Time 14.5, INR Comment 1.1, Activated Partial Thromboplast Time 25, Sodium Level 134L, Potassium Level 4.0, Chloride Level 104, Carbon Dioxide Level 19L, Anion Gap 11, Blood Urea Nitrogen 18, Creatinine 0.74, Estimat Glomerular Filtration Rate > 60, BUN/Creatinine Ratio 24, Glucose Level 177H, Calcium Level 8.5, Corrected Calcium 8.9, Total Bilirubin 0.3, Aspartate Amino Transf (AST/SGOT) 27, Alanine Aminotransferase (ALT/SGPT) 25, Alkaline Phosphatase 37L, Total Protein 5.5L, Albumin 3.5, Salicylates Level 24.8H, Acetaminophen Level < 10L, Serum Alcohol < 10 05/15/20 21:24: Sodium Level 136, Potassium Level 4.8, Chloride Level 106, Carbon Dioxide Level 18L, Anion Gap 12, Blood Urea Nitrogen 19H, Creatinine 0.78, Estimat Glomerular Filtration Rate > 60, BUN/Creatinine Ratio 24, Glucose Level 182H, Calcium Level 8.4L, Corrected Calcium 8.8, Total Bilirubin 0.3, Aspartate Amino Transf (AST/SGOT) 22, Alanine Aminotransferase (ALT/SGPT) 26, Alkaline Phosphatase 37L, Total Protein 5.4L, Albumin 3.5, Salicylates Level 26.5H 05/15/20 21:40: Urine Color YELLOW, Urine Clarity CLEAR, Urine pH 5.0, Urine Specific [place] >=1.030, Urine Protein TRACEH, Urine Glucose (UA) NEGATIVE, Urine Ketones NEGATIVE, Urine Nitrite NEGATIVE, Urine Bilirubin NEGATIVE, Urine Urobilinogen 0.2, Urine Leukocyte Esterase NEGATIVE, Urine RBC (Auto) NEGATIVE, Urine RBC NONE, Urine WBC NONE, Urine Squamous Epithelial Cells NONE, Urine Crystals NONE, Urine Amorphous Sediment LARGE SUNSHINE URATESH, Urine Bacteria NEGATIVE, Urine Casts NONE, Urine Mucus NEGATIVE, Urine Culture Indicated NO, Urine Opiates Screen NEGATIVE, Urine Oxycodone Screen NEGATIVE, Urine Methadone Screen NEGATIVE, Urine Propoxyphene Screen NEGATIVE, Urine Barbiturates Screen NEGATIVE, Ur Tricyclic Antidepressants Screen NEGATIVE, Urine Phencyclidine Screen NEGATIVE, Urine Amphetamines Screen NEGATIVE, Urine Methamphetamines Screen NEGATIVE, Urine Benzodiazepines Screen NEGATIVE, Urine Cocaine Screen NEGATIVE, Urine Cannabinoids Screen NEGATIVE 05/15/20 22:20: Blood Gas Puncture Site R RADIAL, Blood Gas Patient Temperature 36.2, Arterial Blood pH 7.47H, Arterial Blood Partial Pressure CO2 24L, Arterial Blood Partial Pressure O2 123H, Arterial Blood HCO3 18L, Arterial Blood Total CO2 18.5L, Arterial Blood Oxygen Saturation 100, Arterial Blood Base Excess -5.5L, Neeraj Test NA, Blood Gas Ventilator Setting NO, Blood Gas Inspired Oxygen NA 05/16/20 02:00: White Blood Count 9.0, Red Blood Count 3.28L, Hemoglobin 10.0L, Hematocrit 30L, Mean Corpuscular Volume 92, Mean Corpuscular Hemoglobin 31, Mean Corpuscular Hemoglobin Concent 33, Red Cell Distribution Width 12.7, Platelet Count 248, Mean Platelet Volume 10.3, Immature Granulocyte % (Auto) 1, Neutrophils (%) (Auto) 86H, Lymphocytes (%) (Auto) 10L, Monocytes (%) (Auto) 3, Eosinophils (%) (Auto) 0, Basophils (%) (Auto) 0, Neutrophils # (Auto) 7.7, Lymphocytes # (Auto) 0.9L, Monocytes # (Auto) 0.3, Eosinophils # (Auto) 0.0, Basophils # (Auto) 0.0, Immature Granulocyte # (Auto) 0.1, Sodium Level 136, Potassium Level 4.0, Chlo ride Level 104, Carbon Dioxide Level 21, Anion Gap 11, Blood Urea Nitrogen 20H, Creatinine 0.78, Estimat Glomerular Filtration Rate > 60, BUN/Creatinine Ratio 26, Glucose Level 171H, Calcium Level 8.0L, Phosphorus Level 2.9, Magnesium Level 2.1, Salicylates Level 24.0H 05/16/20 11:56: Salicylates Level 14.9 Home Meds Active Escitalopram Oxalate 5 Mg Tablet 5 Mg PO DAILY Reported Bone Essentials Capsule (Calcium/Vits D3/C/K2/Minerals) 166.75 Mg Capsule 166.75 Mg PO DAILY Melatonin 5 Mg Tablet 5-10 Mg PO HS PRN Zinc (Zinc Sulfate) 50 Mg Tablet 50 Mg PO DAILY Vitamin C (Ascorbic Acid) 500 Mg Capsule 500 Mg PO DAILY Risedronate Sodium 35 Mg Tablet 35 Mg PO MON Vitamin D3 (Cholecalciferol (Vitamin D3)) 125 Mcg Tablet 125 Mcg PO DAILY Multivitamin 1 Each Tablet 1 Each PO DAILY Trazodone HCl 50 Mg Tablet 50 Mg PO HS Clopidogrel (Clopidogrel Bisulfate) 75 Mg Tablet 75 Mg PO DAILY Atorvastatin Calcium 40 Mg Tablet 40 Mg PO HS Lisinopril 5 Mg Tablet 5 Mg PO BID LAST FILLED 12-02-2019 #180/90 DAY SUPPLY Assessment/Pt DC Instructions Follow up with Behavioral Health and Dr. Salvador Discharge Physical Examination Allergies: Coded Allergies: Penicillins (Verified Adverse Reaction, Unknown, itching, 06/29/19) azithromycin (Verified Adverse Reaction, Unknown, itching, 06/29/19) hydrocodone (Verified Adverse Reaction, Unknown, itching, 06/29/19) PATRICIA PENA MD May 16, 2020 15:45
== END 2020-05-16 16:35 | disposition home or self-care (01) ==
LOC: EDUNIT# 17:46 → ER 17:47 → ICU 20:00
PROVIDERS: ADMIT Family Medicine; ATTEND Family Medicine
DX: T39.092A Poisoning by salicylates, intentional self-harm, initial encounter (principal); R53.1 Weakness; F32.9 Major depressive disorder, single episode, unspecified; I10 Essential (primary) hypertension; M81.0 Age-related osteoporosis without current pathological fracture; E78.00 Pure hypercholesterolemia, unspecified; G62.9 Polyneuropathy, unspecified; I65.23 Occlusion and stenosis of bilateral carotid arteries; T14.8XXA Other injury of unspecified body region, initial encounter; Z79.899 Other long term (current) drug therapy; Z88.1 Allergy status to other antibiotic agents; Z88.0 Allergy status to penicillin; Z88.5 Allergy status to narcotic agent; Z90.710 Acquired absence of both cervix and uterus; Z80.9 Family history of malignant neoplasm, unspecified
CPT/HCPCS: 12001; 12031; 70450; 71045 ×2; 80048; 80053; 80306; 81000; 82805; 83735; 84100; 85007; 85025; 85027; 85610; 85730; 86850; 86900; 86901; 93005; 97161; 99285; G0378; G0480 ×4; 36415; 80320; 80329; 90715